=== PATIENT | male | born 1945 | race Caucasian/White ===

== ENCOUNTER 2023-06-28 07:46 | Day surgery (SDC) | payer MEDICARE, OTHER, SELFPAY ==
[2023-06-22 13:04] VITALS: BMI 24.9
[2023-06-28] VITALS (14 sets, daily range): BP systolic 135–171; BP diastolic 84–147; BMI 26.3
[2023-06-28] MEDS: LOW STRENGTH ASPIRIN 81 MG PO (08:40)
[2023-06-28] MEDS: NSS 222 ML IV (08:57)
[2023-06-28 09:06] LABS: Glucose - Point of Care 217 mg/dl (70-99)
--- NOTE | 2023-06-28 10:39 | ITS.CL.CATH ---
[facility] - Catheterization
Cardiac Catheterization
Procedure Report:
CARDIAC CATHETERIZATION REPORT
Date of Procedure: 06/28/2023
Referring: Emmanuel Wong M.D., OLAMIDE Nascimento
INDICATION: Dyspnea on exertion, abnormal stress test.
PROCEDURE:
1. Left heart catheterization.
2. Coronary angiography.
3. Aortography.
ACCESS:
6 [place] right radial artery.
CATHETERS:
1. 5 [place] JR4.
2. 5 [place] JL 3.5.
3. 5 [place] straight pigtail.
HEMODYNAMIC DATA
Weight (kg): 73.9
AO (s/d/x, mmHg): 138/85/107
LV (s/x mmHg): 138/12
LEFT VENTRICULOGRAPHY: Not performed.
AORTOGRAPHY: Performed in an KYLE projection. The aortic root, ascending aorta, aortic arch and descending aorta are normal size without evidence of dissection. Calcific atherosclerosis is visible in the aortic arch. There is mild aortic valve
regurgitation.
CORONARY ANGIOGRAPHY
Dominance: Right.
Left Main: Normal size, trifurcating vessel. There is no coronary artery disease.
LAD: Normal size vessel giving rise to 1 significant diagonal. The vessel is densely calcified throughout its entire proximal and mid section. There are minor luminal irregularities throughout. A patent stent is visible in the mid vessel after
the origin of the diagonal.
Ramus: Normal size vessel supplying a moderate part of the anterolateral wall. A patent stent is present in the ostium. There is a 40% lesion in the vessel after the stented segment.
Circumflex: Large size, nondominant vessel giving rise to 2 obtuse marginals. There are luminal irregularities throughout.
RCA: Normal size, dominant vessel. There is a 30% lesion in the proximal vessel.
INTERVENTION(S)
None.
Closure Device: Vascular band.
Radiation (mGy): 333.73
DAP (cm2.Gy): 29.5716
Fluoroscopy time (minutes): 3.6
Sedation time (minutes): 33
CONCLUSIONS
1. Right dominant circulation with densely calcified LAD with luminal irregularities throughout, a patent stent in the mid LAD, a patent stent in the ostium of the ramus intermedius with a 40% lesion after the stented segment and a 30% lesion in
the proximal RCA.
2. Normal filling pressures (LVEDP = 12 mmHg at 73.9 kg).
3. Normal sized aortic root, ascending aorta, aortic arch and descending aorta. Calcified aortic plaquing is visible at the apex of the aortic arch.
4. Mild aortic valve regurgitation.
RECOMMENDATIONS:
1. Expectant management after cardiac catheterization via right radial approach.
2. Limited weight bearing on the right wrist for one week.
3. No obvious culprit for dyspnea on exertion identified.
4. Stable for outpatient follow-up.
Copy to: Emmanuel Wong M.D., OLAMIDE Nascimento, Vale Martinez M.D.
Bill Agee DO, FACC, FACP
[2023-06-28 11:01] LABS: Glucose - Point of Care 147 mg/dl (70-99)
== END 2023-06-28 13:40 | disposition home or self-care (01) ==
LOC: CATH 07:46
PROVIDERS: ATTENDING PHYSICIAN Internal Medicine Cardiovascular Disease; FAMILY PHYSICIAN Family Medicine; OTHER PHYSICIAN Internal Medicine Cardiovascular Disease
DX: I25.10 Atherosclerotic heart disease of native coronary artery without angina pectoris (principal); R06.02 Shortness of breath; R94.39 Abnormal result of other cardiovascular function study; I48.21 Permanent atrial fibrillation; I11.0 Hypertensive heart disease with heart failure; I50.20 Unspecified systolic (congestive) heart failure; I25.5 Ischemic cardiomyopathy; I70.0 Atherosclerosis of aorta; I35.1 Nonrheumatic aortic (valve) insufficiency; E78.00 Pure hypercholesterolemia, unspecified; Z95.5 Presence of coronary angioplasty implant and graft; I25.2 Old myocardial infarction; E11.9 Type 2 diabetes mellitus without complications; K21.9 Gastro-esophageal reflux disease without esophagitis; Z86.711 Personal history of pulmonary embolism; Z79.82 Long term (current) use of aspirin; Z79.84 Long term (current) use of oral hypoglycemic drugs; Z79.85 Long-term (current) use of injectable non-insulin antidiabetic drugs; Z79.01 Long term (current) use of anticoagulants
CPT/HCPCS: C1894; 82962; 93458; 93567; Q9967

== ENCOUNTER → 2024-02-06 12:51 | Outpatient (REF) | payer MEDICARE, OTHER, SELFPAY | LOC: RCS 12:51 | PROVIDERS: ATTENDING PHYSICIAN Internal Medicine Cardiovascular Disease; FAMILY PHYSICIAN Family Medicine | DX: R06.02 Shortness of breath (principal) | CPT/HCPCS: 93225; 93226 ==

== ENCOUNTER → 2024-02-08 09:05 | Outpatient (REF) | payer MEDICARE, OTHER, SELFPAY ==
[2024-02-08 12:27] LABS: Blood Urea Nitrogen 26 mg/dl (9-20); Calcium 9.7 mg/dl (8.4-10.2); Carbon Dioxide 22 mmol/L (22-30); Chloride 97 mmol/L (98-107); Glucose 247 mg/dl (70-99); Sodium 138 mmol/L (135-145); eGFR > 60.00
== END ==
LOC: HWLAB 09:05
PROVIDERS: ATTENDING PHYSICIAN Internal Medicine Cardiovascular Disease; FAMILY PHYSICIAN Family Medicine
DX: R06.02 Shortness of breath (principal); I42.9 Cardiomyopathy, unspecified
CPT/HCPCS: 36415; 80048

== ENCOUNTER → 2024-02-28 13:58 | Outpatient (REF) | payer MEDICARE, OTHER, SELFPAY | LOC: HWRCS 13:58 | PROVIDERS: ATTENDING PHYSICIAN Nurse Practitioner Gerontology; FAMILY PHYSICIAN Family Medicine | DX: R06.02 Shortness of breath (principal); I34.0 Nonrheumatic mitral (valve) insufficiency; I25.10 Atherosclerotic heart disease of native coronary artery without angina pectoris | CPT/HCPCS: 93306 ==

== ENCOUNTER 2024-04-01 15:55 | Inpatient (IN) | payer MEDICARE, OTHER, SELFPAY ==
[2024-04-01] VITALS (12 sets, daily range): BP systolic 119–166; BP diastolic 71–130; BMI 20.4; BMI 19.4
--- NOTE | 2024-04-01 09:47 | ED.CVA ---
History of Present Illness
General
Chief Complaint: CVA/TIA Symptoms
Time Seen by Provider: 04/01/24 09:39
Onset of Stroke Symptoms
Onset of symptoms known: Yes
Date of onset of symptoms: 04/01/24
Time of onset of symptoms: 07:00
History of Present Illness
History of Present Illness:
78-year-old male with history of peripheral arterial disease, diabetes, coronary artery disease, and paroxysmal atrial fibrillation on Xarelto presents to the emergency department for evaluation of vision loss upon awakening today. [place] as seen
female left eye however gradually it is improved now he cannot see out of his left peripheral field. He does report mild left temporal discomfort as well as will posterior headache for the past 3 days as well. is concerned that his gait has
been very unsteady and he has been profoundly weak, also notes that the patient has not been eating or drinking much and has been very inactive for the past several days. Patient denies any chest pain or shortness of breath but is scheduled for
cardiac catheterization on
Past History
Past History
ED Past Medical History: GERD, [place], Other (ETOH, Gastritis, H-Plylori, DVT, spinal stimulator) and Other (PAF, PE DVT, Carmen filter, alcohol abuse)
ED Past Surgical History: Other ([place] filter,)
Social History
Tobacco: Non-smoker
Alcohol: Binge drinker
Drug: None
Personal:
Living: with family
Employment: Employed
Family History
Family History: Other
Review of Systems
Review of Systems
Allergies reviewed?: Yes
All Other Systems: ROS reviewed and negative except as documented in HPI and ROS
Phy Exam
Physical Exam
Physical Exam:
GEN: Well appearing, NAD, WDWN
HEENT: Oral mucosa moist, no scleral icterus, no nasal congestion
Cardiac: Regular rate
Lung: No respiratory distress, no tachypnea
MSK: No gross deformity or injuries
Skin: Good color, no pallor or jaundice, no rashes
Neuro: AO x3; CN II-XII grossly intact. BUE strength 5/5 in all harris, sensation intact and symmetric. BLE strength 5/5 in all harris, sensation intact and symmetric. Loss of left temporal visual field, other visual harris intact, afferent
pupillary defect noted on the left
Psych: Calm, cooperative
Course
Orders/Labs/Results
Orders:
Orders
04/01/24 09:46
CT Head & Neck Angio W/wo IV Urgent
Comment:
Reason For Exam: L vision loss
04/01/24 09:47
Electrocardiogram (*1) Urgent
Reason for Study: TIA/Stroke
EKG- Treatment ONCE
04/01/24 09:57
CRP [C-Reactive Protein] Urgent
Complete Blood Count/With Diff Urgent
Comprehensive Metabolic Panel Urgent
Erythrocyte Sed Rate Urgent
Comment: ADD ON
Ferritin Urgent
Comment: ADD ON
Folate Urgent
Comment: ADD ON
TSH Reflex To Free T4 Urgent
Comment: ADD ON
Vitamin B12 Urgent
Comment: ADD ON
04/01/24 12:04
Consult Neurology [NEUROLOGY CONSULT] Urgent
Consulting Provider: Xavier Gaston
Was physician already notified: Yes
04/01/24 12:38
Prochlorperazine [Compazine] 10 mg PO NOW ONE
04/01/24 12:53
Rizatriptan Orally Disintegrat [[facility] (Orally Disintegrating)] 10 mg PO ONCE ONE
04/01/24 13:00
Add On- LAB Routine
Comments:: Please add to today's labs or draw as routine
Tests Added?: TSH reflex, Ferritin, Folate, Vit. B12, ESR
04/01/24 13:38
Prednisone [Deltasone] 60 mg PO NOW STA
Abnormal Lab Results
04/01/24 04/01/24
09:57 10:01
RBC 4.59 L 10^6/uL
(4.70-6.10)
MCV 95.9 H fL
(80.0-94.0)
MCHC 30.9 L g/dL
(33.0-37.0)
Plt Count 574 H 10^3/uL
(130-400)
Abs Immat Gran (auto) 0.1 H 10^3/uL
(0-0.05)
Absolute Monos (auto) 0.7 H 10^3/uL
(0.1-0.6)
Immature Gran % 0.7 H %
(0-0.5)
Lymphocytes % 17.2 L %
(20.5-51.1)
Monocytes % 10.4 H %
(1.7-9.3)
ESR 66 H mm/hour
(0-20)
Carbon Dioxide 15 L mmol/L
(22-30)
Creatinine 0.6 L mg/dL
(0.7-1.3)
Glucose 180 H mg/dl
(70-99)
C-Reactive Protein 184.20 H mg/L
(0.0-10.00)
Albumin 3.4 L g/dl
(3.5-5.0)
POC Glucose 169 H mg/dl
(70-99)
04/01/24 09:57
04/01/24 09:57
Vital Signs
Initial and Last Documented VS:
Initial Vital Signs
Pulse Resp BP Pulse Ox
113 18 123/72 100
04/01/24 09:32 04/01/24 09:32 04/01/24 09:32 04/01/24 09:32
Last Documented Vital Signs
Pulse Resp BP Pulse Ox
118 17 119/86 100
04/01/24 12:45 04/01/24 12:45 04/01/24 12:00 04/01/24 09:42
MDM/Problems Addressed
MDM/Problems Addressed:
At this time after initial workup I suspect this may be a potential giant cell arteritis presentation however cannot discount the possibility of a CVA versus central retinal artery occlusion. Neuro evaluated the patient and there is consideration
for atypical migraine as well. Given the patient's numerous risk factors particular vascular disease and atrial fibrillation we will admit the patient for further CVA workup, I will empirically start the patient on high-dose prednisone for
potential giant cell arteritis and he will need further follow-up with a surgical specially for biopsy
*Critical Care Note
Total Time (30-74mins, 75-104mins- exclusive of procedures): Not Applicable
ED Attending Note
-
Portions of this chart may have been created with voice recognition software.� Occasional wrong word or��sound alike� substitutions may have occurred due to the inherent limitations of voice recognition software.
Discharge Plan
Departure
Patient Disposition: Admit
Date of Disposition: 04/01/24
Time of Disposition: 13:34
Admit to: Med/Surg
Presentation/result/management discussed w/ accepting MD/DO: Hospitalist
Discharge Problem:
Vision loss, left eye
Prescriptions:
No Action
lorazepam 0.5 MG tablet
0.5 mg PO BID
Patient Comments:
04/01/24: Filled #60 tablets/30 day supply on 02/22/24 at [facility]
cyanocobalamin (vitamin B-12) 1,000 MCG tablet
500 mcg PO DAILY
atorvastatin 40 MG tablet
40 mg PO QPM
spironolactone 25 MG tablet
25 mg PO DAILY
metoprolol succinate 25 MG tablet extended release 24 hr
25 mg PO BID
glipizide 10 mg Tablet
10 mg PO BID@0800,1700
aspirin 81 mg Tablet,Chewable
81 mg PO DAILY
duloxetine [Cymbalta] 20 mg Capsule,Delayed Release(Dr/Ec)
20 mg PO QPM
Jardiance 25 mg Tablet
25 mg PO DAILY
Trulicity 0.75 mg/0.5 mL Pen Injector
0.75 mg SC LEIVA
Xarelto 20 mg tablet
20 mg PO QPM
Referrals:
Jose Monae MD [Family Provider] -
Interventions
Interventions:
*Risk Screen - Suicide Last Done: 04/01/24 09:32
*General Assessment Last Done: 04/01/24 09:32
*Neglect/Abuse Screening Last Done: 04/01/24 09:32
ED- Fall Risk Assessment Last Done: 04/01/24 09:42
*ED COVID-19 Vaccine History Last Done: 04/01/24 09:32
ED- Pulmonary Assessment Last Done: 04/01/24 09:42
ED- Neurological Assessment Last Done: 04/01/24 10:05
ED- Cardiac Assessment Last Done: 04/01/24 09:42
ED Swallowing Screen Last Done: 04/01/24 11:52
Discharge Date and Time
Print Language: AZERI
[2024-04-01 10:07] LABS: Glucose - Point of Care 169 mg/dl (70-99)
[2024-04-01 10:14] LABS: % Basophils 0.3 % (0-2); % Eosinophils 0.7 % (0-6); % Immature Granulocytes 0.7 % (0-0.5); % Lymphocytes 17.2 % (20.5-51.1); % Monocytes 10.4 % (1.7-9.3); % Neutrophils 70.7 % (42.2-75.2); Absolute Eosinophils 0.1 10^3/uL (0-0.7); Absolute Immature Granulocytes 0.1 10^3/uL (0-0.05); Absolute Lymphocytes 1.2 10^3/uL (1.2-3.4); Absolute Monocytes 0.7 10^3/uL (0.1-0.6); Absolute Neutrophils 4.8 10^3/uL (1.4-6.5); Hemoglobin 13.6 g/dL (13.0-18.0); Mean Corp Hgb Conc. 30.9 g/dL (33.0-37.0); Mean Corpuscular Hgb 29.6 pg (27.0-31.0); Mean Corpuscular Volume 95.9 fL (80.0-94.0); Mean Platelet Volume 9.4 fL (7.4-10.4); Nucleated Red Blood Cells % 0 % (-); Platelet Count 574 10^3/uL (130-400); Red Blood Cell Count 4.59 10^6/uL (4.70-6.10); Red Cell Dist. Width 13.4 % (11.5-14.5); White Blood Cell Count 6.8 10^3/uL (4.8-10.8)
[2024-04-01 10:51] LABS: ALT (SGPT) 22 U/L (0-50); AST (SGOT) 30 U/L (17-59); Albumin 3.4 g/dl (3.5-5.0); Alkaline Phosphatase 113 U/L (38-126); Blood Urea Nitrogen 19 mg/dl (9-20); Calcium 9.3 mg/dl (8.4-10.2); Carbon Dioxide 15 mmol/L (22-30); Chloride 100 mmol/L (98-107); Estimated Creatinine Clearance 86 ml/min; Glucose 180 mg/dl (70-99); Potassium 4.5 mmol/L (3.5-5.1); Sodium 138 mmol/L (135-145); Total Bilirubin 0.5 mg/dl (0.2-1.3); Total Protein 6.9 g/dl (6.3-8.2); eGFR > 60.00
--- NOTE | 2024-04-01 12:34 | CON.NEURO4 ---
Addendum entered and electronically signed by Xavier Gaston MD 04/01/24 16:15:
Studies reviewed.
I have personally examined the patient. I reviewed and agree with the CUT OFF SAW SET UP OPERATOR's Note.
My addenda:
Awake, alert, interactive. No acute distress.
Speech intact.
Follows 2-step requests w/ mild difficulty. No tremor.
Extra-ocular movements grossly intact. Questionable APD on the left
Facial movements full and symmetric. Hearing intact to normal conversational volume.
Normal UE movements bilaterally.
Neck: full ROM.
Chest: no dyspnea
Heart: no JVD
Ext: (-) Clubbing, (-) Cyanosis, (-) Edema
IMPRESSIONS/RECOMMENDATIONS:
Abrupt onset of left eye visual loss which is circumferential and not present on contralateral side
Differential diagnosis is broad and includes migraine with aura, central retinal artery occlusion (less likely based on pattern of visual loss), central right occipital acute ischemic stroke, and temporal arteritis based on the patient's markedly
elevated CRP and elevated ESR
Provide rizatriptan and prochlorperazine due to the patient's recurrent headache
Advance the patient's duloxetine dosing from 20 mg to 30 mg due to recurrent headaches as migraine prevention medication
Okay to continuing prednisone 60 mg daily in attempts to reduce possible giant cell arteritis
Agree with vascular surgery consultation for assistance with temporal artery biopsy
Continue atorvastatin
MRI imaging of the brain due to the patient's prior history of atrial fibrillation as well as diabetes
Provide thiamine to avoid possible alcohol withdrawal
D/W patient / family / nursing
All questions answered.
Will continue to follow patient.
Original Note:
Documented by User: Meseret Siddiqi NP 04/01/24 15:52
Consultation - Neurology 4
-
CONSULTING PHYSICIAN: Xavier Gaston MD
REFERRING PHYSICIAN: LEIGHA/Poli Telles PA-C
DICTATED BY: OLAMIDE Coronel
DATE/TIME OF REQUEST: 04/01/24
DATE/TIME OF CONSULTATION: 04/01/24
Reason for Consultation: Left eye vision loss
History of Present Illness:
This is a 78-year-old right-handed male who has presented to the hospital with report of left eye vision loss. Patient reports having a posterior headache starting yesterday morning that is persistent today. Otherwise, he was in his usual state
last evening when he went to bed. He woke up this morning and gradually noticed that his left eye vision was absent peripherally, prompting him to come to the ER for evaluation. CT head and CTA head/neck demonstrate a chronic left cerebellar infarct
but no acute abnormalities. Patient notes that his vision seems to have improved slightly in his left eye but he still mostly has only central vision. He notes seeing an irregular 'snowflake' image in his right eye vision at times but denies any
overt vision loss in the right eye. He also notes mild left temporal discomfort and left eye irritation/feeling like dust is in his eye. He denies any dizziness, speech/swallow difficulty, chest pain, and palpitations. He notes nausea yesterday and
photophobia today but denies phonophobia and vomiting. He also reports chronic balance issues which he attributes to his diabetic neuropathy, his BLE have severely decreased sensation. At baseline he has headaches 4-5 days of the week,
intermittently associated with seeing jagged lines in his vision. He is taking Xarelto for Afib and aspirin 81mg daily for cardiac purposes and denies missing any doses. He had bilateral cataract extractions with lens implants by Dr. Gibbs and
notes that he does not need glasses or contacts at baseline. His last ophthalmology appt was 1.5 years ago. He also notes ongoing issues with dyspnea on exertion and is scheduled to have a cardiac cath on 04/04/24. NIHSS is a 3 on Neurology's
evaluation for bilateral upper and lower visual field loss in the left eye only and slight left eye ptosis. He is not a candidate for TNK/IAT due to low NIHSS, unclear diagnosis. CRP is notably elevated at184 and ESR is 66. Patient denies any jaw
discomfort.
Past Medical History: Afib (Xarelto), TIA 2020 expressive aphasia, hypercoagulable prothrombin gene, PE, DVT, CAD, HFrEF, HLD, NSTEMI, NIDDM, diabetic neuropathy, PAD, GERD, H. pylori, former alcohol abuse, anxiety, depression, unintentional
weight loss, gait dysfunction, bladder neoplasm
Surgical History: Carmen filter, b/l cataract removal and ocular lens implants, spinal stimulator (no longer functioning), cardiac cath, LAD stent
Family History: Father- TIA.
Social History: Former alcohol abuse, stopped drinking September 2023, daily marijuana gummy, denies tobacco.
Allergies: Cephalosporins, Lovenox, heparin, penicillins, venom-honey bee.
Home Medications: See below.
Review of Symptoms:
Patient denies any fever, headache, chest pain, shortness of breath, GI or symptoms.
�Per the HPI.�All systems are reviewed negative except above.
Physical Exam:
The patient is afebrile, abdomen is nondistended, breathing is unlabored, skin is warm and dry, no edema.
NIH Stroke Scale:
I performed the NIH stroke scale on the patient on 04/01/24 at 1245. The patient scored 3 points on the NIH stroke scale assessment, which were assigned as follows: See below.
Neurologic Examination:
The patient is awake, alert and oriented x 3, poor historian. He is able to follow commands and answer questions appropriately. There is no aphasia or dysarthria. On cranial nerve assessment, pupils are 3 mm bilateral, there is a left eye APD.
Visual melgar are absent in the left eye. Extraocular movements are intact. Facial sensations are intact and bilaterally symmetrical, there is a slight left ptosis. Hearing is diminished bilaterally to normal conversation volume. Tongue palate and
uvula are midline. Sternocleidomastoid strengths are full bilaterally. Motor strengths are 5/5 bilateral upper and lower extremities on medical research [place] scale. There is no drift or involuntary movement noted. Babinski is absent bilaterally.
Sensations of touch is diminished in BLE. There was no extinction noted on double simultaneous stimulation. Coordination is intact by finger to nose bilaterally.
Lab Results: See below.
Neuro Imaging:
1. CT Head 04/01/24: No interval change compared to the prior study. Redemonstration of mild cerebral atrophy and small chronic lacunar infarct within the LEFT cerebellar hemisphere.
2. CTA Head/Neck 04/01/24: No large vessel occlusions or dissections appreciated. Moderate calcified plaque within both carotid bulbs and proximal ICAs causing less than 50% luminal narrowing bilaterally. No acute intracranial abnormality. Couple of
lacunar infarcts, described above.
Differentials for the patient's presentation include:
1. Migraine with aura possibly contributing to symptoms.
2. Posterior ischemic stroke possibly contributing to symptoms given left eye APD and slight ptosis. CRAO possible.
3. Elevated CRP and ESR cannot exclude temporal arteritis contributing to symptoms.
3. CT head demonstrates a small chronic left cerebellar infarct.
4. Afib (Xarelto).
Patient has the following risk factors for their symptoms: Hx headaches with aura, elevated CRP/ESR, chronic left cerebellar infarct, Afib.
IV Tenecteplase/IAT candidacy: Not a candidate due to unclear diagnosis, outside of time window due to wake-up symptoms, no LVO, last dose of Xarelto within 24 hours.
Recommendations:
-Continue home Xarelto (once cleared by Vascular surgery after temporal artery biopsy) and aspirin.
-Provide prochlorperazine 10mg and rizatriptan 10mg x1 for headache relief.
-MRI brain noncontrast pending.
-Goal normotension.
-Vascular surgery evaluation.
-Checking blood work for metabolic abnormalities.
-LDL goal <70 due to old stroke. Lipid panel pending. Continue home atorvastatin 40mg daily.
-Goal normoglycemia, hb1c is pending.
-NIHSS and neurological checks per unit guidelines.
-Provide patient with a stroke education packet.
-PT/OT/ST evaluations.
-DVT prophylaxis with OAC.
-Will follow pending results.
Discussed patient care with: Dr. Gaston, the patient
Vital Signs and Labs
-
Vital Signs and Labs:
Vital Signs
Pulse Resp BP Pulse Ox
118 17 119/86 100
04/01/24 12:45 04/01/24 12:45 04/01/24 12:00 04/01/24 09:42
Lab Results
04/01/24 09:57
04/01/24 09:57
Sodium 138 mmol/L (135-145) 04/01/24 09:57
Potassium 4.5 mmol/L (3.5-5.1) 04/01/24 09:57
BUN 19 mg/dl (9-20) 04/01/24 09:57
Glucose 180 mg/dl (70-99) H 04/01/24 09:57
Calcium 9.3 mg/dl (8.4-10.2) 04/01/24 09:57
Vitamin B12 840 pg/ml (239-931) 04/01/24 09:57
Medications
-
Active Medications
Generic Name Dose Route Start Last Admin
Trade Name Freq PRN Reason Stop Dose Admin
Acetaminophen 1,000 mg 04/01/24 22:00
Acetaminophen 500 Mg Tablet PO 04/29/24 21:59
Q8HPRN PRN
headache
Home Medications
�Medication �Instructions �Recorded
lorazepam 0.5 mg tablet 0.5 mg PO BID anxiety 10/05/19
atorvastatin 40 mg tablet 40 mg PO QPM High cholesterol 12/05/19
cyanocobalamin (vitamin B-12) 500 mcg PO DAILY Supplement 12/05/19
1,000 mcg tablet
spironolactone 25 mg tablet 25 mg PO DAILY Fluid 12/05/19
retention/Swelling
metoprolol succinate 25 mg 25 mg PO BID Heart Disease/BP 12/06/19
tablet,extended release 24 hr
aspirin 81 mg chewable tablet 81 mg PO DAILY Blood Clot 06/20/23
Prevention/Tx
dulaglutide 0.75 mg/0.5 mL 0.75 mg SC LEIVA Diabetes 06/20/23
subcutaneous pen injector
(Trulicity)
duloxetine 20 mg capsule,delayed 20 mg PO QPM depression/anxiety 06/20/23
release (Cymbalta)
empagliflozin 25 mg tablet 25 mg PO DAILY Diabetes 06/20/23
(Jardiance)
glipizide 10 mg tablet 10 mg PO BID@0800,1700 Diabetes 06/20/23
rivaroxaban 20 mg tablet (Xarelto) 20 mg PO QPM Blood Clot 04/01/24
Prevention/Tx
NIH Stroke Score
Subsequent NIH Scale
Date of Subsequent NIH Scale: 04/01/24
Time of Subsequent NIH Scale: 12:45
NIH Stroke Score
Level of Consciousness: 0 - Alert
LOC Questions: 0-Answers both correctly
LOC Commands: 0-Performs both correctly
Best Horizontal Gaze: 0-Normal
Visual Melgar: 2=Full hemianopia
Facial Palsy: 1=Minor paralysis
Motor - Right Arm: 0=No drift 10 seconds
Motor - Left Arm: 0=No drift 10 seconds
Motor - Right Le-No drift 5 seconds
Motor - Left Le-No drift 5 seconds
Limb Ataxia: 0-Absent
Sensation: 0-Normal
Best Language: 0-No aphasia
Dysarthria: 0-Normal
Extinction and Inattention: 0-No abnormality
Total Score:: 3
Modified [place] (mRS) Score
Modified David Scale (mRS): No significant disability. Able to carry out usual activities.
Score: 1

Documented by User: Xavier Gaston MD 04/01/24 15:57
NIH Stroke Score
NIH Stroke Score
Total Score:: 3
Modified [place] (mRS) Score
Score: 1
[2024-04-01] MEDS: COMPAZINE 10 MG PO (12:56)
[2024-04-01] MEDS: MAXALT MLT (ORALLY DISINTEGRATING) 10 MG PO (13:05)
--- NOTE | 2024-04-01 13:56 | HPS.HSE ---
Family Physician
-
Family Physician: Jose Monae MD
Chief Complaint
-
Posterior headache, left eye visual loss
History of Present Illness
78-year-old male reports posterior headache for the past 2 to 3 days with some neck pain he thought it was neck strain. He reports he typically has 3-5 headaches a week that is relieved with 1000 mg of Tylenol. He did not take Tylenol this a.m.
He reports yesterday he experienced bright snow like floaters in the Right eye 2-3 times with no associated Right eye pain. This morning he woke up and reports complete Blindness of his Left eye although had 4-5 dots of Bright light specks he could
see. He still reports a Posterior Headache today he had brief pain lasting 10 seconds in the left eye and left temporal area x 2 today. When standing in the room to void his heart rate went up to 178 bpm with A-fib pattern. He also became
hypertensive with blood pressure 143/100 . This did go down when sitting to heart rate 104 bpm A-fib and BP 163/94. He has been weak not eating or drinking as much over the past several days. He reports his gait has been unsteady for at least 6
months. due to his diabetic peripheral neuropathy. He has history of bilateral cataract extraction with lens implants 4 to [address] Gibbs. He also has a lumbar spinal stimulator that does not work but he states is MRI compatible. He
denies fever, chills, chest pain, palpitations, shortness breath at rest, abdominal pain, nausea, vomit, diarrhea, urinary symptoms.
He has also been having shortness of breath and SOLANO x 6 months and is due for cardiac cath this with [facility] cardiology
He has past medical history of bilateral cataract extraction with lens implants 4 to [address] Gibbs, chronic headaches 3-5 times a week, TIA with expressive aphasia November 2019 transient DM2 with chronic peripheral neuropathy, medical
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 pylori, spinal stimulator.
Medical History
Past Medical History
Past Medical History: Reports Other
Additional Past Medical History:
Chronic headaches 3 to 5/week
CAD�MN/mid LAD stent, ostium of ramus stent
GERD/gastritis
H. pylori
DM2 with diabetic peripheral neuropathy
Marijuana use daily 1-2 Gummies
Alcohol abuse/binge drinker stopped September 2023
Anxiety/depression
Paroxysmal A-fib on Xarelto
TIA transient November 2019 with expressive aphasia
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
Spinal stimulator not working is MRI compatible per patient
Past Surgical History: Reports Other
Additional Past Surgical History:
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
Spinal stimulator not working but is MRI compatible
MN/mid LAD stent, ostium of ramus stent
Social History
Tobacco: Non-smoker
Alcohol: Former (Binge drinker stopped September 2023)
Drug: Marijuana (Gummies 1 to 2/day)
Personal:
Living: With Family ( Jeanine)
Employment: Retired
Family History
Family History: Other (Father heart disease, TIA age 84 mother leukemia age 76)
Allergies / Home Medications
Allergies reflects when Allergies were last updated in [employer].
Home Medications with original date entered in [employer]
Allergy/Medication List:
Allergies
Allergy/AdvReac Type Severity Reaction Status Date / Time
Cephalosporins Allergy Unknown Verified 04/01/24 09:41
enoxaparin sodium Allergy GI bleed Verified 04/01/24 09:41
[From Lovenox]
Heparin Analogues Allergy GI Rectal Verified 04/01/24 09:41
[Heparin Agents] bleeding
Penicillins Allergy Hives/swell Verified 04/01/24 09:41
ing/sob/itc
h
venom-honey bee Allergy Anaphylaxis Verified 04/01/24 09:41
[bee venom (honey bee)]
Home Medications
lorazepam 0.5 mg tablet 0.5 mg PO BID anxiety 10/05/19
atorvastatin 40 mg tablet 40 mg PO QPM High cholesterol 12/05/19
cyanocobalamin (vitamin B-12) 1,000 mcg tablet 500 mcg PO DAILY Supplement 12/05/19
spironolactone 25 mg tablet 25 mg PO DAILY Fluid retention/Swelling 12/05/19
metoprolol succinate 25 mg tablet,extended release 24 hr 25 mg PO BID Heart Disease/BP 12/06/19
aspirin 81 mg chewable tablet 81 mg PO DAILY Blood Clot Prevention/Tx 06/20/23
dulaglutide 0.75 mg/0.5 mL subcutaneous pen injector (Trulicity) 0.75 mg SC LEIVA Diabetes 06/20/23
duloxetine 20 mg capsule,delayed release (Cymbalta) 20 mg PO QPM depression/anxiety 06/20/23
empagliflozin 25 mg tablet (Jardiance) 25 mg PO DAILY Diabetes 06/20/23
glipizide 10 mg tablet 10 mg PO BID@0800,1700 Diabetes 06/20/23
rivaroxaban 20 mg tablet (Xarelto) 20 mg PO QPM Blood Clot Prevention/Tx 04/01/24
Review of Systems
-
History Source: Patient
A 12 point ROS was completed and negative except as noted: Yes
Constitutional: Denies Fever, Fatigue or Chills
EENT: Reports Other (Left eye visual impairment has mainly central vision with left eye peripheral field deficit and upper field deficit to central vision only, nontender left temporal area); Denies Sore Throat or Runny Nose
Respiratory: Reports Trouble Breathing (Chronic SOLANO x 6 months); Denies Cough
Cardiac: Denies Chest Pain, Diaphoresis, Palpitations or Syncope
Abdomen/GI: Denies Abdominal Pain, Nausea, Vomiting, Diarrhea, Constipated or Bloody Stools
: Denies Dysuria, Frequency, Flank Pain, Incontinence, Difficulty Voiding or Urgency
Musculoskeletal: Denies Joint Pain or Edema
Skin: Denies Itching or Rash
Neurological: Reports Headache (Posterior headache) and Other (Reports chronic ataxia x 6 months he believes due to neuropathy); Denies Dizzy, Weakness or Numbness
Endocrine: Reports No Symptoms
Hematologic/Lymphatic: Reports No Symptoms
Psych: Reports Calm
Physical Exam
Vital Signs
Vital Signs
Pulse Resp BP Pulse Ox
118 17 119/86 100
04/01/24 12:45 04/01/24 12:45 04/01/24 12:00 04/01/24 09:42
Physical Exam
General: Pain (Posterior headache 6 out of 10); No Fever or Chills
HEENT: NormoCephalic, Anicteric, Moist mucous membranes, Atraumatic, PERRLA (4 mm bilateral), [place] Conjunctivae, No Ptosis and Other (Left eye visual impairment has mainly central vision with left eye peripheral field deficit and upper field deficit
to central vision only, nontender left temporal area, EOMs intact,)
Respiratory: Clear; No Wheezes, Rales or Rhonchi
Cardiac: S1/S2 and Irregular Rhythm (A-fib 10 1-1 78 with standing); No Murmur, Rub, Gallop, Peripheral Edema or JVD
Breast: Deferred by me
GI: Soft, Non Tender, Non Distended, Normal Bowel Sounds and No Hepatosplenomegaly
Rectal: Deferred by Provider
Genito-urinary: Deferred by me
Musculoskeletal: No Clubbing, No Cyanosis and No Edema
Skin: Warm and Dry; No Rash
Neuro: AO x 3, No Motor Deficits, Cranial Nerves Intact, No Sensory Deficits and Other (Left eye visual impairment has mainly central vision with left eye peripheral field deficit and upper field deficit to central vision only, nontender left
temporal area); No Slurred Speech, Facial Droop, Tremors or Sedated
Psych: Calm
Laboratory Results
-
04/01/24 09:57
04/01/24 09:57
Laboratory Results
Total Bilirubin 0.5 mg/dl (0.2-1.3) 04/01/24 09:57
AST 30 U/L (17-59) 04/01/24 09:57
ALT 22 U/L (0-50) 04/01/24 09:57
Alkaline Phosphatase 113 U/L (38-126) 04/01/24 09:57
Data Reviewed
-
CT Scan: Report Reviewed by me
Lab Data: Labs Reviewed by me
Impression/Plan
-
Impression/plan:
Inpatient telemetry
#Left eye visual loss concern for Giant cell Arteritis vs Migraine aura
# Chronic daily headaches 3-5 times a week undiagnosed but relieved with 1000 mg Tylenol
Was given rizatriptan 10 mg once and Compazine in ER for headache/temporal pain with no improvement in headache
Elevated CRP 184
-Consult Neurology
-Neurochecks every 4 hours
-Check lipid profile, HgbA1c, B12
-MRI brain
-Prednisone 60 mg now given in ER will continue 60 mg daily
-Tylenol 1000 mg 3 times daily as needed headache
-Will add insulin SSI scale to cover for elevated blood sugars
-Consult Vascular surgery Dr. Lindamporal artery biopsy-will hold Xarelto for temporal artery biopsy tomorrow 04/04 2024
-PT/OT/case management consult
CT head:
1. No large vessel occlusions or dissections appreciated.
2. Moderate calcified plaque within both carotid bulbs and proximal ICAs causing less than 50% luminal narrowing bilaterally.
3. No acute intracranial abnormality. Couple of lacunar infarcts, described above.
2D echo 02/28/2024: EF 60 to 65%, no wall abnormality,
Severe dilated left atrium mod/severe dilated right atrium.
Mild aortic regurgitation
#HTN labile
BP 143/100 with standing to avoid resolved to 163/94 sitting
-Will have IV Lopressor 5 mg Q6 SBP> 165,Crissy> 100
#DM 2
-Accu-Cheks with SSI low, check HgbA1c
-Continue glipizide 10 mg twice daily patient on Trulicity 0.75 Mg subcu Sundays
-Continue Jardiance 25 mg daily
#Paroxysmal A-fib with rapid A-fib standing
Rapid A-fib HR to 178 bpm when standing resolves when sitting
-Patient on Xarelto 20 mg every afternoon--will hold Xarelto for temporal artery biopsy tomorrow 04/04
-Continue Metoprolol 25 mg twice daily, Xarelto 20 mg every afternoon
-Will have IV Lopressor 5 mg Q6h if HR > 120, SBP> 165,Crissy> 100
-Consult [facility] cardiology
#CAD/cardiac stent/MN
-Continue metoprolol succinate 25 mg twice daily, atorvastatin 40 mg every afternoon, aspirin 81 mg daily
-Follows with [facility] cardiology is due for cardiac cath 04/04/2024
Cardiac cath 06/28/2023:
-Patent stent in the mid LAD, a patent stent in the ostium of the ramus intermedius with a 40% lesion after the stented segment and a 30% lesion in the proximal RCA.
#Hx alcohol abuse/binge drinker
-Stopped September 2023
-Continue B12 supplement
#Chronic systolic heart failure
History of ischemic cardiomyopathy 30-35% November 2019 improved EF now 60-65% February 2024
I/O, daily weights
Continue spironolactone
# GERD/gastritis
#H. pylori Hx
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
#Spinal stimulator no longer working for years but is MRI compatible
#Anxiety/depression
-Continue lorazepam 0.5 mg p.o. twice daily, Cymbalta 20 mg every afternoon
DVT prophylaxis
Continue VETERINARY TECHNICIAN Xarelto 20 mg every afternoon-will hold Xarelto for temporal artery biopsy tomorrow 04/02/2024
SCDs for now
DNR per patient
[2024-04-01] MEDS: DELTASONE 60 MG PO (13:59)
[2024-04-01 14:21] LABS: Erythrocyte Sed Rate 66 mm/hour (0-20)
[2024-04-01 15:00] LABS: Vitamin B12 840 pg/ml (239-931)
--- NOTE | 2024-04-01 15:22 | W.PN.UPDATE ---
Update Note
Progress Note Update
This note serves as an addendum to the H&P by electrolysis engineer DWAYNE Nuvia Vasques
HPI
78M HX PAD, DMT2, CAD, Prx AF, chronic Xarelto, ETOH, Gastritis,, DVT, PE, IVCF, spinal stimulator, Quit ETOH use in September seen at ER:
- woke up with Lt eye vision loss @ outter and upper quardrants but somewhat gradually improving
- report mild left temporal discomfort as well as will posterior headache for the past 3 days
- ESR 66, pending CRP 184 s/p PO Prednisone 50 at ER
- is concerned that his gait has been very unsteady and he has been profoundly weak, poor appetitie
- Scheduled for cardiac catheterization on
ROS: Denies any chest pain or shortness of breath
Reviewed VS: 120/85 HR 110s
PE
Gen: Not toxic
HEENT: Lt eye vision impaired sylvia at outer and upper quadrant
Neck: no neck bruit
Lungs: CTA
Cor: Irregular HR 110s to 120s
Abdomen: benign exam
RESIDENTIAL FEE APPRAISER: AAO3 NFND motor an sensory deficit
MS:no edema
Psych: appropriate
Data
04/01/24
09:57
WBC 6.8
Hgb 13.6
Plt Count 574 H
ESR 66 H
Carbon Dioxide 15 L
BUN 19
Creatinine 0.6 L
eGFR > 60.00
Glucose 180 H
C-Reactive Protein 184.20 H
H & N CTA
1. No large vessel occlusions or dissections appreciated.
2. Moderate calcified plaque within both carotid bulbs and proximal ICAs causing less than 50% luminal narrowing bilaterally.
3. No acute intracranial abnormality. Couple of lacunar infarcts, described above.
4. Additional findings above.
EKG
ATRIAL FIBRILLATION WITH RAPID VENTRICULAR RESPONSE WITH PREMATURE VENTRICULAR
OR ABERRANTLY CONDUCTED COMPLEXES
POSSIBLE ANTERIOR INFARCT , AGE UNDETERMINED
ABNORMAL ECG
WHEN COMPARED WITH ECG OF 22-JUN-2023 13:45,
BORDERLINE CRITERIA FOR ANTERIOR INFARCT ARE NOW PRESENT
QT HAS LENGTHENED
Confirmed by MD SIM, TESSIE Wilhelm ([id number]) on 04/01/2024 2:28:15 PM
02/28/2024 TTE
- LVEF 60 to 65%
- No WMAL
- Severe dilated left atrium mod/severe dilated right atrium.
- Mild aortic regurgitation
06/28/23 Cardiac cath
- Patent stent in the mid LAD, a patent stent in the ostium of the ramus intermedius with a 40% lesion after the stented segment and a 30% lesion in the proximal RCA.
ASSESSMENT & PLAN
Acute Left eye abnormal visual loss DDX : giant cell arteritis vs CVA TIA
Elevated CRP 184, Elevated ESR 66
- S/P 50mg PO Prednisone at ER
- lipid profile, HgbA1c
- Brain MRI
- cont. Prednisone 60mg daily
- Neuro consulted
- Vascular consult for TA Biopsy: ? Mon per Dr Rios ( case hospitalist d/w vascular )
At risk for steroid induced Hyperglycemia
HX DM 2
- low SSI, check HgbA1c
- c/w glipizide 10 mg twice daily patient on Trulicity 0.75 Mg subcu Sundays
- c/w Jardiance 25 mg daily
Paroxysmal A-fib with RVR
- Hold Xarelto for 25hrs prior to TA Biopsy
- STRAIGHT PIN MAKING MACHINE OPERATOR metoprolol 25 mg twice daily,
- [facility] card consult
HX CAD/cardiac stent/[place]
- on metoprolol succinate 25 mg twice daily, atorvastatin 40 mg every afternoon, aspirin 81 mg daily
- Follows with [facility] cardiology is due for cardiac cath 04/04/2024
Currently restored nl LVEF to 60 -65 s/p stent Jun 2023
HX ICM with EF 30-35 % in September 2019
History of ischemic cardiomyopathy 30-35% November 2019 improved EF now 60-65% February 2024
- f/u wt daily
- c/w Metoprolol, spironolactone
HX alcohol abuse/binge drinker : Quit since september 2023
- on B12 supplement
HX GERD/gastritis
HX H. pylori Hx
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
DVT Px: SCD while holding Chr Xarelto
DNR per patient
IP TLM
--- NOTE | 2024-04-01 16:00 | CON.CAR ---
Addendum entered and electronically signed by Mingo Waller MD 04/01/24 17:28:
I saw and examined the patient.
The INFORMATION SECURITY OFFICER's note was reviewed and I agree with the note.
Comment:
78 y/o male with permanent AFIB on Xarelto, CAD with hx multiple stents (most recent 2019), ICM with recovered EF, DVT/PE on Xarelto, hypercoagulable disorder, IVC filter, hx TIA, neuropathy, anxiety, dyslipidemia, DM, and hypertension who is here
for evaluation of occipital headache with jaw claudication concerning for temporal arteritis. Cardiology is consulted for management of atrial fibrillation with RVR.
Exam notable for cachexia and rubbery texture of temporal arteries. Labs notable for CRP 184 and ESR 66. ECG shows atrial fibrillation. Telemetry with heart rate in the 100s to 120s.
Patient has been given empiric steroids due to concern for temporal arteritis with partial vision loss. Vascular surgery and neurology have been consulted. In terms of his atrial fibrillation, he did not take his metoprolol this morning which may
in part be why his rates are high. We will resume his home metoprolol and uptitrate as needed for heart rate goal less than 110. In terms of his anticoagulation plan, he has a [id number] of 7 and remote history of TIA, but he has also had issues
with bleeding while being on heparin/Lovenox in the past. He underwent spinal stimulator implantation 4-5 years ago without bridging and there was no issue. Thus, we will not bridge him for his temporal artery biopsy. He should be on DVT
prophylaxis given his history of DVT/PE. He will continue on his other home cardiac meds including aspirin, atorvastatin, spironolactone, and dapagliflozin. He was initially planned for right heart catheterization on for subacute
shortness of breath. We will postpone for now pending clinical course. I worry that his dyspnea may be due to some kind of underlying malignancy as he has lost 50 pounds unintentionally in the past 6 months.
We will continue to follow along with you.
Original Note:
Consultation
Consultation Request
Date/Time Consultation Requested: 04/01/24 1518
Date/Time Consultation Performed: 04/01/24 1525
Requesting Provider: Wendi Bass NP
Performing Provider: Lalitha QUIÑONEZ for Dr. Waller
Reason for Consultation: AFIB, RHC planned for this week
Medical History
-
Chief Complaint: headache, visual changes
History of Present Illness:
78 y/o male with permanent AFIB on Xarelto, CAD with hx multiple stents (most recent 2019), ICM with recovered EF, DVT/PE on Xarelto, hypercoagulable disorder, IVC filter, hx TIA, neuropathy, anxiety, dyslipidemia, DM, and hypertension who is here
for evaluation of occipital headache constantly for 3 days- worse with sitting and chewing. He has also had bilateral visual changes with darkness and floaters to left eye and intermittent 'halo' to right eye. He has been struggling with balance
issues. Additionally, he has had SOLANO and was scheduled for RHC later this week for evaluation. It has worsened over the past 3-4 days. He has also had associated light-headedness. He is compliant with all meds, but only took Jardiance so far today.
He has been losing weight (25 lbs over 3 months) and has a poor appetite. His 'stamina' has been poor as well.
Past Medical History
Past Medical History: Arrhythmias, CAD, HTN, Hypercholesterolemia, NIDDM and Other (as above)
Social History
Tobacco: Non-Smoker
Alcohol: Other (none since Spring 2023)
Family History
Family History: Reviewed & Not Pertinent
Allergies / Home Medications
Allergy/AdvReac Type Severity Reaction Status Date / Time
Cephalosporins Allergy Unknown Verified 04/01/24 09:41
enoxaparin sodium Allergy GI bleed Verified 04/01/24 09:41
[From Lovenox]
Heparin Analogues Allergy GI Rectal Verified 04/01/24 09:41
[Heparin Agents] bleeding
Penicillins Allergy Hives/swell Verified 04/01/24 09:41
ing/sob/itc
h
venom-honey bee Allergy Anaphylaxis Verified 04/01/24 09:41
[bee venom (honey bee)]
�Medication �Instructions �Recorded �Confirmed �Type
lorazepam 0.5 mg tablet 0.5 mg PO BID anxiety 10/05/19 04/01/24 History
atorvastatin 40 mg tablet 40 mg PO QPM High cholesterol 12/05/19 04/01/24 History
cyanocobalamin (vitamin B-12) 500 mcg PO DAILY Supplement 12/05/19 04/01/24 History
1,000 mcg tablet
spironolactone 25 mg tablet 25 mg PO DAILY Fluid 12/05/19 04/01/24 History
retention/Swelling
metoprolol succinate 25 mg 25 mg PO BID Heart Disease/BP 12/06/19 04/01/24 History
tablet,extended release 24 hr
aspirin 81 mg chewable tablet 81 mg PO DAILY Blood Clot 06/20/23 04/01/24 History
Prevention/Tx
dulaglutide 0.75 mg/0.5 mL 0.75 mg SC LEIVA Diabetes 06/20/23 04/01/24 History
subcutaneous pen injector
(Trulicity)
duloxetine 20 mg capsule,delayed 20 mg PO QPM depression/anxiety 06/20/23 04/01/24 History
release (Cymbalta)
empagliflozin 25 mg tablet 25 mg PO DAILY Diabetes 06/20/23 04/01/24 History
(Jardiance)
glipizide 10 mg tablet 10 mg PO BID@0800,1700 Diabetes 06/20/23 04/01/24 History
rivaroxaban 20 mg tablet (Xarelto) 20 mg PO QPM Blood Clot 04/01/24 04/01/24 History
Prevention/Tx
Review of Systems
-
History Source: Patient
Constitutional: Weight Loss and Other (light-headed, poor stamina)
Respiratory: Trouble Breathing
Neurological: Headache and Other (vision changes)
Physical Exam
Vital Signs
Pulse Resp BP Pulse Ox
118 17 119/86 100
04/01/24 12:45 04/01/24 12:45 04/01/24 12:00 04/01/24 09:42
Lab Results
04/01/24 09:57
04/01/24 09:57
Physical Exam
General: Well Developed, Well Nourished and No Apparent Distress
HEENT: Normocephalic and Anicteric
Respiratory: Clear and Non Labored Respirations
Cardiac: Irregular Rhythm
Musculoskeletal: No Edema
Skin: Warm and Dry
Neuro: AO x 3
Psych: Calm
Impression / Plan
-
Headache and visual abnormalities:
-neuro following, MRI is pending
-CRP/ESR quite elevated. There is concern for temporal arteritis and vascular team is consulted for consideration for biopsy. Steroids administered.
AFIB, permanent:
-rates controlled at rest, were fast with ambulation- did not take metoprolol this AM, so would continue and monitor telemetry
-[id number] for 7 for age, hypertension, DM, stroke, and CAD- Xarelto held for potential procedure as above. Once no stroke confirmed, consider bridging with his elevated [id number] score, as well as hx hypercoagulable disorder/DVT/PE.
SOLANO:
-etiology is unclear, which is why RHC was ordered- hold this plan for now, while above issue is worked up
-lungs clear, no edema, does not appear volume overloaded
-compliant with Xarelto
CAD with hx stenting:
-stable on cath earlier this year (see below)
-denies any CP
-on ASA, statin, and BB
ICM:
-resolved
-recent echo stable as below
Data:
Head CTA: No large vessel occlusions or dissections appreciated. Moderate calcified plaque within both carotid bulbs and proximal ICAs causing less than 50% luminal narrowing bilaterally. No acute intracranial abnormality. Couple of lacunar
infarcts, described above.
Echo 02/28/24: Left ventricular ejection fraction is 60-65%. Normal regional wall motion. Normal right ventricular size and function. Severely dilated left atrium. Moderately to severely dilated right atrium.Aortic sclerosis without stenosis. Mild
aortic regurgitation.
[facility] 06/28/23: Right dominant circulation with densely calcified LAD with luminal irregularities throughout, a patent stent in the mid LAD, a patent stent in the ostium of the ramus intermedius with a 40% lesion after the stented segment and a 30%
lesion in the proximal RCA. Normal filling pressures (LVEDP = 12 mmHg at 73.9 kg). Normal sized aortic root, ascending aorta, aortic arch and descending aorta. Calcified aortic plaquing is visible at the apex of the aortic arch. Mild aortic valve
regurgitation.
Data Reviewed
-
EKG: Tracing Personally Visualized and interpreted (AFIB with RVR 109 BPM, PVCs)
CT Scan: Report Reviewed by me (as noted)
Medical Tests (Nuc Med, Echo etc): Report Reviewed by me ([facility], echo as above)
Labs: Labs Reviewed by me
--- NOTE | 2024-04-01 16:26 | W.PN.UPDATE ---
Update Note
Progress Note Update
MRI of brain canceled due to spinal stimulator nonfunctional
I spoke with MRI who states patient is unaware of make and model of his spinal stimulator. The company is out of business and he states the stimulator has been nonfunctional for years. The stimulator would need to be active and be able to be
switched to MRI mode to obtain MRI here.
--Since we are unable to switch to MRI mode the MRI study will be canceled.
- Neurology Dr. Vaughan is aware no further imaging studies are needed
--- NOTE | 2024-04-01 16:42 | PTCARENOTE ---
Received patient from ED via stretcher. Pt AAOX3. Pox: 99% RA. Matias-estefania on [employer]. Call yadav within reach. Plan of care ongoing.
[2024-04-01 16:54] LABS: Glucose - Point of Care 143 mg/dl (70-99)
--- NOTE | 2024-04-01 17:18 | W.PN.UPDATE ---
Update Note
Progress Note Update
Hx A-fib on Xarelto
-Xarelto needed to be held due to upcoming surgery , 04/04/2024 for left-sided temporal arteritis biopsy
-The patient was seen by Dr. Waller cardiology discussed bridging with heparin for him since he is high risk [id number] score 7 and history DVT/PE he absolutely declined but is agreeable to DVT prophylaxis with heparin or Lovenox subcu
-We will start Lovenox 40 mg subcu p.m.
[2024-04-01] MEDS: NOVOLOG FLEXPEN-LOW RESISTANCE SC (17:26)
[2024-04-01] MEDS: GLUCOTROL 10 MG PO (17:35)
[2024-04-01] MEDS: CYMBALTA DELAYED RELEASE 30 MG PO (17:35)
[2024-04-01] MEDS: LIPITOR 40 MG PO (17:35)
--- NOTE | 2024-04-01 18:35 | PTCARENOTE ---
Patient refused Lovenox. Pt states he is at high risk of developing GI bleed if he is on Lovenox or Heparin. Carmine Bass. OLAMIDE notified via TT.
--- NOTE | 2024-04-01 20:13 | W.PN.UPDATE ---
Update Note
Progress Note Update
Patient told [facility] nurse at 1835 he will not take Lovenox or heparin subcu due to prior history of GI bleed. I spoke with the patient at 2014 advised him of risk of DVT/PE/ if he does not take subcu Lovenox or heparin subcu given he has
history of A-fib with history of DVT/PEs in the past. He was made aware he cannot take Xarelto due to need of temporal artery biopsy on , 04/04/2024. After risks were explained to the patient he decided he would like to try the heparin
subcu. He was advised we will monitor his blood count and he will advise office if any black or bloody stools or hematuria. The operations processor nurse was notified the patient is now willing to take heparin. I [place] text the patient's evening nurse
wong Butt to administer my heparin order
[2024-04-01] MEDS: TOPROL XL 25 MG PO (21:10)
[2024-04-01] MEDS: ATIVAN 0.5 MG PO (21:10)
[2024-04-01] MEDS: TYLENOL 1000 MG PO (21:10)
[2024-04-01] MEDS: HEPARIN 5000 UNITS SC (21:11)
[2024-04-01 21:18] LABS: Glucose - Point of Care 282 mg/dl (70-99)
[2024-04-02] VITALS (8 sets, daily range): BP systolic 95–141; BP diastolic 54–84; PULSE 73–105; O2SAT 96–100; BMI 19.4
[2024-04-02 07:14] LABS: Glucose - Point of Care 224 mg/dl (70-99)
[2024-04-02 07:37] LABS: % Immature Granulocytes 2.3 % (0-0.5); % Lymphocytes 24.2 % (20.5-51.1); % Monocytes 3.5 % (1.7-9.3); Absolute Immature Granulocytes 0.1 10^3/uL (0-0.05); Absolute Lymphocytes 0.6 10^3/uL (1.2-3.4); Absolute Monocytes 0.1 10^3/uL (0.1-0.6); Absolute Neutrophils 1.8 10^3/uL (1.4-6.5); Hematocrit 35.7 % (39.0-52.0); Hemoglobin 11.3 g/dL (13.0-18.0); Mean Corp Hgb Conc. 31.7 g/dL (33.0-37.0); Mean Corpuscular Hgb 30.4 pg (27.0-31.0); Mean Platelet Volume 9.5 fL (7.4-10.4); Nucleated Red Blood Cells % 0 % (-); Platelet Count 530 10^3/uL (130-400); Red Blood Cell Count 3.72 10^6/uL (4.70-6.10); Red Cell Dist. Width 13.5 % (11.5-14.5); White Blood Cell Count 2.6 10^3/uL (4.8-10.8)
[2024-04-02 07:47] LABS: ALT (SGPT) 21 U/L (0-50); AST (SGOT) 26 U/L (17-59); Albumin 3.5 g/dl (3.5-5.0); Alkaline Phosphatase 113 U/L (38-126); Blood Urea Nitrogen 27 mg/dl (9-20); Calcium 9.5 mg/dl (8.4-10.2); Carbon Dioxide 15 mmol/L (22-30); Chloride 99 mmol/L (98-107); Estimated Creatinine Clearance 70 ml/min; Glucose 227 mg/dl (70-99); HDL Cholesterol 41 mg/dl; LDL Cholesterol, Calculated 112 mg/dl; Potassium 5.7 mmol/L (3.5-5.1); Sodium 135 mmol/L (135-145); Total Bilirubin 0.3 mg/dl (0.2-1.3); Total Cholesterol 175 mg/dl (50-199); Total Protein 7.1 g/dl (6.3-8.2); Triglyceride 114 mg/dl (10-149); Very Low Density Lipoprotein 22 mg/dl (0-30); eGFR > 60.00
--- NOTE | 2024-04-02 08:24 | W.PN.CD ---
Today's Communication / Plan
-
Increased metoprolol to 50 mg bid
Impression / Plan
-
Headache and visual abnormalities:
-neuro following, MRI is pending
-CRP/ESR quite elevated. There is concern for temporal arteritis and vascular team is consulted for consideration for biopsy. Steroids administered.
AFIB, permanent:
-Increased metoprolol to 50 bid for better HR control
-[id number] for 7 for age, hypertension, DM, stroke, and CAD- Xarelto held for potential procedure as above. heparin subq per patient request
SOLANO:
-RHC Monday?
-lungs clear, no edema, does not appear volume overloaded
-compliant with Xarelto
CAD with hx stenting:
-stable on cath earlier this year (see below)
-denies any CP
-on ASA, statin, and BB
ICM:
-resolved
-recent echo stable as below
Subjective: Feeling better today GOMEZ improved
Data:
Head CTA: No large vessel occlusions or dissections appreciated. Moderate calcified plaque within both carotid bulbs and proximal ICAs causing less than 50% luminal narrowing bilaterally. No acute intracranial abnormality. Couple of lacunar
infarcts, described above.
Echo 02/28/24: Left ventricular ejection fraction is 60-65%. Normal regional wall motion. Normal right ventricular size and function. Severely dilated left atrium. Moderately to severely dilated right atrium.Aortic sclerosis without stenosis. Mild
aortic regurgitation.
LHC 06/28/23: Right dominant circulation with densely calcified LAD with luminal irregularities throughout, a patent stent in the mid LAD, a patent stent in the ostium of the ramus intermedius with a 40% lesion after the stented segment and a 30%
lesion in the proximal RCA. Normal filling pressures (LVEDP = 12 mmHg at 73.9 kg). Normal sized aortic root, ascending aorta, aortic arch and descending aorta. Calcified aortic plaquing is visible at the apex of the aortic arch. Mild aortic valve
regurgitation.
Physical Exam
Vital Signs/Labs
Vital Signs
Temp Pulse Resp BP Pulse Ox
97.4 F 72 16 118/54 98
04/02/24 07:10 04/02/24 07:10 04/02/24 07:10 04/02/24 07:10 04/02/24 07:10
04/01/24 04/02/24 04/03/24
06:59 06:59 06:59
Actual Weight 123 lb 9 oz
04/02/24 07:02
04/02/24 07:02
Magnesium 2.0 mg/dl (1.6-2.3) 04/02/24 07:02
Triglycerides 114 mg/dl (10-149) 04/02/24 07:02
LDL Cholesterol, Calc 112 mg/dl 04/02/24 07:02
VLDL Cholesterol, Calc 22 mg/dl (0-30) 04/02/24 07:02
HDL Cholesterol 41 mg/dl 04/02/24 07:02
Physical Exam
Constitutional: No acute distress
EENT: Anicteric
Cardiovascular: Pedal edema is absent and Rhythm/rate is irregular
Respiratory: Respiratory effort normal and Lungs clear to auscul.
GI: Soft
Neuro/Psych: AO x 3
Data Reviewed
-
Date of Service: April 02, 2024
EKG: Tracing Personally Visualized and interpreted (af )
Echo: Report Reviewed by me
Labs: Labs Reviewed by me
--- NOTE | 2024-04-02 08:25 | CON.VAS ---
Addendum entered and electronically signed by Gil Harrell III, MD 04/02/24 10:47:
This patient was seen and examined with OLAMIDE Zuñiga. I agree with the history and physical exam as well as the assessment and plan. I have the following additions:
Symptom constellation has raised concern for temporal arteritis.
Asked to perform temporal artery biopsy
Patient has mild tenderness to palpation over the temporal regions bilaterally
Palpable temporal pulses bilaterally
Will plan to perform temporal artery biopsy on this admission
Technical aspects of the procedure were discussed with the patient in detail. Benefits and rationale for this approach were discussed with him in detail. Operative risks were discussed with him in detail including but not limited to bleeding,
infection, wound healing complications, negative biopsy result. He expressed a clear understanding of our conversation and agrees to proceed with surgery as detailed above.
Signed:
Gil Harrell III, MD
[facility] Vascular Surgery
[phone] (qayi)
Original Note:
Consultation
Consultation Request
Date/Time Consultation Performed: 04/02/24
Requesting Provider: Hospitalist
Performing Provider: Mis Goodman NP-C for Gil Harrell III, MD
Reason for Consultation: Left eye vision loss rule out giant cell arteritis
Medical History
-
Chief Complaint: Temporal artery biopsy for suspected giant cell arteritis
History of Present Illness:
This is a 78-year-old male with significant past medical history for atrial fibrillation, CAD, HFrEF, diabetes, GERD, NSTEMI, anxiety/depression, former alcohol abuse, peripheral arterial disease, H. pylori, bladder neoplasm, and gait dysfunction
who presented to [place] ED on 04/01/2024 with reports of acute complete left eye vision loss and accompanying headache. Patient endorses that he had been experiencing a mild posterior headache over the weekend and accompanied floaters in his
left eye on Monday. When he awoke Monday morning (04/01/24) he noted complete vision loss in his left eye. Currently, he endorses some return of vision in his left eye but mostly central vision is regained. He does note jaw pain accompanying
posterior headache. He also notes ongoing issues with dyspnea on exertion and was scheduled to have a cardiac cath on 04/04/24. Vascular surgery's been consulted for left temporal artery biopsy to rule out giant cell arteritis. CTA head and neck
reviewed which demonstrates bilateral carotid artery stenosis of less than 50%. Of note he cannot obtain an MRI to and definitely rule out stroke due to spinal stimulator. C-reactive protein elevated at 184 and ESR at 66.
Past Medical History
Past Medical History: Arrhythmias (Atrial fibrillation on Xarelto), CAD, CHF (HFrEF), GERD, NIDDM, [place] (NSTEMI), Psychiatric (Anxiety and depression) and Other (TIA (2020 with expressive aphasia), hypercoagulable prothrombin gene, PE, DVT,
hyperlipidemia, diabetic neuropathy peripheral arterial disease, H. pylori, unintentional weight loss, gait dysfunction, bladder neoplasm)
Past Surgical History: Other ( [place] filter, b/l cataract removal and ocular lens implants, spinal stimulator (no longer functioning), cardiac cath, LAD stent)
Social History
Tobacco: Non-Smoker
Alcohol: Former (Alcohol abuse quit September 2023)
Drug: Marijuana (daily marijuana gummy)
Allergies / Home Medications
Allergy/AdvReac Type Severity Reaction Status Date / Time
Cephalosporins Allergy Unknown Verified 04/01/24 09:41
enoxaparin sodium Allergy GI bleed Verified 04/01/24 09:41
[From Lovenox]
Heparin Analogues Allergy GI Rectal Verified 04/01/24 09:41
[Heparin Agents] bleeding
Penicillins Allergy Hives/swell Verified 04/01/24 09:41
ing/sob/itc
h
venom-honey bee Allergy Anaphylaxis Verified 04/01/24 09:41
[bee venom (honey bee)]
�Medication �Instructions �Recorded �Confirmed �Type
lorazepam 0.5 mg tablet 0.5 mg PO BID anxiety 10/05/19 04/01/24 History
atorvastatin 40 mg tablet 40 mg PO QPM High cholesterol 12/05/19 04/01/24 History
cyanocobalamin (vitamin B-12) 500 mcg PO DAILY Supplement 12/05/19 04/01/24 History
1,000 mcg tablet
spironolactone 25 mg tablet 25 mg PO DAILY Fluid 12/05/19 04/01/24 History
retention/Swelling
metoprolol succinate 25 mg 25 mg PO BID Heart Disease/BP 12/06/19 04/01/24 History
tablet,extended release 24 hr
aspirin 81 mg chewable tablet 81 mg PO DAILY Blood Clot 06/20/23 04/01/24 History
Prevention/Tx
dulaglutide 0.75 mg/0.5 mL 0.75 mg SC LEIVA Diabetes 06/20/23 04/01/24 History
subcutaneous pen injector
(Trulicity)
duloxetine 20 mg capsule,delayed 20 mg PO QPM depression/anxiety 06/20/23 04/01/24 History
release (Cymbalta)
empagliflozin 25 mg tablet 25 mg PO DAILY Diabetes 06/20/23 04/01/24 History
(Jardiance)
glipizide 10 mg tablet 10 mg PO BID@0800,1700 Diabetes 06/20/23 04/01/24 History
rivaroxaban 20 mg tablet (Xarelto) 20 mg PO QPM Blood Clot 04/01/24 04/01/24 History
Prevention/Tx
Review of Systems
-
History Source: Patient
Constitutional: Reports Weight Loss (Does endorse unintentional weight loss)
EENT: Reports Other (Acute onset of left eye vision loss)
Respiratory: Reports Other (Has been experiencing ongoing dyspnea on exertion)
Cardiac: Reports No Symptoms
Abdomen/GI: Reports No Symptoms
: Reports No Symptoms
Musculoskeletal: Reports No Symptoms
Skin: Reports No Symptoms
Neurological: Reports Headache
Endocrine: Reports No Symptoms
Physical Exam
Vital Signs
Temp Pulse Resp BP Pulse Ox
97.4 F 72 16 118/54 98
04/02/24 07:10 04/02/24 07:10 04/02/24 07:10 04/02/24 07:10 04/02/24 07:10
Lab Results
04/02/24 07:02
04/02/24 07:02
Physical Exam
General: No Apparent Distress and Comfortable
HEENT: Normocephalic, Anicteric and Atraumatic
Respiratory: Non Labored Respirations
Cardiac: Negative JVD
GI: Non Distended
Musculoskeletal: No Edema
Skin: Warm
Neuro: AO x 3
Assessment / Plan
-
Assessment: 78-year-old male with suspected giant cell arteritis given elevated inflammatory markers, headache, and acute onset of left eye vision loss.
Plan:
Will proceed with left temporal artery biopsy either 04/04/24 or 04/05/24, would agree with initiation of heparin infusion given Xarelto held and patient's history of DVT and PE. However, patient is not agreeable to heparin or Lovenox for full
anticoagulation.
I performed this shared service with the attending. I evaluated the patient [id number] and have entered clinical documentation as shown in the encounter note. I performed the following component(s): history and physical exam. Note that medical
decision making is not final until attested by vascular attending.
[2024-04-02] MEDS: DELTASONE 60 MG PO (08:36)
[2024-04-02] MEDS: GLUCOTROL 10 MG PO ×2 (08:36→18:06)
[2024-04-02] MEDS: VITAMIN B-12 500 MCG PO (08:37)
[2024-04-02] MEDS: LOW STRENGTH ASPIRIN 81 MG PO (08:37)
[2024-04-02] MEDS: ATIVAN 0.5 MG PO ×2 (08:37→21:30)
[2024-04-02] MEDS: ALDACTONE 25 MG PO (08:39)
[2024-04-02] MEDS: FARXIGA 10 MG PO (08:39)
[2024-04-02] MEDS: TYLENOL 1000 MG PO ×2 (08:42→21:32)
[2024-04-02] MEDS: HEPARIN 5000 UNITS SC ×2 (08:43→21:30)
[2024-04-02] MEDS: NOVOLOG FLEXPEN-LOW RESISTANCE 2 UNITS SC (08:46)
[2024-04-02] MEDS: TOPROL XL PO (08:49)
--- NOTE | 2024-04-02 08:49 | W.PN.NEURO.1 ---
Today's Communication / Plan
-
Repeat newly initiated rizatriptan and prochlorperazine due to the patient's recurrent headache
Provide diphenhydramine also due to the patient's recurrent headache
Advanced the patient's duloxetine dosing from 20 mg to 30 mg due to recurrent headaches as migraine prevention medication
Okay to continue newly initiated prednisone 60 mg daily in attempts to reduce possible giant cell arteritis
Neuro Assessment/Plan
Assessment
IMPRESSIONS/RECOMMENDATIONS:
Abrupt onset of left eye visual loss which is circumferential and not present on contralateral side
Differential diagnosis is broad and includes migraine with aura, central retinal artery occlusion (less likely based on pattern of visual loss), central right occipital acute ischemic stroke, and temporal arteritis based on the patient's markedly
elevated CRP and elevated ESR
MRI imaging of the brain due to the patient's prior history of atrial fibrillation as well as diabetes was canceled by radiology due to Spinal stimulator in place although nonfunctional
Plan
Repeat newly initiated rizatriptan and prochlorperazine due to the patient's recurrent headache
Provide diphenhydramine also due to the patient's recurrent headache
Advanced the patient's duloxetine dosing from 20 mg to 30 mg due to recurrent headaches as migraine prevention medication
Okay to continue newly initiated prednisone 60 mg daily in attempts to reduce possible giant cell arteritis
Appreciate vascular surgery consultation for assistance with temporal artery biopsy
Continue atorvastatin
Provide rivaroxaban after surgical intervention in the form of temporal artery biopsy
Will follow
Subjective/Objective
Subjective Data
Date of Service: April 02, 2024
Objective Data
Vital Signs
Temp Pulse Resp BP Pulse Ox
36.3 C 72 16 118/54 98
04/02/24 07:10 04/02/24 07:10 04/02/24 07:10 04/02/24 07:10 04/02/24 07:10
Lab Results
04/02/24 07:02
04/02/24 07:02
Sodium 135 mmol/L (135-145) 04/02/24 07:02
Potassium 5.7 mmol/L (3.5-5.1) H D 04/02/24 07:02
BUN 27 mg/dl (9-20) H 04/02/24 07:02
Glucose 227 mg/dl (70-99) H 04/02/24 07:02
Calcium 9.5 mg/dl (8.4-10.2) 04/02/24 07:02
LDL Cholesterol, Calc 112 mg/dl 04/02/24 07:02
Vitamin B12 840 pg/ml (239-931) 04/01/24 09:57
Patient Allergies
Cephalosporins Allergy (Verified 04/01/24 09:41)
Unknown
enoxaparin sodium [From Lovenox] Allergy (Verified 04/01/24 09:41)
GI bleed
Heparin Analogues [Heparin Agents] Allergy (Verified 04/01/24 09:41)
GI Rectal bleeding
Penicillins Allergy (Verified 04/01/24 09:41)
Hives/swelling/sob/itch
venom-honey bee [bee venom (honey bee)] Allergy (Verified 04/01/24 09:41)
Anaphylaxis
Past History
Past History
ED Past Medical History: GERD, [place], Other (ETOH, Gastritis, H-Plylori, DVT, spinal stimulator) and Other (PAF, PE DVT, [place] filter, alcohol abuse)
ED Past Surgical History: Other ([place] filter,)
Social History
Tobacco: Non-smoker
Alcohol: Binge drinker
Drug: None
Personal:
Living: with family
Employment: Employed
Family History
Family History: Other
Medications
-
Medications:
Generic Name Dose Route Start Last Admin
Trade Name Freq PRN Reason Stop Dose Admin
Acetaminophen 1,000 mg 04/01/24 22:00 04/02/24 08:42
Acetaminophen 500 Mg Tablet PO 04/29/24 21:59 1,000 mg
Q8HPRN PRN Administration
headache
Aspirin 81 mg 04/02/24 08:00 04/02/24 08:37
Aspirin 81 Mg Chewable Tablet PO 04/30/24 07:59 81 mg
DAILY YUNI Administration
Atorvastatin Calcium 40 mg 04/01/24 18:00 04/01/24 17:35
Atorvastatin (Lipitor) 40 Mg Tablet PO 04/29/24 17:59 40 mg
QPM YUNI Administration
Cyanocobalamin 500 mcg 04/02/24 08:00 04/02/24 08:37
Cyanocobalamin 1,000 Mcg Tablet PO 04/30/24 07:59 500 mcg
DAILY YUNI Administration
Dapagliflozin 10 mg 04/02/24 08:00 04/02/24 08:39
Dapagliflozin (Farxiga) 10 Mg Tablet PO 04/30/24 07:59 10 mg
DAILY YUNI Administration
Dextrose 12.5 grams 04/01/24 16:26
Dextrose 50% (0.5 Grams/Ml) 50 Ml Syringe IV 04/29/24 16:25
[id number] PRN
hypoglycemia
Protocol
Duloxetine HCl 30 mg 04/01/24 18:00 04/01/24 17:35
Duloxetine Delayed Release 30 Mg Capsule PO 04/29/24 17:59 30 mg
QPM YUNI Administration
Glipizide 10 mg 04/01/24 17:00 04/02/24 08:36
Glipizide 10 Mg Regular Release Tablet PO 04/29/24 16:59 10 mg
BID@0800,1700 YUNI Administration
Glucagon 1 mg 04/01/24 16:26
Glucagon 1 Mg Vial IM 04/29/24 16:25
PRN PRN
hypoglycemia
Protocol
Heparin Sodium 5,000 units 04/01/24 20:15 04/02/24 08:43
Heparin 5,000 Units/Ml 1 Ml Vial SC 04/29/24 20:14 5,000 units
Q12 YUNI Administration
Insulin Aspart 0 units 04/01/24 16:30 04/02/24 08:46
Insulin Aspart Low Resistance 300 Units/3 Ml Pen.Injctr SC 04/29/24 16:29 2 units
AC YUNI Administration
Protocol
Lorazepam 0.5 mg 04/01/24 20:00 04/02/24 08:37
Lorazepam 0.5 Mg Tablet PO 04/29/24 19:59 0.5 mg
BID YUNI Administration
Metoprolol Succinate 50 mg 04/02/24 08:24
Metoprolol 25 Mg Extended Release Tablet PO 04/29/24 19:59
BID YUNI
Metoprolol Tartrate 5 mg 04/01/24 16:26
Metoprolol 5 Mg/5 Ml Vial IV 04/29/24 16:25
Q6HPRN PRN
Hr>120, sbp>165 chaim>100
Ondansetron HCl 4 mg 04/01/24 16:26
Ondansetron 4 Mg/2 Ml Vial IV 04/29/24 16:25
Q6HPRN PRN
nausea and vomiting
Prednisone 60 mg 04/02/24 08:00 04/02/24 08:36
Prednisone 20 Mg Tablet PO 04/30/24 07:59 60 mg
DAILY YUNI Administration
Sodium Chloride 0 flush 04/01/24 17:00
Sodium Chloride 0.9% (Flush) Syringe IV 04/29/24 16:59
PER PROTOCOL YUNI
Spironolactone 25 mg 04/02/24 08:00 04/02/24 08:39
Spironolactone 25 Mg Tablet PO 04/30/24 07:59 25 mg
DAILY YUNI Administration
[2024-04-02 08:55] LABS: Glycohemoglobin (HgbA1c) 9.9 % (4.0-5.6)
[2024-04-02] MEDS: MAXALT MLT (ORALLY DISINTEGRATING) 10 MG PO (10:22)
[2024-04-02] MEDS: BENADRYL 25 MG PO (10:22)
[2024-04-02] MEDS: COMPAZINE 10 MG PO (10:22)
--- NOTE | 2024-04-02 11:01 | W.PN.HOSP.TC ---
Today's Communication/Plan
-
Ongoing neurologic workup
Assessment / Plan
Assessment / Plan
Impression:
Presentation with occipital headache and left eye transient vision loss.
Elevated inflammatory markers
Increased anion gap metabolic acidosis
Hyperkalemia baseline
Other conditions:
Exertional dyspnea
Unintentional weight loss with malnutrition BMI 19.
Permanent A-fib
Anticoagulation with Xarelto
History of DVT/PE.
CAD with prior stenting.
Ischemic cardiomyopathy with recovered EF. Echo 03/14 with LVEF of 60-65%
Essential hypertension
Type 2 diabetes
History of alcohol use disorder/binge drinking stopped September 2023
GERD
Chronic back pain with spinal stimulator implant
Plan:
Presentation with occipital headache and transient left eye vision loss.
Resolved headache
No temporal tenderness on exam.
Remains with left eye visual field cut.
CT scan of the head with no acute abnormalities.
CTA with no acute abnormalities.
Differential diagnosis migraine with visual symptoms versus temporal arteritis (given elevated inflammatory markers) versus occipital CVA.
Unable to perform MRI given spinal stimulator in place
Continue neurologic monitoring
Consider to repeat CT of the head.
Vascular surgery consultation for temporal artery biopsy
Hold Xarelto.
Continue prednisone pending temporal artery biopsy
Neurology input appreciated
Increased anion gap metabolic acidosis.
Hyperkalemia secondary to above and spironolactone.
Suspect metabolic acidosis secondary to SGLT2 inhibitor Jardiance.
Hold Farxiga/Jardiance.
Provide IV fluids with bicarbonate.
Hold spironolactone
Lokelma
Follow BMP
Type 2 diabetes.
Hemoglobin A1c 9.9.
Expected hyperglycemia given addition of systemic steroids.
Continue glipizide.
Continue basal bolus protocol.
Serial Accu-Cheks.
Carbohydrate diet
Unintentional weight loss
Cachexia.
BMI 19.
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
Will consider outpatient evaluation for occult malignancy including CT of the chest abdomen and pelvis with contrast
Permanent A-fib.
Continue metoprolol.
CV 2 score 7.
Resuming Xarelto post temporal artery biopsy.
CAD with stenting
Recovered ischemic cardiomyopathy.
Volume status compensated
Continue aspirin, statin, beta-vern.
Reported dyspnea on exertion.
Respiratory status stable at rest.
Consider imaging including CT chest.
Consider outpatient spirometry.
Plan for RHC on 04/04
Anticipated Discharge: > 48 hours
Subjective/Interval History
-
Date of Service: April 02, 2024
Objective Data
-
Labs:
Laboratory Results
04/02/24
07:02
WBC 2.6 L
Hgb 11.3 L
Hct 35.7 L
Plt Count 530 H
Sodium 135
Potassium 5.7 H D
Chloride 99
Carbon Dioxide 15 L
BUN 27 H
Creatinine 0.7
Glucose 227 H
Calcium 9.5
Total Bilirubin 0.3
AST 26
ALT 21
Alkaline Phosphatase 113
Vital Signs:
Vital Signs
Temp Pulse Resp BP Pulse Ox
97.4 F 72 16 118/54 98
04/02/24 07:10 04/02/24 07:10 04/02/24 07:10 04/02/24 07:10 04/02/24 07:10
I&O
04/01/24 04/02/24 04/03/24
06:59 06:59 06:59
Output Total 625 / 625
Balance -625 / -625
Physical Exam
-
General: Well Developed and No Apparent Distress
HEENT: Normocephalic, Atraumatic and Moist Mucous Membranes
Respiratory: Clear to Auscultation
Cardiac: Regular Rhythm and S1/S2; Negative Murmur, Rub or Gallop
GI: Soft, Nontender, Nondistended and Normal Bowel Sounds; Negative Organomegaly
Rectal: Deferred by Provider
Musculoskeletal: No Clubbing, No Cyanosis and No Edema
Skin: Negative Rash
Neuro: Nonfocal/Grossly Intact
[2024-04-02] MEDS: SODIUM BICARBONATE 1150 MEQ IV (11:49)
[2024-04-02] MEDS: LOKELMA 10 GRAM PO (11:50)
[2024-04-02 11:51] LABS: Glucose - Point of Care 274 mg/dl (70-99)
[2024-04-02] MEDS: NOVOLOG FLEXPEN-LOW RESISTANCE 3 UNITS SC (11:53)
[2024-04-02 12:55] LABS: B-Hydroxybutyrate 4.69 mmol/L (0.02-0.27)
--- NOTE | 2024-04-02 16:14 | CM ---
Alert awake oriented patient who lives with his Jeanine who lives in a 2 story home with 1 step to enter and bed and bathroom on first floor. He is independent in all activities of daily living.He does not drive .He was offered VN he requested
VN [facility] Liaison notified via TT.
No VN hx / No SNF history
Pharmacy [facility]
PCP DR Monae
PLAN Home with VN if accepted
[2024-04-02 16:39] LABS: Glucose - Point of Care 372 mg/dl (70-99)
[2024-04-02] MEDS: NOVOLOG FLEXPEN-LOW RESISTANCE 5 UNITS SC (18:01)
[2024-04-02] MEDS: LIPITOR 40 MG PO (18:06)
[2024-04-02] MEDS: CYMBALTA DELAYED RELEASE 30 MG PO (18:06)
[2024-04-02 21:11] LABS: Glucose - Point of Care 312 mg/dl (70-99)
[2024-04-02] MEDS: TOPROL XL 50 MG PO (21:30)
[2024-04-03] VITALS (9 sets, daily range): BP systolic 96–145; BP diastolic 58–83; PULSE 64–102; O2SAT 95; BMI 20.1
[2024-04-03 07:38] LABS: % Immature Granulocytes 0.8 % (0-0.5); % Monocytes 6.9 % (1.7-9.3); % Neutrophils 77.3 % (42.2-75.2); Absolute Immature Granulocytes 0.1 10^3/uL (0-0.05); Absolute Lymphocytes 0.9 10^3/uL (1.2-3.4); Absolute Monocytes 0.4 10^3/uL (0.1-0.6); Absolute Neutrophils 4.8 10^3/uL (1.4-6.5); Hematocrit 37.6 % (39.0-52.0); Mean Corp Hgb Conc. 31.9 g/dL (33.0-37.0); Mean Corpuscular Hgb 30.2 pg (27.0-31.0); Mean Corpuscular Volume 94.5 fL (80.0-94.0); Mean Platelet Volume 9.6 fL (7.4-10.4); Nucleated Red Blood Cells % 0 % (-); Platelet Count 559 10^3/uL (130-400); Red Blood Cell Count 3.98 10^6/uL (4.70-6.10); Red Cell Dist. Width 13.4 % (11.5-14.5); White Blood Cell Count 6.3 10^3/uL (4.8-10.8)
[2024-04-03 07:56] LABS: Glucose - Point of Care 275 mg/dl (70-99)
[2024-04-03] MEDS: LOW STRENGTH ASPIRIN 81 MG PO (08:01)
[2024-04-03] MEDS: ATIVAN 0.5 MG PO ×2 (08:01→21:00)
[2024-04-03] MEDS: GLUCOTROL 10 MG PO ×2 (08:01→16:35)
[2024-04-03] MEDS: DELTASONE 60 MG PO (08:01)
[2024-04-03] MEDS: NOVOLOG FLEXPEN-LOW RESISTANCE 3 UNITS SC (08:02)
[2024-04-03] MEDS: VITAMIN B-12 500 MCG PO (08:02)
[2024-04-03] MEDS: HEPARIN 5000 UNITS SC ×2 (08:02→21:00)
[2024-04-03] MEDS: TOPROL XL 50 MG PO (08:03)
[2024-04-03 08:09] LABS: ALT (SGPT) 24 U/L (0-50); AST (SGOT) 35 U/L (17-59); Albumin 3.4 g/dl (3.5-5.0); Alkaline Phosphatase 105 U/L (38-126); Blood Urea Nitrogen 34 mg/dl (9-20); Calcium 9.2 mg/dl (8.4-10.2); Carbon Dioxide 26 mmol/L (22-30); Chloride 93 mmol/L (98-107); Estimated Creatinine Clearance 85 ml/min; Glucose 264 mg/dl (70-99); Potassium 5.3 mmol/L (3.5-5.1); Sodium 135 mmol/L (135-145); Total Bilirubin 0.3 mg/dl (0.2-1.3); Total Protein 6.9 g/dl (6.3-8.2); eGFR > 60.00
--- NOTE | 2024-04-03 08:18 | W.PN.CD ---
Today's Communication / Plan
-
Increase metop to 75 mg bid for better HR control
Impression / Plan
-
Headache and visual abnormalities:
-neuro following
-CRP/ESR quite elevated. There is concern for temporal arteritis and vascular team is consulted for consideration for biopsy. Steroids administered.
AFIB, permanent:
-Increased metoprolol to 75 bid for better HR control
-[id number] for 7 for age, hypertension, DM, stroke, and CAD- Xarelto held for potential procedure as above. heparin subq per patient request
SOLANO: chronic and longstanding unclear etiology
-RHC Monday, NPO after midnight
-lungs clear, no edema, does not appear volume overloaded
-compliant with Xarelto
CAD with hx stenting:
-stable on cath earlier this year (see below)
-denies any CP
-on ASA, statin, and BB
ICM:
-resolved
-recent echo stable as below
Subjective: Feeling better today GOMEZ improved, continues to have jaw claudication
Data:
Head CTA: No large vessel occlusions or dissections appreciated. Moderate calcified plaque within both carotid bulbs and proximal ICAs causing less than 50% luminal narrowing bilaterally. No acute intracranial abnormality. Couple of lacunar
infarcts, described above.
Echo 02/28/24: Left ventricular ejection fraction is 60-65%. Normal regional wall motion. Normal right ventricular size and function. Severely dilated left atrium. Moderately to severely dilated right atrium.Aortic sclerosis without stenosis. Mild
aortic regurgitation.
LHC 06/28/23: Right dominant circulation with densely calcified LAD with luminal irregularities throughout, a patent stent in the mid LAD, a patent stent in the ostium of the ramus intermedius with a 40% lesion after the stented segment and a 30%
lesion in the proximal RCA. Normal filling pressures (LVEDP = 12 mmHg at 73.9 kg). Normal sized aortic root, ascending aorta, aortic arch and descending aorta. Calcified aortic plaquing is visible at the apex of the aortic arch. Mild aortic valve
regurgitation.
Physical Exam
Vital Signs/Labs
Vital Signs
Temp Pulse Resp BP Pulse Ox
97.3 F 101 16 147/92 98
04/03/24 07:24 04/03/24 07:24 04/03/24 07:24 04/03/24 08:03 04/03/24 07:24
04/02/24 04/03/24 04/04/24
06:59 06:59 06:59
Actual Weight 123 lb 9 oz 128 lb 7 oz
04/03/24 06:54
04/03/24 06:54
Magnesium 2.0 mg/dl (1.6-2.3) 04/02/24 07:02
Triglycerides 114 mg/dl (10-149) 04/02/24 07:02
LDL Cholesterol, Calc 112 mg/dl 04/02/24 07:02
VLDL Cholesterol, Calc 22 mg/dl (0-30) 04/02/24 07:02
HDL Cholesterol 41 mg/dl 04/02/24 07:02
Physical Exam
Constitutional: No acute distress and Comfortable
EENT: Anicteric
Cardiovascular: Pedal edema is absent and Rhythm/rate is irregular
Respiratory: Respiratory effort normal and Lungs clear to auscul.
GI: Soft
Neuro/Psych: Alert and Oriented
Data Reviewed
-
Date of Service: April 03, 2024
EKG: Tracing Personally Visualized and interpreted (af)
Echo: Report Reviewed by me
Labs: Labs Reviewed by me
[2024-04-03] MEDS: LOKELMA 10 GRAM PO (09:43)
--- NOTE | 2024-04-03 10:25 | W.PN.NEURO.1 ---
Today's Communication / Plan
-
Repeat prochlorperazine due to the patient's recurrent headache
Repeat diphenhydramine also due to the patient's recurrent headache
Add orthostatics
Advanced the patient's duloxetine dosing from 30 mg to 60 mg due to recurrent headaches as migraine prevention medication
Okay to continue newly initiated prednisone 60 mg daily in attempt to reduce possible giant cell arteritis
Neuro Assessment/Plan
Assessment
IMPRESSIONS/RECOMMENDATIONS:
Abrupt onset of left eye visual loss which is circumferential and not present on contralateral side
Differential diagnosis is broad and includes migraine with aura, central retinal artery occlusion (less likely based on pattern of visual loss), central right occipital acute ischemic stroke, and temporal arteritis based on the patient's markedly
elevated CRP and elevated ESR
MRI imaging of the brain was canceled by radiology due to Spinal stimulator in place although nonfunctional
Patient developed diplopia 04/03/2024
Plan
Repeat prochlorperazine due to the patient's recurrent headache
Repeat diphenhydramine also due to the patient's recurrent headache
Initiate thiamine due to risk of alcohol withdrawal
Add orthostatics
Advance the patient's duloxetine dosing from 30 mg to 60 mg due to recurrent headaches as migraine prevention medication
Okay to continue newly initiated prednisone 60 mg daily in attempt to reduce possible giant cell arteritis
Appreciate vascular surgery consultation for assistance with temporal artery biopsy
Continue atorvastatin
Provide rivaroxaban after surgical intervention in the form of temporal artery biopsy
Ophthalmology consultation
Will follow
Subjective/Objective
Subjective Data
Date of Service: April 03, 2024
No significant change from vision yesterday. New onset dizziness with walking to the bathroom
Objective Data
Vital Signs
Temp Pulse Resp BP Pulse Ox
36.3 C 101 16 147/92 98
04/03/24 07:24 04/03/24 07:24 04/03/24 07:24 04/03/24 08:03 04/03/24 08:00
Lab Results
04/03/24 06:54
04/03/24 06:54
Sodium 135 mmol/L (135-145) 04/03/24 06:54
Potassium 5.3 mmol/L (3.5-5.1) H 04/03/24 06:54
BUN 34 mg/dl (9-20) H 04/03/24 06:54
Glucose 264 mg/dl (70-99) H 04/03/24 06:54
Calcium 9.2 mg/dl (8.4-10.2) 04/03/24 06:54
LDL Cholesterol, Calc 112 mg/dl 04/02/24 07:02
Vitamin B12 840 pg/ml (239-931) 04/01/24 09:57
Patient Allergies
Cephalosporins Allergy (Verified 04/01/24 09:41)
Unknown
enoxaparin sodium [From Lovenox] Allergy (Verified 04/01/24 09:41)
GI bleed
Heparin Analogues [Heparin Agents] Allergy (Verified 04/01/24 09:41)
GI Rectal bleeding
Penicillins Allergy (Verified 04/01/24 09:41)
Hives/swelling/sob/itch
venom-honey bee [bee venom (honey bee)] Allergy (Verified 04/01/24 09:41)
Anaphylaxis
Review of Systems
-
History Source: Patient
All other systems: Reviewed and negative
Musculoskeletal: Neck Pain; Negative Back Pain
Neuro: Dizzy (With ambulation to the bathroom) and Headache
Physical Exam
-
General: No Apparent Distress and Appears Stated Age
Eyes: Round OU and [place] Conjunctivae
HEENT: Anicteric and Moist Mucous Membranes
Neck: Full Range of Motion
Respiratory: No Dyspnea
Cardiac: No JVD
GI: Non-distended
Skin: Unremarkable
Extremities: No Clubbing, No Cyanosis and No Edema
Psych: Intact Judgement/Insight
Extended Neurological Exam
Mood & Affect: Mood Unremarkable and Affect Unremarkable
Attention Span & Concentration: Awake, Alert, Interactive and No Difficulty with 2 Step Request
Memory: Unremarkable
Tremor: Hand Tremor Absent and Head Tremor Absent
Speech: Quality Unremarkable and Quantity Unremarkable
Cranial Nerve II: Left Eye: Pupillary Size Unremarkable and Visual [place] Reduced (Nearly concentrically)
Cranial Nerve II: Right Eye: Pupillary Size Unremarkable
Cranial Nerves III, IV, : Extraocular Movement: Ptosis on Left, Reduced (Upgaze with the left eye) and Otherwise Unremarkable; Negative Ptosis on Right
Cranial Nerve VII: Facial Symmetry: Normal Facial Symmetry
Cranial Nerve VIII: Hearing: Unremarkable Hearing to Normal Conversational Volume
Cranial Nerve XI: Shoulder Shrug: Unremarkable
Muscle Strength, Overall: Spontaneously Moves (All extremities)
Muscle Bulk & Tone: Bulk Unremarkable and Tone Unremarkable
Touch Sensation: Unremarkable
[2024-04-03] MEDS: VITAMIN B1 100 MG PO (11:28)
[2024-04-03 11:48] LABS: Glucose - Point of Care 241 mg/dl (70-99)
[2024-04-03] MEDS: NOVOLOG FLEXPEN-LOW RESISTANCE 2 UNITS SC (12:02)
[2024-04-03] MEDS: COMPAZINE 10 MG PO (12:03)
[2024-04-03] MEDS: BENADRYL 25 MG PO (12:03)
--- NOTE | 2024-04-03 13:30 | VNURNOTE ---
Home Health Liaison met with patient to discuss [facility] nurse/therapy, visits, schedule and homebound status. Patient is agreeable and understands that visits at home will be 2-3 x per week to assess and teach medical management.
[facility] brochure provided with contact information. Patient is aware that [facility] will contact them for start of care in 1-2 days after discharge from .
[facility] referral completed in [facility].
--- NOTE | 2024-04-03 14:21 | W.PN.HOSP.TC ---
Today's Communication/Plan
-
Holding Xarelto pending temporal artery biopsy tentatively on 04/04.
Empiric prednisone follow suspected temporal arteritis.
Headache management as per neurology.
Observe off IV fluids per
Hold SGLT 2 inhibitor.
Lokelma.
Hold spironolactone
Assessment / Plan
Assessment / Plan
Impression:
Presentation with occipital headache and left eye transient vision loss.
Elevated inflammatory markers
Increased anion gap metabolic acidosis
Hyperkalemia baseline
Other conditions:
Exertional dyspnea
Unintentional weight loss with malnutrition BMI 19.
Permanent A-fib
Anticoagulation with Xarelto
History of DVT/PE.
CAD with prior stenting.
Ischemic cardiomyopathy with recovered EF. Echo 03/14 with LVEF of 60-65%
Essential hypertension
Type 2 diabetes
History of alcohol use disorder/binge drinking stopped September 2023
GERD
Chronic back pain with spinal stimulator implant
Plan:
Presentation with occipital headache and transient left eye vision loss.
Resolved headache
No temporal tenderness on exam.
Remains with left eye visual field cut.
CT scan of the head with no acute abnormalities.
CTA with no acute abnormalities.
Differential diagnosis migraine with visual symptoms versus temporal arteritis (given elevated inflammatory markers) versus occipital CVA.
Unable to perform MRI given spinal stimulator in place
Continue neurologic monitoring
Consider to repeat CT of the head.
Vascular surgery consultation for temporal artery biopsy
Hold Xarelto.
Continue prednisone pending temporal artery biopsy
Headache management as per neurology.
Increased anion gap metabolic acidosis.
Hyperkalemia secondary to above and spironolactone.
Suspect metabolic acidosis secondary to SGLT2 inhibitor Jardiance.
Hold Farxiga/Jardiance.
Improved with IV fluids and bicarbonate
Observe off IV fluids
Hold spironolactone
Lokelma
Follow BMP
Type 2 diabetes.
Hemoglobin A1c 9.9.
Expected hyperglycemia given addition of systemic steroids.
Continue glipizide.
Continue basal bolus protocol.
Serial Accu-Cheks.
Carbohydrate diet
Unintentional weight loss
Cachexia.
BMI 19.
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
Will consider outpatient evaluation for occult malignancy including CT of the chest abdomen and pelvis with contrast
Permanent A-fib.
Continue metoprolol.
CV 2 score 7.
Resuming Xarelto post temporal artery biopsy.
CAD with stenting
Recovered ischemic cardiomyopathy.
Volume status compensated
Continue aspirin, statin, beta-vern.
Reported dyspnea on exertion.
Respiratory status stable at rest.
Consider imaging including CT chest.
Consider outpatient spirometry.
Plan for RHC on 04/04
Anticipated Discharge: 24 - 48 hours
Subjective/Interval History
-
Date of Service: April 03, 2024
Objective Data
-
Labs:
Laboratory Results
04/03/24
06:54
WBC 6.3
Hgb 12.0 L
Hct 37.6 L
Plt Count 559 H
Sodium 135
Potassium 5.3 H
Chloride 93 L
Carbon Dioxide 26
BUN 34 H
Creatinine 0.6 L
Glucose 264 H
Calcium 9.2
Total Bilirubin 0.3
AST 35
ALT 24
Alkaline Phosphatase 105
Vital Signs:
Vital Signs
Temp Pulse Resp BP Pulse Ox
97.4 F 90 16 124/69 99
04/03/24 11:00 04/03/24 11:00 04/03/24 11:00 04/03/24 11:00 04/03/24 11:00
I&O
04/02/24 04/03/24 04/04/24
06:59 06:59 06:59
Intake Total 2039
Output Total 625 / 625 1050 / 1050
Balance -625 / -625 990 / 990
Physical Exam
-
General: Well Developed and No Apparent Distress
HEENT: Normocephalic, Atraumatic and Moist Mucous Membranes
Respiratory: Clear to Auscultation
Cardiac: Regular Rhythm and S1/S2; Negative Murmur, Rub or Gallop
GI: Soft, Nontender, Nondistended and Normal Bowel Sounds; Negative Organomegaly
Rectal: Deferred by Provider
Musculoskeletal: No Clubbing, No Cyanosis and No Edema
Skin: Negative Rash
Neuro: Nonfocal/Grossly Intact
--- NOTE | 2024-04-03 15:53 | CM ---
Tentative schedules for temporal bx 04/04/24.
Maintained on Prednisone.
Tylenol prn.
Pt requested [facility] at [place].
PLAN Home with [facility]
[2024-04-03 16:26] LABS: Glucose - Point of Care 368 mg/dl (70-99)
[2024-04-03] MEDS: NOVOLOG FLEXPEN-LOW RESISTANCE 5 UNITS SC (16:28)
[2024-04-03] MEDS: CYMBALTA DELAYED RELEASE 60 MG PO (17:18)
[2024-04-03] MEDS: LIPITOR 40 MG PO (17:18)
[2024-04-03] MEDS: TOPROL XL 75 MG PO (21:00)
[2024-04-03 21:10] LABS: Glucose - Point of Care 372 mg/dl (70-99)
[2024-04-04] VITALS (11 sets, daily range): BP systolic 128–155; BP diastolic 72–93
[2024-04-04] MEDS: TYLENOL 1000 MG PO ×2 (03:59→23:33)
[2024-04-04 07:26] LABS: % Immature Granulocytes 0.9 % (0-0.5); % Lymphocytes 31.8 % (20.5-51.1); % Monocytes 8.4 % (1.7-9.3); % Neutrophils 58.9 % (42.2-75.2); Absolute Immature Granulocytes 0.1 10^3/uL (0-0.05); Absolute Lymphocytes 1.8 10^3/uL (1.2-3.4); Absolute Monocytes 0.5 10^3/uL (0.1-0.6); Absolute Neutrophils 3.3 10^3/uL (1.4-6.5); Hemoglobin 12.2 g/dL (13.0-18.0); Mean Corpuscular Hgb 31.3 pg (27.0-31.0); Mean Corpuscular Volume 94.9 fL (80.0-94.0); Mean Platelet Volume 9.7 fL (7.4-10.4); Nucleated Red Blood Cells % 0 % (-); Platelet Count 537 10^3/uL (130-400); Red Cell Dist. Width 13.5 % (11.5-14.5); White Blood Cell Count 5.6 10^3/uL (4.8-10.8)
[2024-04-04 07:42] LABS: ALT (SGPT) 27 U/L (0-50); AST (SGOT) 36 U/L (17-59); Albumin 3.3 g/dl (3.5-5.0); Alkaline Phosphatase 109 U/L (38-126); Blood Urea Nitrogen 35 mg/dl (9-20); Calcium 9.2 mg/dl (8.4-10.2); Carbon Dioxide 30 mmol/L (22-30); Chloride 95 mmol/L (98-107); Estimated Creatinine Clearance 84 ml/min; Glucose 279 mg/dl (70-99); Potassium 4.6 mmol/L (3.5-5.1); Sodium 136 mmol/L (135-145); Total Bilirubin 0.2 mg/dl (0.2-1.3); Total Protein 6.6 g/dl (6.3-8.2); eGFR > 60.00
[2024-04-04] MEDS: ATIVAN 0.5 MG PO ×2 (08:07→22:36)
[2024-04-04] MEDS: LOW STRENGTH ASPIRIN 81 MG PO (08:16)
[2024-04-04] MEDS: TOPROL XL 75 MG PO ×2 (08:16→20:10)
[2024-04-04] MEDS: DELTASONE 60 MG PO (08:17)
[2024-04-04] MEDS: VITAMIN B1 100 MG PO (08:17)
[2024-04-04] MEDS: VITAMIN B-12 1000 MCG PO (08:18)
--- NOTE | 2024-04-04 08:51 | W.PN.CD ---
Today's Communication / Plan
-
RHC today
Impression / Plan
-
Headache and visual abnormalities:
-neuro following
-CRP/ESR quite elevated. There is concern for temporal arteritis and vascular team is consulted for consideration for biopsy. Steroids administered.
AFIB, permanent:
-Increased metoprolol to 75 bid for better HR control
-[id number] for 7 for age, hypertension, DM, stroke, and CAD- Xarelto held for potential procedure as above. heparin subq per patient request
SOLANO: chronic and longstanding unclear etiology
-RHC today
-lungs clear, no edema, does not appear volume overloaded
-compliant with Xarelto, been on hold as above
CAD with hx stenting:
-stable on cath earlier this year (see below)
-denies any CP
-on ASA, statin, and BB
ICM:
-resolved
-recent echo stable as below
Subjective: Feeling OK RHC todya
Data:
Head CTA: No large vessel occlusions or dissections appreciated. Moderate calcified plaque within both carotid bulbs and proximal ICAs causing less than 50% luminal narrowing bilaterally. No acute intracranial abnormality. Couple of lacunar
infarcts, described above.
Echo 02/28/24: Left ventricular ejection fraction is 60-65%. Normal regional wall motion. Normal right ventricular size and function. Severely dilated left atrium. Moderately to severely dilated right atrium.Aortic sclerosis without stenosis. Mild
aortic regurgitation.
LHC 06/28/23: Right dominant circulation with densely calcified LAD with luminal irregularities throughout, a patent stent in the mid LAD, a patent stent in the ostium of the ramus intermedius with a 40% lesion after the stented segment and a 30%
lesion in the proximal RCA. Normal filling pressures (LVEDP = 12 mmHg at 73.9 kg). Normal sized aortic root, ascending aorta, aortic arch and descending aorta. Calcified aortic plaquing is visible at the apex of the aortic arch. Mild aortic valve
regurgitation.
Physical Exam
Vital Signs/Labs
Vital Signs
Temp Pulse Resp BP Pulse Ox
97.7 F 99 16 130/72 95
04/04/24 03:42 04/04/24 03:42 04/04/24 03:42 04/04/24 03:42 04/04/24 03:42
04/03/24 04/04/24 04/05/24
06:59 06:59 06:59
Actual Weight 128 lb 7 oz 127 lb 9 oz
04/04/24 06:22
04/04/24 06:22
Magnesium 2.0 mg/dl (1.6-2.3) 04/02/24 07:02
Triglycerides 114 mg/dl (10-149) 04/02/24 07:02
LDL Cholesterol, Calc 112 mg/dl 04/02/24 07:02
VLDL Cholesterol, Calc 22 mg/dl (0-30) 04/02/24 07:02
HDL Cholesterol 41 mg/dl 04/02/24 07:02
Physical Exam
Constitutional: No acute distress and Comfortable
EENT: Anicteric
Cardiovascular: Pedal edema is absent and Rhythm/rate is irregular
Respiratory: Respiratory effort normal and Lungs clear to auscul.
GI: Soft
Neuro/Psych: Alert and Oriented
Data Reviewed
-
Date of Service: April 04, 2024
EKG: Tracing Personally Visualized and interpreted (af)
Echo: Report Reviewed by me
Labs: Labs Reviewed by me
[2024-04-04 09:02] LABS: Glucose - Point of Care 252 mg/dl (70-99)
[2024-04-04] MEDS: HEPARIN SC ×3 (09:02→21:56)
[2024-04-04] MEDS: GLUCOTROL PO ×2 (09:02→16:35)
--- NOTE | 2024-04-04 09:08 | W.PN.NEURO.1 ---
Today's Communication / Plan
-
Initiated thiamine due to risk of alcohol withdrawal
Add orthostatics
Advanced the patient's duloxetine dosing from 30 mg to 60 mg due to recurrent headaches as migraine prevention medication
Continue newly initiated prednisone 60 mg daily in attempt to reduce possible giant cell arteritis
Neuro Assessment/Plan
Assessment
IMPRESSIONS/RECOMMENDATIONS:
Abrupt onset of left eye visual loss which is circumferential and not present on contralateral side
Differential diagnosis is broad and includes migraine with aura, central retinal artery occlusion (less likely based on pattern of visual loss), central right occipital acute ischemic stroke, and temporal arteritis based on the patient's markedly
elevated CRP and elevated ESR
MRI imaging of the brain was canceled by radiology due to Spinal stimulator in place although nonfunctional
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
Plan
Initiated thiamine due to risk of alcohol withdrawal
Add orthostatics
Advanced the patient's duloxetine dosing from 30 mg to 60 mg due to recurrent headaches as migraine prevention medication
Continue newly initiated prednisone 60 mg daily in attempt to reduce possible giant cell arteritis
Appreciate vascular surgery consultation for assistance with temporal artery biopsy
Continue atorvastatin
Provide rivaroxaban after surgical intervention in the form of temporal artery biopsy
Ophthalmology consultation
Will follow
Subjective/Objective
Subjective Data
Date of Service: April 04, 2024
Patient reports minimal change in vision involving the left eye
Objective Data
Vital Signs
Temp Pulse Resp BP Pulse Ox
36.5 C 99 16 130/72 95
04/04/24 03:42 04/04/24 03:42 04/04/24 03:42 04/04/24 03:42 04/04/24 03:42
Lab Results
04/04/24 06:22
04/04/24 06:22
Sodium 136 mmol/L (135-145) 04/04/24 06:22
Potassium 4.6 mmol/L (3.5-5.1) 04/04/24 06:22
BUN 35 mg/dl (9-20) H 04/04/24 06:22
Glucose 279 mg/dl (70-99) H 04/04/24 06:22
Calcium 9.2 mg/dl (8.4-10.2) 04/04/24 06:22
LDL Cholesterol, Calc 112 mg/dl 04/02/24 07:02
Vitamin B12 840 pg/ml (239-931) 04/01/24 09:57
Patient Allergies
Cephalosporins Allergy (Verified 04/01/24 09:41)
Unknown
enoxaparin sodium [From Lovenox] Allergy (Verified 04/01/24 09:41)
GI bleed
Heparin Analogues [Heparin Agents] Allergy (Verified 04/01/24 09:41)
GI Rectal bleeding
Penicillins Allergy (Verified 04/01/24 09:41)
Hives/swelling/sob/itch
venom-honey bee [bee venom (honey bee)] Allergy (Verified 04/01/24 09:41)
Anaphylaxis
Review of Systems
-
History Source: Patient
All other systems: Reviewed and negative
EENT: Decreased Vision; Negative Swallowing Difficulty
Respiratory: Trouble Breathing
Neuro: Dizzy; Negative Headache
Physical Exam
-
General: No Apparent Distress and Appears Stated Age
Eyes: Round OU and [place] Conjunctivae
HEENT: Anicteric and Moist Mucous Membranes
Neck: Full Range of Motion
Respiratory: No Dyspnea
Cardiac: No JVD
GI: Non-distended
Skin: Unremarkable
Extremities: No Clubbing, No Cyanosis and No Edema
Psych: Intact Judgement/Insight
Extended Neurological Exam
Mood & Affect: Mood Unremarkable and Affect Unremarkable
Attention Span & Concentration: Awake, Alert and Interactive
Memory: Unremarkable
Tremor: Hand Tremor Absent and Head Tremor Absent
Speech: Quality Unremarkable and Quantity Unremarkable
Cranial Nerve II: Left Eye: Pupillary Size Unremarkable
Cranial Nerve II: Right Eye: Pupillary Size Unremarkable
Cranial Nerves III, IV, : Extraocular Movement: Ptosis on Left, Reduced (Upgaze with the left eye) and Otherwise Unremarkable; Negative Ptosis on Right
Cranial Nerve VII: Facial Symmetry: Normal Facial Symmetry
Cranial Nerve VIII: Hearing: Unremarkable Hearing to Normal Conversational Volume
Muscle Strength, Overall: Spontaneously Moves (All extremities)
Muscle Bulk & Tone: Bulk Unremarkable and Tone Unremarkable
Touch Sensation: Unremarkable
Data Reviewed
-
Labs: Report Reviewed
Reviewed with: Nurse and Patient
Old Records: Summarized
[2024-04-04] MEDS: NOVOLOG FLEXPEN-LOW RESISTANCE SC (09:33)
--- NOTE | 2024-04-04 10:36 | ITS.CL.CATH ---
Freezing Machine Operator - Catheterization
Cardiac Catheterization
Procedure Report:
RIGHT HEART CATHETERIZATION
Date of Procedure: 04/04/2024
Referring: Rogers Castro M.D.
INDICATION: Assessment of volume status.
ACCESS:
Unsuccessful 5 British right antecubital fossa.
5 British right femoral vein using a modified Seldinger technique with a micropuncture kit under ultrasound guidance.
CATHETERS:
5 British balloon wedge.
PROCEDURE:
The patient was prepped and draped in standard sterile fashion including the right antecubital fossa and the right femoral crease. The area for antecubital access was anesthetized with 1% lidocaine. Under ultrasound guidance, the antecubital vein
was cannulated using a modified Seldinger technique. A wire advanced easily into the vein. A 5 British sheath was inserted into the basilic. Unfortunately, the 5 British balloon wedge catheter would not advance far beyond the tip of the sheath. We
attempted to pass a power turn flex wire but encountered severe buckling throughout the entire venous course, suggesting that we may be in a dissection plane. We were not getting any venous return from the antecubital sheath. We decided to abandon
this access point.
We then turned our attention to the right femoral vein. The right femoral crease was anesthetized with lidocaine. The right common femoral vein was accessed using a modified Seldinger technique with a micropuncture kit under ultrasound guidance.
A 5 British femoral sheath was placed. A 5 British balloon wedge catheter was advanced through the sheath into the superior vena cava using a power turn flex wire, traversing intravascular stents as well as an IVC filter. An SVC oxygen saturation was
drawn. The balloon wedge catheter was advanced into the pulmonary artery and a pulmonary artery oxygen saturation was drawn. Arterial oxygen saturation was assumed from pulse oximetry. Cardiac output was calculated using the Kristyn equation. The PA,
wedge, RV and RA pressures were measured on pullback. The balloon wedge catheter was removed. Both 5 British sheath's were removed and manual pressure was held for hemostasis.
Weight (kg): 58.0
PA (s/d/x mmHg): 37/22/27
PCWP (a/v/x mmHg): /
RV (s/x mmHg): 38/9
RA (a/v/x mmHg):
SVC SvO2 (%): 57.8
IVC SvO2 (%): Not obtained.
RA SvO2 (%): Not obtained.
RV SvO2 (%): Not obtained.
PA SvO2 (%): 54.6
SaO2 (%): 96.0 (assumed)
Hbg (g/dL): 11.1
Kristyn
CO (liters/minute): 3.39
CI (liters/minute/m2): 2.03
Thermodilution
CO (liters/minute): Not performed.
CI (liters/minute/m2): Not performed.
TPG (mmHg): 7
PVR (Isidro Units): 2.06
AVO2 Difference (Volume %): 6.25
Radiation (mGy): 15.66
DAP (cm2.Gy): 2.7602
Fluoroscopy time (minutes): 5.3
CONCLUSION:
1. Moderately elevated filling pressures (PCWP = 20 mmHg at 58.0 kg).
2. 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
3. Mildly depressed cardiac function (cardiac index = 2.03 L/min/m�, AVO2 difference = 6.25 volume %).
4. Prior intravascular stents and IVC filter.
RECOMMENDATIONS:
1. Expectant management after right heart catheterization via failed right antecubital and successful right common femoral venous approach.
2. Consider slightly more aggressive diuresis.
3. Guideline directed medical therapy as hemodynamics will tolerate for heart failure with preserved ejection fraction.
Copy to: Jose Monae M.D., Rogers Castro M.D.
Bill Agee D.O., [facility], FACP
--- NOTE | 2024-04-04 11:13 | PTCARENOTE ---
Received patient from [employer] [facility]/p [facility] in bed. Dressings noted right brachial vein and right femoral vein. Ordered to keep limbs straight for 2 hours. Patient agreeable. Call yadav in close reach.
[2024-04-04 11:51] LABS: Glucose - Point of Care 274 mg/dl (70-99)
[2024-04-04] MEDS: NOVOLOG FLEXPEN-LOW RESISTANCE 3 UNITS SC ×2 (12:43→18:10)
--- NOTE | 2024-04-04 16:11 | W.PN.HOSP.TC ---
Today's Communication/Plan
-
Findings of RHC noted
Consider gentle diuresis
Patient did require hydration with sodium bicarbonate for metabolic acidosis while holding spironolactone for hyperkalemia.
Systemic steroids with concern for temporal arteritis pending temporal artery biopsy
Physical therapy evaluation
Assessment / Plan
Assessment / Plan
Impression:
Presentation with occipital headache and left eye transient vision loss.
Elevated inflammatory markers
Increased anion gap metabolic acidosis
Hyperkalemia baseline
Other conditions:
Exertional dyspnea
Unintentional weight loss with malnutrition BMI 19.
Permanent A-fib
Anticoagulation with Xarelto
History of DVT/PE.
CAD with prior stenting.
Ischemic cardiomyopathy with recovered EF. Echo 03/14 with LVEF of 60-65%
Essential hypertension
Type 2 diabetes
History of alcohol use disorder/binge drinking stopped September 2023
GERD
Chronic back pain with spinal stimulator implant
Plan:
Presentation with occipital headache and transient left eye vision loss.
Resolved headache
No temporal tenderness on exam.
Remains with left eye visual field cut.
CT scan of the head with no acute abnormalities.
CTA with no acute abnormalities.
Differential diagnosis migraine with visual symptoms versus temporal arteritis (given elevated inflammatory markers) versus occipital CVA.
Unable to perform MRI given spinal stimulator in place
Continue neurologic monitoring
Consider to repeat CT of the head.
Vascular surgery consultation for temporal artery biopsy
Hold Xarelto.
Continue prednisone pending temporal artery biopsy
Headache management as per neurology.
Increased anion gap metabolic acidosis.
Hyperkalemia secondary to above and spironolactone.
Suspect metabolic acidosis secondary to SGLT2 inhibitor Jardiance.
Hold Farxiga/Jardiance.
Improved with IV fluids and bicarbonate
Observe off IV fluids
Hold spironolactone
Lokelma
Follow BMP
Type 2 diabetes.
Hemoglobin A1c 9.9.
Expected hyperglycemia given addition of systemic steroids.
Continue glipizide.
Continue basal bolus protocol.
Serial Accu-Cheks.
Carbohydrate diet
Unintentional weight loss
Cachexia.
BMI 19.
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
Will consider outpatient evaluation for occult malignancy including CT of the chest abdomen and pelvis with contrast
Permanent A-fib.
Continue metoprolol.
CV 2 score 7.
Resuming Xarelto post temporal artery biopsy.
CAD with stenting
Recovered ischemic cardiomyopathy.
Volume status compensated
Continue aspirin, statin, beta-vern.
Reported dyspnea on exertion.
Respiratory status stable at rest.
RHC 04/04: Moderately elevated filling pressure PCWP 20 mmHg, mild pulmonary hypertension, mildly decreased cardiac function CI 2.03
Consider gentle diuresis
Consider imaging including CT chest.
Consider outpatient spirometry.
Anticipated Discharge: > 48 hours
Subjective/Interval History
-
Date of Service: April 04, 2024
Objective Data
-
Labs:
Laboratory Results
04/04/24
06:22
WBC 5.6
Hgb 12.2 L
Hct 37.0 L
Plt Count 537 H
Sodium 136
Potassium 4.6
Chloride 95 L
Carbon Dioxide 30
BUN 35 H
Creatinine 0.6 L
Glucose 279 H
Calcium 9.2
Total Bilirubin 0.2
AST 36
ALT 27
Alkaline Phosphatase 109
Vital Signs:
Vital Signs
Temp Pulse Resp BP Pulse Ox
97.6 F 85 18 128/80 96
04/04/24 14:33 04/04/24 14:33 04/04/24 14:33 04/04/24 14:33 04/04/24 14:33
I&O
04/03/24 04/04/24 04/05/24
06:59 06:59 06:59
Intake Total 2039 900 / 900
Output Total 1050 / 105 710 / 710
Balance 990 / 990 190 / 190
Physical Exam
-
General: Well Developed and No Apparent Distress
HEENT: Normocephalic, Atraumatic and Moist Mucous Membranes
Respiratory: Clear to Auscultation
Cardiac: Regular Rhythm and S1/S2; Negative Murmur, Rub or Gallop
GI: Soft, Nontender, Nondistended and Normal Bowel Sounds; Negative Organomegaly
Rectal: Deferred by Provider
Musculoskeletal: No Clubbing, No Cyanosis and No Edema
Skin: Negative Rash
Neuro: Nonfocal/Grossly Intact
[2024-04-04 16:41] LABS: Glucose - Point of Care 281 mg/dl (70-99)
--- NOTE | 2024-04-04 16:56 | CM ---
Continues with cardiac testing.
Maintained on Prednisone.
Family will drive him home at [place].
Pt requested [facility] at [place].
PLAN Home with [facility]
[2024-04-04] MEDS: LIPITOR 40 MG PO (18:09)
[2024-04-04] MEDS: CYMBALTA DELAYED RELEASE 60 MG PO (18:09)
[2024-04-04] MEDS: GLUCOTROL 10 MG PO (20:10)
[2024-04-04 21:16] LABS: Glucose - Point of Care 325 mg/dl (70-99)
[2024-04-05] VITALS (26 sets, daily range): BP systolic 11–145; BP diastolic 61–85; BMI 19.8
[2024-04-05 00:35] LABS: ANA, IgG Reflex to HEp-2 None Detected (None Detected)
[2024-04-05 05:52] LABS: Glucose - Point of Care 236 mg/dl (70-99)
[2024-04-05 07:43] LABS: Blood Urea Nitrogen 31 mg/dl (9-20); Calcium 9.3 mg/dl (8.4-10.2); Carbon Dioxide 26 mmol/L (22-30); Chloride 95 mmol/L (98-107); Estimated Creatinine Clearance 84 ml/min; Glucose 248 mg/dl (70-99); Sodium 134 mmol/L (135-145); eGFR > 60.00
[2024-04-05] MEDS: DELTASONE 60 MG PO (08:20)
[2024-04-05] MEDS: VITAMIN B-12 1000 MCG PO (08:20)
[2024-04-05] MEDS: GLUCOTROL 10 MG PO ×2 (08:20→17:12)
[2024-04-05] MEDS: VITAMIN B1 100 MG PO (08:20)
[2024-04-05] MEDS: LOW STRENGTH ASPIRIN 81 MG PO (08:21)
[2024-04-05] MEDS: FLUSH (NSS) 1 FLUSH IV (08:21)
[2024-04-05] MEDS: ATIVAN 0.5 MG PO ×2 (08:21→21:45)
[2024-04-05] MEDS: TOPROL XL 75 MG PO ×2 (08:21→21:45)
[2024-04-05] MEDS: NOVOLOG FLEXPEN-LOW RESISTANCE 2 UNITS SC (08:24)
[2024-04-05] MEDS: BACTROBAN 2% OINTMENT 1 APPLIC NASAL (11:05)
[2024-04-05] MEDS: PERIDEX 0.12% ORAL RINSE 15 ML PO (11:06)
[2024-04-05 11:44] LABS: Glucose - Point of Care 230 mg/dl (70-99)
[2024-04-05] MEDS: VANCOCIN 200 IV (12:10)
--- NOTE | 2024-04-05 12:41 | CM ---
Pt had temporal artery bx today
Continues with cardiac testing.
Diuretic maintained.
Family will drive him home at [place].
Pt requested [facility] at [place].
PLAN Home with [facility]
--- NOTE | 2024-04-05 12:47 | W.SUR.PREOP ---
Pre-Operative Surgical Note
-
I have examined this patient prior to the performance of the scheduled procedure.
The patient's condition is unchanged from the time of the current History and
Physical and the patient is able to undergo the scheduled procedure.
[2024-04-05] MEDS: NOVOLOG FLEXPEN-LOW RESISTANCE SC (12:55)
--- NOTE | 2024-04-05 13:20 | OR.RPT ---
Operative Report
Operative Report
Date of Operation: 04/05/2024
Pre Op Diagnosis: Suspected temporal arteritis
Post Op Diagnosis: Suspected temporal arteritis
Procedure: LEFT temporal artery biopsy
Surgeon: Gil Harrell III, MD
Central Processing Technician: Jose J Cabrera MD PhD, PGY2
Anesthesia: Sedation/local
Complications: None
Estimated Blood Loss: Less than 10 cc
History and Indications for Procedure: 78-year-old male with symptom constellation raising concern for temporal arteritis.
Procedure in Detail: Efren Allison was correctly identified and placed supine on the operating table. After adequate induction of anesthesia his left temporal artery was marked with ultrasound guidance as there was no palpable pulse. The hairline
was shaved to expose this area. The temporal area was then prepped and draped in the usual sterile fashion. A timeout procedure was performed with the nursing and anesthesia staff confirming the patient's identity as well as the nature and
laterality of the procedure.
Local anesthesia was infiltrated into the proposed incision site. An incision was made. Sharp dissection and electrocautery were used to dissect out the segment of temporal artery. The artery was white in appearance and very indurated on
palpation. The proximal and distal ends of the temporal artery were ligated with silk ties. The intervening segment was transected and removed. The segment of temporal artery was passed off to the back table to be sent to pathology.
Hemostasis was achieved in the wound bed. The wound was irrigated and then closed in layers. Sterile skin glue was applied. The patient tolerated the procedure well was taken to the recovery room in good condition.
Attestation: I was present and responsible for the entire procedure
Signed:
Gil Harrell III, MD
[facility]
[phone] (waug)
--- NOTE | 2024-04-05 13:46 | W.IMMPOSTOP ---
Surgical Immed Post Op Note
-
Primary Surgeon: Dr. Gil Harrell III, MD
Assisting Surgeon: Jose J Cabrera MD, PhD (PGY-2)
Pre-op Diagnosis: Rule out suspected temporal arteritis
Post-op Diagnosis: Rule out suspected temporal arteritis
Procedure Performed: Left temporal artery biopsy
Anesthesia Type: Sedation
Specimen / Cultures: Left temporal artery biopsy
Estimated Blood Loss: Minimal
Complications: None
Operative Findings: The patient was brought to the OR. Ultrasound guidance was used to map the course of the left temporal artery. The site was prepped and draped in usual sterile fashion. Incision was made above the left temporal artery,
electrocautery was used to dissect through the subcutaneous tissues. Sharp dissection was used to expose the vessel. 4-0 silk ties were used to suture ligate the vessel both proximally and distally. A 2cm segment of left temporal artery was resected
and sent as a specimen. Hemostasis was confirmed. The site was closed with 3 interrupted 3-0 sutures, followed by a running 3-0 and 4-0 layer, with skin glue on the surface. At the conclusion of the case, the patient was transported to the PACU in
stable condition with no evidence of facial nerve palsy noted at time of sign out to the PACU.
[2024-04-05 13:50] LABS: Glucose - Point of Care 260 mg/dl (70-99)
--- NOTE | 2024-04-05 14:03 | W.PN.UPDATE ---
Update Note
Progress Note Update
LEFT temporal artery biopsy performed
Please have patient followup with us in the office in 2 weeks for incision check and biopsy review
Patient can contact office next week for biopsy results
--- NOTE | 2024-04-05 14:47 | PTCARENOTE ---
Received pt from [facility]/PACU via bed; accompanied by PACU's staff x1. 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 VSS. telemetry:A fib. On room air- pulseox 98%, lungs clear, no SOB noted.
Abd soft, rounded,to start 1800 marcela diet. Pt DTV; urinal at bedside. Afebrile, skin warm and dry; Lt temporal incisional site with Dermabond; no drainage/edema noted. pt c/o posterior head 'headache' at present. Will continue to monitor.
[2024-04-05] MEDS: TYLENOL 1000 MG PO (15:02)
--- NOTE | 2024-04-05 15:20 | W.PN.CD ---
Today's Communication / Plan
-
IV lasix tomorrow
Cont meds
Impression / Plan
-
Headache and visual abnormalities:
-neuro following
-CRP/ESR quite elevated. There is concern for temporal arteritis and vascular team is consulted for consideration for biopsy. Steroids administered.
AFIB, permanent:
-Increased metoprolol to 75 bid for better HR control
-[id number] for 7 for age, hypertension, DM, stroke, and CAD- Xarelto held for procedures
SOLANO: chronic and longstanding unclear etiology
-RHC showed mild to moderately elevated filling pressures, however, did receive IV fluids
- will give one dose of diuretics today
-lungs clear, no edema, does not appear volume overloaded
-compliant with Xarelto, been on hold as above
CAD with hx stenting:
-stable on cath earlier this year (see below)
-denies any CP
-on ASA, statin, and BB
ICM:
-resolved
-recent echo stable as below
Subjective: Improved symptoms
Data:
Head CTA: No large vessel occlusions or dissections appreciated. Moderate calcified plaque within both carotid bulbs and proximal ICAs causing less than 50% luminal narrowing bilaterally. No acute intracranial abnormality. Couple of lacunar
infarcts, described above.
Echo 02/28/24: Left ventricular ejection fraction is 60-65%. Normal regional wall motion. Normal right ventricular size and function. Severely dilated left atrium. Moderately to severely dilated right atrium.Aortic sclerosis without stenosis. Mild
aortic regurgitation.
LHC 06/28/23: Right dominant circulation with densely calcified LAD with luminal irregularities throughout, a patent stent in the mid LAD, a patent stent in the ostium of the ramus intermedius with a 40% lesion after the stented segment and a 30%
lesion in the proximal RCA. Normal filling pressures (LVEDP = 12 mmHg at 73.9 kg). Normal sized aortic root, ascending aorta, aortic arch and descending aorta. Calcified aortic plaquing is visible at the apex of the aortic arch. Mild aortic valve
regurgitation.
Physical Exam
Vital Signs/Labs
Vital Signs
Temp Pulse Resp BP Pulse Ox
97.6 F 93 16 124/88 100
04/06/24 15:05 04/06/24 15:05 04/06/24 15:05 04/06/24 15:05 04/06/24 15:05
04/05/24 04/06/24 04/07/24
06:59 06:59 06:59
Actual Weight 126 lb 4 oz
04/04/24 06:22
04/06/24 04:59
Magnesium 2.0 mg/dl (1.6-2.3) 04/02/24 07:02
Triglycerides 114 mg/dl (10-149) 04/02/24 07:02
LDL Cholesterol, Calc 112 mg/dl 04/02/24 07:02
VLDL Cholesterol, Calc 22 mg/dl (0-30) 04/02/24 07:02
HDL Cholesterol 41 mg/dl 04/02/24 07:02
Physical Exam
Constitutional: No acute distress
EENT: Anicteric
Cardiovascular: Pedal edema is absent and Rhythm/rate is irregular
Respiratory: Respiratory effort normal and Lungs clear to auscul.
GI: Soft
Neuro/Psych: AO x 3
Data Reviewed
-
Date of Service: April 06, 2024
Medical Decision Making: Reviewed Test Results
EKG: Tracing Personally Visualized and interpreted (af)
Echo: Report Reviewed by me
Labs: Labs Reviewed by me
[2024-04-05 15:29] LABS: Glucose - Point of Care 253 mg/dl (70-99)
--- NOTE | 2024-04-05 15:53 | W.PN.HOSP.TC ---
Today's Communication/Plan
-
Given elevated filling pressure on RHC, diuresis as per cardiology
Continue prednisone pending temporal artery biopsy
Follow sed rate/CRP in AM.
CT scan of the chest abdomen pelvis with concern for occult malignancy (unintentional weight loss and overall deconditioning)
Resume Xarelto post temporal artery biopsy once cleared by vascular surgery
Assessment / Plan
Assessment / Plan
Impression:
Presentation with occipital headache and left eye transient vision loss.
Elevated inflammatory markers
Increased anion gap metabolic acidosis
Hyperkalemia baseline
Other conditions:
Exertional dyspnea
Unintentional weight loss with malnutrition BMI 19.
Permanent A-fib
Anticoagulation with Xarelto
History of DVT/PE.
CAD with prior stenting.
Ischemic cardiomyopathy with recovered EF. Echo 03/14 with LVEF of 60-65%
Essential hypertension
Type 2 diabetes
History of alcohol use disorder/binge drinking stopped September 2023
GERD
Chronic back pain with spinal stimulator implant
Plan:
Presentation with occipital headache and transient left eye vision loss.
Resolved headache
No temporal tenderness on exam.
Remains with left eye visual field cut.
CT scan of the head with no acute abnormalities.
CTA with no acute abnormalities.
Differential diagnosis migraine with visual symptoms versus temporal arteritis (given elevated inflammatory markers) versus occipital CVA.
Unable to perform MRI given spinal stimulator in place
Continue neurologic monitoring
Consider to repeat CT of the head.
Status post temporal artery biopsy by vascular surgery on 04/05
Resume Xarelto when okay with surgery
Continue prednisone pending temporal artery biopsy
Headache management as per neurology.
Increased anion gap metabolic acidosis.
Hyperkalemia secondary to above and spironolactone.
Suspect metabolic acidosis secondary to SGLT2 inhibitor Jardiance.
Hold Farxiga/Jardiance.
Improved with IV fluids and bicarbonate
Observe off IV fluids
Hold spironolactone
Lokelma
Follow BMP
Type 2 diabetes.
Hemoglobin A1c 9.9.
Expected hyperglycemia given addition of systemic steroids.
Continue glipizide.
Continue basal bolus protocol.
Serial Accu-Cheks.
Carbohydrate diet
Unintentional weight loss
Cachexia.
BMI 19.
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 scan of the chest abdomen pelvis on 04/06.
Permanent A-fib.
Continue metoprolol.
CV 2 score 7.
Resuming Xarelto post temporal artery biopsy.
CAD with stenting
Recovered ischemic cardiomyopathy.
Volume status compensated
Continue aspirin, statin, beta-vern.
Reported dyspnea on exertion.
Respiratory status stable at rest.
RHC 04/04: Moderately elevated filling pressure PCWP 20 mmHg, mild pulmonary hypertension, mildly decreased cardiac function CI 2.03
Consider gentle diuresis
Consider imaging including CT chest.
Consider outpatient spirometry.
Anticipated Discharge: 24 - 48 hours
Subjective/Interval History
-
Date of Service: April 05, 2024
Objective Data
-
Labs:
Laboratory Results
04/05/24
06:05
Sodium 134 L
Potassium 5.0
Chloride 95 L
Carbon Dioxide 26
BUN 31 H
Creatinine 0.5 L
Glucose 248 H
Calcium 9.3
Vital Signs:
Vital Signs
Temp Pulse Resp BP Pulse Ox
96.8 F L 88 16 115/71 99
04/05/24 15:30 04/05/24 15:30 04/05/24 15:30 04/05/24 15:30 04/05/24 15:30
I&O
04/04/24 04/05/24 04/06/24
06:59 06:59 06:59
Intake Total 900 / 900 480 / 480
Output Total 710 / 710 200 / 200
Balance 190 / 190 280 / 280
Physical Exam
-
General: Well Developed and No Apparent Distress
HEENT: Normocephalic, Atraumatic and Moist Mucous Membranes
Respiratory: Clear to Auscultation
Cardiac: Regular Rhythm and S1/S2; Negative Murmur, Rub or Gallop
GI: Soft, Nontender, Nondistended and Normal Bowel Sounds; Negative Organomegaly
Rectal: Deferred by Provider
Musculoskeletal: No Clubbing, No Cyanosis and No Edema
Skin: Negative Rash
Neuro: Nonfocal/Grossly Intact
--- NOTE | 2024-04-05 16:25 | PTCARENOTE ---
Pt resting comfortably since return from OR; VSS. Lt temporal site TAY; D/I. Pt reports posterior head h/a since PACU; given Tylenol 1000 mg ; pt reports some relief at present. Currently kyung 1800 marcela diet. Will continue to monitor.
[2024-04-05] MEDS: NOVOLOG FLEXPEN-LOW RESISTANCE 3 UNITS SC (17:12)
[2024-04-05] MEDS: CYMBALTA DELAYED RELEASE 60 MG PO (17:13)
[2024-04-05] MEDS: XARELTO 20 MG PO (17:14)
[2024-04-05] MEDS: LIPITOR 40 MG PO (17:14)
[2024-04-05 20:06] LABS: Acetylcholine Receptor Bind Ab 0.1 nmol/L (0.0-0.4)
[2024-04-05 21:21] LABS: Glucose - Point of Care 496 mg/dl (70-99)
[2024-04-05 22:14] LABS: Glucose 538 mg/dl (70-99)
[2024-04-05] MEDS: NOVOLOG FLEXPEN 12 UNITS SC (22:35)
[2024-04-06] VITALS (7 sets, daily range): BP systolic 98–133; BP diastolic 61–88; PULSE 83–102
[2024-04-06 00:21] LABS: Glucose - Point of Care 581 mg/dl (70-99)
[2024-04-06 01:11] LABS: Blood Urea Nitrogen 34 mg/dl (9-20); Calcium 8.8 mg/dl (8.4-10.2); Carbon Dioxide 26 mmol/L (22-30); Chloride 95 mmol/L (98-107); Estimated Creatinine Clearance 84 ml/min; Glucose 418 mg/dl (70-99); Potassium 4.9 mmol/L (3.5-5.1); Sodium 132 mmol/L (135-145); eGFR > 60.00
[2024-04-06] MEDS: NOVOLOG FLEXPEN 14 UNITS SC (01:35)
[2024-04-06 04:36] LABS: Glucose - Point of Care 261 mg/dl (70-99)
[2024-04-06 05:52] LABS: Erythrocyte Sed Rate 45 mm/hour (0-20)
[2024-04-06 05:57] LABS: Blood Urea Nitrogen 30 mg/dl (9-20); Calcium 9.2 mg/dl (8.4-10.2); Carbon Dioxide 26 mmol/L (22-30); Chloride 95 mmol/L (98-107); Estimated Creatinine Clearance 84 ml/min; Glucose 169 mg/dl (70-99); Sodium 133 mmol/L (135-145); eGFR > 60.00
[2024-04-06 07:31] LABS: Glucose - Point of Care 128 mg/dl (70-99)
[2024-04-06] MEDS: NOVOLOG FLEXPEN-LOW RESISTANCE SC (07:49)
[2024-04-06] MEDS: LOW STRENGTH ASPIRIN 81 MG PO (07:58)
[2024-04-06] MEDS: ATIVAN 0.5 MG PO ×2 (07:59→22:10)
[2024-04-06] MEDS: VITAMIN B-12 1000 MCG PO (07:59)
[2024-04-06] MEDS: DELTASONE 60 MG PO (07:59)
[2024-04-06] MEDS: TOPROL XL 75 MG PO ×2 (08:00→22:10)
[2024-04-06] MEDS: GLUCOTROL 10 MG PO ×2 (08:00→17:55)
[2024-04-06] MEDS: LASIX 40 MG IV (09:19)
[2024-04-06] MEDS: OMNIPAQUE 50 ML PO (10:15)
[2024-04-06 12:05] LABS: Glucose - Point of Care 288 mg/dl (70-99)
[2024-04-06] MEDS: NOVOLOG FLEXPEN-LOW RESISTANCE 3 UNITS SC (13:37)
--- NOTE | 2024-04-06 14:45 | W.PN.HOSP.TC ---
Addendum entered and electronically signed by Clinton Hilario MD 04/06/24 16:50:
Seen and examined by me independently in collaboration with the medical superintendent Jefry.
Lab data and imaging data reviewed.
Addendum as below :
Improved headache and as well as slightly improved vision. His vision field defect is on the left side.
Prior coming to the hospital is declined with regards to functional status. In the last 2 months it was getting hard for him to climb up stairs so he stayed on the first floor. He was also having difficulty in getting up from chairs. Also
complains of jaw pain with mastication.
Also feeling fatigued in the last 2 months.
Right temporal artery is palpable, hard and nonpulsatile. No tenderness now. He felt some discomfort in that area prior Coming into the hospital.
Clinical suspicion high for GCA. Continue with the high-dose of steroids. Follow biopsy report. Would need follow-up with rheumatology as outpatient.
Not have diabetes on oral hypoglycemic agents including sulfonylureas, SGLT2 antagonists and GLP-1 agonist. With steroid introduction his sugars are running high and after further discussion with the patient we started him on Lantus at HS. He
has done insulin in the past and is comfortable doing it again.
Repeat CT head to make sure there is no Ischemic infarct which I doubt. Can get MRI because of spinal stimulator.
CT of the abdomen chest and pelvis requested for weight loss evaluation-will follow the report.
Continue with PT OT.
Original Note:
Today's Communication/Plan
-
One-time IV Lasix
CT head noncontrast
CT chest abdomen pelvis
Assessment / Plan
Assessment / Plan
Impression:
78-year-old male past medical history of permanent A-fib on anticoagulation, unintentional weight loss, ischemic cardiomyopathy with preserved ejection fraction, type 2 diabetes presents with occipital headaches and left eye vision loss, found to
have elevated inflammatory markers.
Plan:
#Occipital headache and left eye visual field loss
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
Headache still present
No temporal tenderness on exam.
Left eye visual harris missing peripheral and lower field
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
CTA with no acute abnormalities.
Unable to perform MRI given spinal stimulator in place
Continue neurologic monitoring
Status post temporal artery biopsy by vascular surgery on 04/05, results pending
Xarelto has been resumed
Continue prednisone
Headache management as per neurology.
#Increased anion gap metabolic acidosis.
Resolved, anion gap 8.0 today
Suspect metabolic acidosis was secondary to SGLT2 inhibitor Jardiance.
Currently holding Farxiga/Jardiance
Status post IV fluids and bicarbonate
Observe off IV fluids
Hold spironolactone
Lokelma
Follow BMP
#Type 2 diabetes.
Hemoglobin A1c 9.9.
Expected hyperglycemia given addition of systemic steroids.
Continue glipizide.
Started on 10 Lantus, will consider increasing later
Serial Accu-Cheks.
Carbohydrate diet
#Unintentional weight loss
Cachexia.
BMI 19.
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 scan of the chest abdomen pelvis on 04/06 pending
#Permanent A-fib.
Continue metoprolol.
CV 2 score 7.
Xarelto restarted
#CAD with stenting
Recovered ischemic cardiomyopathy.
Received one-time IV dose of Lasix
Contacted cardiology who recommended no further diuresis
Continue aspirin, statin, beta-vern.
#Reported dyspnea on exertion.
Respiratory status stable at rest.
RHC 04/04: Moderately elevated filling pressure PCWP 20 mmHg, mild pulmonary hypertension, mildly decreased cardiac function CI 2.03
Received one-time dose IV Lasix
CT chest abdomen pelvis
Diet: Diabetic
DVT prophylaxis Xarelto
CODE STATUS DNR
Anticipated Discharge: 24 - 48 hours
Subjective/Interval History
-
Date of Service: April 06, 2024
Patient still reporting left eye visual field loss
Healing well from temporal biopsy
Still currently in A-fib
Objective Data
-
Labs:
Laboratory Results
04/06/24
04:59
Sodium 133 L
Potassium 5.0
Chloride 95 L
Carbon Dioxide 26
BUN 30 H
Creatinine 0.6 L
Glucose 169 H
Calcium 9.2
Vital Signs:
Vital Signs
Temp Pulse Resp BP Pulse Ox
97.4 F 89 16 124/79 100
04/06/24 11:30 04/06/24 11:30 04/06/24 11:30 04/06/24 11:30 04/06/24 11:30
I&O
04/05/24 04/06/24 04/07/24
06:59 06:59 06:59
Intake Total 480 / 480 600 / 600
Output Total 200 / 200 275 / 275
Balance 280 / 280 325 / 325
Review of Systems
-
Constitutional: Reports Weight Loss and No Appetite
EENT: Reports Decreased Vision
Respiratory: Reports No Symptoms
Cardiac: Reports No Symptoms
Abdomen/GI: Reports No Symptoms
Physical Exam
-
General: No Apparent Distress, Comfortable and Conversant
HEENT: Other (Temporal artery is bulging, hard and nonpulsatile)
Respiratory: Clear to Auscultation
Cardiac: S1/S2 and Irregular Rhythm
GI: Soft, Nontender and Nondistended
Musculoskeletal: No Edema
Skin: Warm and Dry
Neuro: Awake, Alert, Oriented, AO x 3 and Other (Left eye visual harris missing peripheral and lower field. Upper and medial field intact)
Psych: Calm and Intact Judgement/Insight
Data Reviewed
-
Labs: Labs Reviewed by me and Discussed with Physician
--- NOTE | 2024-04-06 16:15 | W.PN.CD ---
Today's Communication / Plan
-
IV lasix today
Cont current meds on doses including Metoprolol at increased dose
Resume Xarelto when ok from surgical perspective
We will sign off he has outpt follow up scheduled.
Impression / Plan
-
Headache and visual abnormalities:
-neuro following
-CRP/ESR quite elevated. There is concern for temporal arteritis and vascular team is consulted for consideration for biopsy. Steroids administered.
AFIB, permanent:
-Increased metoprolol to 75 bid for better HR control
-[id number] for 7 for age, hypertension, DM, stroke, and CAD- Xarelto held for procedures
SOLANO: chronic and longstanding unclear etiology
-RHC showed mild to moderately elevated filling pressures, however, did receive IV fluids
- will give one dose of diuretics today
-lungs clear, no edema, does not appear volume overloaded
-compliant with Xarelto, been on hold as above
CAD with hx stenting:
-stable on cath earlier this year (see below)
-denies any CP
-on ASA, statin, and BB
ICM:
-resolved
-recent echo stable as below
Subjective: Improved symptoms
Data:
Head CTA: No large vessel occlusions or dissections appreciated. Moderate calcified plaque within both carotid bulbs and proximal ICAs causing less than 50% luminal narrowing bilaterally. No acute intracranial abnormality. Couple of lacunar
infarcts, described above.
Echo 02/28/24: Left ventricular ejection fraction is 60-65%. Normal regional wall motion. Normal right ventricular size and function. Severely dilated left atrium. Moderately to severely dilated right atrium.Aortic sclerosis without stenosis. Mild
aortic regurgitation.
LHC 06/28/23: Right dominant circulation with densely calcified LAD with luminal irregularities throughout, a patent stent in the mid LAD, a patent stent in the ostium of the ramus intermedius with a 40% lesion after the stented segment and a 30%
lesion in the proximal RCA. Normal filling pressures (LVEDP = 12 mmHg at 73.9 kg). Normal sized aortic root, ascending aorta, aortic arch and descending aorta. Calcified aortic plaquing is visible at the apex of the aortic arch. Mild aortic valve
regurgitation.
Physical Exam
Vital Signs/Labs
Vital Signs
Temp Pulse Resp BP Pulse Ox
97.6 F 93 16 124/88 100
04/06/24 15:05 04/06/24 15:05 04/06/24 15:05 04/06/24 15:05 04/06/24 15:05
04/05/24 04/06/24 04/07/24
06:59 06:59 06:59
Actual Weight 126 lb 4 oz
04/04/24 06:22
04/06/24 04:59
Magnesium 2.0 mg/dl (1.6-2.3) 04/02/24 07:02
Triglycerides 114 mg/dl (10-149) 04/02/24 07:02
LDL Cholesterol, Calc 112 mg/dl 04/02/24 07:02
VLDL Cholesterol, Calc 22 mg/dl (0-30) 04/02/24 07:02
HDL Cholesterol 41 mg/dl 04/02/24 07:02
Physical Exam
Constitutional: No acute distress and Comfortable
EENT: Anicteric
Cardiovascular: Pedal edema is absent and Rhythm/rate is irregular
Respiratory: Respiratory effort normal and Lungs clear to auscul.
GI: Soft
Neuro/Psych: AO x 3
Data Reviewed
-
Date of Service: April 06, 2024
Medical Decision Making: Reviewed Test Results
EKG: Tracing Personally Visualized and interpreted (af)
Echo: Report Reviewed by me
Labs: Labs Reviewed by me
[2024-04-06 17:16] LABS: Glucose - Point of Care 398 mg/dl (70-99)
[2024-04-06] MEDS: LIPITOR 40 MG PO (17:54)
[2024-04-06] MEDS: XARELTO 20 MG PO (17:55)
[2024-04-06] MEDS: CYMBALTA DELAYED RELEASE 60 MG PO (17:55)
[2024-04-06] MEDS: NOVOLOG FLEXPEN 3 UNITS SC (17:56)
[2024-04-06] MEDS: NOVOLOG FLEXPEN-LOW RESISTANCE 5 UNITS SC (17:59)
[2024-04-06] MEDS: TYLENOL 1000 MG PO (21:12)
[2024-04-06 21:17] LABS: Glucose - Point of Care 387 mg/dl (70-99)
[2024-04-06] MEDS: LANTUS 0.1 UNITS SC (22:10)
[2024-04-07 03:35] VITALS: BP 121/84
[2024-04-07 06:00] VITALS: BMI 20.1
[2024-04-07 07:07] LABS: Glucose - Point of Care 310 mg/dl (70-99)
[2024-04-07 07:10] VITALS: BP 113/68; BP 122/77; BP 125/76; PULSE 71; PULSE 76; PULSE 78
[2024-04-07 07:27] LABS: ALT (SGPT) 28 U/L (0-50); AST (SGOT) 33 U/L (17-59); Albumin 3.1 g/dl (3.5-5.0); Alkaline Phosphatase 103 U/L (38-126); Blood Urea Nitrogen 41 mg/dl (9-20); Calcium 8.6 mg/dl (8.4-10.2); Carbon Dioxide 27 mmol/L (22-30); Chloride 91 mmol/L (98-107); Estimated Creatinine Clearance 85 ml/min; Glucose 333 mg/dl (70-99); Sodium 129 mmol/L (135-145); Total Bilirubin 0.3 mg/dl (0.2-1.3); Total Protein 6.3 g/dl (6.3-8.2); eGFR > 60.00
[2024-04-07 08:07] LABS: Hematocrit 40.1 % (39.0-52.0); Hemoglobin 13.1 g/dL (13.0-18.0); Mean Corp Hgb Conc. 32.7 g/dL (33.0-37.0); Mean Corpuscular Hgb 30.7 pg (27.0-31.0); Mean Corpuscular Volume 93.9 fL (80.0-94.0); Mean Platelet Volume 10.1 fL (7.4-10.4); Platelet Count 425 10^3/uL (130-400); Red Blood Cell Count 4.27 10^6/uL (4.70-6.10); Red Cell Dist. Width 13.2 % (11.5-14.5); White Blood Cell Count 6.6 10^3/uL (4.8-10.8)
[2024-04-07] MEDS: NOVOLOG FLEXPEN 3 UNITS SC (08:28)
[2024-04-07] MEDS: NOVOLOG FLEXPEN-LOW RESISTANCE 4 UNITS SC (08:28)
[2024-04-07] MEDS: GLUCOTROL 10 MG PO ×2 (08:29→16:55)
[2024-04-07] MEDS: TOPROL XL 75 MG PO ×2 (08:29→20:06)
[2024-04-07] MEDS: DELTASONE 60 MG PO (08:29)
[2024-04-07] MEDS: LOW STRENGTH ASPIRIN 81 MG PO (08:29)
[2024-04-07] MEDS: VITAMIN B-12 1000 MCG PO (08:29)
[2024-04-07] MEDS: ATIVAN 0.5 MG PO ×2 (08:30→20:06)
[2024-04-07] MEDS: TYLENOL 1000 MG PO ×2 (08:32→20:13)
--- NOTE | 2024-04-07 09:16 | W.PN.HOSP.TC ---
Addendum entered and electronically signed by Clinton Hilario MD 04/07/24 13:44:
Seen and examined by me independently in collaboration with the emergency medical services coordinator Jefry.
Lab data and imaging data reviewed.
Addendum as below :
Is seen some improvement in left eye vision. Still feeling weak.
No fever or chills.
Denies any shortness of breath at rest.
Tolerating high-dose steroids. Denies any GI symptoms.
Blood sugars still high. Insulin introduced yesterday. Adjustments made again today.
Come tomorrow if the blood sugars are adequately controlled we will discharge him. Patient is agreeable for SNF. Case management to look into disposition.
Original Note:
Today's Communication/Plan
-
Continue steroids
PT OT
Insulin adjustment
Assessment / Plan
Assessment / Plan
Impression:
78-year-old male past medical history of permanent A-fib on anticoagulation, unintentional weight loss, ischemic cardiomyopathy with preserved ejection fraction, type 2 diabetes presents with occipital headaches and left eye vision loss, found to
have elevated inflammatory markers.
Plan:
#Occipital headache and left eye visual field loss
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
Headache still present
No temporal tenderness on exam.
Left eye visual harris missing peripheral and lower field
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
CTA with no acute abnormalities.
Unable to perform MRI given spinal stimulator in place
Continue neurologic monitoring
Status post temporal artery biopsy by vascular surgery on 04/05, results pending
Xarelto has been resumed
Continue prednisone
Headache management as per neurology.
#Increased anion gap metabolic acidosis.
Resolved, anion gap closed
Suspect metabolic acidosis was secondary to SGLT2 inhibitor Jardiance.
Currently holding Farxiga/Jardiance
Status post IV fluids and bicarbonate
Observe off IV fluids
Hold spironolactone
Lokelma
Follow BMP
#Type 2 diabetes.
Hemoglobin A1c 9.9.
Expected hyperglycemia given addition of systemic steroids.
Continue glipizide.
Increase Lantus to 14, also increase mealtime insulin
Cover with sliding scale
Serial Accu-Cheks.
Carbohydrate diet
#Unintentional weight loss
Cachexia.
BMI 19.
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 scan of chest abdomen pelvis with IV contrast did not demonstrate any lymphadenopathy or suspicious masses. His pancreatic mass is stable and has decreased, indicative of benign disease
#Permanent A-fib.
Continue metoprolol.
CV 2 score 7.
Xarelto restarted
#CAD with stenting
Recovered ischemic cardiomyopathy.
Received one-time IV dose of Lasix
Contacted cardiology who recommended no further diuresis
Continue aspirin, statin, beta-vern.
#Reported dyspnea on exertion.
Respiratory status stable at rest.
RHC 04/04: Moderately elevated filling pressure PCWP 20 mmHg, mild pulmonary hypertension, mildly decreased cardiac function CI 2.03
Received one-time dose IV Lasix
#Deconditioning
Spoke to , she believes patient will need physical rehab before returning home. Patient also agrees
PT OT to evaluate patient for SNF placement/physical rehab placement
Diet: Diabetic
DVT prophylaxis Xarelto
CODE STATUS DNR
Anticipated Discharge: 24 - 48 hours
Subjective/Interval History
-
Date of Service: April 07, 2024
Patient reports is subjectively better then yesterday, still decreased vision in left harris
Objective Data
-
Labs:
Laboratory Results
04/07/24
05:18
WBC 6.6
Hgb 13.1
Hct 40.1
Plt Count 425 H D
Sodium 129 L
Potassium 5.0
Chloride 91 L
Carbon Dioxide 27
BUN 41 H
Creatinine 0.6 L
Glucose 333 H
Calcium 8.6
Total Bilirubin 0.3
AST 33
ALT 28
Alkaline Phosphatase 103
Vital Signs:
Vital Signs
Temp Pulse Resp BP Pulse Ox
97.8 F 71 18 122/77 100
04/07/24 07:10 04/07/24 08:29 04/07/24 07:10 04/07/24 08:29 04/07/24 07:10
I&O
04/06/24 04/07/24 04/08/24
06:59 06:59 06:59
Intake Total 600 / 600 1680 / 1680
Output Total 275 / 275 825 / 825
Balance 325 / 325 855 / 855
Review of Systems
-
Constitutional: Reports Weight Loss, No Appetite and Weakness
EENT: Reports Blurry Vision and Other (Decreased vision of left eye harris)
Respiratory: Reports No Symptoms
Cardiac: Reports No Symptoms
Abdomen/GI: Reports No Symptoms
Neuro: Reports Other (Paresthesias of lower extremity)
Physical Exam
-
General: Well Developed, Well Nourished, No Apparent Distress, Comfortable and Conversant
HEENT: Other (Left eye harris decreased vision)
Respiratory: Clear to Auscultation
Cardiac: S1/S2 and Irregular Rhythm
GI: Soft, Nontender and Nondistended
Musculoskeletal: No Edema
Skin: Warm and Dry
Neuro: Awake, Alert, Oriented, AO x 3, No Motor Deficits and No Sensory Deficits
Psych: Calm and Intact Judgement/Insight
Data Reviewed
-
CT Scan: Report Reviewed by me and Discussed with Physician
Labs: Labs Reviewed by me and Discussed with Physician
[2024-04-07 11:16] VITALS: BP 111/72
[2024-04-07 11:52] LABS: Glucose - Point of Care 254 mg/dl (70-99)
[2024-04-07] MEDS: NOVOLOG FLEXPEN-LOW RESISTANCE 3 UNITS SC ×2 (12:37→16:54)
[2024-04-07] MEDS: NOVOLOG FLEXPEN SC (12:37)
[2024-04-07] MEDS: NOVOLOG FLEXPEN 5 UNITS SC ×2 (12:37→16:54)
--- NOTE | 2024-04-07 15:09 | CM ---
Received a phone call from patient's . She said her called her and said that he was going to a rehab
CM reviewed chart; explained that Attending documented that patient was agreeable to SNF
PT assessment on 04/03 recommended Home Health; patient refused to participate in therapy on 04/05
Discussed SNF placement process with ; facility options identified; preference are [facility]
Left a voice mail for PT/OT to re-assess patient; once therapy notes are available, Clubhouse Manager will submit SNF referrals
Per 's request sent her name and phone number to Attending and asked him to call her and provide status update on spouse
[2024-04-07 15:29] VITALS: BP 103/73
[2024-04-07 16:51] LABS: Glucose - Point of Care 264 mg/dl (70-99)
[2024-04-07] MEDS: LIPITOR 40 MG PO (16:55)
[2024-04-07] MEDS: XARELTO 20 MG PO (16:55)
[2024-04-07] MEDS: CYMBALTA DELAYED RELEASE 60 MG PO (16:55)
[2024-04-07 19:55] VITALS: BP 109/61; BP 92/58; BP 93/53; PULSE 88; PULSE 89; PULSE 92
[2024-04-07 21:09] LABS: Glucose - Point of Care 283 mg/dl (70-99)
[2024-04-07] MEDS: LANTUS 0.14 UNITS SC (22:37)
[2024-04-07 23:44] VITALS: BP 161/77
[2024-04-08] VITALS (8 sets, daily range): BP systolic 93–126; BP diastolic 54–85; PULSE 80–99; O2SAT 100
[2024-04-08 07:16] LABS: Glucose - Point of Care 282 mg/dl (70-99)
[2024-04-08] MEDS: NOVOLOG FLEXPEN-LOW RESISTANCE 3 UNITS SC (08:17)
[2024-04-08] MEDS: NOVOLOG FLEXPEN 5 UNITS SC ×3 (08:17→17:26)
[2024-04-08] MEDS: GLUCOTROL 10 MG PO ×2 (08:18→17:28)
[2024-04-08] MEDS: TOPROL XL 75 MG PO ×2 (08:18→20:48)
[2024-04-08] MEDS: DELTASONE 60 MG PO (08:18)
[2024-04-08] MEDS: FLUSH (NSS) 1 FLUSH IV (08:19)
[2024-04-08] MEDS: VITAMIN B-12 1000 MCG PO (08:19)
[2024-04-08] MEDS: LOW STRENGTH ASPIRIN 81 MG PO (08:19)
[2024-04-08] MEDS: ATIVAN 0.5 MG PO ×2 (08:19→20:49)
[2024-04-08 08:55] LABS: Hematocrit 41.9 % (39.0-52.0); Hemoglobin 13.3 g/dL (13.0-18.0); Mean Corp Hgb Conc. 31.7 g/dL (33.0-37.0); Mean Corpuscular Hgb 30.6 pg (27.0-31.0); Mean Corpuscular Volume 96.5 fL (80.0-94.0); Mean Platelet Volume 10.3 fL (7.4-10.4); Platelet Count 398 10^3/uL (130-400); Red Blood Cell Count 4.34 10^6/uL (4.70-6.10); Red Cell Dist. Width 13.5 % (11.5-14.5); White Blood Cell Count 7.9 10^3/uL (4.8-10.8)
--- NOTE | 2024-04-08 08:56 | PN.DE ---
Diabetes Education
- -
Diabetes Education- Current A1C 9.9%.
Pt states that he has a glucose monitor at home-Cont[employer] EZ and knows how to self inject with insulin pen without difficulty. Answered questions regarding injection sites, storage of insulin and symptoms and treatment of hypoglycemia. Education
booklet with phone numbers left for any questions as well as handout on insulin pen technique.
Also provided information on outpt education classes and encouraged him to call and register.
[2024-04-08 09:59] LABS: ALT (SGPT) 33 U/L (0-50); AST (SGOT) 47 U/L (17-59); Albumin 3.2 g/dl (3.5-5.0); Alkaline Phosphatase 103 U/L (38-126); Blood Urea Nitrogen 41 mg/dl (9-20); Calcium 8.8 mg/dl (8.4-10.2); Carbon Dioxide 22 mmol/L (22-30); Chloride 96 mmol/L (98-107); Estimated Creatinine Clearance 84 ml/min; Glucose 327 mg/dl (70-99); Potassium 5.5 mmol/L (3.5-5.1); Sodium 130 mmol/L (135-145); Total Bilirubin 0.4 mg/dl (0.2-1.3); Total Protein 6.4 g/dl (6.3-8.2); eGFR > 60.00
[2024-04-08 10:53] LABS: Erythrocyte Sed Rate 26 mm/hour (0-20)
[2024-04-08 11:55] LABS: Glucose - Point of Care 318 mg/dl (70-99)
[2024-04-08] MEDS: NOVOLOG FLEXPEN-LOW RESISTANCE 4 UNITS SC (12:29)
[2024-04-08] MEDS: LOKELMA 10 GRAM PO ×2 (13:36→17:28)
--- NOTE | 2024-04-08 16:24 | PTCARENOTE ---
Pt AAO x3, HINES; OOB to BR with assist x1/walker; kyung well, pt sl unsteady w/OOB activity. Pt denies dizziness w/OOB activity. VSS. Telemetry:Afib with PVC's. On room air- pulse ox 98%, no c/o SOB. Abd soft, kyung PO well. Voiding in BR without
difficulty. Resting in bed at present, no c/o. Will continue to monitor.
--- NOTE | 2024-04-08 16:26 | W.PN.HOSP.TC ---
Today's Communication/Plan
-
Temporal artery biopsy pending
Continue steroids
Adjust insulin regimen with hyperglycemia.
Repeat Lokelma for hyperkalemia.
Physical therapy evaluation
Assessment / Plan
Assessment / Plan
Impression:
78-year-old male past medical history of permanent A-fib on anticoagulation, unintentional weight loss, ischemic cardiomyopathy with preserved ejection fraction, type 2 diabetes presents with occipital headaches and left eye vision loss, found to
have elevated inflammatory markers.
Plan:
#Occipital headache and left eye visual field loss
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
Headache still present
No temporal tenderness on exam.
Left eye visual harris missing peripheral and lower field
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
CTA with no acute abnormalities.
Unable to perform MRI given spinal stimulator in place
Continue neurologic monitoring
Status post temporal artery biopsy by vascular surgery on 04/05, results pending
Xarelto has been resumed
Continue prednisone
Headache management as per neurology.
#Increased anion gap metabolic acidosis.
Resolved, anion gap closed
Suspect metabolic acidosis was secondary to SGLT2 inhibitor Jardiance.
Currently holding Farxiga/Jardiance
Status post IV fluids and bicarbonate
Observe off IV fluids
Hold spironolactone
Lokelma
Follow BMP
#Type 2 diabetes.
Hemoglobin A1c 9.9.
Expected hyperglycemia given addition of systemic steroids.
Continue glipizide.
Increase Lantus to 14, also increase mealtime insulin
Cover with sliding scale
Serial Accu-Cheks.
Carbohydrate diet
#Unintentional weight loss
Cachexia.
BMI 19.
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 scan of chest abdomen pelvis with IV contrast did not demonstrate any lymphadenopathy or suspicious masses. His pancreatic mass is stable and has decreased, indicative of benign disease
#Permanent A-fib.
Continue metoprolol.
CV 2 score 7.
Xarelto restarted
#CAD with stenting
Recovered ischemic cardiomyopathy.
Received one-time IV dose of Lasix
Contacted cardiology who recommended no further diuresis
Continue aspirin, statin, beta-vern.
#Reported dyspnea on exertion.
Respiratory status stable at rest.
RHC 04/04: Moderately elevated filling pressure PCWP 20 mmHg, mild pulmonary hypertension, mildly decreased cardiac function CI 2.03
Received one-time dose IV Lasix
#Deconditioning
In discussion with , she believes patient will need physical rehab before returning home. Patient also agrees
PT OT to evaluate patient for SNF placement/physical rehab placement
Diet: Diabetic
DVT prophylaxis Xarelto
CODE STATUS DNR
Anticipated Discharge: 24 - 48 hours
Subjective/Interval History
-
Date of Service: April 08, 2024
Objective Data
-
Labs:
Laboratory Results
04/08/24
08:45
WBC 7.9
Hgb 13.3
Hct 41.9
Plt Count 398
Sodium 130 L
Potassium 5.5 H
Chloride 96 L
Carbon Dioxide 22
BUN 41 H
Creatinine 0.6 L
Glucose 327 H
Calcium 8.8
Total Bilirubin 0.4
AST 47
ALT 33
Alkaline Phosphatase 103
Vital Signs:
Vital Signs
Temp Pulse Resp BP Pulse Ox
97.5 F 99 18 102/68 98
04/08/24 15:15 04/08/24 15:15 04/08/24 15:15 04/08/24 15:15 04/08/24 16:23
I&O
04/07/24 04/08/24 04/09/24
06:59 06:59 06:59
Intake Total 1680 / 1680 1080 / 1080
Output Total 825 / 825
Balance 855 / 855 1080 / 1080
Physical Exam
-
General: Well Developed, Well Nourished, No Apparent Distress, Comfortable and Conversant
HEENT: Other (Left eye harris decreased vision)
Respiratory: Clear to Auscultation
Cardiac: S1/S2 and Irregular Rhythm
GI: Soft, Nontender and Nondistended
Musculoskeletal: No Edema
Skin: Warm and Dry
Neuro: Awake, Alert, Oriented, AO x 3, No Motor Deficits and No Sensory Deficits
Psych: Calm and Intact Judgement/Insight
[2024-04-08 16:44] LABS: Glucose - Point of Care 201 mg/dl (70-99)
--- NOTE | 2024-04-08 17:09 | CM ---
PT indicates SNF.
Spoke with pt he agreed to SNF at [facility] or [facility]
Referral placed in care port.
Needs updated OT eval
PLAN To Snf after located and medically ready
[2024-04-08] MEDS: NOVOLOG FLEXPEN-LOW RESISTANCE 2 UNITS SC (17:27)
[2024-04-08] MEDS: XARELTO 20 MG PO (17:28)
[2024-04-08] MEDS: LIPITOR 40 MG PO (17:28)
[2024-04-08] MEDS: CYMBALTA DELAYED RELEASE 60 MG PO (17:28)
[2024-04-08] MEDS: TYLENOL 1000 MG PO (20:49)
[2024-04-08] MEDS: LANTUS SC (21:29)
[2024-04-08 21:30] LABS: Glucose - Point of Care 230 mg/dl (70-99)
[2024-04-08] MEDS: LANTUS 0.2 UNITS SC (21:50)
[2024-04-09] VITALS (8 sets, daily range): BP systolic 91–131; BP diastolic 61–80; PULSE 54–102; O2SAT 100; BMI 20.1
[2024-04-09] MEDS: LOKELMA 10 GRAM PO (06:26)
[2024-04-09 07:10] LABS: Glucose - Point of Care 187 mg/dl (70-99)
[2024-04-09 07:38] LABS: Blood Urea Nitrogen 40 mg/dl (9-20); Calcium 8.7 mg/dl (8.4-10.2); Carbon Dioxide 29 mmol/L (22-30); Chloride 95 mmol/L (98-107); Estimated Creatinine Clearance 85 ml/min; Glucose 182 mg/dl (70-99); Potassium 4.3 mmol/L (3.5-5.1); Sodium 135 mmol/L (135-145); eGFR > 60.00
[2024-04-09] MEDS: NOVOLOG FLEXPEN 5 UNITS SC ×3 (08:22→16:50)
[2024-04-09] MEDS: NOVOLOG FLEXPEN-LOW RESISTANCE 1 UNITS SC ×2 (08:22→12:28)
[2024-04-09] MEDS: TOPROL XL 75 MG PO ×2 (08:24→20:11)
[2024-04-09] MEDS: GLUCOTROL 10 MG PO ×2 (08:24→16:51)
[2024-04-09] MEDS: LOW STRENGTH ASPIRIN 81 MG PO (08:25)
[2024-04-09] MEDS: DELTASONE 60 MG PO (08:25)
[2024-04-09] MEDS: ATIVAN 0.5 MG PO ×2 (08:25→20:07)
[2024-04-09] MEDS: VITAMIN B-12 1000 MCG PO (08:25)
--- NOTE | 2024-04-09 10:04 | PN.CDI ---
CDI
- -
CDI:
Physician Documentation Request
Admit Date: 04/01/24 15:55
Dear Doctor Radha,
Patient admitted for headaches and vision loss.
Laboratory Tests
04/05/24 04/06/24 04/06/24
06:05 00:46 04:59
Sodium 134 L 132 L 133 L
04/07/24 04/08/24
05:18 08:45
Sodium 129 L 130 L
Based on the above, could you clarify in the progress notes, the appropriate diagnosis, if significant, that supports the above abnormalities and additional evaluation, monitoring and/or treatment rendered:
Hyponatremia
Abnormal lab value insignificant
Other
Use of terms such as suspected, likely, concern for, or probable (associated with a specific diagnosis that is being evaluated, monitored, or treated as if it exists) are acceptable and can be coded in the inpatient setting, when documented at the
time of discharge.
Thank you,
Stella Tinoco RN, BSN
CDI Specialist
Available via [place] text
Please use your independent medical judgment in providing your response.
[2024-04-09 11:55] LABS: Glucose - Point of Care 187 mg/dl (70-99)
--- NOTE | 2024-04-09 15:26 | W.PN.HOSP.TC ---
Today's Communication/Plan
-
On oral steroids pending temporal artery biopsy report.
No changes in insulin dosage today.
Continue physical therapy
Hyperkalemia improved. Hold further Lokelma. Follow BMP
Assessment / Plan
Assessment / Plan
Impression:
78-year-old male past medical history of permanent A-fib on anticoagulation, unintentional weight loss, ischemic cardiomyopathy with preserved ejection fraction, type 2 diabetes presents with occipital headaches and left eye vision loss, found to
have elevated inflammatory markers.
Plan:
#Occipital headache and left eye visual field loss
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
Headache still present
No temporal tenderness on exam.
Left eye visual harris missing peripheral and lower field
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
CTA with no acute abnormalities.
Unable to perform MRI given spinal stimulator in place
Continue neurologic monitoring
Status post temporal artery biopsy by vascular surgery on 04/05, results pending
Xarelto has been resumed
Continue prednisone
Headache management as per neurology.
#Increased anion gap metabolic acidosis.
Resolved, anion gap closed
Suspect metabolic acidosis was secondary to SGLT2 inhibitor Jardiance.
Currently holding Farxiga/Jardiance
Status post IV fluids and bicarbonate
Observe off IV fluids
Hold spironolactone
Lokelma
Follow BMP
#Type 2 diabetes.
Hemoglobin A1c 9.9.
Expected hyperglycemia given addition of systemic steroids.
Continue glipizide.
Initiated on insulin. Dose titrated to Lantus 20 at bedtime, NovoLog 5 AC
Cover with sliding scale
Serial Accu-Cheks.
Carbohydrate diet
#Unintentional weight loss
Cachexia.
BMI 19.
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 scan of chest abdomen pelvis with IV contrast did not demonstrate any lymphadenopathy or suspicious masses. His pancreatic mass is stable and has decreased, indicative of benign disease
#Permanent A-fib.
Continue metoprolol.
CV 2 score 7.
Xarelto restarted
#CAD with stenting
Recovered ischemic cardiomyopathy.
Received one-time IV dose of Lasix
Contacted cardiology who recommended no further diuresis
Continue aspirin, statin, beta-vern.
#Reported dyspnea on exertion.
Respiratory status stable at rest.
RHC 04/04: Moderately elevated filling pressure PCWP 20 mmHg, mild pulmonary hypertension, mildly decreased cardiac function CI 2.03
Received one-time dose IV Lasix
#Deconditioning
In discussion with , she believes patient will need physical rehab before returning home. Patient also agrees
PT OT to evaluate patient for SNF placement/physical rehab placement
Diet: Diabetic
DVT prophylaxis Xarelto
CODE STATUS DNR
Anticipated Discharge: 24 - 48 hours
Subjective/Interval History
-
Date of Service: April 09, 2024
Objective Data
-
Labs:
Laboratory Results
04/09/24
06:42
Sodium 135
Potassium 4.3
Chloride 95 L
Carbon Dioxide 29
BUN 40 H
Creatinine 0.6 L
Glucose 182 H
Calcium 8.7
Vital Signs:
Vital Signs
Temp Pulse Resp BP Pulse Ox
97.5 F 87 18 123/76 98
04/09/24 11:05 04/09/24 11:05 04/09/24 11:05 04/09/24 11:05 04/09/24 11:05
I&O
04/08/24 04/09/24 04/10/24
06:59 06:59 06:59
Intake Total 1080 / 1080 1040 / 1040
Balance 1080 / 1080 1040 / 1040
Physical Exam
-
General: Well Developed, Well Nourished, No Apparent Distress, Comfortable and Conversant
HEENT: Other (Left eye harris decreased vision)
Respiratory: Clear to Auscultation
Cardiac: S1/S2 and Irregular Rhythm
GI: Soft, Nontender and Nondistended
Musculoskeletal: No Edema
Skin: Warm and Dry
Neuro: Awake, Alert, Oriented, AO x 3, No Motor Deficits and No Sensory Deficits
Psych: Calm and Intact Judgement/Insight
[2024-04-09 16:42] LABS: Glucose - Point of Care 239 mg/dl (70-99)
[2024-04-09] MEDS: NOVOLOG FLEXPEN-LOW RESISTANCE 2 UNITS SC (16:50)
[2024-04-09] MEDS: XARELTO 20 MG PO (16:51)
[2024-04-09] MEDS: CYMBALTA DELAYED RELEASE 60 MG PO (16:51)
[2024-04-09] MEDS: LIPITOR 40 MG PO (16:51)
[2024-04-09] MEDS: TYLENOL 1000 MG PO (20:09)
[2024-04-09 21:12] LABS: Glucose - Point of Care 261 mg/dl (70-99)
[2024-04-09] MEDS: LANTUS 0.2 UNITS SC (22:06)
[2024-04-10 03:16] VITALS: BP 126/81
[2024-04-10 06:00] VITALS: BMI 20.4
[2024-04-10 07:10] VITALS: BP 110/72; BP 114/71; BP 98/78; PULSE 101; PULSE 95; PULSE 98
[2024-04-10 07:15] LABS: Glucose - Point of Care 96 mg/dl (70-99)
[2024-04-10] MEDS: LOW STRENGTH ASPIRIN 81 MG PO (07:43)
[2024-04-10] MEDS: VITAMIN B-12 1000 MCG PO (07:43)
[2024-04-10] MEDS: DELTASONE 60 MG PO (07:43)
[2024-04-10] MEDS: TOPROL XL 75 MG PO ×2 (07:43→20:35)
[2024-04-10] MEDS: GLUCOTROL 10 MG PO ×2 (07:43→17:01)
[2024-04-10] MEDS: ATIVAN 0.5 MG PO ×2 (07:43→20:35)
[2024-04-10] MEDS: NOVOLOG FLEXPEN 5 UNITS SC ×3 (07:44→16:57)
[2024-04-10] MEDS: NOVOLOG FLEXPEN-LOW RESISTANCE SC ×2 (07:44→13:05)
[2024-04-10 07:52] LABS: Blood Urea Nitrogen 38 mg/dl (9-20); Calcium 8.6 mg/dl (8.4-10.2); Carbon Dioxide 29 mmol/L (22-30); Chloride 98 mmol/L (98-107); Estimated Creatinine Clearance 86 ml/min; Glucose 107 mg/dl (70-99); Sodium 135 mmol/L (135-145); eGFR > 60.00
[2024-04-10 11:21] VITALS: BP 118/76
[2024-04-10 12:00] LABS: Glucose - Point of Care 108 mg/dl (70-99)
--- NOTE | 2024-04-10 12:01 | WOUNDNOTE ---
[facility] RN note: Patient visited with RN Sports Physiologist Doris for pressure injury prevention round. Patient very thin and is mobile. He has a red almost denuded area on his lower back and a small thin linear red intact area on sacrum. Appetite good.
Patient is on a [employer] bed. Silicone border foam changed on lower back. Protective silicone border foam applied to sacrum. Protective foam applied to heels. Air chair cushion given. Instructed patient pressure injury prevention measures.
Heels off bed with pillow. Discussed with THIEN Gonzalez.
[2024-04-10 15:18] VITALS: BP 111/64
--- NOTE | 2024-04-10 15:48 | W.PN.HOSP.TC ---
Addendum entered and electronically signed by Bj Garcia MD 04/11/24 16:05:
Mild hyponatremia of unknown clinical significance noted.
Original Note:
Today's Communication/Plan
-
Continue prednisone
Check ANCA antibody profile
Repeat urinalysis
Assessment / Plan
Assessment / Plan
Impression:
78-year-old male past medical history of permanent A-fib on anticoagulation, unintentional weight loss, ischemic cardiomyopathy with preserved ejection fraction, type 2 diabetes presents with occipital headaches and left eye vision loss, found to
have elevated inflammatory markers.
Plan:
#Occipital headache and left eye visual field loss
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
Headache still present
No temporal tenderness on exam.
Left eye visual harris missing peripheral and lower field
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
CTA with no acute abnormalities.
Unable to perform MRI given spinal stimulator in place
Continue neurologic monitoring
Status post temporal artery biopsy by vascular surgery on 04/05.
Results consistent with inflammatory changes with differential including temporal arteritis (no giant cells present) versus GPA/MPA
So far no clinical evidence of extraocular involvement
Check ANCA antibody profile
Continue prednisone
#Increased anion gap metabolic acidosis.
Resolved, anion gap closed
Suspect metabolic acidosis was secondary to SGLT2 inhibitor Jardiance.
Currently holding Farxiga/Jardiance
Status post IV fluids and bicarbonate
Observe off IV fluids
Hold spironolactone
Lokelma
Follow BMP
#Type 2 diabetes.
Hemoglobin A1c 9.9.
Expected hyperglycemia given addition of systemic steroids.
Continue glipizide.
Initiated on insulin. Dose titrated to Lantus 20 at bedtime, NovoLog 5 AC
Cover with sliding scale
Serial Accu-Cheks.
Carbohydrate diet
#Unintentional weight loss
Cachexia.
BMI 19.
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 scan of chest abdomen pelvis with IV contrast did not demonstrate any lymphadenopathy or suspicious masses. His pancreatic mass is stable and has decreased, indicative of benign disease
#Permanent A-fib.
Continue metoprolol.
CV 2 score 7.
Xarelto restarted
#CAD with stenting
Recovered ischemic cardiomyopathy.
Received one-time IV dose of Lasix
Contacted cardiology who recommended no further diuresis
Continue aspirin, statin, beta-vern.
#Reported dyspnea on exertion.
Respiratory status stable at rest.
RHC 04/04: Moderately elevated filling pressure PCWP 20 mmHg, mild pulmonary hypertension, mildly decreased cardiac function CI 2.03
Received one-time dose IV Lasix
#Deconditioning
In discussion with , she believes patient will need physical rehab before returning home. Patient also agrees
PT OT to evaluate patient for SNF placement/physical rehab placement
Diet: Diabetic
DVT prophylaxis Xarelto
CODE STATUS DNR
Anticipated Discharge: 24 - 48 hours
Subjective/Interval History
-
Date of Service: April 10, 2024
Objective Data
-
Labs:
Laboratory Results
04/10/24
06:57
Sodium 135
Potassium 4.0
Chloride 98
Carbon Dioxide 29
BUN 38 H
Creatinine 0.5 L
Glucose 107 H
Calcium 8.6
Vital Signs:
Vital Signs
Temp Pulse Resp BP Pulse Ox
97.6 F 94 18 111/64 98
04/10/24 15:18 04/10/24 15:18 04/10/24 15:18 04/10/24 15:18 04/10/24 15:18
I&O
04/09/24 04/10/24 04/11/24
06:59 06:59 06:59
Intake Total 1040 / 1040 1140 / 1140
Balance 0 / 1039 1140 / 1140
Physical Exam
-
General: Well Developed, Well Nourished, No Apparent Distress, Comfortable and Conversant
HEENT: Other (Left eye harris decreased vision)
Respiratory: Clear to Auscultation
Cardiac: S1/S2 and Irregular Rhythm
GI: Soft, Nontender and Nondistended
Musculoskeletal: No Edema
Skin: Warm and Dry
Neuro: Awake, Alert, Oriented, AO x 3, No Motor Deficits and No Sensory Deficits
Psych: Calm and Intact Judgement/Insight
[2024-04-10 16:46] LABS: Glucose - Point of Care 175 mg/dl (70-99)
[2024-04-10] MEDS: NOVOLOG FLEXPEN-LOW RESISTANCE 1 UNITS SC (16:58)
[2024-04-10] MEDS: LIPITOR 40 MG PO (17:01)
[2024-04-10] MEDS: CYMBALTA DELAYED RELEASE 60 MG PO (17:01)
--- NOTE | 2024-04-10 17:01 | CM ---
PT/OT indicates SNF.
Spoke with Lalitha at [facility] she said she had a bed but to call day of dc for a bed .
Daughter Telma Martin called legal secretary receptionist and asked for update . Dgt not listed as contact.
Spoke with Jeanine and told her dgt had called. said no information to be given to dgt Telma. CM assured her no information given.
requested MD update.
[facility]
report [phone]
fax [phone]
PLAN To [facility] when medically ready
[2024-04-10] MEDS: XARELTO 20 MG PO (17:16)
[2024-04-10 19:16] VITALS: BP 86/51; BP 92/48; BP 92/59; PULSE 66; PULSE 86; PULSE 87
[2024-04-10 21:27] LABS: Urine Albumin Negative (Neg - Trace); Urine Bilirubin Negative (Negative); Urine Character Clear (Clear); Urine Color Yellow; Urine Glucose 1+ (Negative); Urine Ketone Negative (Negative); Urine Leukocyte Negative (Negative); Urine Nitrite Negative (Negative); Urine Occult Blood Negative (Negative); Urine Urobilinogen Negative (Neg - 1+)
[2024-04-10 21:40] LABS: Glucose - Point of Care 207 mg/dl (70-99)
[2024-04-10] MEDS: LANTUS 0.2 UNITS SC (21:40)
[2024-04-10 23:13] VITALS: BP 139/87
[2024-04-11 03:30] VITALS: BP 125/80
[2024-04-11 04:45] VITALS: BMI 20.4
[2024-04-11 07:10] VITALS: BP 93/58
[2024-04-11 08:52] VITALS: BP 101/66; BP 110/63; BP 87/57; PULSE 83; PULSE 90; PULSE 96
[2024-04-11 09:08] LABS: Glucose - Point of Care 132 mg/dl (70-99)
[2024-04-11] MEDS: NOVOLOG FLEXPEN-LOW RESISTANCE SC ×2 (09:16→12:32)
[2024-04-11] MEDS: DELTASONE 60 MG PO (09:32)
[2024-04-11] MEDS: TOPROL XL 75 MG PO (09:40)
[2024-04-11] MEDS: ATIVAN 0.5 MG PO (09:40)
[2024-04-11] MEDS: GLUCOTROL 10 MG PO (09:40)
[2024-04-11] MEDS: LOW STRENGTH ASPIRIN 81 MG PO (09:40)
[2024-04-11] MEDS: VITAMIN B-12 1000 MCG PO (09:40)
[2024-04-11] MEDS: NOVOLOG FLEXPEN 5 UNITS SC ×2 (09:43→12:40)
[2024-04-11 11:15] VITALS: BP 105/50
[2024-04-11 12:07] LABS: Glucose - Point of Care 84 mg/dl (70-99)
--- NOTE | 2024-04-11 14:40 | CM ---
Addendum entered by Shruthi Beauchamp 04/11/24 15:22:
CM contacted [facility] due to not agreeable to transportation costs, so will be driving him in her car; is to pull up to the front door of [facility] and go in to the desk to get assistance with Efren getting out of the car and into the
facility safely.
Original Note:
CM attempted to visit Efren today; he was asleep in bed, did not wake to my voice.
Call placed to Efren's to discuss discharge to [facility] where pt has been accepted. Efren's is agreeable to discharge to [facility] today and would like to provide transport, as she does not want to pay for w/c van transport.
Transport discussed with RN.
Plan: Efren will be transported to [facility] via at her insistence.
[facility] Report: [phone]
[facility]
--- NOTE | 2024-04-11 14:51 | W.DS.TRANS ---
Addendum entered and electronically signed by Bj Garcia MD 04/11/24 15:25:
Jardiance had been discontinued secondary to metabolic acidosis
Addendum entered and electronically signed by Bj Garcia MD 04/11/24 14:55:
ANCA antibody pending
Original Note:
DC Summary - [facility]
-
Discharge Instructions:
Sleep Apnea Risk Low
Discharge Diagnosis/Procedures Left eye visual field loss.
Ongoing work up for systemic vasculitis.
Diet Diabetic, Carb Controlled
Instructions:
Stand-Alone Forms: DC Instr - Vascular OR
Changes to Home Medications: Yes
Discharge Medications:
DC Medications w/original date entered in [employer]
atorvastatin 40 mg tablet 40 mg PO QPM High cholesterol 12/05/19
cyanocobalamin (vitamin B-12) 1,000 mcg tablet 500 mcg PO DAILY Supplement 12/05/19
metoprolol succinate 25 mg tablet,extended release 24 hr 25 mg PO BID Heart Disease/BP 12/06/19
aspirin 81 mg chewable tablet 81 mg PO DAILY Blood Clot Prevention/Tx 06/20/23
duloxetine 20 mg capsule,delayed release (Cymbalta) 20 mg PO QPM depression/anxiety 06/20/23
empagliflozin 25 mg tablet (Jardiance) 25 mg PO DAILY Diabetes 06/20/23
glipizide 10 mg tablet 10 mg PO BID@0800,1700 Diabetes 06/20/23
rivaroxaban 20 mg tablet (Xarelto) 20 mg PO QPM Blood Clot Prevention/Tx 04/01/24
insulin aspart U-100 100 unit/mL (3 mL) subcutaneous pen 5 unit (0.05 mL) SC AC #15 mL 04/11/24
insulin glargine 100 unit/mL (3 mL) subcutaneous pen (Lantus Solostar U-100 Insulin) 10 unit (0.1 mL) SC QPM #15 mL 04/11/24
lorazepam 0.5 mg tablet 0.5 mg PO BID anxiety #10 tabs 04/11/24
prednisone 20 mg tablet 50 mg (2.5 x 20 mg) PO DAILY #60 tabs 04/11/24
Home Medication Changes
Aldactone stopped due to recurrent hyperkalemia
Trulicity stopped while on Insulin
Lantus and AC Aspart
Prednisone taper.
Pending Results: No
[2024-04-11 15:28] VITALS: BP 116/74
[2024-04-11] MEDS: TYLENOL 1000 MG PO (15:45)
[2024-04-13 02:20] LABS: Myeloperoxidase Antibody 0 AU/mL (0-19); Serine Protease-3, IgG 0 AU/mL (0-19)
== END 2024-04-11 16:25 | DRG 516 ==
LOC: 4 EAST ACU 15:55
PROVIDERS: Clinical Nurse Specialist Family Health; Internal Medicine Cardiovascular Disease; Physician Assistant; ADMITTING PHYSICIAN Internal Medicine; ATTENDING PHYSICIAN Internal Medicine; CONSULT PHYSICIAN Psychiatry & Neurology Neurology; CONSULT PHYSICIAN Student in an Organized Health Care Education/Training Program; EMERGENCY PHYSICIAN Emergency Medicine; FAMILY PHYSICIAN Family Medicine; OTHER PHYSICIAN Surgery Vascular Surgery
PROC: 4A023N6 Measurement of Cardiac Sampling and Pressure, Right Heart, Percutaneous Approach (ICD-10-PCS; 2024-04-04)
PROC: B2141ZZ Fluoroscopy of Right Heart using Low Osmolar Contrast (ICD-10-PCS; 2024-04-04)
PROC: 03BT0ZX Excision of Left Temporal Artery, Open Approach, Diagnostic (ICD-10-PCS; 2024-04-05)
DX: M31.30 Wegener's granulomatosis without renal involvement (principal); E46 Unspecified protein-calorie malnutrition; M31.8 Other specified necrotizing vasculopathies; E87.20 Acidosis, unspecified; I48.21 Permanent atrial fibrillation; I50.22 Chronic systolic (congestive) heart failure; R64 Cachexia; Z68.1 Body mass index [BMI] 19.9 or less, adult; E87.1 Hypo-osmolality and hyponatremia; R53.1 Weakness; E11.42 Type 2 diabetes mellitus with diabetic polyneuropathy; H54.62 Unqualified visual loss, left eye, normal vision right eye; I25.10 Atherosclerotic heart disease of native coronary artery without angina pectoris; E11.51 Type 2 diabetes mellitus with diabetic peripheral angiopathy without gangrene; F41.9 Anxiety disorder, unspecified; F32.A Depression, unspecified; F12.90 Cannabis use, unspecified, uncomplicated; K21.9 Gastro-esophageal reflux disease without esophagitis; F10.11 Alcohol abuse, in remission; E11.65 Type 2 diabetes mellitus with hyperglycemia; R79.82 Elevated C-reactive protein (CRP); I11.0 Hypertensive heart disease with heart failure; I25.5 Ischemic cardiomyopathy; I27.29 Other secondary pulmonary hypertension; E87.5 Hyperkalemia; E78.00 Pure hypercholesterolemia, unspecified; G89.29 Other chronic pain; M54.9 Dorsalgia, unspecified; K86.9 Disease of pancreas, unspecified; R51.9 Headache, unspecified; Z66 Do not resuscitate; Z96.1 Presence of intraocular lens; Z79.01 Long term (current) use of anticoagulants; I25.2 Old myocardial infarction; Z86.718 Personal history of other venous thrombosis and embolism; Z86.711 Personal history of pulmonary embolism; Z95.828 Presence of other vascular implants and grafts; Z87.19 Personal history of other diseases of the digestive system; Z79.82 Long term (current) use of aspirin; Z79.84 Long term (current) use of oral hypoglycemic drugs; Z86.73 Personal history of transient ischemic attack (TIA), and cerebral infarction without residual deficits; Z98.41 Cataract extraction status, right eye; Z98.42 Cataract extraction status, left eye; Z80.6 Family history of leukemia; Z82.49 Family history of ischemic heart disease and other diseases of the circulatory system; Z88.1 Allergy status to other antibiotic agents; Z88.0 Allergy status to penicillin; Z88.8 Allergy status to other drugs, medicaments and biological substances; Z91.030 Bee allergy status; Z95.5 Presence of coronary angioplasty implant and graft; Z96.82 Presence of neurostimulator
CPT/HCPCS: 88305; 70450; 70496; 70498; 71260; 74177; 80048; 80053; 80061; 81003; 82010; 82607; 82728; 82746; 82947; 82962; 83036; 83516; 83735; 84443; 85025; 85027; 85652; 86038; 86041; 86140; 88313; 93005; 97110; 97116; 97162; 97166; 97530; 97535; 99285; Q9967

== ENCOUNTER → 2024-04-15 11:00 | Outpatient (REF) | payer OTHER, MEDICARE, SELFPAY ==
[2024-04-15 11:44] LABS: % Basophils 0.1 % (0-2); % Immature Granulocytes 3.5 % (0-0.5); % Lymphocytes 13.7 % (20.5-51.1); % Monocytes 6.7 % (1.7-9.3); Absolute Immature Granulocytes 0.4 10^3/uL (0-0.05); Absolute Lymphocytes 1.4 10^3/uL (1.2-3.4); Absolute Monocytes 0.7 10^3/uL (0.1-0.6); Absolute Neutrophils 7.5 10^3/uL (1.4-6.5); Hematocrit 37.9 % (39.0-52.0); Hemoglobin 11.7 g/dL (13.0-18.0); Mean Corp Hgb Conc. 30.9 g/dL (33.0-37.0); Mean Corpuscular Volume 97.2 fL (80.0-94.0); Nucleated Red Blood Cells % 0 % (-); Platelet Count 272 10^3/uL (130-400); Red Cell Dist. Width 15.3 % (11.5-14.5); White Blood Cell Count 9.9 10^3/uL (4.8-10.8)
== END ==
LOC: OLABP 11:00
PROVIDERS: ATTENDING PHYSICIAN Family Medicine
DX: H54.62 Unqualified visual loss, left eye, normal vision right eye (principal); M54.81 Occipital neuralgia; M31.6 Other giant cell arteritis; I48.21 Permanent atrial fibrillation; I25.5 Ischemic cardiomyopathy; E11.9 Type 2 diabetes mellitus without complications; R64 Cachexia; I25.10 Atherosclerotic heart disease of native coronary artery without angina pectoris; M62.81 Muscle weakness (generalized)
CPT/HCPCS: 36415; 85025

== ENCOUNTER → 2024-04-26 09:55 | Outpatient (REF) | payer OTHER, MEDICARE, SELFPAY ==
[2024-04-26 12:01] LABS: Hematocrit 41.9 % (39.0-52.0); Hemoglobin 12.7 g/dL (13.0-18.0); Mean Corp Hgb Conc. 30.3 g/dL (33.0-37.0); Mean Corpuscular Hgb 30.6 pg (27.0-31.0); Mean Platelet Volume 11.9 fL (7.4-10.4); Platelet Count 196 10^3/uL (130-400); Red Blood Cell Count 4.15 10^6/uL (4.70-6.10); Red Cell Dist. Width 17.3 % (11.5-14.5); White Blood Cell Count 7.1 10^3/uL (4.8-10.8)
[2024-04-26 12:21] LABS: ALT (SGPT) 88 U/L (0-50); AST (SGOT) 57 U/L (17-59); Albumin 3.7 g/dl (3.5-5.0); Alkaline Phosphatase 129 U/L (38-126); Blood Urea Nitrogen 38 mg/dl (9-20); Calcium 8.4 mg/dl (8.4-10.2); Carbon Dioxide 28 mmol/L (22-30); Chloride 99 mmol/L (98-107); Glucose 271 mg/dl (70-99); Potassium 4.5 mmol/L (3.5-5.1); Sodium 136 mmol/L (135-145); Total Bilirubin 0.6 mg/dl (0.2-1.3); Total Protein 6.3 g/dl (6.3-8.2); eGFR > 60.00
[2024-04-26 12:59] LABS: % Basophils 0.3 % (0-2); % Immature Granulocytes 5.5 % (0-0.5); % Lymphocytes 9.8 % (20.5-51.1); % Monocytes 4.4 % (1.7-9.3); Absolute Immature Granulocytes 0.4 10^3/uL (0-0.05); Absolute Lymphocytes 0.7 10^3/uL (1.2-3.4); Absolute Monocytes 0.3 10^3/uL (0.1-0.6); Absolute Neutrophils 5.6 10^3/uL (1.4-6.5); Nucleated Red Blood Cells % 0 % (-)
[2024-04-26 18:22] LABS: Hepatitis B Surface Antigen Negative (Negative)
[2024-04-26 18:39] LABS: Hepatitis B Surface Antibody Negative; Hepatitis C Antibody Negative (Negative)
== END ==
LOC: OLABP 09:55
PROVIDERS: ATTENDING PHYSICIAN Family Medicine
DX: H54.62 Unqualified visual loss, left eye, normal vision right eye (principal); M54.81 Occipital neuralgia; M31.6 Other giant cell arteritis; I48.21 Permanent atrial fibrillation; I25.5 Ischemic cardiomyopathy; E11.9 Type 2 diabetes mellitus without complications; R64 Cachexia; I25.10 Atherosclerotic heart disease of native coronary artery without angina pectoris; M62.81 Muscle weakness (generalized)
CPT/HCPCS: 36415; 80053; 85025; 86140; 86146; 86147; 86148; 86706; 86803; 87340

== ENCOUNTER 2024-05-01 06:06 | Emergency (ER) | payer MEDICARE, OTHER, SELFPAY ==
[2024-05-01] VITALS (14 sets, daily range): BP systolic 90–149; BP diastolic 70–124; BMI 24.2
--- NOTE | 2024-05-01 06:24 | ED.CVA ---
History of Present Illness
<Emmanuel Slade, DO - Last Filed: 05/01/24 08:20>
General
Chief Complaint: CVA/TIA Symptoms
Source: patient and physician (Dr. Clay Gibbs ophthalmology)
Time Seen by Provider: 05/01/24 06:24
Onset of Stroke Symptoms
Onset of symptoms known: No
Time pt last seen normal is known: Yes
Date last time pt seen normal: 04/30/24
Time last time pt seen normal: 22:30
History of Present Illness
History of Present Illness:
05/01/2024 0624 AM: Per Dr. Clay Gibbs-patient awakened suddenly at 3 AM with blindness in his right eye. 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 Several weeks ago he had sudden visual loss in his left eye. He was started on
prednisone and began treatment for giant cell arteritis. This morning when he awakened with new visual loss of the right eye he called Dr. Gibbs. Dr. Gibbs saw him in his office and thoroughly examine the eye. He did not see any clot on exam.
He did decide to send patient to the emergency department for evaluation. He requested that we give him an aspirin check a sed rate and a CRP and do CT angio. Patient does take Xarelto.
Vital signs are stable. Patient not hypoxic
Nursing note reviewed. I agree with nursing documentation up to this point in time.
Home Meds and allergies reviewed.
NUMBER AND COMPLEXITY OF PROBLEMS ADDRESSED AT THE ENCOUNTER
� Chronic conditions affecting care: Giant cell enteritis, migraines, stroke, DVT, PE, atrial flutter, atrial fibrillation, cardiomyopathy, cardiomegaly, CHF, CAD, hypertension, hyperlipidemia, diabetes, cataracts, alcohol abuse,
anxiety, depression. Patient has had a Carmen filter. He has also had intraocular lens placement. Patient has had multiple stents. He has a hypercoagulable disorder,
� Acute Exacerbation and/or Progression of Chronic Illness:
� Differential Diagnosis includes:
AMOUNT AND/OR COMPLEXITY OF DATA TO BE REVIEWED AND ANALYZED
I performed an independent evaluation of the following and my interpretation is:
EKG: EKG shows atrial fibrillation with rapid ventricular response rate of 152. Irregularly irregular. Normal axis. Unstable previous EKG dated April 01, 2024, there is minor EKG changes.
Pulse Ox: Not Hypoxic
Manager Software: Sinus Rhythm
CT: See below
X-rays:
Ultrasound:
Laboratory Studies:
Other:
Review of other/old records: Previous hospital discharge summary was reviewed on 04/11/2024.
Clinical information was obtained by an independent historian: I spoke with his vacuum repairer.
Neurology note from 04/02/2024
IMPRESSIONS/RECOMMENDATIONS:
Abrupt onset of left eye visual loss which is circumferential and not present on contralateral side
Differential diagnosis is broad and includes migraine with aura, central retinal artery occlusion (less likely based on pattern of visual loss), central right occipital acute ischemic stroke, and temporal arteritis based on the patient's markedly
elevated CRP and elevated ESR
MRI imaging of the brain due to the patient's prior history of atrial fibrillation as well as diabetes was canceled by radiology due to Spinal stimulator in place although nonfunctional
Plan
Repeat newly initiated rizatriptan and prochlorperazine due to the patient's recurrent headache
Provide diphenhydramine also due to the patient's recurrent headache
Advanced the patient's duloxetine dosing from 20 mg to 30 mg due to recurrent headaches as migraine prevention medication
Okay to continue newly initiated prednisone 60 mg daily in attempts to reduce possible giant cell arteritis
Appreciate vascular surgery consultation for assistance with temporal artery biopsy
Continue atorvastatin
Provide rivaroxaban after surgical intervention in the form of temporal artery biopsy
Will follow
Prescriptions/Medications Considered but not given:
Further testing considered but not performed:
RISK OF COMPLICATIONS AND/OR MORBIDITY OR MORTALITY OF PATIENT MANAGEMENT
Social determinants of health affecting care: Good Social Support
Discussion with other providers:
Escalation of care including admission/observation vs risk of discharge considered:
CRITICAL CARE NOTE:
Total Time (exclusive of procedures):
Update:
Past History
<DO Moe Jeffery Last Filed: 05/01/24 08:20>
Past History
ED Past Medical History: GERD, PR, Other (ETOH, Gastritis, H-Plylori, DVT, spinal stimulator) and Other (PAF, PE DVT, Carmen filter, alcohol abuse)
ED Past Surgical History: Other (Carmen filter,)
Social History
Tobacco: Non-smoker
Alcohol: Binge drinker
Drug: None
Personal:
Living: with family
Employment: Employed
Family History
Family History: Other
Phy Exam
<DO Moe Jeffery Last Filed: 05/01/24 08:20>
General Physical Exam
General Presentation: mild distress
Eye Exam
Eye Exam: other (Corneal lenses present)
Cardiovascular Exam
Cardiovascular Exam: irregularly irregular and tachycardia
Pulmonary Exam
Pulmonary Exam: lungs clear and generalized wheezing
Musculoskeletal Exam
Musculoskeletal Exam: full ROM
Skin Exam
Skin Exam: normal color and warm/dry
Scores
<DO Moe Jeffery Last Filed: 05/01/24 08:20>
NIH Stroke Score
Level of Consciousness: 0 - Alert
LOC Questions: 0-Answers both correctly
LOC Commands: 0-Performs both correctly
Best Horizontal Gaze: 1-Partial gaze palsy
Visual Melgar: 2=Full hemianopia
Facial Palsy: 0=Normal, symmetrical
Motor - Right Arm: 0=No drift 10 seconds
Motor - Left Arm: 0=No drift 10 seconds
Motor - Right Le-No drift 5 seconds
Motor - Left Le-No drift 5 seconds
Limb Ataxia: 0-Absent
Sensation: 0-Normal
Extinction and Inattention: 0-No abnormality
Thrombolytic Contraindication
Reasons for NON-Tx with Thrombolytics ABSOLUTE Exclusions: Greater than 4.5 hrs from onset of sxs (Patient awakened at 3 AM with no vision in r eye. His last known normal use of r eye was 10:30pm the night before.)
Course
<Emmanuel Slade, - Last Filed: 05/01/24 08:20>
Orders/Labs/Results
Orders:
Orders
05/01/24 06:15
CT HEAD STROKE ALERT W/o Cont Urgent
Comment:
Reason For Exam: sub acute left eye blindness, now sudden right eye
CT HEAD/NECK ANG STROKE ALERT Urgent
Comment:
Reason For Exam: sub acute left eye blindness, now sudden right eye
Bedside Glucose- Treatment ONCE
Cardiac Monitoring- Treatment ONCE
05/01/24 07:00
Flush (0.9% Sodium Chloride) [Flush (Nss)] See Dose Instructions IV PER PROTOCOL
05/01/24 07:05
EKG [Electrocardiogram (*1)] Urgent
Reason for Study: TIA/Stroke
05/01/24 07:06
EKG- Treatment ONCE
05/01/24 07:14
Complete Blood Count/With Diff Urgent
Erythrocyte Sed Rate Urgent
Manual Differential Urgent
PTT Urgent
Prothrombin Time Urgent
05/01/24 07:16
Tenecteplase [Tnkase] 18 mg Syringe [Syringe Non-Pump] 3.6 ml IV NOW
05/01/24 07:17
Type+Screen Urgent
05/01/24 07:52
Aspirin 325 mg PO NOW STA
Clopidogrel Bisulfate [Plavix] 300 mg PO NOW STA
05/01/24 07:56
Consult Neurology [NEUROLOGY CONSULT] Urgent
Consulting Provider: Leonor Gordon
Was physician already notified: Yes
05/01/24 09:00
C-Reactive Protein Urgent
Comprehensive Metabolic Panel Urgent
Troponin I Urgent
05/01/24 09:17
MethylPREDNISolone. [Solu-Medrol] 1,000 mg 0.9% Sodium Chloride 250 ml [Nss] 250 ml IV NOW
05/01/24 09:[address] Non Medication Order As Directed
Physician Order: NOTIFY MD WHEN MED REC DONE
Above order entered?: Yes
05/01/24 10:08
MRI Brain [MR Brain W/o & With Contrast] Routine
Comment:
Reason For Exam: stroke
OK for patient to be off Cardiac Monitoring for MRI: No
Recent pill cam endoscopy?: No
05/01/24 10:09
Diltiazem 125 mg/125 ml Nss [Cardizem] 125 mg in 125 ml IV NOW
Initial dose in mg/hr, then titrate:: 5
Titrate to keep:: Heart rate 80-100 bpm
Titrate by mg/hr:: 5 mg/hr
Frequency of titrations (minutes):: 15
Maximum dose in mg/hr:: 15
Diltiazem HCl [Cardizem] 10 mg IV NOW STA
05/01/24 10:11
Insulin Aspart [NOVOLOG vial] 10 units SC NOW STA
05/01/24 11:20
Antiphospholipid Antibody [Phospholipid Antibody Panel] Routine
Complement C3 Routine
Complement C4 Routine
Double Stranded DNA Antibody IGG [ds-DNA Ab, IgG Reflex To Titer] [S] Routine
Hepatitis C Antibody Routine
Lyme Progressive Routine
Neutrophil-Associated Abs [S] Routine
Protein Electrophoresis Reflex [S] Routine
QuantiFERON-TB Gold Plus [S] Routine
RPR [Syphilis/T. pallidum Ab Reflex] Routine
Sjogrens Ab (SSA 52, 60/SSB) [S] Routine
Abnormal Lab Results
05/01/24 05/01/24 05/01/24
07:14 08:21 09:00
RBC 4.10 L 10^6/uL
(4.70-6.10)
Hgb 12.8 L g/dL
(13.0-18.0)
MCV 96.8 H fL
(80.0-94.0)
MCH 31.2 H pg
(27.0-31.0)
MCHC 32.2 L g/dL
(33.0-37.0)
RDW 17.5 H %
(11.5-14.5)
Plt Count 115 L D 10^3/uL
(130-400)
MPV 12.9 H fL
(7.4-10.4)
Segmented Neutrophils 86 H %
(42-75)
Lymphocytes (Manual) 4 L %
(20-51)
Sodium 131 L mmol/L
(135-145)
Carbon Dioxide 17 L mmol/L
(22-30)
BUN 43 H mg/dl
(9-20)
Glucose 431 H mg/dl
(70-99)
Calcium 7.6 L mg/dl
(8.4-10.2)
ALT 60 H U/L
(0-50)
Alkaline Phosphatase 130 H U/L
(38-126)
Troponin I 0.039 H* ng/ml
Total Protein 5.2 L g/dl
(6.3-8.2)
Albumin 2.9 L g/dl
(3.5-5.0)
POC Glucose 434 H mg/dl
(70-99)
05/01/24
10:58
RBC
Hgb
MCV
MCH
MCHC
RDW
Plt Count
MPV
Segmented Neutrophils
Lymphocytes (Manual)
Sodium
Carbon Dioxide
BUN
Glucose
Calcium
ALT
Alkaline Phosphatase
Troponin I
Total Protein
Albumin
POC Glucose 341 H mg/dl
(70-99)
05/01/24 07:14
05/01/24 09:00
Vital Signs
Initial and Last Documented VS:
Initial Vital Signs
Temp Pulse Resp BP Pulse Ox
97.6 F 76 18 149/113 100
05/01/24 06:08 05/01/24 06:08 05/01/24 06:08 05/01/24 06:08 05/01/24 06:08
Last Documented Vital Signs
Temp Pulse Resp BP Pulse Ox
97.6 F 157 19 135/81 95
05/01/24 06:08 05/01/24 12:30 05/01/24 12:30 05/01/24 12:01 05/01/24 12:30
<Andry Garcia MD - Last Filed: 05/01/24 13:46>
Orders/Labs/Results
Orders:
Orders
05/01/24 06:15
CT HEAD STROKE ALERT W/o Cont Urgent
Comment:
Reason For Exam: sub acute left eye blindness, now sudden right eye
CT HEAD/NECK ANG STROKE ALERT Urgent
Comment:
Reason For Exam: sub acute left eye blindness, now sudden right eye
Bedside Glucose- Treatment ONCE
Cardiac Monitoring- Treatment ONCE
05/01/24 07:00
Flush (0.9% Sodium Chloride) [Flush (Nss)] See Dose Instructions IV PER PROTOCOL
05/01/24 07:05
EKG [Electrocardiogram (*1)] Urgent
Reason for Study: TIA/Stroke
05/01/24 07:06
EKG- Treatment ONCE
05/01/24 07:14
Complete Blood Count/With Diff Urgent
Erythrocyte Sed Rate Urgent
Manual Differential Urgent
PTT Urgent
Prothrombin Time Urgent
05/01/24 07:16
Tenecteplase [Tnkase] 18 mg Syringe [Syringe Non-Pump] 3.6 ml IV NOW
05/01/24 07:17
Type+Screen Urgent
05/01/24 07:52
Aspirin 325 mg PO NOW STA
Clopidogrel Bisulfate [Plavix] 300 mg PO NOW STA
05/01/24 07:56
Consult Neurology [NEUROLOGY CONSULT] Urgent
Consulting Provider: Leonor Gordon
Was physician already notified: Yes
05/01/24 09:00
C-Reactive Protein Urgent
Comprehensive Metabolic Panel Urgent
Troponin I Urgent
05/01/24 09:17
MethylPREDNISolone. [Solu-Medrol] 1,000 mg 0.9% Sodium Chloride 250 ml [Nss] 250 ml IV NOW
05/01/24 09:[address] Non Medication Order As Directed
Physician Order: NOTIFY MD WHEN MED REC DONE
Above order entered?: Yes
05/01/24 10:08
MRI Brain [MR Brain W/o & With Contrast] Routine
Comment:
Reason For Exam: stroke
OK for patient to be off Cardiac Monitoring for MRI: No
Recent pill cam endoscopy?: No
05/01/24 10:09
Diltiazem 125 mg/125 ml Nss [Cardizem] 125 mg in 125 ml IV NOW
Initial dose in mg/hr, then titrate:: 5
Titrate to keep:: Heart rate 80-100 bpm
Titrate by mg/hr:: 5 mg/hr
Frequency of titrations (minutes):: 15
Maximum dose in mg/hr:: 15
Diltiazem HCl [Cardizem] 10 mg IV NOW STA
05/01/24 10:11
Insulin Aspart [NOVOLOG vial] 10 units SC NOW STA
05/01/24 11:20
Antiphospholipid Antibody [Phospholipid Antibody Panel] Routine
Complement C3 Routine
Complement C4 Routine
Double Stranded DNA Antibody IGG [ds-DNA Ab, IgG Reflex To Titer] [S] Routine
Hepatitis C Antibody Routine
Lyme Progressive Routine
Neutrophil-Associated Abs [S] Routine
Protein Electrophoresis Reflex [S] Routine
QuantiFERON-TB Gold Plus [S] Routine
RPR [Syphilis/T. pallidum Ab Reflex] Routine
Sjogrens Ab (SSA 52, 60/SSB) [S] Routine
Abnormal Lab Results
05/01/24 05/01/24 05/01/24
07:14 08:21 09:00
RBC 4.10 L 10^6/uL
(4.70-6.10)
Hgb 12.8 L g/dL
(13.0-18.0)
MCV 96.8 H fL
(80.0-94.0)
MCH 31.2 H pg
(27.0-31.0)
MCHC 32.2 L g/dL
(33.0-37.0)
RDW 17.5 H %
(11.5-14.5)
Plt Count 115 L D 10^3/uL
(130-400)
MPV 12.9 H fL
(7.4-10.4)
Segmented Neutrophils 86 H %
(42-75)
Lymphocytes (Manual) 4 L %
(20-51)
Sodium 131 L mmol/L
(135-145)
Carbon Dioxide 17 L mmol/L
(22-30)
BUN 43 H mg/dl
(9-20)
Glucose 431 H mg/dl
(70-99)
Calcium 7.6 L mg/dl
(8.4-10.2)
ALT 60 H U/L
(0-50)
Alkaline Phosphatase 130 H U/L
(38-126)
Troponin I 0.039 H* ng/ml
Total Protein 5.2 L g/dl
(6.3-8.2)
Albumin 2.9 L g/dl
(3.5-5.0)
POC Glucose 434 H mg/dl
(70-99)
05/01/24
10:58
RBC
Hgb
MCV
MCH
MCHC
RDW
Plt Count
MPV
Segmented Neutrophils
Lymphocytes (Manual)
Sodium
Carbon Dioxide
BUN
Glucose
Calcium
ALT
Alkaline Phosphatase
Troponin I
Total Protein
Albumin
POC Glucose 341 H mg/dl
(70-99)
05/01/24 07:14
05/01/24 09:00
Vital Signs
Initial and Last Documented VS:
Initial Vital Signs
Temp Pulse Resp BP Pulse Ox
97.6 F 76 18 149/113 100
05/01/24 06:08 05/01/24 06:08 05/01/24 06:08 05/01/24 06:08 05/01/24 06:08
Last Documented Vital Signs
Temp Pulse Resp BP Pulse Ox
97.6 F 157 19 135/81 95
05/01/24 06:08 05/01/24 12:30 05/01/24 12:30 05/01/24 12:01 05/01/24 12:30
<Emmanuel Slade DO - Last Filed: 05/01/24 08:20>
MDM/Problems Addressed
Differential Diagnosis Includes:
Giant cell arteritis versus retinal artery occlusion
Chronic conditions affecting care:
Previous issues with left eye, multiple eye surgeries, atrial fibrillation.
Chronic conditions affecting care: DM, HTN, CAD and Arrhythmia
<Emmanuel Slade DO - Last Filed: 05/01/24 08:20>
*Radiology
Radiology exam reviewed: radiology read reviewed
*Critical Care Note
Total Time (30-74mins, 75-104mins- exclusive of procedures): 60 (Critical care statement: A total of 60 minutes of critical care time was provided for this patient. This time is separate from time utilized to perform the aforementioned documented
procedures. Aggregate critical care time includes only time during which I was engaged in work directl)
Data Reviewed
Review of Other/Old Records Reveals: Labs (Previous lab work including coags and hematology), Radiology Studies, Operative Reports (Catheterization report), Progress Notes and Discharge Summary (Discharge summary from 04/11/2024)
<DO Moe Jeffery Last Filed: 05/01/24 08:20>
Patient Management
Social determinants of health affecting care: Living situation (Lives in [facility]) and Strong social support
Discussion with other providers: Hospitalist, Experimental Mechanic, Radiologist (Dr. Jc with direct results of CT and CT angio) and [facility] staff (Spoke with nurse caring for patient. She states that when he got discharged from the hospital there
were 3 days of Xarelto prescribed. She is unsure of why that was discontinued. She will do some more research to get back to us.)
<DO Moe Jeffery Last Filed: 05/01/24 08:20>
Update Note
Update Note:
Spoke with Dr. Gordon, neurology. Since this was a wake-up 'stroke 'last known 'normal 'of eye was 10:30 PM. Well out of the 4-1/2-hour window for TNKase. Patient had similar symptoms and was being worked up for giant cell arteritis. According
to his discharge paperwork last month, he was supposed to continue Xarelto. Patient states that [facility] to [facility], his Xarelto was stopped. He is unsure why. We are attempting to contact the medical staff at [facility]
home.
Exams: CT HEAD STROKE ALERT W/o Cont
CPT: [id number]
PROCEDURE: CT HEAD STROKE ALERT W/o Cont
CLINICAL INDICATION: Sudden onset of blindness in the right eye. Subacute left eye blindness. Prothrombin gene mutation.
TECHNIQUE: A CT examination of the head was performed without intravenous contrast. Coronal reformatted images were obtained. Automatic exposure control radiation dose reduction technology was utilized.
COMPARISON: Comparison is made with a prior CT examination of the head performed 04/06/2024.
FINDINGS:
There is no CT evidence for acute intracranial hemorrhage or extra-axial collection. There is mild to moderate diffuse cerebral and cerebellar volume loss with associated moderate ex vacuo dilatation of the ventricular system. There is no CT
evidence for obstructive hydrocephalus. There is no midline shift or herniation. There are small calcifications in the globus pallidus of both basal ganglia.
There is no CT evidence for acute transcortical infarct. There is a 1.4 cm chronic ischemic infarct in the superior left cerebellar hemisphere with associated encephalomalacia which appears unchanged. There is a mild amount of low-attenuation in the
periventricular white matter of both cerebral hemispheres consistent with mild white matter leukoaraiosis. There is severe calcific atherosclerotic plaque in the right intracranial vertebral artery which is tortuous causing mild right ventral
compression on the medulla. There is a mild amount of calcific atherosclerotic plaque in the left intracranial vertebral artery. There is severe calcific atherosclerotic plaque in both intracranial internal carotid arteries.
There are bilateral lens replacements in the globes. 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 There is a kerri bullosa in the right middle nasal turbinate. The imaged paranasal sinuses and mastoid
air cells are clear.
IMPRESSION:
1. No CT evidence for acute intracranial hemorrhage or transcortical infarct.
2. 1.4 cm chronic ischemic infarct in the superior left cerebellar hemisphere.
3. Mild periventricular white matter leukoaraiosis.
4. Moderate diffuse cerebral and cerebellar volume loss.
5. Severe calcific atherosclerotic plaque in the right intracranial vertebral artery.
ASPECT score: 10
Efren Allison CTA: NECK CTA:
NEW MODERATE-SIZED BILATERAL PLEURAL EFFUSIONS (right larger than left).
70% diameter stenosis in the PROXIMAL RIGHT VERTEBRAL ARTERY.
50-70% diameter stenosis in the proximal right ICA.
Severe multilevel discogenic degenerative disease in the cervical spine.
HEAD CTA:
Severe (greater than 70% diameter) segment of luminal narrowing in the intracranial left vertebral artery which appears to have increased since 04/01/2024 suspicious for a LEFT VERTEBRAL ARTERY DISSECTION. Luminal narrowing secondary to nonocclusive
thrombus/atherosclerotic disease is an alternative diagnostic possibility.
Severe calcific atherosclerotic plaque in the right intracranial vertebral artery causing a 50-70% diameter stenosis.
Very diminutive blood flow in both distal posterior cerebral arteries with possible bilateral P3 segment (quadrigeminal segment) posterior cerebral artery occlusion.
50-70% diameter stenoses in the terminal communicating segments of both intracranial internal carotid arteries.
05/01/2024 0809 AM: Horace texted the hospitalist who agreed to accept patient onto their service.
<Andry Garcia MD - Last Filed: 05/01/24 13:46>
Update Note
Update Note:
Spoke with Dr. Gordon, neurology. Since this was a wake-up 'stroke 'last known 'normal 'of eye was 10:30 PM. Well out of the 4-1/2-hour window for TNKase. Patient had similar symptoms and was being worked up for giant cell arteritis. According
to his discharge paperwork last month, he was supposed to continue Xarelto. Patient states that [facility] to the [facility], his Xarelto was stopped. He is unsure why. We are attempting to contact the medical staff at [facility]
home.
Exams: CT HEAD STROKE ALERT W/o Cont
CPT: [id number]
PROCEDURE: CT HEAD STROKE ALERT W/o Cont
CLINICAL INDICATION: Sudden onset of blindness in the right eye. Subacute left eye blindness. Prothrombin gene mutation.
TECHNIQUE: A CT examination of the head was performed without intravenous contrast. Coronal reformatted images were obtained. Automatic exposure control radiation dose reduction technology was utilized.
COMPARISON: Comparison is made with a prior CT examination of the head performed 04/06/2024.
FINDINGS:
There is no CT evidence for acute intracranial hemorrhage or extra-axial collection. There is mild to moderate diffuse cerebral and cerebellar volume loss with associated moderate ex vacuo dilatation of the ventricular system. There is no CT
evidence for obstructive hydrocephalus. There is no midline shift or herniation. There are small calcifications in the globus pallidus of both basal ganglia.
There is no CT evidence for acute transcortical infarct. There is a 1.4 cm chronic ischemic infarct in the superior left cerebellar hemisphere with associated encephalomalacia which appears unchanged. There is a mild amount of low-attenuation in the
periventricular white matter of both cerebral hemispheres consistent with mild white matter leukoaraiosis. There is severe calcific atherosclerotic plaque in the right intracranial vertebral artery which is tortuous causing mild right ventral
compression on the medulla. There is a mild amount of calcific atherosclerotic plaque in the left intracranial vertebral artery. There is severe calcific atherosclerotic plaque in both intracranial internal carotid arteries.
There are bilateral lens replacements in the globes. 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 There is a kerri bullosa in the right middle nasal turbinate. The imaged paranasal sinuses and mastoid
air cells are clear.
IMPRESSION:
1. No CT evidence for acute intracranial hemorrhage or transcortical infarct.
2. 1.4 cm chronic ischemic infarct in the superior left cerebellar hemisphere.
3. Mild periventricular white matter leukoaraiosis.
4. Moderate diffuse cerebral and cerebellar volume loss.
5. Severe calcific atherosclerotic plaque in the right intracranial vertebral artery.
ASPECT score: 10
Efren Allison CTA: NECK CTA:
NEW MODERATE-SIZED BILATERAL PLEURAL EFFUSIONS (right larger than left).
70% diameter stenosis in the PROXIMAL RIGHT VERTEBRAL ARTERY.
50-70% diameter stenosis in the proximal right ICA.
Severe multilevel discogenic degenerative disease in the cervical spine.
HEAD CTA:
Severe (greater than 70% diameter) segment of luminal narrowing in the intracranial left vertebral artery which appears to have increased since 04/01/2024 suspicious for a LEFT VERTEBRAL ARTERY DISSECTION. Luminal narrowing secondary to nonocclusive
thrombus/atherosclerotic disease is an alternative diagnostic possibility.
Severe calcific atherosclerotic plaque in the right intracranial vertebral artery causing a 50-70% diameter stenosis.
Very diminutive blood flow in both distal posterior cerebral arteries with possible bilateral P3 segment (quadrigeminal segment) posterior cerebral artery occlusion.
50-70% diameter stenoses in the terminal communicating segments of both intracranial internal carotid arteries.
05/01/2024 0809 AM: Horace texted the hospitalist who agreed to accept patient onto their service.
0912.... Dr. Kaiser/rheumatology called in requesting 1000 mg of Solu-Medrol now and repeat x 3 days. Medication ordered
1345.... Multiple lengthy phone calls trying to transfer this [place] [facility] [place] [facility] Total time on the phone with multiple discussions was 45 minutes. Also managing A-fib RVR. Maxed out on [facility]. Contacted
cardiology for their input. Also discussed with the she is aware. Patient updated. Consent signed.
Additional critical care 45 minutes
ED Attending Note
<Emmanuel Slade, DO - Last Filed: 05/01/24 08:20>
-
Portions of this chart may have been created with voice recognition software.� Occasional wrong word or��sound alike� substitutions may have occurred due to the inherent limitations of voice recognition software.
Discharge Plan
Departure
Patient Disposition: Admit
Date of Disposition: 05/01/24
Time of Disposition: 08:04
Admit to: IVU
Presentation/result/management discussed w/ accepting MD/DO: Hospitalist
Discharge Problem:
Sudden visual loss of right eye, left vertebral artery dissection
Prescriptions:
No Action
atorvastatin 40 MG tablet
40 mg PO QPM
metoprolol succinate 25 MG tablet extended release 24 hr
25 mg PO BID
glipizide 10 mg Tablet
10 mg PO BID
duloxetine [Cymbalta] 20 mg Capsule,Delayed Release(Dr/Ec)
20 mg PO QPM
Xarelto 20 mg tablet
20 mg PO QPM
insulin aspart U-100 100 unit/mL (3 mL) Insulin Pen
5 unit SC AC Qty: 15 0RF
isosorbide mononitrate 30 mg Tablet Extended Release 24 Hr
30 mg PO DAILY
aspirin 81 mg Tablet,Delayed Release (Dr/Ec)
81 mg PO DAILY
spironolactone 25 mg Tablet
25 mg PO DAILY
cyanocobalamin (vitamin B-12) 500 mcg Tablet
500 mcg PO DAILY
prednisone 20 mg tablet
20 mg PO TID
insulin glargine [Lantus Solostar U-100 Insulin] 100 unit/mL (3 mL) insulin pen
10 unit SC HS
lorazepam 0.5 mg Tablet
0.5 mg PO BID
Interventions
Interventions:
*Risk Screen - Suicide Last Done: 05/01/24 06:08
*General Assessment Last Done: 05/01/24 06:08
*Neglect/Abuse Screening Last Done: 05/01/24 07:13
*ED COVID-19 Vaccine History Last Done: 05/01/24 07:12
ED- Pulmonary Assessment Last Done: 05/01/24 07:12
ED- Neurological Assessment Last Done: 05/01/24 07:08
ED- Cardiac Assessment Last Done: 05/01/24 07:12
ED Swallowing Screen Last Done: 05/01/24 11:03
Discharge Date and Time
Print Language: WOLOF
[2024-05-01 07:33] LABS: INR 1.05
[2024-05-01 07:34] LABS: APTT 26.7 Sec (23.4-35.0)
[2024-05-01 07:38] LABS: Hematocrit 39.7 % (39.0-52.0); Hemoglobin 12.8 g/dL (13.0-18.0); Mean Corp Hgb Conc. 32.2 g/dL (33.0-37.0); Mean Corpuscular Hgb 31.2 pg (27.0-31.0); Mean Corpuscular Volume 96.8 fL (80.0-94.0); Mean Platelet Volume 12.9 fL (7.4-10.4); Platelet Count 115 10^3/uL (130-400); Red Cell Dist. Width 17.5 % (11.5-14.5); White Blood Cell Count 4.8 10^3/uL (4.8-10.8)
[2024-05-01] MEDS: ASPIRIN 325 MG PO (08:18)
[2024-05-01] MEDS: PLAVIX 300 MG PO (08:18)
[2024-05-01 08:23] LABS: Glucose - Point of Care 434 mg/dl (70-99)
[2024-05-01 08:25] LABS: Absolute Neutrophils -Man Diff 4.1 10^3/uL (1.4-6.5); Anisocytosis 1+; Band Neutrophils 1 % (0-3); Hypochromasia 1+; Lymphocytes 4 % (20-51); Monocytes 9 % (2-9); Normal RBC Morphology No; Platelets Checked Yes; Polychromasia Slight; Segmented Neutrophils 86 % (42-75)
[2024-05-01 08:26] LABS: Acanthocytes 1+; Ovalocytes FEW; Total Cells Counted 100
[2024-05-01 08:47] LABS: Erythrocyte Sed Rate 9 mm/hour (0-20)
[2024-05-01 09:22] LABS: ALT (SGPT) 60 U/L (0-50); AST (SGOT) 27 U/L (17-59); Albumin 2.9 g/dl (3.5-5.0); Alkaline Phosphatase 130 U/L (38-126); Blood Urea Nitrogen 43 mg/dl (9-20); Calcium 7.6 mg/dl (8.4-10.2); Carbon Dioxide 17 mmol/L (22-30); Chloride 101 mmol/L (98-107); Estimated Creatinine Clearance 84 ml/min; Glucose 431 mg/dl (70-99); Potassium 4.9 mmol/L (3.5-5.1); Sodium 131 mmol/L (135-145); Total Bilirubin 0.9 mg/dl (0.2-1.3); Total Protein 5.2 g/dl (6.3-8.2); eGFR > 60.00
--- NOTE | 2024-05-01 09:24 | CON.NEURO ---
Consultation
Order
Date of Consultation: 05/01/24
Requesting Provider: Emmanuel Slade DO
Reason for Consult: Stroke alert
called in: 6:05 AM
arrived: 6:18 AM
Neurology Consultation Note.
HPI: This is a 78-year-old RH man who presented to [facility] on 05/01/2024 with visual deficits. According to the patient he developed an acute painless visual loss on the R upon awakening at 3 AM today. The patient went to sleep
around 10: 30 PM on .
The patient states that he could only see light, shapes, and shadows out of the R eye.
The patient was hospitalized to [facility] (04/01/2024 - 04/11/2024) after he presented with left visual loss.
CT head showed no acute infarcts. MRI was not done due to lack of information about spinal stimulator.
CTA head/neck- no large vessel occlusions or dissection.
CRP(04/01/2024) 184, ESR 66.
Mr. Allison was started and discharged on steroids as well as Xarelto. Based on patient's report he was taken off Xarelto during his recent rehabilitation stay.
L temporal artery biopsy(04/05/2024) lymphocytes and prominent acute inflammation arranged in a concentric ring within the intima, tunica media and adventitia. Focal fibrinoid necrosis with small calcifications. No giant cells are identified.
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
ER VS: 149/113, 76�1 51, afebrile
EKG: VR 152, A-fib with RVR.
Labs: Glucose�431, sodium�131, ALT�60, alk phos�130, normal PT, PTT, WBCs. Platelets�115, ESR-9, CRP-10.
LDL(04/02/2024) 112, HbA1C(04/02/2024) 9.9.
CT head wo contrast- 1.4 cm chronic ischemic infarct in the superior left cerebellar hemisphere, atrophy
CTA head/neck-70% stenosis in the proximal R vert; 50-70% diameter stenosis in the proximal right ICA.
PDMP: Lorazepam 0.5 Mg�30 tabs filled in on 04/16/2024, 04/09/2024, 02/22/2024.
PMH: Prothrombin gene mutation, h/o PE/LE DVT, A-fib, CAD, ICM, DM(HbA1C 9.9), HTN, DLP, BPH, diverticulosis, h/o ETOH addiction and noncompliance, pancreatic mass, history of GI bleed, bipolar DO
PSH: L temporal artery biopsy(04/05/2024), IVC filter, Spinal stimulator. BL cataract extraction, PTCI.
SH: , non-smoker retired [employer]; was ambulating with a walker following recent discharge
All: Penicillins, cephalosporins, heparin (GI bleed)
ROS:positive for 50 pounds weight loss over the last 5 months.
HENT: Negative for ear pain, hearing loss, tinnitus and trouble swallowing.
Eyes: Negative. Negative for photophobia, pain and visual disturbance.
Respiratory: Positive for dyspnea
Cardiovascular: Negative for leg edema
Gastrointestinal: Negative for abdominal pain and vomiting.
Endocrine: Negative. Negative for cold intolerance.
Musculoskeletal: Negative for neck pain
Skin: Negative for rash.
Neurological: Positive for chronic numbness in the feet, negative for headache
General: Well developed. In no acute distress.
Cardio: irregular rate and rhythm. Extremities are without cyanosis or edema.
Neuro:
Mental Status: Alert, oriented to person, place, not to date. Normal attention. Good fund of knowledge. Follows complex requests across the midline. Comprehension, naming, and repetition intact.
Cranial Nerves: Pupils are 4 mm, surgical. Minimal patchy light perception on the left. EOMF, No BTT. L ptosis, No nystagmus. Face symmetric. Impaired hearing AU. The palate elevated well. SCMs and traps 5/5. Tongue midline. No dysarthria.
Motor: Normal bulk and tone. No pronator or arm drift. Strength 5/5 throughout. No clonus.
Reflexes: 0+ throughout the upper extremities and knees. 0/2 in AJs. Plantar responses flexor bilaterally.
Sensory: Reduced vibration at the toes and ankles.
Coordination: No tremors or myoclonic movements
Gait: deferred
Assessment and Plan:
I. 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
II. A-fib with RVR. Thrombocytopenia.
III. 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
IV. Distal symmetric large fiber polyneuropathy.
V. Intra and extra cranial atherosclerosis.
-vasculopathy serologies
-Optimize glycemic control
-Continue aspirin 81 mg once a day and Plavix 75 mg once a day with close platelet monitoring
-Clarify a reason for Xarelto discontinuation.
-Continue Lipitor 40 mg nightly
-Plan for CSF based on brain MRI results
-Rheumatology, ophthalmology consult
-DVT prophylaxis
I personally reviewed all radiology and labs along with past medical records pertinent to current medical problems. Total time spent in patient care is 60 minutes.
Thank you for allowing us to participate in the care of this patient. We will continue to follow. Please do not hesitate to contact us with any questions or concerns.
Subjective/Objective
Subjective Data
Date of Service: May 01, 2024
Objective Data
Vital Signs
Temp Pulse Resp BP Pulse Ox
36.4 C 151 12 130/85 98
05/01/24 06:08 05/01/24 08:37 05/01/24 07:04 05/01/24 08:37 05/01/24 08:37
Lab Results
05/01/24 07:14
05/01/24 09:00
PT 14.0 Sec (11.4-14.6) 05/01/24 07:14
INR 1.05 05/01/24 07:14
APTT 26.7 Sec (23.4-35.0) 05/01/24 07:14
Sodium 131 mmol/L (135-145) L 05/01/24 09:00
Potassium 4.9 mmol/L (3.5-5.1) 05/01/24 09:00
BUN 43 mg/dl (9-20) H 05/01/24 09:00
Glucose 431 mg/dl (70-99) H 05/01/24 09:00
Calcium 7.6 mg/dl (8.4-10.2) L 05/01/24 09:00
Patient Allergies
Cephalosporins Allergy (Verified 05/01/24 06:08)
Unknown
enoxaparin sodium [From Lovenox] Allergy (Verified 05/01/24 06:08)
GI bleed
Heparin Analogues [Heparin Agents] Allergy (Verified 05/01/24 06:08)
GI Rectal bleeding
Penicillins Allergy (Verified 05/01/24 06:08)
Hives/swelling/sob/itch
venom-honey bee [bee venom (honey bee)] Allergy (Verified 05/01/24 06:08)
Anaphylaxis
Medications
-
Active Medications
Generic Name Dose Route Start Last Admin
Trade Name Freq PRN Reason Stop Dose Admin
Methylprednisolone Sodium 258 mls @ 258 mls/hr 05/01/24 09:17
Succinate 1,000 mg/ Sodium IV 05/01/24 10:16
Chloride NOW STA
Sodium Chloride 0 flush 05/01/24 07:00
Sodium Chloride 0.9% (Flush) Syringe IV 05/29/24 06:59
PER PROTOCOL YUNI
Home Medications
�Medication �Instructions �Recorded
atorvastatin 40 mg tablet 40 mg PO QPM High cholesterol 12/05/19
cyanocobalamin (vitamin B-12) 500 mcg PO DAILY Supplement 12/05/19
1,000 mcg tablet
metoprolol succinate 25 mg 25 mg PO BID Heart Disease/BP 12/06/19
tablet,extended release 24 hr
aspirin 81 mg chewable tablet 81 mg PO DAILY Blood Clot 06/20/23
Prevention/Tx
duloxetine 20 mg capsule,delayed 20 mg PO QPM depression/anxiety 06/20/23
release (Cymbalta)
glipizide 10 mg tablet 10 mg PO BID@0800,1700 Diabetes 06/20/23
rivaroxaban 20 mg tablet (Xarelto) 20 mg PO QPM Blood Clot 04/01/24
Prevention/Tx
insulin aspart U-100 100 unit/mL 5 unit (0.05 mL) SC AC #15 mL 04/11/24
(3 mL) subcutaneous pen
insulin glargine 100 unit/mL (3 10 unit (0.1 mL) SC QPM #15 mL 04/11/24
mL) subcutaneous pen (Lantus
Solostar U-100 Insulin)
lorazepam 0.5 mg tablet 0.5 mg PO BID anxiety #10 tabs 04/11/24
prednisone 20 mg tablet 50 mg (2.5 x 20 mg) PO DAILY #60 04/11/24
tabs
[2024-05-01 09:31] LABS: Troponin I 0.039 ng/ml
[2024-05-01] MEDS: SOLU-MEDROL 258 MG IV (10:06)
[2024-05-01 11:01] LABS: Glucose - Point of Care 341 mg/dl (70-99)
[2024-05-01] MEDS: CARDIZEM 10 MG IV (11:03)
[2024-05-01] MEDS: CARDIZEM 125 IV (11:09)
[2024-05-01] MEDS: NOVOLOG vial 10 UNITS SC (11:12)
--- NOTE | 2024-05-01 14:05 | CON.CAR ---
Consultation
Consultation Request
Date/Time Consultation Requested: 05/01/2024 13:40
Date/Time Consultation Performed: 05/01/2024 13:45
Requesting Provider: Dr. Garcia
Performing Provider: OLAMIDE Castellanos for Dr. Zelaya
Reason for Consultation: Atrial fibrillation with RVR
Medical History
-
Chief Complaint: Right eye visual loss
History of Present Illness:
Efren Allison is a 78-year-old male (known to Dr. Castro, his primary informatics consultant), with permanent atrial fibrillation (last dose of Xarelto late February,), CAD with multiple stents (most recent 2019), ICM with recovered EF, DVT/PE,
hypercoagulable disorder, IVC filter, prior TIA, neuropathy, anxiety, dyslipidemia, type II DM, and hypertension who is here for evaluation of visual loss in the right eye. This occurred this morning at 3 AM. He had a recent admission with left
eye loss which is not back to baseline. He is still on prednisone. This morning he saw Dr. Gibbs. No clot was seen on exam. He was sent to the emergency department for evaluation. He has received clopidogrel 300 mg and aspirin 324 mg. During
his last hospitalization, he was discharged on Xarelto. Unfortunately he has not been receiving this medication at rehab. He was seen and evaluated by neurology. The plan is for him to be transferred to a tertiary care center. He is currently in
atrial fibrillation with rapid ventricular response. He received diltiazem 10 mg IV push and has been maintained on 15 mg/hr without significant change in his heart rate. Cardiology has been asked to assist with rate control.
Past Medical History
Past Medical History: Arrhythmias (Permanent atrial fibrillation), CAD (Multiple PCI's), HTN, Hypercholesterolemia, NIDDM, Psychiatric (Anxiety) and Other (DVT/PE, hypercoagulable disorder, TIA)
Social History
Tobacco: Non-Smoker
Alcohol: Other (none since Spring 2023)
Personal:
Living: [facility] ([facility])
Family History
Family History: Reviewed & Not Pertinent
Allergies / Home Medications
Allergy/AdvReac Type Severity Reaction Status Date / Time
Cephalosporins Allergy Unknown Verified 05/01/24 06:08
enoxaparin sodium Allergy GI bleed Verified 05/01/24 06:08
[From Lovenox]
Heparin Analogues Allergy GI Rectal Verified 05/01/24 06:08
[Heparin Agents] bleeding
Penicillins Allergy Hives/swell Verified 05/01/24 06:08
ing/sob/itc
h
venom-honey bee Allergy Anaphylaxis Verified 05/01/24 06:08
[bee venom (honey bee)]
�Medication �Instructions �Recorded �Confirmed �Type
atorvastatin 40 mg tablet 40 mg PO QPM High cholesterol 12/05/19 05/01/24 History
metoprolol succinate 25 mg 25 mg PO BID Heart Disease/BP 12/06/19 05/01/24 History
tablet,extended release 24 hr
duloxetine 20 mg capsule,delayed 20 mg PO QPM depression/anxiety 06/20/23 05/01/24 History
release (Cymbalta)
glipizide 10 mg tablet 10 mg PO BID Diabetes 06/20/23 05/01/24 History
rivaroxaban 20 mg tablet (Xarelto) 20 mg PO QPM Blood Clot 04/01/24 05/01/24 History
Prevention/Tx
insulin aspart U-100 100 unit/mL 5 unit (0.05 mL) SC AC #15 mL 04/11/24 05/01/24 Rx
(3 mL) subcutaneous pen
aspirin 81 mg tablet,delayed 81 mg PO DAILY 05/01/24 05/01/24 History
release
cyanocobalamin (vitamin B-12) 500 500 mcg PO DAILY 05/01/24 05/01/24 History
mcg tablet
insulin glargine 100 unit/mL (3 10 unit SC HS 05/01/24 05/01/24 History
mL) subcutaneous pen (Lantus
Solostar U-100 Insulin)
isosorbide mononitrate 30 mg 30 mg PO DAILY 05/01/24 05/01/24 History
tablet,extended release 24 hr
lorazepam 0.5 mg tablet 0.5 mg PO BID 05/01/24 05/01/24 History
prednisone 20 mg tablet 20 mg PO TID 05/01/24 05/01/24 History
spironolactone 25 mg tablet 25 mg PO DAILY 05/01/24 05/01/24 History
Review of Systems
-
History Source: Patient
All other systems: Negative unless noted
Constitutional: Fatigue
EENT: Other (Visual loss as above)
Respiratory: No Symptoms
Cardiac: No Symptoms
Abdomen/GI: No Symptoms
: No Symptoms
Musculoskeletal: No Symptoms
Skin: No Symptoms
Neurological: Weakness
Endocrine: No Symptoms
Hematologic/Lymphatic: No Symptoms
Physical Exam
Vital Signs
Temp Pulse Resp BP Pulse Ox
97.6 F 157 19 135/81 95
05/01/24 06:08 05/01/24 12:30 05/01/24 12:30 05/01/24 12:01 05/01/24 12:30
Lab Results
05/01/24 07:14
05/01/24 09:00
Troponin I 0.039 ng/ml H* 05/01/24 09:00
Physical Exam
General: Well Developed, Well Nourished and No Apparent Distress
HEENT: Normocephalic and Anicteric
Respiratory: Clear and Non Labored Respirations
Cardiac: S1/S2, Regular Rhythm and Peripheral Edema (+1 pitting bilateral lower extremity edema)
Breast: Deferred by me
GI: Soft, Non Tender, Non Distended and Normal Bowel Sounds
Rectal: Deferred by Provider
Genito-urinary: No Costovertebral Tender
Musculoskeletal: No Clubbing and No Cyanosis
Skin: Warm and Dry
Neuro: AO x 3
Hematologic/Lymphatic: No Lymphadenopathy
Psych: Calm
Impression / Plan
-
IMPRESSION/PLAN: 78M with permanent atrial fibrillation (last dose of Xarelto late February,), CAD with multiple stents (most recent 2019), ICM with recovered EF, DVT/PE, hypercoagulable disorder, IVC filter, prior TIA, neuropathy, anxiety,
dyslipidemia, type II DM, and hypertension who is here for evaluation of visual loss
Primary informatics consultant: Dr. Castro
Visual loss, right eye
-Received ASA and clopidogrel in addition to steroids
-CTA: Suspicious for left vertebral artery dissection and possible bilateral P3 segment posterior cerebral artery occlusions
-Neurology following
Atrial fibrillation with rapid ventricular response
-His atrial fibrillation is permanent, the plan is for rate control
-He has had at least 2 weeks without rivaroxaban
-On diltiazem 15 mg/hr with a systolic in the low 100s, digoxin 500 mcg IV x 1 now
-CHADS2 Vascor of at least 7 (age 78, hypertension, DM, prior TIA/CVA, vascular disease)
Abnormal troponin, likely nonischemic myocardial injury in the setting of tachyarrhythmia
-Chest pain-free
-Trend to peak
Ischemic cardiomyopathy, recovered LVEF - acute on chronic
-Recent echocardiogram as below
-Lower extremity edema, start compression
-Consider diuresis when clinically stable, he is not currently hypoxic and does not have orthopnea
-Trend daily weight, I/O, and BMP
-He was discharged 04/11/2024 at 59 kg on a standing scale
Coronary artery disease
-Prior stenting, continue ASA
-Stable without chest pain
Type 2 diabetes mellitus, per primary service
Spinal stimulator
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
Prothrombin gene mutation
DATA:
Right heart catheterization, 04/04/2024:
CONCLUSION:
1. Moderately elevated filling pressures (PCWP = 20 mmHg at 58.0 kg).
2. 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
3. Mildly depressed cardiac function (cardiac index = 2.03 L/min/m�, AVO2 difference = 6.25 volume %).
4. Prior intravascular stents and IVC filter.
Transthoracic echocardiogram, 02/28/2024:
CONCLUSION:
1. Moderately elevated filling pressures (PCWP = 20 mmHg at 58.0 kg).
2. 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
3. Mildly depressed cardiac function (cardiac index = 2.03 L/min/m�, AVO2 difference = 6.25 volume %).
4. Prior intravascular stents and IVC filter.
Cardiac catheterization, 06/28/2023:
CONCLUSIONS
1. Right dominant circulation with densely calcified LAD with luminal irregularities throughout, a patent stent in the mid LAD, a patent stent in the ostium of the ramus intermedius with a 40% lesion after the stented segment and a 30% lesion in
the proximal RCA.
2. Normal filling pressures (LVEDP = 12 mmHg at 73.9 kg).
3. Normal sized aortic root, ascending aorta, aortic arch and descending aorta. Calcified aortic plaquing is visible at the apex of the aortic arch.
4. Mild aortic valve regurgitation.
Data Reviewed
-
EKG: Report Reviewed by me (Atrial fibrillation with ventricular response, lateral T wave abnormality, rate 152)
Labs: Labs Reviewed by me
Old Records: Reviewed
[2024-05-01] MEDS: LANOXIN 500 MCG IV (14:55)
[2024-05-01 16:18] LABS: NT-proBNP 6290 pg/ml
[2024-05-01 17:07] LABS: Glucose - Point of Care 268 mg/dl (70-99)
[2024-05-02 05:50] LABS: Complement C3 85 mg/dl (88-165)
[2024-05-02 21:38] LABS: Hepatitis C Antibody Negative (Negative)
== END 2024-05-01 17:50 | disposition short-term general hospital (02) ==
LOC: EMR 06:06
PROVIDERS: CONSULT PHYSICIAN Psychiatry & Neurology Neurology; EMERGENCY PHYSICIAN Student in an Organized Health Care Education/Training Program
DX: I77.74 Dissection of vertebral artery (principal); H54.61 Unqualified visual loss, right eye, normal vision left eye; M31.6 Other giant cell arteritis; D68.52 Prothrombin gene mutation; D69.6 Thrombocytopenia, unspecified; E11.36 Type 2 diabetes mellitus with diabetic cataract; E11.42 Type 2 diabetes mellitus with diabetic polyneuropathy; E78.00 Pure hypercholesterolemia, unspecified; F41.8 Other specified anxiety disorders; I11.0 Hypertensive heart disease with heart failure; I25.10 Atherosclerotic heart disease of native coronary artery without angina pectoris; I25.5 Ischemic cardiomyopathy; I48.21 Permanent atrial fibrillation; I48.92 Unspecified atrial flutter; I50.9 Heart failure, unspecified; I65.23 Occlusion and stenosis of bilateral carotid arteries; K21.9 Gastro-esophageal reflux disease without esophagitis; M35.00 Sjogren syndrome, unspecified; N40.0 Benign prostatic hyperplasia without lower urinary tract symptoms; Z79.01 Long term (current) use of anticoagulants; Z79.02 Long term (current) use of antithrombotics/antiplatelets; Z79.52 Long term (current) use of systemic steroids; Z79.899 Other long term (current) drug therapy; Z82.49 Family history of ischemic heart disease and other diseases of the circulatory system; Z83.3 Family history of diabetes mellitus; Z83.49 Family history of other endocrine, nutritional and metabolic diseases; Z83.79 Family history of other diseases of the digestive system; Z86.711 Personal history of pulmonary embolism; Z86.718 Personal history of other venous thrombosis and embolism; Z86.73 Personal history of transient ischemic attack (TIA), and cerebral infarction without residual deficits; Z87.19 Personal history of other diseases of the digestive system; Z88.0 Allergy status to penicillin; Z88.1 Allergy status to other antibiotic agents; Z88.8 Allergy status to other drugs, medicaments and biological substances; Z91.030 Bee allergy status; Z95.5 Presence of coronary angioplasty implant and graft
CPT/HCPCS: 99284; 96365; 96375; 96376; 96372; 70450; 70496; 70498; 80053; 82962; 83880; 84155; 84165; 84484; 85025; 85610; 85652; 85730; 86021; 86140; 86146; 86147; 86148; 86160; 86225; 86235; 86480; 86803; 86850; 86900; 86901; 93005; J1160; J3101; Q9967

== ENCOUNTER 2024-09-06 14:21 | Inpatient (IN) | payer MEDICARE, OTHER, SELFPAY ==
[2024-09-06] VITALS (13 sets, daily range): BP systolic 100–139; BP diastolic 57–93; BMI 22.8
--- NOTE | 2024-09-06 07:34 | ED.GENMED ---
History of Present Illness
<OLAMIDE De Anda - Last Filed: 09/06/24 14:04>
General
Chief Complaint: Fall
Source: patient
Exam Limitations: none
Time Seen by Provider: 09/06/24 07:22
Nursing documentation reviewed up to this point in time: agreed with
History of Present Illness
History of Present Illness:
79 yr. old male with past medical history of A-fib , CHF multiple stents, hypercoagulable disorder DVT with [address] filter diabetes anxiety hypertension presents to the ED for evaluation.
PT presents from home complaining of weakness for the past several days. PT could not get up off of the toilet this morning. He does complain of chills. he does mention that he fell 2 days ago and believe he landed on his right side. He denies
hitting his head.
He does complain of mild cough, no other sick contacts at home.
Past History
<OLAMIDE De Anda - Last Filed: 09/06/24 14:04>
Past History
ED Past Medical History: GERD, NE, Other (ETOH, Gastritis, H-Plylori, DVT, spinal stimulator) and Other (PAF, PE DVT, [address] filter, alcohol abuse)
ED Past Surgical History: Other ([place] filter,)
Social History
Tobacco: Non-smoker
Alcohol: Binge drinker
Drug: None
Personal:
Living: with family
Employment: Employed
Family History
Family History: Other
Review of Systems
<OLAMIDE De Anda - Last Filed: 09/06/24 14:04>
Review of Systems
Allergies reviewed?: Yes
All Other Systems: ROS reviewed and negative except as documented in HPI and ROS
Constitutional: Reports fatigue and chills
EENT: Reports no symptoms
Respiratory: Reports cough; Denies trouble breathing
Cardiac: Reports no symptoms
ABD/GI: Reports no symptoms
: Reports no symptoms
Musculoskeletal: Reports no symptoms
Skin: Reports no symptoms
Endocrine: Reports no symptoms
Hematologic/Lymphatic: Reports no symptoms
Psychiatric: Reports no symptoms
Phy Exam
<OLAMIDE De Anda - Last Filed: 09/06/24 14:04>
General Physical Exam
General Presentation: no apparent distress
General age: appears stated age
General Skin: warm and dry
General Habitus: elderly
General Mental: alert
General Hydration: dry mucous membranes
Cardiovascular Exam
Cardiovascular Exam: occasionally irregular
Pulmonary Exam
Pulmonary Exam: other (decreased left base; right posterior ribs/back with ecchymosis )
Gastrointestinal Exam
Gastrointestinal Exam: non tender and soft
Neurological Exam
Neurological Exam: alert and oriented x3
Musculoskeletal Exam
Musculoskeletal Exam: full ROM
Skin Exam
Skin Exam: normal color and warm/dry
Psychiatric Exam
Psychiatric Exam: normal mood/affect
Course
<OLAMIDE De Anda - Last Filed: 09/06/24 14:04>
Orders/Labs/Results
Orders:
Orders
09/06/24 07:22
EKG [Electrocardiogram (*1)] Urgent
Reason for Study: Fatigue / Weakness
EKG- Treatment ONCE
09/06/24 07:55
Cardiac Monitoring- Treatment ONCE
IV Insert/Care/Rem.- Treatment PRN
CR Chest - 2 Views Urgent
Comment:
Reason For Exam: weakness /fever
09/06/24 08:00
Lactic Acid Q4H
Comment: CANCEL 2nd LACTIC ACID IF 1st LACTIC ACID IS LESS THAN 2
09/06/24 08:09
COVID-19 Antigen Urgent
Source: Nasal Swab
Influenza A+B Rapid Molecular Urgent
RICHIE Source: Nasal Swab
Specimen Description:
09/06/24 08:15
Complete Blood Count/With Diff Urgent
Comprehensive Metabolic Panel Urgent
LDH Urgent
Comment: SERUM PROTEIN & LDH ADDED ON BY FLOOR 11:30AM 09-06-24
Lactic Acid Q4H
Comment: CANCEL 2nd LACTIC ACID IF 1st LACTIC ACID IS LESS THAN 2
Manual Differential Urgent
Blood Culture Q30M
RICHIE Source: Blood/Venous
Specimen Description:
09/06/24 08:21
Urinalysis Reflex To Culture Urgent
Date Specimen was Collected: 09/06/24
Time Specimen was Collected: 08:13
Urine Microscopic Reflex Cult Urgent
09/06/24 08:46
0.9% Sodium Chloride 1000 ml [Nss] 1,000 ml IV BOLUS
09/06/24 09:57
LevoFLOXacin 500 MG/100 ML [Levaquin] 500 mg in 100 ml IV NOW
09/06/24 Lunch
NPO
Allow oral meds: Yes
Allow clear liquids: No
Comment: NPO for IRAD procedure
09/06/24 11:24
Add On- LAB Stat
Tests Added?: serum protein, LDH
Body Fluid Cell Count Routine
What is the Body Fluid: pleural
Body Fluid Glucose Routine
Fluid Source: Pleural
Body Fluid LDH Routine
Fluid Source: Pleural
Body Fluid Protein Routine
Fluid Source: Pleural
Body Fluid pH Routine
Fluid Source: Pleural
Respiratory Culture/Gram Stain Routine
RICHIE Source: Sputum
Specimen Description:
09/06/24 11:29
Chest/Abd/Pelvis w Contrast CT [CT Chest/abd/pel W Iv Cont] Urgent
Comment:
Reason For Exam: fall bruising to right posterior rib on thinners
09/06/24 11:33
CT Cervical Spine W/o Iv Contr Urgent
Comment:
Reason For Exam: trauma
CT Head W/o Iv Contrast Urgent
Comment:
Reason For Exam: trauma
09/06/24 12:13
Vancomycin [Vancocin] 1,500 mg 0.9% Sodium Chloride 500 ml [Nss] 500 ml IV NOW
09/06/24 12:35
Consult Interventional Radiology [IRAD CONSULT] Urgent
Consulting Provider: Vitaliy Enamorado
Was physician already notified: Yes
Reason for Consult/Procedure: Chest tube placement; pulmonary recommends IR placement
Acknowledgement that appropriate orders are entered: Yes
09/06/24 12:45
Blood Culture Q30M
RICHIE Source: Blood/Venous
Specimen Description:
Abnormal Lab Results
09/06/24 09/06/24 09/06/24
08:15 08:21 08:56
WBC 12.3 H 10^3/uL
(4.8-10.8)
RBC 3.52 L 10^6/uL
(4.70-6.10)
Hgb 11.4 L g/dL
(13.0-18.0)
Hct 35.1 L %
(39.0-52.0)
MCV 99.7 H fL
(80.0-94.0)
MCH 32.4 H pg
(27.0-31.0)
MCHC 32.5 L g/dL
(33.0-37.0)
RDW 14.6 H %
(11.5-14.5)
MPV 10.7 H fL
(7.4-10.4)
Abs Neuts (Manual) 10.7 H 10^3/uL
(1.4-6.5)
Segmented Neutrophils 86 H %
(42-75)
Lymphocytes (Manual) 5 L %
(20-51)
BUN 28 H mg/dl
(9-20)
Glucose 47 L* mg/dl
(70-99)
Lactic Acid 2.5 H mmol/L
(0.7-2.0)
Alkaline Phosphatase 236 H U/L
(38-126)
Lactate Dehydrogenase 343 H U/L
(120-246)
Total Protein 5.4 L g/dl
(6.3-8.2)
Albumin 2.6 L g/dl
(3.5-5.0)
Urine Albumin (Reflex) 2+ A
(Neg - Trace)
POC Glucose 51 L* mg/dl
(70-99)
09/06/24
09:19
WBC
RBC
Hgb
Hct
MCV
MCH
MCHC
RDW
MPV
Abs Neuts (Manual)
Segmented Neutrophils
Lymphocytes (Manual)
BUN
Glucose
Lactic Acid
Alkaline Phosphatase
Lactate Dehydrogenase
Total Protein
Albumin
Urine Albumin (Reflex)
POC Glucose 65 L mg/dl
(70-99)
09/06/24 08:15
09/06/24 08:15
Vital Signs
Initial and Last Documented VS:
Initial Vital Signs
Temp Pulse Resp BP Pulse Ox
99.1 F 110 18 139/69 95
09/06/24 07:20 09/06/24 07:20 09/06/24 07:20 09/06/24 07:20 09/06/24 07:20
Last Documented Vital Signs
Temp Pulse Resp BP Pulse Ox
100.7 F H 89 20 128/66 96
09/06/24 07:34 09/06/24 12:00 09/06/24 10:30 09/06/24 10:00 09/06/24 10:30
Fish And Wildlife Technician consulted with Physician
Fish And Wildlife Technician consulted with physician?: Yes
Name of Physician Consulted: Jerald
<Eddie Schwartz Jerald, DO - Last Filed: 09/06/24 12:43>
Orders/Labs/Results
Orders:
Orders
09/06/24 07:22
EKG [Electrocardiogram (*1)] Urgent
Reason for Study: Fatigue / Weakness
EKG- Treatment ONCE
09/06/24 07:55
Cardiac Monitoring- Treatment ONCE
IV Insert/Care/Rem.- Treatment PRN
CR Chest - 2 Views Urgent
Comment:
Reason For Exam: weakness /fever
09/06/24 08:00
Lactic Acid Q4H
Comment: CANCEL 2nd LACTIC ACID IF 1st LACTIC ACID IS LESS THAN 2
09/06/24 08:09
COVID-19 Antigen Urgent
Source: Nasal Swab
Influenza A+B Rapid Molecular Urgent
RICHIE Source: Nasal Swab
Specimen Description:
09/06/24 08:15
Complete Blood Count/With Diff Urgent
Comprehensive Metabolic Panel Urgent
LDH Urgent
Comment: SERUM PROTEIN & LDH ADDED ON BY FLOOR 11:30AM 09-06-24
Lactic Acid Q4H
Comment: CANCEL 2nd LACTIC ACID IF 1st LACTIC ACID IS LESS THAN 2
Manual Differential Urgent
Blood Culture Q30M
RICHIE Source: Blood/Venous
Specimen Description:
09/06/24 08:21
Urinalysis Reflex To Culture Urgent
Date Specimen was Collected: 09/06/24
Time Specimen was Collected: 08:13
Urine Microscopic Reflex Cult Urgent
09/06/24 08:46
0.9% Sodium Chloride 1000 ml [Nss] 1,000 ml IV BOLUS
09/06/24 09:57
LevoFLOXacin 500 MG/100 ML [Levaquin] 500 mg in 100 ml IV NOW
09/06/24 Lunch
NPO
Allow oral meds: Yes
Allow clear liquids: No
Comment: NPO for IRAD procedure
09/06/24 11:24
Add On- LAB Stat
Tests Added?: serum protein, LDH
Body Fluid Cell Count Routine
What is the Body Fluid: pleural
Body Fluid Glucose Routine
Fluid Source: Pleural
Body Fluid LDH Routine
Fluid Source: Pleural
Body Fluid Protein Routine
Fluid Source: Pleural
Body Fluid pH Routine
Fluid Source: Pleural
Respiratory Culture/Gram Stain Routine
RICHIE Source: Sputum
Specimen Description:
09/06/24 11:29
Chest/Abd/Pelvis w Contrast CT [CT Chest/abd/pel W Iv Cont] Urgent
Comment:
Reason For Exam: fall bruising to right posterior rib on thinners
09/06/24 11:33
CT Cervical Spine W/o Iv Contr Urgent
Comment:
Reason For Exam: trauma
CT Head W/o Iv Contrast Urgent
Comment:
Reason For Exam: trauma
09/06/24 12:13
Vancomycin [Vancocin] 1,500 mg 0.9% Sodium Chloride 500 ml [Nss] 500 ml IV NOW
09/06/24 12:35
Consult Interventional Radiology [IRAD CONSULT] Urgent
Consulting Provider: Vitaliy Enamorado
Was physician already notified: Yes
Reason for Consult/Procedure: Chest tube placement; pulmonary recommends IR placement
Acknowledgement that appropriate orders are entered: Yes
09/06/24 12:45
Blood Culture Q30M
RICHIE Source: Blood/Venous
Specimen Description:
Abnormal Lab Results
09/06/24 09/06/24 09/06/24
08:15 08:21 08:56
WBC 12.3 H 10^3/uL
(4.8-10.8)
RBC 3.52 L 10^6/uL
(4.70-6.10)
Hgb 11.4 L g/dL
(13.0-18.0)
Hct 35.1 L %
(39.0-52.0)
MCV 99.7 H fL
(80.0-94.0)
MCH 32.4 H pg
(27.0-31.0)
MCHC 32.5 L g/dL
(33.0-37.0)
RDW 14.6 H %
(11.5-14.5)
MPV 10.7 H fL
(7.4-10.4)
Abs Neuts (Manual) 10.7 H 10^3/uL
(1.4-6.5)
Segmented Neutrophils 86 H %
(42-75)
Lymphocytes (Manual) 5 L %
(20-51)
BUN 28 H mg/dl
(9-20)
Glucose 47 L* mg/dl
(70-99)
Lactic Acid 2.5 H mmol/L
(0.7-2.0)
Alkaline Phosphatase 236 H U/L
(38-126)
Lactate Dehydrogenase 343 H U/L
(120-246)
Total Protein 5.4 L g/dl
(6.3-8.2)
Albumin 2.6 L g/dl
(3.5-5.0)
Urine Albumin (Reflex) 2+ A
(Neg - Trace)
POC Glucose 51 L* mg/dl
(70-99)
09/06/24
09:19
WBC
RBC
Hgb
Hct
MCV
MCH
MCHC
RDW
MPV
Abs Neuts (Manual)
Segmented Neutrophils
Lymphocytes (Manual)
BUN
Glucose
Lactic Acid
Alkaline Phosphatase
Lactate Dehydrogenase
Total Protein
Albumin
Urine Albumin (Reflex)
POC Glucose 65 L mg/dl
(70-99)
09/06/24 08:15
09/06/24 08:15
Vital Signs
Initial and Last Documented VS:
Initial Vital Signs
Temp Pulse Resp BP Pulse Ox
99.1 F 110 18 139/69 95
09/06/24 07:20 09/06/24 07:20 09/06/24 07:20 09/06/24 07:20 09/06/24 07:20
Last Documented Vital Signs
Temp Pulse Resp BP Pulse Ox
100.7 F H 89 20 128/66 96
09/06/24 07:34 09/06/24 12:00 09/06/24 10:30 09/06/24 10:00 09/06/24 10:30
<OLAMIDE De Anda - Last Filed: 09/06/24 14:04>
MDM/Problems Addressed
Differential Diagnosis Includes:
Not limited viral syndrome, pneumonia
MDM/Problems Addressed:
Patient is a 79-year-old male who presents for weakness for the past several weeks. Patient presented complaining of weakness today with chills recent cough for the past several days .he does however report that he did fall 2 days ago. He does
report that he thinks he landed on his right side .on exam he had some scattered bruising to the right posterior rib area however had no tenderness on exam. He denies any send no obvious head injury. Chest xray shows left sided hydropneumothorax
. ED attending made aware. pt stable appearing awake alert in no distress. pt received fluids and antibiotics for also questionable pneumonia.
With findings on x-ray we will order trauma scans including head C-spine and chest abdomen pelvis.
CAT scan chest abdomen pelvis negative for acute traumatic thoracic or intra-abdominal injury as document there is a left-sided hydropneumothorax with moderate pleural fluid there are multiple rounded and oval lesions with air-fluid levels which are
most likely cavitary lesions with infectious etiology
ED physician aware who spoke with pulmonology. I did speak with interventional radiology for CT placement.
Pt with stable vital signs.
<OLAMIDE De Anda - Last Filed: 09/06/24 14:04>
*Radiology
Radiology exam reviewed: radiology read reviewed
*Pulse Oximetry
Patient hypoxic: no
*EKG
Interpreted by ED Provider?: Yes
Heart Rate: 115
Rhythm: a-fib
Ischemia: non-specific ST changes
*Critical Care Note
Total Time (30-74mins, 75-104mins- exclusive of procedures): Not Applicable
<OLAMIDE De Anda - Last Filed: 09/06/24 14:04>
Patient Management
Discussion with other providers: Cable Television Installer (IR, pulmonary )
ED Attending Note
<OLAMIDE De Anda - Last Filed: 09/06/24 14:04>
-
Portions of this chart may have been created with voice recognition software.� Occasional wrong word or��sound alike� substitutions may have occurred due to the inherent limitations of voice recognition software.
<Eddie Marques DO - Last Filed: 09/06/24 12:43>
ED Attending Note
Patient seen and examined by attending physician: Yes
I performed the substantive portion of visit, reviewed & personally made and approve the management plan that is documented in note by myself or DWAYNE.: Yes
ED Attending Note:
I evaluated the patient bedside. The patient does have markedly decreased breath sounds anteriorly on the left side. He tells me that he fell 2 days ago but family told the nursing staff that he fell about 8 days ago. The patient is oriented with
reasonable insight and judgment. He primarily came in today because of severe weakness to the point that he could not get out of bed. He had been feeling weak even before he fell. Chest x-ray shows hydropneumothorax. Since there was a fall, we
did obtain CT imaging for further evaluation. I did not see any definite signs of rib fracture. I discussed the case with Dr. Ordoñez to review the images who recommended IR for chest tube placement. Given the borderline fever along with white
count elevation, I am concerned of an infectious etiology such as loculated effusion/empyema. He is on Eliquis.
Discharge Plan
Departure
Patient Disposition: Admit
Date of Disposition: 09/06/24
Time of Disposition: 13:08
Admit to doctor: hospitalist
Presentation/result/management discussed w/ accepting MD/DO: Hospitalist
Patient with high blood pressure during this ER visit?: Yes
Condition: Fair
Covid-19: Not Applicable
Discharge Problem:
Hydropneumothorax, Pneumonia
Prescriptions:
No Action
atorvastatin 40 MG tablet
40 mg PO QPM
metoprolol succinate 25 MG tablet extended release 24 hr
25 mg PO BID
duloxetine [Cymbalta] 20 mg Capsule,Delayed Release(Dr/Ec)
20 mg PO QPM
aspirin 81 mg Tablet,Delayed Release (Dr/Ec)
81 mg PO DAILY
spironolactone 25 mg Tablet
25 mg PO DAILY
cyanocobalamin (vitamin B-12) 500 mcg Tablet
500 mcg PO DAILY
prednisone 20 mg tablet
20 mg PO BID
insulin glargine [Lantus Solostar U-100 Insulin] 100 unit/mL (3 mL) insulin pen
17 unit SC HS
lorazepam 0.5 mg Tablet
0.5 mg PO BID
acetaminophen [Tylenol] 325 mg Tablet
650 mg PO Q6HPRN PRN (Reason: headaches)
amiodarone 200 mg Tablet
200 mg PO DAILY
gabapentin 100 mg Capsule
100 mg PO TID
Eliquis 5 mg Tablet
5 mg PO BID
insulin aspart U-100 100 unit/mL (3 mL) insulin pen
6 unit SC AC
dextromethorphan-guaifenesin [Tussin DM] 10-100 mg/5 mL Liquid
10 ml PO TIDPRN PRN (Reason: cough)
Referrals:
Jose Monae MD [Family Provider] -
Interventions
Interventions:
*Risk Screen - Suicide Last Done: 09/06/24 07:25
*General Assessment Last Done: 09/06/24 07:25
*Neglect/Abuse Screening Last Done: 09/06/24 07:25
*ED COVID-19 Vaccine History Last Done: 09/06/24 07:25
ED- Neurological Assessment Last Done: 09/06/24 07:59
ED-Skin Assessment Last Done: 09/06/24 07:59
Discharge Date and Time
Print Language: [id number]
[2024-09-06 08:32] LABS: COVID-19 Antigen Negative (Negative)
[2024-09-06 08:43] LABS: ALT (SGPT) 32 U/L (0-50); AST (SGOT) 33 U/L (17-59); Albumin 2.6 g/dl (3.5-5.0); Alkaline Phosphatase 236 U/L (38-126); Blood Urea Nitrogen 28 mg/dl (9-20); Calcium 8.6 mg/dl (8.4-10.2); Carbon Dioxide 24 mmol/L (22-30); Chloride 103 mmol/L (98-107); Estimated Creatinine Clearance 59 ml/min; Glucose 47 mg/dl (70-99); Potassium 4.3 mmol/L (3.5-5.1); Sodium 135 mmol/L (135-145); Total Bilirubin 0.8 mg/dl (0.2-1.3); Total Protein 5.4 g/dl (6.3-8.2); eGFR > 60.00
[2024-09-06 08:47] LABS: Hematocrit 35.1 % (39.0-52.0); Hemoglobin 11.4 g/dL (13.0-18.0); Mean Corp Hgb Conc. 32.5 g/dL (33.0-37.0); Mean Corpuscular Hgb 32.4 pg (27.0-31.0); Mean Corpuscular Volume 99.7 fL (80.0-94.0); Mean Platelet Volume 10.7 fL (7.4-10.4); Platelet Count 244 10^3/uL (130-400); Red Blood Cell Count 3.52 10^6/uL (4.70-6.10); Red Cell Dist. Width 14.6 % (11.5-14.5); White Blood Cell Count 12.3 10^3/uL (4.8-10.8)
[2024-09-06 08:58] LABS: Glucose - Point of Care 51 mg/dl (70-99)
[2024-09-06 09:09] LABS: Urine Albumin 2+ (Neg - Trace); Urine Bilirubin Negative (Negative); Urine Character Clear (Clear); Urine Color Yellow; Urine Glucose Negative (Negative); Urine Ketone Negative (Negative); Urine Leukocyte Negative (Negative); Urine Nitrite Negative (Negative); Urine Occult Blood Negative (Negative); Urine Specific Gravity 1.015 (<1.030); Urine Urobilinogen 1+ (Neg - 1+)
[2024-09-06 09:12] LABS: Lactic Acid 2.5 mmol/L (0.7-2.0)
[2024-09-06 09:15] LABS: Absolute Neutrophils -Man Diff 10.7 10^3/uL (1.4-6.5); Band Neutrophils 1 % (0-3); Lymphocytes 5 % (20-51); Monocytes 8 % (2-9); Normal RBC Morphology Yes; Platelets Checked Yes; Segmented Neutrophils 86 % (42-75)
[2024-09-06] MEDS: NSS 1000 IV (09:15)
[2024-09-06 09:16] LABS: Total Cells Counted 100
[2024-09-06 09:21] LABS: Glucose - Point of Care 65 mg/dl (70-99)
[2024-09-06 09:43] LABS: Glucose - Point of Care 81 mg/dl (70-99)
[2024-09-06 10:28] LABS: Urine Amorphous Seen; Urine Red Blood Cell 0-2 /HPF (0-2); Urine White Cell 0-2 /HPF (0-5)
[2024-09-06] MEDS: LEVAQUIN 100 IV (10:36)
[2024-09-06 12:12] LABS: LDH 343 U/L (120-246)
--- NOTE | 2024-09-06 13:55 | HPS.HSE ---
Family Physician
-
Family Physician: Jose Monae MD
Chief Complaint
-
Weakness
History of Present Illness
79-year-old male with HFpEF, CAD s/p PCI to LAD and proximal ramus, permanent AF on Eliquis, prothrombin gene mutation, T2DM, HLD, GERD, EtOH abuse, H/O DVT/PE s/p IVC filter, H/O bladder cancer, H/O gastritis, H/O TIA that presented to the hospital
today with the complaint of a fall.� Was using the commode this morning when he was noted to be very weak, was unable to get up off of the commode.� Complains of associated chills and mild cough though denies any known fevers or sick contacts.� Was
brought into the ED for further assessment.� Tachycardic with heart rate 110 upon arrival though otherwise hemodynamically stable and on room air.� Eventually did have temperature 100.7 �F in the ED.� ED labs with white cell 12.3 and neutrophilic
predominance, hemoglobin 11.4 with MCV 99.7, glucose 47, lactic acid 2.5, albumin 2.6.� Urinalysis unremarkable.� ECG showed atrial fibrillation with rapid ventricular rates, HR 115/min.� Chest x-ray demonstrated left-sided hydropneumothorax with
moderate volume of pleural fluid and adjacent atelectasis/consolidation.� CT demonstrated left hydropneumothorax with moderate amount of pleural fluid and underlying cavitary lesions of infectious etiology, likely bronchiolitis as well. CT head
without contrast and CT C-spine were unremarkable for traumatic findings. Blood cultures x 2 were obtained.� Was given 1 L NSS bolus and started on IV Levaquin empirically prior to CT findings.
Medical History
Past Medical History
Past Medical History: Reports Other
Additional Past Medical History:
HFpEF
CAD s/p PCI
Paroxysmal AF
Prothrombin gene mutation
T2DM
HLD
GERD
Alcohol abuse
H/O DVT/PE
H/O bladder cancer
H/O gastritis
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
H/O GCA arteritis
Past Surgical History: Reports Other
Additional Past Surgical History:
Cardiac stents
IVC filter
Social History
Tobacco: Former Smoker
Alcohol: Occasional
Drug: None
Family History
Family History: Not pertinent
Allergies / Home Medications
Allergies reflects when Allergies were last updated in [employer].
Home Medications with original date entered in [employer]
Allergy/Medication List:
Allergies
Allergy/AdvReac Type Severity Reaction Status Date / Time
Cephalosporins Allergy Unknown Verified 05/01/24 06:08
enoxaparin sodium Allergy GI bleed Verified 05/01/24 06:08
[From Lovenox]
Heparin Analogues Allergy GI Rectal Verified 05/01/24 06:08
[Heparin Agents] bleeding
Penicillins Allergy Hives/swell Verified 05/01/24 06:08
ing/sob/itc
h
venom-honey bee Allergy Anaphylaxis Verified 05/01/24 06:08
[bee venom (honey bee)]
Home Medications
atorvastatin 40 mg tablet 40 mg PO QPM High cholesterol 12/05/19
metoprolol succinate 25 mg tablet,extended release 24 hr 25 mg PO BID Heart Disease/BP 12/06/19
duloxetine 20 mg capsule,delayed release (Cymbalta) 20 mg PO QPM depression/anxiety 06/20/23
aspirin 81 mg tablet,delayed release 81 mg PO DAILY 05/01/24
cyanocobalamin (vitamin B-12) 500 mcg tablet 500 mcg PO DAILY 05/01/24
insulin glargine 100 unit/mL (3 mL) subcutaneous pen (Lantus Solostar U-100 Insulin) 17 unit SC HS 05/01/24
lorazepam 0.5 mg tablet 0.5 mg PO BID 05/01/24
prednisone 20 mg tablet 20 mg PO BID 05/01/24
spironolactone 25 mg tablet 25 mg PO DAILY 05/01/24
acetaminophen 325 mg tablet (Tylenol) 650 mg PO Q6HPRN PRN headaches 09/06/24
amiodarone 200 mg tablet 200 mg PO DAILY 09/06/24
apixaban 5 mg tablet (Eliquis) 5 mg PO BID 09/06/24
dextromethorphan-guaifenesin 10 mg-100 mg/5 mL oral liquid (Tussin DM) 10 ml PO TIDPRN PRN cough 09/06/24
gabapentin 100 mg capsule 100 mg PO TID 09/06/24
insulin aspart U-100 100 unit/mL (3 mL) subcutaneous pen 6 unit SC AC 09/06/24
Review of Systems
-
History Source: Patient
A 12 point ROS was completed and negative except as noted: Yes
Constitutional: Reports See HPI
EENT: Reports No Symptoms
Respiratory: Reports See HPI
Cardiac: Reports No Symptoms
Abdomen/GI: Reports No Symptoms
: Reports No Symptoms
Musculoskeletal: Reports No Symptoms
Skin: Reports No Symptoms
Neurological: Reports No Symptoms
Endocrine: Reports No Symptoms
Hematologic/Lymphatic: Reports No Symptoms
Psych: Reports No Symptoms
Physical Exam
Vital Signs
Vital Signs
Temp Pulse Resp BP Pulse Ox
100.7 F H 89 20 128/66 96
09/06/24 07:34 09/06/24 12:00 09/06/24 10:30 09/06/24 10:00 09/06/24 10:30
Physical Exam
General: Well Developed, Well Nourished, No Apparent Distress and Appears Chronically Ill; No Pain
HEENT: NormoCephalic, Anicteric, Moist mucous membranes, Atraumatic and PERRLA
Respiratory: Non Labored Respirations and Decreased Breath Sounds (Left base); No Wheezes, Rales or Rhonchi
Cardiac: S1/S2 and Regular Rhythm; No Murmur, Rub, Gallop, Peripheral Edema or JVD
GI: Soft, Non Tender, Non Distended and Normal Bowel Sounds
Musculoskeletal: No Clubbing, No Cyanosis and Normal Gait & Station
Skin: Warm and Dry; No Rash
Neuro: AO x 3 and Nonfocal/grossly intact
Psych: Calm
Laboratory Results
-
09/06/24 08:15
09/06/24 08:15
Laboratory Results
Lactic Acid 2.5 mmol/L (0.7-2.0) H 09/06/24 08:15
Total Bilirubin 0.8 mg/dl (0.2-1.3) 09/06/24 08:15
AST 33 U/L (17-59) 09/06/24 08:15
ALT 32 U/L (0-50) 09/06/24 08:15
Alkaline Phosphatase 236 U/L (38-126) H 09/06/24 08:15
Data Reviewed
-
Lab Data: Labs Reviewed by me, Discussed with Physician (ED, Pulm) and Discussed with Patient
Impression/Plan
-
#Sepsis secondary to CAP with cavitary lung lesions
#Left hydropneumothorax
#Lactic acidosis
#Weakness w/ mechanical fall at home
-Likely infectious process with chronic steroid use causing immunosuppression; cavitary lesion seen on imaging
-CT C/A/P with IV contrast showed left hydropneumothorax with likely infectious cavitary lesions, bronchiolitis
-Presented with fever, leukocytosis, tachycardia; x-ray with signs of left hydropneumothorax; lactate 2.5
-Has not had any hypoxemia; SpO2 stable in the high 90s on room air current with nonlabored breathing
-Blood cultures were obtained in the ED, was started on IV Levaquin empirically
-Has remained hemodynamically stable without vasopressor support
-ED reached out to [facility] for thoracentesis
Plan
-Follow-up fluid studies and cultures from chest tube placement; hold Eliquis for now
-Escalate antibiotics to IV vancomycin and Zosyn for broad-spectrum coverage including anaerobes
-Trend CBC and temperature curve, monitor SpO2 on room air
-Antipyretics and analgesics
-Judicious IVF if needed
-Trend lactate to WNL
-Pulm consult
#Pancreatic cystic lesion
-Incidental finding on CT, 1 cm cystic lesion at the pancreatic head
-Should have outpatient MRI for reassessment
#Macrocytic anemia
-Hemoglobin 11.3 with MCV slightly elevated; hemoglobin near baseline
-No obvious signs of bleeding though cannot rule out collection of pleural hemorrhage
-Will check vitamin B12 and folate levels, iron panel
-Trend CBC
#Permanent AF with RVR
-Home regimen includes Eliquis 5 mg twice daily, amiodarone 200 mg daily, metoprolol succinate 25 mg twice daily
-Presented with heart rate elevated at 110/min, likely in the context of pain and pneumonia/effusion
-Suspect heart rate will improve with management of pain and light IVF
-Holding Eliquis as above for chest tube placement
-Monitor on telemetry
#HFpEF
-Last echocardiogram with preserved LVEF; RHC in 2023 with elevated filling pressures
-Currently on GDMT with spironolactone, no SGLT; also on metoprolol, no loop diuretic
-Appears euvolemic to dry, judicious IVF as above
-Consider starting SGLT2i
#CAD s/p PCI
#Dyslipidemia
-Home medications include beta-vern, aspirin, high intensity statin; also on DOAC for AF
-Last echocardiogram with preserved LVEF, no WMA mentioned
-No signs of ACS
#Prothrombin gene mutation
#H/O DVT/PE
#S/P IVC filter
-Home regimen includes Eliquis 5 mg twice daily
-No signs of new thromboses at this time
#IDDM
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
-Home regimen includes Lantus 17 units nightly, aspart 6 units with meals
-Will continue with home regimen and add ISS with Accu-Cheks
-Blood glucose goal 140-180
#GERD
#H/O gastritis
-Not currently on any antacid regimen
-Will monitor for symptoms
#H/O bladder cancer
-No known recurrence
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
#H/O GCA vasculitis with left ocular involvement
#Chronic steroid use
-Home medications include high intensity statin, aspirin; also on prednisone 20 mg twice daily
-Question if cavitary lesions in the chest are related to other vasculitic entity
-No signs of acute deficits, continue to taper steroid as per OP recs
DVT prophylaxis: Home Eliquis
Diet: Regular
CODE STATUS: Full code
[2024-09-06] MEDS: VANCOCIN 530 MG IV (13:59)
--- NOTE | 2024-09-06 14:56 | CON.PUL ---
Consultation
Consultation Request
Date/Time Consultation Requested: 09/06
Date/Time Consultation Performed: 09/06
Reason for Consultation: Abnormal imaging
Medical History
-
History of Present Illness:
History obtained from the patient and reviewing hospital records. 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
rehabilitation post hospitalization, returned home May 2024. At that time he was walking with a walker but was profoundly weak. Over the subsequent months he developed further weakness and over the last week, shaking chills, worsening fatigue
and a fall 2 days prior to admission. Patient also states he fell about 10 days ago. Cannot recall which side he landed on. He was brought into [facility] where upon arrival, temperature 100.7, pulse 110, breathing at 20, blood pressure
139/69, 95%. He was found to have extensive left-sided infiltrate, hydropneumothorax with fluid per CT imaging. He was given IV fluids, Levaquin/vancomycin. Because of his fall, head CT, cervical CT were obtained. Cultures were obtained. We are
asked to comment on his pulmonary process
Patient denies any dysphagia, choking, aspiration, nausea, emesis, diarrhea, PND, orthopnea, change in weight. He is not on oxygen therapy. He states he has been slowly deteriorating since his strokes in March and April 2024
.
PMH: Chronic atrial fibrillation on anticoagulation, coronary disease with multiple stents, history of ischemic cardiomyopathy, improved, DVT/PE with hypercoagulable disorder with IVC filter, prior TIA x 2, distant history of stroke 10 years ago,
diabetes, hypertension, hyperlipidemia
Past Medical History
Past Medical History: None (See above)
Past Surgical History: None (See above)
Social History
Tobacco: Non-smoker
Alcohol: Former (History of alcohol use, none since spring 2023)
Drug: None
Living: With Family
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
Family History
Family History: Other (Family history negative for blood clots, lung cancer. Mother from leukemia in the seventh decade)
Allergies / Home Medications
Allergies
Allergy/AdvReac Type Severity Reaction Status Date / Time
Cephalosporins Allergy Unknown Verified 05/01/24 06:08
enoxaparin sodium Allergy GI bleed Verified 05/01/24 06:08
[From Lovenox]
Heparin Analogues Allergy GI Rectal Verified 05/01/24 06:08
[Heparin Agents] bleeding
Penicillins Allergy Hives/swell Verified 05/01/24 06:08
ing/sob/itc
h
venom-honey bee Allergy Anaphylaxis Verified 05/01/24 06:08
[bee venom (honey bee)]
Home Medications
�Medication �Instructions �Recorded �Confirmed �Last Taken �Type
atorvastatin 40 mg tablet 40 mg PO QPM High cholesterol 12/05/19 09/06/24 09/05/24 History
metoprolol succinate 25 mg 25 mg PO BID Heart Disease/BP 12/06/19 09/06/24 09/05/24 History
tablet,extended release 24 hr
duloxetine 20 mg capsule,delayed 20 mg PO QPM depression/anxiety 06/20/23 09/06/24 09/05/24 History
release (Cymbalta)
aspirin 81 mg tablet,delayed 81 mg PO DAILY 05/01/24 09/06/24 09/05/24 History
release
cyanocobalamin (vitamin B-12) 500 500 mcg PO DAILY 05/01/24 09/06/24 09/05/24 History
mcg tablet
insulin glargine 100 unit/mL (3 17 unit SC HS 05/01/24 09/06/24 09/05/24 History
mL) subcutaneous pen (Lantus
Solostar U-100 Insulin)
lorazepam 0.5 mg tablet 0.5 mg PO BID 05/01/24 09/06/24 09/05/24 History
prednisone 20 mg tablet 20 mg PO BID 05/01/24 09/06/24 09/05/24 History
spironolactone 25 mg tablet 25 mg PO DAILY 05/01/24 09/06/24 09/05/24 History
acetaminophen 325 mg tablet 650 mg PO Q6HPRN PRN headaches 09/06/24 09/06/24 Unknown History
(Tylenol)
amiodarone 200 mg tablet 200 mg PO DAILY 09/06/24 09/06/24 Unknown History
apixaban 5 mg tablet (Eliquis) 5 mg PO BID 09/06/24 09/06/24 09/05/24 History
dextromethorphan-guaifenesin 10 10 ml PO TIDPRN PRN cough 09/06/24 09/06/24 Unknown History
mg-100 mg/5 mL oral liquid (Tussin
DM)
gabapentin 100 mg capsule 100 mg PO TID 09/06/24 09/06/24 09/05/24 History
insulin aspart U-100 100 unit/mL 6 unit SC AC 09/06/24 09/06/24 09/05/24 History
(3 mL) subcutaneous pen
Review of Systems
-
All other systems: Negative unless noted
Vitals / Labs / Diagnostic Testing
Vital Signs
Temp Pulse Resp BP Pulse Ox
100.7 F H 93 18 111/75 96
09/06/24 07:34 09/06/24 14:00 09/06/24 14:00 09/06/24 14:04 09/06/24 14:00
Lab Data
09/06/24 08:15
09/06/24 08:15
Microbiology
09/06/24 08:09 Nasal Swab Influenza Types A & B (NATE) - Final
Negative for Influenza A & B, NAAT
Negative results must be combined with clinical observations
and patient history.
Nucleic Acid Amplification test (NAAT)performed on the
[employer] platform.
Diagnostic Testing:
Physical Exam
-
HEENT: Normocephalic, Anicteric and Other (Mild lip ulcers)
Cardiovascular: S1/S2, Regular Rhythm, Murmur (n), Rub (n), Peripheral Edema (tr) and Calf Tenderness (n)
Respiratory: Wheeze (n), Rales (n), Rhonchi (n), Non-Labored Respirations and Other (Decreased breath sounds left side, mild egophony at the base)
GI: Soft, Non Distended and Non Tender
Neurology: Awake, Alert, Oriented and No Motor Deficits (Generally weak, moves all extremities)
Skin: Other (Scattered ecchymoses) and Other ( No rash, no cyanosis)
General: Comfortable
Assessment
-
79-year-old male with complex medical history including atrial fibrillation, coronary disease with history of stents, history of multiple TIAs, multiple DVTs with IVC filter, hypercoagulable disorder on chronic Eliquis therapy, with recent
deterioration since March 2024 when he had multiple TIAs. He had been in rehabilitation until May when he was discharged home. Since then he has been slowly deteriorating over the last couple months, worsening weakness, fall x 2 in the last
10 days, now with shaking chills over the last 5 days. Imaging suggest left hydropneumothorax with suspicion for infectious process. We are asked to help from a pulmonary standpoint
Left hydropneumothorax
Consolidation, loculated pockets of fluid, air-fluid levels
New compared to CT chest 04/06/2024
Bilateral pleural effusions per CT head and neck 05/01/24
Shaking chills, leukocytosis
Lip ulcerations
Recent steroid course for 2 months March 2024
For possible temporal arteritis
Conditions present prior to admission
History of heart failure
Elevated wedge pressure per catheterization March 2024
Hypertension/hyperlipidemia
Atrial fibrillation on Eliquis therapy
Amiodarone therapy
History of coronary disease, stent 2019
History of ischemic cardiomyopathy, resolved
Recurrent DVT/PE
IVC filter, chronic anticoagulation
Prothrombin gene mutation
History of multiple TIAs
Temporal artery biopsy - March 2024
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
History of alcohol use, discontinued 2023
Pancreatic mass, 1.8 cm, followed as outpatient/stable
History of bladder cancer although patient denied
Weight loss, deconditioned
Plan/recommendations
Patient with extremely complex medical history
Salient features include extensive pleural-parenchymal disease in the left side with hydropneumothorax, what appears to be pleural thickening, air-fluid levels and loculated pleural fluid, shaking chills, leukocytosis, recent course of 1 to 2 months
of steroids for possible temporal arteritis per biopsy. Patient also has lip ulcerations
Constellation of symptoms are concerning for infectious process in the setting of background vasculitis
Patient also has multiple falls although findings on CT imaging on the left side suggest chronic process, at least since April 2025
Given prolonged hospital stay, prolonged rehabilitation stay, patient at risk for nosocomial process
Moving forward
Continue with empiric antibiotics
Received Levaquin/vancomycin
Continue with broad-spectrum antibiotics, would consider infectious disease evaluation
Would recommend Large bore chest tube, for presumed infectious process
Given air-fluid levels, unclear if this may be gas in the pleural space or possible occult BP fistula. In this regard, large bore chest tube to suction may be diagnostic and therapeutic
Send pleural fluid for chemistries, cultures, cytology
Continue with maintenance treatment for atrial fibrillation
Amiodarone therapy noted
Eliquis therapy continues, follow hemoglobin
Given history of vasculitis, will need to consider inflammatory process
No indication for steroids at this time but if develops hypotension or symptoms worrisome for adrenal insufficiency, may require stress dose steroids
Complex decision making process
Reviewed with ED, primary service, patient
Reviewed briefly with interventional radiology
Will follow-up
[2024-09-06] MEDS: TYLENOL 1000 MG PO (15:13)
--- NOTE | 2024-09-06 15:25 | PHA.VAN.IN ---
Assessment
- Assessment
Renal Function: Unknown baseline (1.0 - but ~0.7 05/14)
Maximum Temperature: 100.7
Concomitant Antimicrobials: Piperacillin/Tazobactam, Levofloxacin x1 dose
Plan
- Plan
Initial / Loading Dose: Vanco 1500mg loading dose 09/06/24 1359
Maintenance Regimen: Dose by level
Monitoring: R level 09/07/24 0600
Pharmacokinetics Vancomycin I
- -
Patient Age: 79
Patient Sex: Male
Vancomycin Day #: 1
Indication: Pulmonary/Respiratory
Requesting Provider: YAN
Pertinent Antimicrobial Allergies:
Penicillin - Hives, itching, sob, swelling
Cephalosporins - Unknown
Height / Weight:
Height 5 ft 8 in
Actual Weight 68 kg
- Vital Signs / Lab Results
Temp Pulse Resp BP Pulse Ox
100.7 F H 93 18 111/75 96
09/06/24 07:34 09/06/24 14:00 09/06/24 14:00 09/06/24 14:04 09/06/24 14:00
Lab Results - Hematology
09/06/24
08:15
WBC 12.3 H
Band Neutrophils 1
Lab Results - Chemistry
09/06/24
08:15
BUN 28 H
Creatinine 1.0
Estimated Creat Clear 59
Albumin 2.6 L
09/06/24 09/06/24
08:00 08:15
Lactic Acid Cancelled 2.5 H
Lab Results - Urine
09/06/24
08:21
Urine Nitrite (Reflex) Negative
Leukocyte Esterase Rfl Negative
Urine WBC (Reflex) 0-2
Ur Squamous Epith Cells 11-15
Microbiology Results
09/06/24 08:09 Influenza Types A & B (NATE) - Final
Nasal Swab Negative for Influenza A & B, NAAT
Negative results must be combined with clinical observations
and patient history.
Nucleic Acid Amplification test (NAAT)performed on the
[employer] platform.
[2024-09-06 17:23] LABS: Body Fluid pH 7.44
[2024-09-06 17:47] LABS: Body Fluid Mononuclear 10.8 %; Body Fluid Polymorphonuclear 89.2 %; Body Fluid WBC 3643 /CUMM
[2024-09-06 17:52] LABS: Body Fluid Second Tech DW
[2024-09-06 17:55] LABS: Body Fluid Glucose 52 mg/dl
[2024-09-06 18:04] LABS: Body Fluid LDH 1085 U/L
[2024-09-06 18:40] LABS: Glucose - Point of Care 69 mg/dl (70-99)
[2024-09-06 19:03] LABS: Glucose - Point of Care 74 mg/dl (70-99)
[2024-09-06] MEDS: NOVOLOG FLEXPEN-MODERATE RESISTANCE SC (19:05)
[2024-09-06] MEDS: LIPITOR 40 MG PO (20:26)
[2024-09-06] MEDS: CYMBALTA DELAYED RELEASE 20 MG PO (20:26)
[2024-09-06] MEDS: ATIVAN 0.5 MG PO (20:27)
[2024-09-06] MEDS: TOPROL XL 25 MG PO (20:27)
[2024-09-06] MEDS: ZOSYN 100 IV (20:31)
[2024-09-06] MEDS: DELTASONE 20 MG PO (20:31)
[2024-09-06] MEDS: LR 1000 IV (21:16)
[2024-09-06 22:48] LABS: Glucose - Point of Care 193 mg/dl (70-99)
[2024-09-06] MEDS: LANTUS 0.17 UNITS SC (22:50)
[2024-09-07] VITALS (8 sets, daily range): BP systolic 113–129; BP diastolic 60–80; PULSE 68–85; O2SAT 95–96; BMI 23.1
[2024-09-07] MEDS: NOVOLOG FLEXPEN SC (00:53)
[2024-09-07] MEDS: NEURONTIN 100 MG PO ×4 (00:54→21:26)
[2024-09-07] MEDS: ZOSYN 100 IV ×4 (02:50→20:05)
[2024-09-07] MEDS: DELTASONE 20 MG PO ×2 (07:52→20:04)
[2024-09-07] MEDS: VITAMIN B-12 500 MCG PO (07:52)
[2024-09-07] MEDS: ATIVAN 0.5 MG PO ×2 (07:52→20:05)
[2024-09-07 07:53] LABS: Glucose - Point of Care 140 mg/dl (70-99)
[2024-09-07] MEDS: PACERONE 200 MG PO (07:53)
[2024-09-07] MEDS: ASPIR LOW (ENTERIC COATED) 81 MG PO (07:53)
[2024-09-07] MEDS: TOPROL XL 25 MG PO ×2 (07:54→20:05)
[2024-09-07] MEDS: ALDACTONE 25 MG PO (07:54)
[2024-09-07] MEDS: NOVOLOG FLEXPEN 6 UNITS SC ×3 (08:06→17:09)
[2024-09-07] MEDS: NOVOLOG FLEXPEN-MODERATE RESISTANCE SC (08:06)
[2024-09-07 08:07] LABS: Vancomycin Random 12.6 ug/ml
[2024-09-07 08:35] LABS: Hematocrit 30.7 % (39.0-52.0); Mean Corp Hgb Conc. 32.6 g/dL (33.0-37.0); Mean Corpuscular Hgb 32.5 pg (27.0-31.0); Mean Corpuscular Volume 99.7 fL (80.0-94.0); Mean Platelet Volume 11.1 fL (7.4-10.4); Platelet Count 232 10^3/uL (130-400); Red Blood Cell Count 3.08 10^6/uL (4.70-6.10); Red Cell Dist. Width 14.5 % (11.5-14.5); White Blood Cell Count 7.8 10^3/uL (4.8-10.8)
[2024-09-07 09:00] LABS: Blood Urea Nitrogen 24 mg/dl (9-20); Calcium 7.8 mg/dl (8.4-10.2); Carbon Dioxide 22 mmol/L (22-30); Chloride 102 mmol/L (98-107); Estimated Creatinine Clearance 59 ml/min; Glucose 128 mg/dl (70-99); Iron 24 ug/dl (49-181); Magnesium 1.9 mg/dl (1.6-2.3); Potassium 4.6 mmol/L (3.5-5.1); Sodium 133 mmol/L (135-145); eGFR > 60.00
[2024-09-07 09:13] LABS: Percent Saturation 16 % (20-50); Total Iron Binding Capacity 148 ug/dl (261-462)
--- NOTE | 2024-09-07 09:23 | PHA.VAN.FU ---
Vancomycin Assessment / Plan
- Assessment
Renal Function: Stable (1.0)
WBC's are: WNL (7.8)
In the past 24 hrs, patient has been: Febrile (100.7)
- Assessment - Therapeutic Drug Monitoring
Random Level: 12.6 ~17.5H after 1500mg loading dose
- Dosing Plan
Dosing by Level: Re-dose today
Dosing Comments: Vanco 1250mg x1
- Monitoring Plan
Random Level: 09/08/24 0600
- Follow Up
Pharmacy will continue to follow.
Vancomycin Follow UP
- -
Patient Age: 79
Patient Sex: Male
Vancomycin Day #: 2
Indication: Pulmonary/Respiratory
Requesting Provider: YAN
Pertinent Antimicrobial Allergies:
Penicillin - Hives, itching, sob, swelling
Cephalosporins - Unknown
Height / Weight:
Height 5 ft 8 in
Actual Weight 68.748 kg
- Vital Signs / Lab Results
Temp Pulse Resp BP Pulse Ox
97.8 F 86 20 121/73 97
09/07/24 07:00 09/07/24 07:53 09/07/24 07:00 09/07/24 07:54 09/07/24 07:00
Lab Results - Hematology
09/06/24 09/07/24
08:15 07:25
WBC 12.3 H 7.8
Band Neutrophils 1
Lab Results - Chemistry
09/06/24 09/07/24
08:15 07:25
BUN 28 H 24 H
Creatinine 1.0 1.0
Estimated Creat Clear 59 59
Albumin 2.6 L
09/06/24 09/06/24
08:00 08:15
Lactic Acid Cancelled 2.5 H
Lab Results - Urine
09/06/24
08:21
Ur Squamous Epith Cells 11-15
Microbiology Results
09/06/24 08:15 Blood Culture - Preliminary
Blood/Venous No Growth in 24 hours- Final report to follow
09/06/24 16:50 Gram Stain - Preliminary
Pleural Fluid
09/06/24 16:50 Fungal Culture - Preliminary
Pleural Fluid Culture in progress.
Positive cultures are reported as soon as detected.
Final report to follow in four to five weeks.
09/06/24 08:09 Influenza Types A & B (NATE) - Final
Nasal Swab Negative for Influenza A & B, NAAT
Negative results must be combined with clinical observations
and patient history.
Nucleic Acid Amplification test (NAAT)performed on the
[employer] platform.
Therapeutic Drug Monitoring
Random Vancomycin 12.6 ug/ml 09/07/24 07:25
[2024-09-07] MEDS: VANCOCIN 275 MG IV (09:36)
[2024-09-07 09:47] LABS: Vitamin B12 > 1000 pg/ml (239-931)
[2024-09-07 10:00] LABS: % Basophils 0.3 % (0-2); % Immature Granulocytes 6.6 % (0-0.5); % Lymphocytes 2.8 % (20.5-51.1); % Monocytes 3.1 % (1.7-9.3); % Neutrophils 87.2 % (42.2-75.2); Absolute Immature Granulocytes 0.5 10^3/uL (0-0.05); Absolute Lymphocytes 0.2 10^3/uL (1.2-3.4); Absolute Monocytes 0.2 10^3/uL (0.1-0.6); Absolute Neutrophils 6.8 10^3/uL (1.4-6.5); Nucleated Red Blood Cells % 0 % (-)
[2024-09-07 11:44] LABS: Glucose - Point of Care 167 mg/dl (70-99)
--- NOTE | 2024-09-07 11:50 | W.PN.HOSP.TC ---
Today's Communication/Plan
-
Continue IV vancomycin and Zosyn
Maintain chest tube, serial CXR
Hold Eliquis
Follow-up pleural fluid cultures and cytology
ID consult
Assessment / Plan
Assessment / Plan
#Sepsis secondary to CAP with cavitary lung lesions
#Left hydropneumothorax
#Exudative left pleural effusion
#Weakness w/ mechanical fall at home
-Likely infectious process with chronic steroid use causing immunosuppression; cavitary lesion seen on imaging
-CT C/A/P with IV contrast showed left hydropneumothorax with likely infectious cavitary lesions, bronchiolitis
-Presented with fever, leukocytosis, tachycardia; x-ray with signs of left hydropneumothorax; lactate 2.5
-Has not had any hypoxemia; SpO2 stable in the high 90s on room air current with nonlabored breathing
-Blood cultures were obtained in the ED, was started on IV Levaquin empirically; Transitioned to Vanc + Zosyn
-Status post chest tube placed 09/06/24, fluid studies with exudative qualities
-Has remained hemodynamically stable without vasopressor support or supplemental O2
Plan
-Maintain chest tube to low wall suction, serial CXR; hold Eliquis for now
-Continue IV vancomycin and Zosyn for broad-spectrum coverage
-Trend CBC and temperature curve, monitor SpO2 on room air
-Follow-up pleural fluid culture, fungal culture, AFB, cytology
-Antipyretics and analgesics
-Judicious IVF if needed
-ID consult
#Pancreatic cystic lesion
-Incidental finding on CT, 1 cm cystic lesion at the pancreatic head
-Should have outpatient MRI for reassessment
#Macrocytic anemia
-Hemoglobin 11.3 with MCV slightly elevated; hemoglobin near baseline
-No obvious signs of bleeding though cannot rule out collection of pleural hemorrhage
-Iron studies consistent with chronic disease; with macrocytosis may have early MDS
-Trend CBC
#Permanent AF with RVR
-Home regimen includes Eliquis 5 mg twice daily, amiodarone 200 mg daily, metoprolol succinate 25 mg twice daily
-Presented with heart rate elevated at 110/min, likely in the context of pain and pneumonia/effusion
-Suspect heart rate will improve with management of pain and light IVF
-Holding Eliquis as above for chest tube placement
-Monitor on telemetry
#HFpEF
-Last echocardiogram with preserved LVEF; RHC in 2023 with elevated filling pressures
-Currently on GDMT with spironolactone, no SGLT; also on metoprolol, no loop diuretic
-Appears euvolemic to dry, judicious IVF as above
-Consider starting SGLT2i
#CAD s/p PCI
#Dyslipidemia
-Home medications include beta-vern, aspirin, high intensity statin; also on DOAC for AF
-Last echocardiogram with preserved LVEF, no WMA mentioned
-No signs of ACS
#Prothrombin gene mutation
#H/O DVT/PE
#S/P IVC filter
-Home regimen includes Eliquis 5 mg twice daily
-No signs of new thromboses at this time
#IDDM
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
-Home regimen includes Lantus 17 units nightly, aspart 6 units with meals
-Will continue with home regimen and add ISS with Accu-Cheks
-Blood glucose goal 140-180
#GERD
#H/O gastritis
-Not currently on any antacid regimen
-Will monitor for symptoms
#H/O bladder cancer
-No known recurrence
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
#H/O GCA vasculitis with left ocular involvement
#Chronic steroid use
-Home medications include high intensity statin, aspirin; also on prednisone 20 mg twice daily
-Question if cavitary lesions in the chest are related to other vasculitic entity
-No signs of acute deficits, continue to taper steroid as per OP recs
DVT prophylaxis: Home Eliquis
Diet: Regular
CODE STATUS: Full code
Anticipated Discharge: > 48 hours
Subjective/Interval History
-
Date of Service: September 07, 2024
Seen and examined at the bedside. Chest tube successfully placed yesterday. No other events overnight. AFVSS on room air today
Pleural fluid studies consistent with exudative effusion, high suspicion for infectious component though pH normal. Hemoglobin down trended to 10 post chest tube.
He states he feels much better today, is able to take deeper breaths with improved comfort
Objective Data
-
Labs:
Laboratory Results
09/07/24
07:25
WBC 7.8
Hgb 10.0 L
Hct 30.7 L
Plt Count 232
Sodium 133 L
Potassium 4.6
Chloride 102
Carbon Dioxide 22
BUN 24 H
Creatinine 1.0
Glucose 128 H
Calcium 7.8 L
Vital Signs:
Vital Signs
Temp Pulse Resp BP Pulse Ox
97.3 F 82 20 118/68 98
09/07/24 11:00 09/07/24 11:00 09/07/24 11:00 09/07/24 11:00 09/07/24 11:00
I&O
09/06/24 09/07/24 09/08/24
06:59 06:59 06:59
Intake Total 100 / 100
Output Total 765 / 765
Balance -665 / -665
Review of Systems
-
History Source: Patient
All other systems: Reviewed and negative
Physical Exam
-
General: Well Developed, Well Nourished, No Apparent Distress and Comfortable
HEENT: Normocephalic, Atraumatic, Moist Mucous Membranes and Anicteric
Respiratory: Rales (Left lung), Non Labored Respirations, Decreased Breath Sounds (Left lung) and Chest Tubes ((L) with yellow/red drainage); Negative Accessory Resp Muscle Use
Cardiac: Regular Rhythm and S1/S2; Negative Murmur, Rub, JVD or Gallop
GI: Soft, Nontender, Nondistended and Normal Bowel Sounds
Musculoskeletal: No Clubbing, No Cyanosis and No Edema
Skin: Warm, Dry and Normal Turgor; Negative Rash
Neuro: AO x 3 and Nonfocal/Grossly Intact; Negative Tremors
Psych: Calm
Data Reviewed
-
Labs: Labs Reviewed by me, Discussed with Physician (ID consult) and Discussed with Patient
[2024-09-07] MEDS: NOVOLOG FLEXPEN-MODERATE RESISTANCE 1 UNITS SC (13:42)
[2024-09-07] MEDS: LR 1000 IV ×2 (14:56→21:28)
--- NOTE | 2024-09-07 16:43 | W.PN.PUL3 ---
Today's Communication / Plan
-
Continue antibiotics
ID consulted
Resume Eliquis now that chest tube has been placed
Follow-up pleural fluid cultures
Encourage incentive spirometer
Pain control
Maintain SpO2 >90-94%
Pulmonary service will continue to follow along
Assessment
-
79-year-old male with complex medical history including atrial fibrillation, coronary disease with history of stents, history of multiple TIAs, multiple DVTs with IVC filter, hypercoagulable disorder on chronic Eliquis therapy, with recent
deterioration since March 2024 when he had multiple TIAs. He had been in rehabilitation until May when he was discharged home. Since then he has been slowly deteriorating over the last couple months, worsening weakness, fall x 2 in the last
10 days, now with shaking chills over the last 5 days. Imaging suggest left hydropneumothorax with suspicion for infectious process. We are asked to help from a pulmonary standpoint
Left hydropneumothorax likely due to empyema with left-sided pneumonia
Consolidation, loculated pockets of fluid, air-fluid levels
New compared to CT chest 04/06/2024
Bilateral pleural effusions per CT head and neck 05/01/24
Shaking chills, leukocytosis
Lip ulcerations
Recent steroid course for 2 months March 2024
For possible temporal arteritis
Conditions present prior to admission
History of heart failure
Elevated wedge pressure per catheterization March 2024
Hypertension/hyperlipidemia
Atrial fibrillation on Eliquis therapy
Amiodarone therapy
History of coronary disease, stent 2019
History of ischemic cardiomyopathy, resolved
Recurrent DVT/PE
IVC filter, chronic anticoagulation
Prothrombin gene mutation
History of multiple TIAs
Temporal artery biopsy - March 2024
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
History of alcohol use, discontinued 2023
Pancreatic mass, 1.8 cm, followed as outpatient/stable
History of bladder cancer although patient denied
Weight loss, deconditioned
Plan/recommendations
Patient with extremely complex medical history
Salient features include extensive pleural-parenchymal disease in the left side with hydropneumothorax, what appears to be pleural thickening, air-fluid levels and loculated pleural fluid, shaking chills, leukocytosis, recent course of 1 to 2 months
of steroids for possible temporal arteritis per biopsy. Patient also has lip ulcerations
Constellation of symptoms are concerning for infectious process in the setting of background vasculitis
Patient also has multiple falls although findings on CT imaging on the left side suggest chronic process, at least since April 2025
Given prolonged hospital stay, prolonged rehabilitation stay, patient at risk for nosocomial process
He underwent left-sided small bore 14 [place] Thal-Quick chest tube by IR on 09/06/2024
- Pleural fluid studies showed glucose 52, LDH 1085, pH 7.44, fluid WBC 3643. Although pH is 7.44, glucose being 52 and LDH >1000 is concerning for an empyema
Continue with empiric antibiotics to currently on Zosyn/vancomycin
ID consulted
No airleak on chest tube, hence doubt that this is a BP fistula, instead the air-fluid pockets are likely due to necrotizing pneumonia
Follow-up pleural fluid cultures; no cytopathology sent
Continue with maintenance treatment for atrial fibrillation
On PO amiodarone
Eliquis therapy continues, follow hemoglobin
Eliquis was held for chest tube placement; now the chest tube has been placed, okay to resume Eliquis
Given history of vasculitis, will need to consider inflammatory process
No indication for steroids at this time but if develops hypotension or symptoms worrisome for adrenal insufficiency, may require stress dose steroids
Pulmonary service will continue to follow along
Total time spent today was 38 minutes for this encounter. Time includes reviewing laboratory test/imaging results, reviewing pertinent medical records, obtaining and reviewing medical history, performing an appropriate exam, ordering medications,
tests and procedures. Time also includes documentation of this encounter, coordinating patient care and communicating with other healthcare professionals. Total time does not include separately billed tests performed on this date of service.
Subjective Data
-
Date of Service:
Date of Service: September 07, 2024
Chief Complaint: Pulmonary Follow Up
Subjective:
Patient seen earlier today � late note entry. Chest tube inserted into left lung via IR yesterday. Glucose 52 on the pleural fluid with WBCs 3643. This is consistent with empyema. Currently, 280 cc in the Pleur-evac which is serous with strands
of blood/fibrin. He is on room air breathing comfortably. He says that he is feeling a lot better than he was yesterday. Denies GOMEZ, chest pain, fevers or chills.
Review of Systems
General: Other (Negative unless mentioned above)
Objective Data
Data Reviewed
Vital Signs / I&O / Oxygen:
Vital Signs
Temp Pulse Resp BP Pulse Ox
97.3 F 82 20 118/68 98
09/07/24 11:00 09/07/24 11:00 09/07/24 11:00 09/07/24 11:00 09/07/24 11:00
Intake and Output
09/06/24 09/07/24 09/08/24
06:59 06:59 06:59
Intake Total 100 / 100
Output Total 765 / 765
Balance -665 / -665
SaO2 98
Physical Exam
General: Respiratory Distress (negative), Comfortable, Chills (negative) and Sweats (negative)
HEENT: Normocephalic and Anicteric
Cardiovascular: S1-S2, Rub (negative) and Peripheral Edema (negative)
Respiratory: Wheeze (negative), Crackles (negative), Rhonchi (Left hemithorax), Non-Labored Respirations, Chest Tube (Left hemithorax) and Other (Greatly diminished breath sounds in the left hemithorax with inspiratory squeaks)
GI: Soft, Non Distended, Non Tender and Normal Bowel Sounds
Neurology: Awake, Alert and Tremors (negative)
Skin: Warm, Dry, Cyanosis (negative) and Jaundice (negative)
Labs/Micro/Reports
Lab Data
09/07/24 07:25
09/07/24 07:25
Microbiology
09/06/24 12:45 Blood/Venous Blood Culture - Preliminary
No Growth in 24 hours- Final report to follow
09/06/24 16:50 Pleural Fluid Body Fluid Culture - Preliminary
No Growth After 18-24 Hours
09/06/24 16:50 Pleural Fluid Gram Stain - Preliminary
09/06/24 08:15 Blood/Venous Blood Culture - Preliminary
No Growth in 24 hours- Final report to follow
09/06/24 16:50 Pleural Fluid Fungal Culture - Preliminary
Culture in progress.
Positive cultures are reported as soon as detected.
Final report to follow in four to five weeks.
09/06/24 08:09 Nasal Swab Influenza Types A & B (NATE) - Final
Negative for Influenza A & B, NAAT
Negative results must be combined with clinical observations
and patient history.
Nucleic Acid Amplification test (NAAT)performed on the
[employer] platform.
[2024-09-07 16:58] LABS: Glucose - Point of Care 291 mg/dl (70-99)
[2024-09-07] MEDS: LIPITOR 40 MG PO (17:09)
[2024-09-07] MEDS: NOVOLOG FLEXPEN-MODERATE RESISTANCE 5 UNITS SC (17:09)
[2024-09-07] MEDS: CYMBALTA DELAYED RELEASE 20 MG PO (17:09)
[2024-09-07 21:28] LABS: Glucose - Point of Care 296 mg/dl (70-99)
[2024-09-07] MEDS: LANTUS 0.17 UNITS SC (22:15)
[2024-09-08] MEDS: ZOSYN 100 IV ×3 (02:13→14:23)
[2024-09-08 03:29] VITALS: BP 139/93
[2024-09-08 06:00] VITALS: BMI 24.0
[2024-09-08 06:27] LABS: Hematocrit 28.6 % (39.0-52.0); Hemoglobin 9.4 g/dL (13.0-18.0); Mean Corp Hgb Conc. 32.9 g/dL (33.0-37.0); Mean Corpuscular Hgb 32.5 pg (27.0-31.0); Mean Platelet Volume 11.1 fL (7.4-10.4); Platelet Count 230 10^3/uL (130-400); Red Blood Cell Count 2.89 10^6/uL (4.70-6.10); Red Cell Dist. Width 14.2 % (11.5-14.5); White Blood Cell Count 8.9 10^3/uL (4.8-10.8)
[2024-09-08 06:31] LABS: Vancomycin Random 15.1 ug/ml
[2024-09-08 06:40] LABS: ALT (SGPT) 36 U/L (0-50); AST (SGOT) 30 U/L (17-59); Albumin 2.1 g/dl (3.5-5.0); Alkaline Phosphatase 272 U/L (38-126); Blood Urea Nitrogen 28 mg/dl (9-20); Calcium 7.9 mg/dl (8.4-10.2); Carbon Dioxide 20 mmol/L (22-30); Chloride 101 mmol/L (98-107); Estimated Creatinine Clearance 59 ml/min; Glucose 328 mg/dl (70-99); Potassium 4.5 mmol/L (3.5-5.1); Sodium 131 mmol/L (135-145); Total Bilirubin 0.4 mg/dl (0.2-1.3); Total Protein 4.9 g/dl (6.3-8.2); eGFR > 60.00
[2024-09-08 07:00] VITALS: BP 152/83
[2024-09-08] MEDS: ELIQUIS PO ×2 (07:22→07:52)
[2024-09-08 07:37] LABS: Glucose - Point of Care 340 mg/dl (70-99)
[2024-09-08] MEDS: NEURONTIN 100 MG PO ×3 (07:40→20:05)
[2024-09-08] MEDS: ASPIR LOW (ENTERIC COATED) 81 MG PO (07:40)
[2024-09-08] MEDS: PACERONE 200 MG PO (07:40)
[2024-09-08] MEDS: DELTASONE 20 MG PO ×2 (07:40→19:59)
[2024-09-08] MEDS: ATIVAN 0.5 MG PO ×2 (07:40→19:58)
[2024-09-08] MEDS: TOPROL XL 25 MG PO ×2 (07:48→19:57)
[2024-09-08] MEDS: ALDACTONE 25 MG PO (07:48)
[2024-09-08] MEDS: NOVOLOG FLEXPEN 6 UNITS SC ×3 (07:49→17:35)
[2024-09-08] MEDS: NOVOLOG FLEXPEN-MODERATE RESISTANCE 7 UNITS SC ×2 (07:49→12:25)
[2024-09-08 08:52] LABS: Nucleated Red Blood Cells % 0 % (-)
[2024-09-08 08:53] LABS: Absolute Neutrophils -Man Diff 7.9 10^3/uL (1.4-6.5); Band Neutrophils 2 % (0-3); Lymphocytes 4 % (20-51); Monocytes 6 % (2-9); Myelocytes 1 % (-); Segmented Neutrophils 87 % (42-75)
[2024-09-08 08:54] LABS: Normal RBC Morphology Yes; Platelets Checked Yes; Total Cells Counted 100
--- NOTE | 2024-09-08 09:09 | PHA.VAN.FU ---
Vancomycin Assessment / Plan
- Assessment
Renal Function: Stable (1.0)
WBC's are: WNL (8.9)
In the past 24 hrs, patient has been: Afebrile
Concomitant Antimicrobials: Piperacillin/Tazobactam
- Assessment - Therapeutic Drug Monitoring
Random Level: 15.1 ~20H after 1250mg infusion
- Dosing Plan
Dosing by Level: Re-dose today
Dosing Comments: Vanco 1250mg x1
- Monitoring Plan
Random Level: 09/09/24 0600
- Follow Up
Pharmacy will continue to follow.
Vancomycin Follow UP
- -
Patient Age: 79
Patient Sex: Male
Vancomycin Day #: 3
Indication: Pulmonary/Respiratory
Requesting Provider: YAN
Pertinent Antimicrobial Allergies:
Penicillin - Hives, itching, sob, swelling
Cephalosporins - Unknown
Height / Weight:
Height 5 ft 8 in
Actual Weight 71.441 kg
- Vital Signs / Lab Results
Temp Pulse Resp BP Pulse Ox
97.8 F 80 19 152/83 97
09/08/24 07:00 09/08/24 07:40 09/08/24 07:00 09/08/24 07:48 09/08/24 07:00
Lab Results - Hematology
09/06/24 09/07/24 09/08/24
08:15 07:25 05:36
WBC 12.3 H 7.8 8.9
Band Neutrophils 1 2
Lab Results - Chemistry
09/06/24 09/07/24 09/08/24
08:15 07:25 05:36
BUN 28 H 24 H 28 H
Creatinine 1.0 1.0 1.0
Estimated Creat Clear 59 59 59
Albumin 2.6 L 2.1 L
09/06/24 09/06/24
08:00 08:15
Lactic Acid Cancelled 2.5 H
Microbiology Results
09/06/24 16:50 Body Fluid Culture - Preliminary
Pleural Fluid No Growth After 48 Hours
Gram Stain - Preliminary
09/06/24 08:15 Blood Culture - Preliminary
Blood/Venous No Growth in 48 hours- Final report to follow
09/06/24 12:45 Blood Culture - Preliminary
Blood/Venous No Growth in 24 hours- Final report to follow
09/06/24 16:50 Fungal Culture - Preliminary
Pleural Fluid Culture in progress.
Positive cultures are reported as soon as detected.
Final report to follow in four to five weeks.
09/06/24 08:09 Influenza Types A & B (NATE) - Final
Nasal Swab Negative for Influenza A & B, NAAT
Negative results must be combined with clinical observations
and patient history.
Nucleic Acid Amplification test (NAAT)performed on the
[employer] platform.
Therapeutic Drug Monitoring
Random Vancomycin 15.1 ug/ml 09/08/24 05:36
[2024-09-08] MEDS: VANCOCIN 275 MG IV (09:24)
--- NOTE | 2024-09-08 10:35 | W.PN.HOSP.TC ---
Today's Communication/Plan
-
Maintain chest tube to low wall suction
Continue broad-spectrum antibiotics
Follow cultures
Trend BMP and CBC
Continue Eliquis for now
Assessment / Plan
Assessment / Plan
#Sepsis secondary to CAP with cavitary lung lesions
#Left hydropneumothorax
#Exudative left pleural effusion
#Weakness w/ mechanical fall at home
-Likely infectious process with chronic steroid use causing immunosuppression; fungal/bacterial > malignant, though cannot rule out
-CT C/A/P with IV contrast showed left hydropneumothorax with likely infectious cavitary lesions, bronchiolitis
-Presented with fever, leukocytosis, tachycardia; x-ray with signs of left hydropneumothorax; lactate 2.5
-Has not had any hypoxemia; SpO2 stable in the high 90s on room air current with nonlabored breathing
-Blood cultures were obtained in the ED, was started on IV Levaquin empirically; Transitioned to Vanc + Zosyn
-Status post chest tube placed 09/06/24, fluid studies with exudative qualities; resumed on home Eliquis
-Has remained hemodynamically stable without vasopressor support or supplemental O2
Plan
-Maintain chest tube to low wall suction, serial CXR; hold Eliquis for now
-Continue IV vancomycin and Zosyn for broad-spectrum coverage
-Trend CBC and temperature curve, monitor SpO2 on room air
-Follow-up pleural fluid culture, fungal culture, AFB, cytology
-Antipyretics and analgesics
-Judicious IVF if needed
-ID consult
#Hypovolemic hyponatremia
-Suspect hypovolemia with current infection, no signs of fluid overload
-Serum sodium down to 131 today, no signs or symptoms associated
-States that he is eating and drinking well despite the chest tube
-Encourage oral intake and trend BMP for now
-Consider urine studies, empiric IVF if worsening
#Pancreatic cystic lesion
-Incidental finding on CT, 1 cm cystic lesion at the pancreatic head
-Should have outpatient MRI for reassessment
#Macrocytic anemia
#Acute blood loss anemia (?)
-Hemoglobin 11.3 with MCV slightly elevated; hemoglobin near baseline
-No obvious signs of bleeding though cannot rule out collection of pleural hemorrhage
-Iron studies consistent with chronic disease; with macrocytosis may have early MDS
-No obvious signs of bleeding though did have chest tube placed
-Trend CBC, consider holding home Eliquis if hemoglobin continues to downtrend
#Permanent AF with RVR
-Home regimen includes Eliquis 5 mg twice daily, amiodarone 200 mg daily, metoprolol succinate 25 mg twice daily
-Presented with heart rate elevated at 110/min, likely in the context of pain and pneumonia/effusion
-Suspect heart rate will improve with management of pain and light IVF
-Holding Eliquis as above for chest tube placement
-Monitor on telemetry
#HFpEF
-Last echocardiogram with preserved LVEF; RHC in 2023 with elevated filling pressures
-Currently on GDMT with spironolactone, no SGLT; also on metoprolol, no loop diuretic
-Appears euvolemic to dry, judicious IVF as above
-Consider starting SGLT2i
#CAD s/p PCI
#Dyslipidemia
-Home medications include beta-vern, aspirin, high intensity statin; also on DOAC for AF
-Last echocardiogram with preserved LVEF, no WMA mentioned
-No signs of ACS
#Prothrombin gene mutation
#H/O DVT/PE
#S/P IVC filter
-Home regimen includes Eliquis 5 mg twice daily
-No signs of new thromboses at this time
#IDDM
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
-Home regimen includes Lantus 17 units nightly, aspart 6 units with meals
-Will continue with home regimen and add ISS with Accu-Cheks
-Blood glucose goal 140-180
#GERD
#H/O gastritis
-Not currently on any antacid regimen
-Will monitor for symptoms
#H/O bladder cancer
-No known recurrence
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
#H/O GCA vasculitis with left ocular involvement
#Chronic steroid use with immunosuppression
-Home medications include high intensity statin, aspirin; also on prednisone 20 mg twice daily
-Question if cavitary lesions in the chest are related to other vasculitic entity
-No signs of acute deficits, continue to taper steroid as per OP recs
DVT prophylaxis: Home Eliquis
Diet: Regular
CODE STATUS: Full code
Anticipated Discharge: > 48 hours
Subjective/Interval History
-
Date of Service: September 08, 2024
Seen and examined at bedside. No acute events reported overnight. AFVSS this morning
Hemoglobin with mild drop to 9.4. Remainder of labs stable. Leukocytosis resolved
He states he still has some shortness of breath but generally feels better, denies acute complaints. States he has good appetite, eating and drinking well
Objective Data
-
Labs:
Laboratory Results
09/08/24
05:36
WBC 8.9
Hgb 9.4 L
Hct 28.6 L
Plt Count 230
Sodium 131 L
Potassium 4.5
Chloride 101
Carbon Dioxide 20 L
BUN 28 H
Creatinine 1.0
Glucose 328 H
Calcium 7.9 L
Total Bilirubin 0.4
AST 30
ALT 36
Alkaline Phosphatase 272 H
Vital Signs:
Vital Signs
Temp Pulse Resp BP Pulse Ox
97.8 F 80 19 152/83 97
09/08/24 07:00 09/08/24 07:40 09/08/24 07:00 09/08/24 07:48 09/08/24 07:00
I&O
09/07/24 09/08/24 09/09/24
06:59 06:59 06:59
Intake Total 100 / 100
Output Total 575 / 575 335 / 335
Balance -475 / -475 -335 / -335
Review of Systems
-
History Source: Patient
All other systems: Reviewed and negative
Physical Exam
-
General: Well Developed, Well Nourished and No Apparent Distress
HEENT: Normocephalic, Atraumatic, Moist Mucous Membranes and Anicteric
Respiratory: Rales (Left lung), Non Labored Respirations and Chest Tubes (Left-sided, yellow serosanguineous discharge); Negative Wheezes, Rhonchi or Accessory Resp Muscle Use
Cardiac: Regular Rhythm and S1/S2; Negative Murmur, Rub or Gallop
GI: Soft, Nontender, Nondistended and Normal Bowel Sounds
Musculoskeletal: No Clubbing, No Cyanosis and No Edema
Skin: Warm, Dry and Normal Turgor; Negative Rash
Neuro: AO x 3 and Nonfocal/Grossly Intact
Psych: Calm
Data Reviewed
-
Diagnostic Radiology: Report Reviewed by me and Discussed with Physician (Pulm)
Labs: Labs Reviewed by me and Discussed with Patient
[2024-09-08 11:00] VITALS: BP 124/68
[2024-09-08 12:08] LABS: Glucose - Point of Care 338 mg/dl (70-99)
--- NOTE | 2024-09-08 14:54 | CON.ID ---
Consultation
-
Date/Time Consultation Requested: 09/07/2024 1517
Date/Time Consultation Performed: 09/08/2024 1330
Requesting Provider: Dr. Vilchis
Performing Provider: Dr. Vanessa
Reason for Consultation: Pneumonia
Chief Complaint / Past History
History of Present Illness
Efren Allison is a 79-year-old man being evaluated at the request of Dr. Vilchis in regards to pneumonia. History is obtained from chart review, along with patient interview.
The patient has a significant past medical history of CAD and diabetes mellitus. He presents to [facility] on 09/06 after a fall. He reports that he has had ambulatory dysfunction for quite some time and was in [employer] run in March. He was
in the bathroom approximately 2 weeks ago and he recalls falling onto his right side, but did not strike his head. He reports falling again on 09/06, at this time he found it difficult to get up and EMS was called. He was brought emergently to
[facility]. He admitted in the ER of generalized weakness over the prior several days and he admitted to not being able to get off the commode that morning. In the ER he was found to be tachycardic, and developed a temperature of 100.7
degrees. Further workup revealed a leukocytosis. Chest imaging was performed which revealed cavitary pneumonia and pleural effusion. Hospital course thus far has been significant for initiation of antibiotics, and chest tube placement.
Infectious Diseases presents for management.
He denies any recent fevers or chills. He reports that he has had a cough for at least the past 2 weeks and has been using [id number] Mucinex. He denies any sputum production. He notes that his daughter was ill approximately 2 weeks ago
with an upper respiratory tract infection.
Past History
Additional Past Medical History:
CAD; Hx [place]
GERD
A-fib
CHF
Prothrombin gene mutation/hypercoagulable
DVT
DM
Anxiety
HTN
Additional Past Surgical History:
PTCA with stenting
IVC filter placement
Spinal stimulator
Allergy History:
Cephalosporins Allergy (Verified 05/01/24 06:08)
Unknown
enoxaparin sodium [From Lovenox] Allergy (Verified 05/01/24 06:08)
GI bleed
Heparin Analogues [Heparin Agents] Allergy (Verified 05/01/24 06:08)
GI Rectal bleeding
Penicillins Allergy (Verified 05/01/24 06:08)
Hives/swelling/sob/itch
venom-honey bee [bee venom (honey bee)] Allergy (Verified 05/01/24 06:08)
Anaphylaxis
Medications Reviewed: Yes
Current Antibiotics:
Vancomycin
Zosyn 4.5 g IV every 6 hours
Social History
Tobacco: Non-Smoker
Alcohol: Former
Drug: None
Personal:
Living: With Family
Employment: Retired
Family History
Family History: Not Pertinent
Review of Systems
Vital Signs
Temp Pulse Resp BP Pulse Ox
97.8 F 75 18 124/68 97
09/08/24 11:00 09/08/24 11:00 09/08/24 11:00 09/08/24 11:00 09/08/24 11:00
Physical Exam
Physical Exam
Constitutional: No Acute Distress, Comfortable, Chronically Ill and Non-toxic
Eyes: No Conjunctival Hemorrhage and Sclera Anicteric
Cardiovascular: Regular Rate and S1/S2; Negative S3/S4
Pulmonary: Coarse, Non Labored and Other (left CT in place; serous drainage); Negative Rales or Rhonchi
Gastrointestinal: Soft, Non Tender, Non Distended and Normal Bowel Sounds
Extremities: Negative Edema, Cyanosis or Erythema
Neurological: Awake and Alert
Psychological: Calm
Lab / Diagnostic Study Results
09/08/24 05:36
09/08/24 05:36
Abs Immat Gran (auto) 0.5 10^3/uL (0-0.05) H 09/07/24 07:25
Absolute Neuts (auto) 6.8 10^3/uL (1.4-6.5) H 09/07/24 07:25
Absolute Lymphs (auto) 0.2 10^3/uL (1.2-3.4) L 09/07/24 07:25
Absolute Monos (auto) 0.2 10^3/uL (0.1-0.6) 09/07/24 07:25
Absolute Basos (auto) 0.0 10^3/uL (0-0.2) 09/07/24 07:25
Total Counted 100 09/08/24 05:36
Immature Gran % 6.6 % (0-0.5) H 09/07/24 07:25
Neutrophils % 87.2 % (42.2-75.2) H 09/07/24 07:25
Lymphocytes % 2.8 % (20.5-51.1) L 09/07/24 07:25
Monocytes % 3.1 % (1.7-9.3) 09/07/24 07:25
Eosinophils % 0.0 % (0-6) 09/07/24 07:25
Basophils % 0.3 % (0-2) 09/07/24 07:25
Abs Neuts (Manual) 7.9 10^3/uL (1.4-6.5) H 09/08/24 05:36
Segmented Neutrophils 87 % (42-75) H 09/08/24 05:36
Band Neutrophils 2 % (0-3) 09/08/24 05:36
Lymphocytes (Manual) 4 % (20-51) L 09/08/24 05:36
Lactic Acid 2.5 mmol/L (0.7-2.0) H 09/06/24 08:15
Ur Squamous Epith Cells 11-15 /LPF (Few) 09/06/24 08:21
Microbiology Results
Micro:
09/06/24 12:45 Blood Culture - Preliminary
Blood/Venous No Growth in 48 hours- Final report to follow
09/06/24 16:50 Body Fluid Culture - Preliminary
Pleural Fluid No Growth After 48 Hours
Gram Stain - Preliminary
09/06/24 08:15 Blood Culture - Preliminary
Blood/Venous No Growth in 48 hours- Final report to follow
09/06/24 16:50 Fungal Culture - Preliminary
Pleural Fluid Culture in progress.
Positive cultures are reported as soon as detected.
Final report to follow in four to five weeks.
09/06/24 16:50 Acid Fast Bacilli Smear - Pending
Pleural Fluid Acid Fast Bacilli Culture - Pending
09/06/24 08:09 Influenza Types A & B (NATE) - Final
Nasal Swab Negative for Influenza A & B, NAAT
Negative results must be combined with clinical observations
and patient history.
Nucleic Acid Amplification test (NAAT)performed on the
[employer] platform.
Imaging:
09/08/24 CXR (portable): Stable position of the left apical chest tube. No appreciable pneumothorax.
09/06/2024 CT chest/abdomen/pelvis: No acute traumatic thoracic or intra-abdominal injury noted. Left-sided hydropneumothorax noted. Moderate pleural fluid. Multiple left pulmonary rounded and COVID lesions with air-fluid levels which are likely
cavitary lesions. There is atelectasis/consolidation of the majority of the left upper and lower lobes. Small probable pulmonary abscess in the left lower lobe noted.
Assessment / Plan
Pulmonary abscess (LLL)
Pneumonia
- suspect aspiration
Leukocytosis; improved
Pleural effusion
- CT in place
CAD; Hx [place]
GERD
A-fib
CHF
Prothrombin gene mutation/hypercoagulable
DVT
DM
Anxiety
HTN
Recommendations:
Sputum culture ordered, but patient has been unable to produce any specimen.
Continue with current empiric antibiotics.
Follow Vanco levels closely to prevent nephrotoxicity.
Check MRSA screen; if negative can likely discontinue further vancomycin.
Decrease Zosyn to 3.375 g IV every 6 hours.
Monitor white count and temperature curve.
[2024-09-08 15:00] VITALS: BP 111/61
--- NOTE | 2024-09-08 16:35 | W.PN.PUL3 ---
Addendum entered and electronically signed by Iggy Olson MD 09/08/24 19:22:
Given that he may have component of aspiration causing this left-sided pneumonia, I will have BEEF LUGGER evaluate him
Original Note:
Today's Communication / Plan
-
Continue antibiotics per ID - suspect he will need prolonged course
Continue Eliquis
Follow-up pleural fluid cultures (NGTD)
Encourage incentive spirometer
Pain control
Maintain SpO2 >90-94%
Check CT chest tomorrow and if pleural fluid has been significantly evacuated then could possibly remove chest tube
Pulmonary service will continue to follow along
Assessment
-
79-year-old male with complex medical history including atrial fibrillation, coronary disease with history of stents, history of multiple TIAs, multiple DVTs with IVC filter, hypercoagulable disorder on chronic Eliquis therapy, with recent
deterioration since March 2024 when he had multiple TIAs. He had been in rehabilitation until May when he was discharged home. Since then he has been slowly deteriorating over the last couple months, worsening weakness, fall x 2 in the last
10 days, now with shaking chills over the last 5 days. Imaging suggest left hydropneumothorax with suspicion for infectious process. We are asked to help from a pulmonary standpoint
Left hydropneumothorax likely due to empyema with left-sided pneumonia and suspected lung abscess
Consolidation, loculated pockets of fluid, air-fluid levels
New compared to CT chest 04/06/2024
Bilateral pleural effusions per CT head and neck 05/01/24
Shaking chills, leukocytosis
Lip ulcerations
Recent steroid course for 2 months March 2024
For possible temporal arteritis
Conditions present prior to admission
History of heart failure
Elevated wedge pressure per catheterization March 2024
Hypertension/hyperlipidemia
Atrial fibrillation on Eliquis therapy
Amiodarone therapy
History of coronary disease, stent 2019
History of ischemic cardiomyopathy, resolved
Recurrent DVT/PE
IVC filter, chronic anticoagulation
Prothrombin gene mutation
History of multiple TIAs
Temporal artery biopsy - March 2024
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
History of alcohol use, discontinued 2023
Pancreatic mass, 1.8 cm, followed as outpatient/stable
History of bladder cancer although patient denied
Weight loss, deconditioned
Plan/recommendations
Patient with extremely complex medical history
Salient features include extensive pleural-parenchymal disease in the left side with hydropneumothorax, what appears to be pleural thickening, air-fluid levels and loculated pleural fluid, shaking chills, leukocytosis, recent course of 1 to 2 months
of steroids for possible temporal arteritis per biopsy. Patient also has lip ulcerations
Constellation of symptoms are concerning for infectious process in the setting of background vasculitis
Patient also has multiple falls although findings on CT imaging on the left side suggest chronic process, at least since April 2025
Given prolonged hospital stay, prolonged rehabilitation stay, patient at risk for nosocomial process
He underwent left-sided small bore 14 [place] Thal-Quick chest tube by IR on 09/06/2024
- Pleural fluid studies showed glucose 52, LDH 1085, pH 7.44, fluid WBC 3643. Although pH is 7.44, glucose being 52 and LDH >1000 is concerning for an empyema
Continue with empiric antibiotics - currently on Zosyn/vancomycin
ID consulted
No airleak on chest tube, hence doubt that this is a BP fistula, instead the air-fluid pockets are likely due to necrotizing pneumonia
Follow-up pleural fluid cultures; no cytopathology sent
Given that the chest tube has minimal pleural fluid output, and unable to truly assess residual pleural fluid on CXR, check CT chest tomorrow and if pleural fluid has been significantly evacuated then could possibly remove chest tube
Continue with maintenance treatment for atrial fibrillation
On PO amiodarone
Eliquis therapy continues, follow hemoglobin
Eliquis was held for chest tube placement; now the chest tube has been placed, okay to resume Eliquis
Given history of vasculitis, will need to consider inflammatory process
Continue home dose of steroids; if he develops hypotension or symptoms worrisome for adrenal insufficiency, may require stress dose steroids
Pulmonary service will continue to follow along
Total time spent today was 41 minutes for this encounter. Time includes reviewing laboratory test/imaging results, reviewing pertinent medical records, obtaining and reviewing medical history, performing an appropriate exam, ordering medications,
tests and procedures. Time also includes documentation of this encounter, coordinating patient care and communicating with other healthcare professionals. Total time does not include separately billed tests performed on this date of service.
Subjective Data
-
Date of Service:
Date of Service: September 08, 2024
Chief Complaint: Pulmonary Follow Up
Subjective:
Patient was seen and evaluated earlier today (late note entry). Chest tube remains at -20 cmH2O suction with no airleak seen. Only 30 cc output since 7 PM yesterday. Patient is in no acute distress, denying chest pain, SOB, fevers or chills.
Review of Systems
General: Other (Negative unless mentioned above)
Objective Data
Data Reviewed
Vital Signs / I&O / Oxygen:
Vital Signs
Temp Pulse Resp BP Pulse Ox
97.8 F 80 19 152/83 97
09/08/24 07:00 09/08/24 07:40 09/08/24 07:00 09/08/24 07:48 09/08/24 07:00
Intake and Output
09/07/24 09/08/24 09/09/24
06:59 06:59 06:59
Intake Total 100 / 100
Output Total 575 / 575 335 / 335
Balance -475 / -475 -335 / -335
SaO2 97
Physical Exam
General: Respiratory Distress (negative), Comfortable, Chills (negative) and Sweats (negative)
HEENT: Normocephalic and Anicteric
Cardiovascular: S1-S2, Rub (negative) and Peripheral Edema (negative)
Respiratory: Wheeze (negative), Crackles (negative), Rhonchi (Left hemithorax), Non-Labored Respirations, Chest Tube (Left hemithorax with no airleak seen) and Other (Greatly diminished breath sounds in the left hemithorax with inspiratory squeaks)
GI: Soft, Non Distended, Non Tender and Normal Bowel Sounds
Neurology: Awake, Alert and Tremors (negative)
Skin: Warm, Dry, Cyanosis (negative) and Jaundice (negative)
Labs/Micro/Reports
Lab Data
09/08/24 05:36
09/08/24 05:36
Microbiology
09/06/24 16:50 Pleural Fluid Body Fluid Culture - Preliminary
No Growth After 48 Hours
09/06/24 16:50 Pleural Fluid Gram Stain - Preliminary
09/06/24 08:15 Blood/Venous Blood Culture - Preliminary
No Growth in 48 hours- Final report to follow
09/06/24 12:45 Blood/Venous Blood Culture - Preliminary
No Growth in 24 hours- Final report to follow
09/06/24 16:50 Pleural Fluid Fungal Culture - Preliminary
Culture in progress.
Positive cultures are reported as soon as detected.
Final report to follow in four to five weeks.
09/06/24 08:09 Nasal Swab Influenza Types A & B (NATE) - Final
Negative for Influenza A & B, NAAT
Negative results must be combined with clinical observations
and patient history.
Nucleic Acid Amplification test (NAAT)performed on the
[employer] platform.
[2024-09-08 17:04] LABS: Glucose - Point of Care 245 mg/dl (70-99)
[2024-09-08] MEDS: CYMBALTA DELAYED RELEASE 20 MG PO (17:35)
[2024-09-08] MEDS: LIPITOR 40 MG PO (17:35)
[2024-09-08] MEDS: NOVOLOG FLEXPEN-MODERATE RESISTANCE 3 UNITS SC (17:36)
[2024-09-08 19:05] VITALS: BP 124/61
[2024-09-08] MEDS: ELIQUIS 5 MG PO (19:59)
[2024-09-08] MEDS: ZOSYN 50 IV (19:59)
[2024-09-08 21:32] LABS: Glucose - Point of Care 355 mg/dl (70-99)
[2024-09-08] MEDS: LANTUS 0.17 UNITS SC (22:06)
[2024-09-08 23:15] VITALS: BP 143/80
[2024-09-09] VITALS (7 sets, daily range): BP systolic 111–155; BP diastolic 53–90; PULSE 74; O2SAT 96; BMI 24.2
[2024-09-09] MEDS: ZOSYN 50 IV ×4 (03:23→21:01)
[2024-09-09 07:37] LABS: Glucose - Point of Care 413 mg/dl (70-99)
[2024-09-09 07:38] LABS: Glucose - Point of Care 543 mg/dl (70-99)
[2024-09-09] MEDS: ATIVAN 0.5 MG PO ×2 (07:51→21:01)
[2024-09-09] MEDS: PACERONE 200 MG PO (07:51)
[2024-09-09] MEDS: ASPIR LOW (ENTERIC COATED) 81 MG PO (07:53)
[2024-09-09] MEDS: ALDACTONE 25 MG PO (07:53)
[2024-09-09] MEDS: NEURONTIN 100 MG PO ×3 (07:53→21:17)
[2024-09-09] MEDS: TOPROL XL 25 MG PO ×2 (07:53→21:11)
[2024-09-09] MEDS: DELTASONE PO ×2 (07:53→08:12)
[2024-09-09] MEDS: ELIQUIS 5 MG PO ×2 (07:53→21:01)
--- NOTE | 2024-09-09 07:55 | SUR.OPER ---
Patient's Blood sugar 543, Per protocol MD Lion notified and STAT glucose ordered. Patient is asymptomatic and eating breakfast. Patient in NAD. new orders to be placed. will continue to monitor.
[2024-09-09] MEDS: NOVOLOG FLEXPEN 6 UNITS SC (08:08)
[2024-09-09 08:29] LABS: Hematocrit 29.7 % (39.0-52.0); Hemoglobin 9.6 g/dL (13.0-18.0); Mean Corp Hgb Conc. 32.3 g/dL (33.0-37.0); Mean Platelet Volume 11.2 fL (7.4-10.4); Platelet Count 247 10^3/uL (130-400); Red Cell Dist. Width 14.5 % (11.5-14.5); White Blood Cell Count 9.2 10^3/uL (4.8-10.8)
[2024-09-09 08:38] LABS: Glucose 409 mg/dl (70-99)
--- NOTE | 2024-09-09 08:41 | W.PN.HOSP.TC ---
Addendum entered and electronically signed by James Ortiz MD 09/09/24 15:50:
Sepsis secondary to cavitary lung lesion that is complicated by left-sided hydropneumothorax
Pleural studies consistent with exudative effusion
Chest tube remains to suction
Continue on IV antibiotics per infectious diseases
History of vascular unclear if GCA versus, granulomatosis with polyangiitis versus microscopic polyangiitis
- Could be the latter 2 as both polyangiitis granulomatosis and microscopic has been associated with cavitary lesions though
- Being followed by outpatient lathe operator
- Will plan to follow-up with outpatient lathe operator to discuss prednisone dosing and tapering
Hyponatremia improving
Pancreatic cystic lesion
Outpatient pancreatic MRI
Original Note:
Today's Communication/Plan
-
Appreciate pulmonary input regarding chest tube management
Continue IV antibiotics
Increase insulin aspart and Lantus, check HbA1c, continue Accu-Cheks
Continue to monitor hemoglobin
Assessment / Plan
Assessment / Plan
# Sepsis secondary to CAP with cavitary lung lesions
# Left hydropneumothorax
# Exudative left pleural effusion
- Presented with fever, leukocytosis, tachycardia; x-ray with signs of left hydropneumothorax; lactate 2.5
- Likely infectious process with chronic steroid use causing immunosuppression; fungal/bacterial > malignant, though cannot rule out
- CT C/A/P with IV contrast showed left hydropneumothorax with likely infectious cavitary lesions, bronchiolitis
- Has not had any hypoxemia; SpO2 stable in the high 90s on room air current with nonlabored breathing
- Status post chest tube placed 09/06/24, fluid studies consistent with exudative; resumed on home Eliquis
- Maintain chest tube to low wall suction
- Pulmonary input appreciated regarding management of the chest tube
- Repeat CT this a.m. completed
- Blood cultures no growth
- Fluid culture no growth, fungal culture and AFB smear pending
- ID following, continue IV vancomycin and Zosyn for broad-spectrum coverage
# Weakness w/ mechanical fall at home
- Likely secondary to infection
# Hyperglycemia
# Diabetes mellitus type 2
- Notified by nurse this a.m. of blood glucose level 543
- Not symptomatic
- VBG normal
- Potassium 4.9
- Given IV fluid 500 cc NSS and aspart 6 units --> repeat glucose 369, given aspart 5 units
- Check HbA1c
- Appears not well-controlled at home
- Home regimen includes Lantus 17 units nightly, aspart 6 units with meals
- Will increase insulin to Lantus 25 units nightly and aspart 9 units with meals, continue ISS with Accu-Cheks
- Blood glucose goal 140-180
# Hyponatremia
- Likely secondary to low effective intravascular volume
- Not symptomatic
- Trending up, 132 today
- Status post IV fluid 500 cc NSS this a.m.
- Continue to monitor
# Pancreatic cystic lesion
- Incidental finding on CT, 1 cm cystic lesion at the pancreatic head
- Should have outpatient MRI for reassessment
# Macrocytic anemia
- Hemoglobin 9.6 today with MCV slightly elevated
- Iron studies consistent with chronic disease; with macrocytosis may have early MDS
- No obvious signs of bleeding though did have chest tube placed
- Trend CBC, consider holding home Eliquis if hemoglobin continues to downtrend
# Permanent AF with RVR
- Continue Eliquis 5 mg twice daily, amiodarone 200 mg daily, metoprolol succinate 25 mg twice daily
- Currently rate controlled
- Continue to monitor on telemetry
# HFpEF
- Last echocardiogram with preserved LVEF; RHC in 2023 with elevated filling pressures
- Currently on GDMT with spironolactone, metoprolol XL
- Appears dry, status post IV fluid 500 cc NSS this a.m.
# Hx of Vasculitis with left ocular involvement
- Temporal arteritis vs granulomatosis with polyangiitis vs microscopic polyangiitis
- Chronic steroid use
- Continue home regimen prednisone for now
- On chart review, plan for taper of steroids from prednisone 50 mg a day by 10 mg every week down to 20 mg until seen by Rheumatology as outpatient
- Will discuss with his lathe operator about steroids while in the hospital
# CAD s/p PCI
# Dyslipidemia
- Continue Toprol-XL, aspirin, statin
- Last echocardiogram with preserved LVEF, no WMA mentioned
# Prothrombin gene mutation
# H/O DVT/PE
- Status post IVC filter
- Continue Eliquis 5 mg twice daily
# GERD
- Not currently on any antacid regimen
- Will monitor for symptoms
# H/O bladder cancer
- No known recurrence
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
# Spinal stimulator
- Unclear if MRI compatible
DVT prophylaxis: Home Eliquis
Diet: Regular with thin liquids, cleared by speech
CODE STATUS: Full code
Anticipated Discharge: > 48 hours
Subjective/Interval History
-
Date of Service: September 09, 2024
Objective Data
-
Labs:
Laboratory Results
09/09/24 09/09/24
08:08 08:08
WBC 9.2
Hgb 9.6 L
Hct 29.7 L
Plt Count 247
Sodium Pending
Potassium Pending
Chloride Pending
Carbon Dioxide Pending
BUN Pending
Creatinine Pending
Glucose Pending 409 H
Calcium Pending
Vital Signs:
Vital Signs
Temp Pulse Resp BP Pulse Ox
97.5 F 76 20 155/84 97
09/09/24 07:00 09/09/24 07:53 09/09/24 07:00 09/09/24 07:53 09/09/24 07:00
I&O
0409/09/24 09/10/24
06:59 06:59 06:59
Intake Total 720 / 720
Output Total 335 / 335 700 / 700
Balance -335 / -335
[2024-09-09 08:45] LABS: Vancomycin Random 17.5 ug/ml
[2024-09-09 08:51] LABS: Absolute Neutrophils -Man Diff 8.8 10^3/uL (1.4-6.5); Anisocytosis 1+; Band Neutrophils 0 % (0-3); Lymphocytes 1 % (20-51); Monocytes 3 % (2-9); Normal RBC Morphology No; Ovalocytes Slight; Platelets Checked Yes; Segmented Neutrophils 96 % (42-75); Total Cells Counted 100
[2024-09-09 08:59] LABS: Blood Urea Nitrogen 36 mg/dl (9-20); Calcium 8.6 mg/dl (8.4-10.2); Carbon Dioxide 21 mmol/L (22-30); Chloride 100 mmol/L (98-107); Estimated Creatinine Clearance 54 ml/min; Glucose 412 mg/dl (70-99); Potassium 4.9 mmol/L (3.5-5.1); Sodium 132 mmol/L (135-145); eGFR > 60.00
[2024-09-09] MEDS: NSS 500 IV ×2 (09:10→13:14)
[2024-09-09 09:21] LABS: Venous Blood Gas B.E. -0.5 mmol/L (-4 to +4); Venous Blood Gas HCO3 24.2 mmol/L (22-27); Venous Blood Gas O2 Sat % 99.1 %; Venous Blood Gas pCO2 39 mmHg (35-48); Venous Blood Gas pO2 109 mmHg (30-50)
--- NOTE | 2024-09-09 09:25 | W.PN.PUL3 ---
Today's Communication / Plan
-
CT Chest reviewed, ongoing pleuritic process/air fluid levels
Culture neg thus far, remains on IV abx
IR consult for lytic trials, follow output
Patient is agreeable
Repeat imaging in AM
Assessment
-
79-year-old male with complex medical history including atrial fibrillation, coronary disease with history of stents, history of multiple TIAs, multiple DVTs with IVC filter, hypercoagulable disorder on chronic Eliquis therapy, with recent
deterioration since March 2024 when he had multiple TIAs. He had been in rehabilitation until May when he was discharged home. Since then he has been slowly deteriorating over the last couple months, worsening weakness, fall x 2 in the last
10 days, now with shaking chills over the last 5 days. Imaging suggest left hydropneumothorax with suspicion for infectious process. We are asked to help from a pulmonary standpoint.
Left hydropneumothorax likely due to empyema with left-sided pneumonia and suspected lung abscess s/p chest tube by IR 09/06/24
Consolidation, loculated pockets of fluid, air-fluid levels
New compared to CT chest 04/06/2024
Bilateral pleural effusions per CT head and neck 05/01/24
Shaking chills, leukocytosis
Lip ulcerations
Recent steroid course for 2 months March 2024
For possible temporal arteritis
Conditions present prior to admission
History of heart failure
Elevated wedge pressure per catheterization March 2024
Hypertension/hyperlipidemia
Atrial fibrillation on Eliquis therapy
Amiodarone therapy
History of coronary disease, stent 2019
History of ischemic cardiomyopathy, resolved
Recurrent DVT/PE
IVC filter, chronic anticoagulation
Prothrombin gene mutation
History of multiple TIAs
Temporal artery biopsy - March 2024
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
History of alcohol use, discontinued 2023
Pancreatic mass, 1.8 cm, followed as outpatient/stable
History of bladder cancer although patient denied
Weight loss, deconditioned
Plan/recommendations
Patient with extremely complex medical history--extensive pleural-parenchymal disease in the left side with hydropneumothorax, what appears to be pleural thickening, air-fluid levels and loculated pleural fluid, shaking chills, leukocytosis, recent
course of 1 to 2 months of steroids for possible temporal arteritis per biopsy.
This is new since 03/2024, prior imaging negative
Constellation of symptoms are concerning for infectious process in the setting of background vasculitis
Patient also has multiple falls although findings on CT imaging on the left side suggest chronic process, at least since April 2025
Given prolonged hospital stay, prolonged rehabilitation stay, patient at risk for nosocomial process
He underwent left-sided small bore 14 Kosovan Thal-Quick chest tube by IR on 09/06/2024
Pleural fluid studies showed glucose 52, LDH 1085, pH 7.44, fluid WBC 3643. Although pH is 7.44, glucose being 52 and LDH >1000 is concerning for an empyema
Continue with empiric antibiotics - currently on Zosyn/vancomycin
ID following
Repeat CT chest showing persistent findings, possible air fluid levels
No airleak on chest tube, hence doubt that this is a BP fistula, instead the air-fluid pockets are likely due to necrotizing pneumonia
Follow-up pleural fluid cultures; no cytopathology sent
Output past 24 hours: 25mL, 35mL, 75mL (minimal)
We discussed trials of lytics to see if this would maximize his clearance, he was agreeable
Discussed with IR, consult placed for lytic trial today 09/09
Continue with maintenance treatment for atrial fibrillation
On PO amiodarone
Eliquis therapy continues, follow hemoglobin
Eliquis was held for chest tube placement; now the chest tube has been placed, okay to resume Eliquis
Given history of vasculitis, will need to consider inflammatory process
Continue home dose of steroids; if he develops hypotension or symptoms worrisome for adrenal insufficiency, may require stress dose steroids
PT/OT, weakness noted
OOB/ambulation as tolerated
Pulmonary service will continue to follow along
Diagnostic Data
CXR 09/08/24- Stable position of the left apical chest tube. No appreciable pneumothorax. Similar small left pleural fluid with adjacent atelectasis and/or pneumonia.
CT Chest 09/09/24- The thyroid gland is unremarkable. No axillary, mediastinal, or hilar lymphadenopathy. The heart is enlarged. No pericardial effusion. Severe coronary artery calcifications. Mild calcifications of the aortic valve and thoracic
aorta. Dense mitral annular calcifications. Mild bilateral gynecomastia.
Increased attenuation in the lumen of the distal esophagus, probably a small amount of residual enteric contrast material.
LUNGS: Left chest tube in place with the tip extending superiorly into the right lung apex. Small left hydropneumothorax. Complex consolidation in the left lung with volume loss. Collections in the left lung with air-fluid levels measuring 2.4 cm in
the lingula and 3.2 cm in the posteromedial right lower lobe. Thick-walled cavity in the left lower lobe measuring 2.6 cm. Left peribronchial thickening and opacification of the basilar left lower lobe bronchi. Multiple tiny peribronchial nodules
again noted in the right lung suggesting bronchiolitis. Trace right pleural fluid.
UPPER ABDOMEN: Chronic calcification noted along the dome of the diaphragm. Cholelithiasis. Atrophic lobular spleen containing multiple coarse calcifications. Stable 2.4 cm rim calcified lesion in the left upper quadrant possibly reflecting fat
necrosis.
SKELETON: Mild superior endplate compression deformities again noted at T3 and L1. Spinal stimulator leads within the dorsal aspect of the lower thoracic spinal canal.
CT CAP 09/06/24- 1. No acute traumatic thoracic or intra-abdominal injury identified.
2. Left-sided hydropneumothorax. Moderate pleural fluid. As detailed above, there are multiple left pulmonary rounded and ovoid lesions with air-fluid levels which are most likely cavitary lesions with an infectious etiology. There is
atelectasis/consolidation of the majority of the left upper and lower lobes. There is a small probable pulmonary abscess in the left lower lobe.
3. Findings consistent with bronchiolitis throughout the right lung, most likely infectious bronchiolitis.
4. Mild mediastinal adenopathy likely related to the pulmonary processes.
5. Advanced coronary and aortic atherosclerosis.
6. Multiple intra-abdominal findings most likely related to previous trauma as above, unchanged from prior.
7. No acute fracture identified. Mild chronic compression deformities of T3 and L1.
8. Cholelithiasis.
9. Approximately 1 cm cystic lesion at the pancreatic head, larger as compared with prior study. As warranted, could be further evaluated with follow-up MRI.
10. Left inguinal hernia containing colon, no associated obstruction.
CT CAP 04/06/24- No acute disease of the chest, abdomen and pelvis. No evidence of metastatic disease
-----
Total time spent today was 51 minutes for this encounter. Time includes reviewing laboratory test/imaging results, reviewing pertinent medical records, obtaining and reviewing medical history, performing an appropriate exam, ordering medications,
tests and procedures. Time also includes documentation of this encounter, coordinating patient care and communicating with other healthcare professionals. Total time does not include separately billed tests performed on this date of service.
Subjective Data
-
Date of Service:
Date of Service: September 09, 2024
Chief Complaint: Pulmonary Follow Up
Subjective:
No new complaints, has some SOB but not worsening
Unable to get OOB, full assist/weakness
Objective Data
Data Reviewed
Vital Signs / I&O / Oxygen:
Vital Signs
Temp Pulse Resp BP Pulse Ox
97.5 F 76 20 155/84 97
09/09/24 07:00 09/09/24 07:53 09/09/24 07:00 09/09/24 07:53 09/09/24 07:00
Intake and Output
09/08/24 09/09/24 09/10/24
06:59 06:59 06:59
Intake Total 720 / 720
Output Total 335 / 335 700 / 700
Balance -335 / -335
SaO2 97
Physical Exam
General: Respiratory Distress (negative), Comfortable, Chills (negative) and Sweats (negative)
HEENT: Normocephalic and Anicteric
Cardiovascular: S1-S2, Rub (negative) and Peripheral Edema (negative)
Respiratory: Wheeze (negative), Crackles (negative), Non-Labored Respirations, Chest Tube (Left hemithorax with no airleak seen) and Other (Greatly diminished breath sounds in the left hemithorax with inspiratory squeaks)
GI: Soft, Non Distended, Non Tender and Normal Bowel Sounds
Neurology: Awake, Alert, Oriented and Tremors (negative)
Skin: Warm, Dry, Cyanosis (negative) and Jaundice (negative)
Labs/Micro/Reports
Lab Data
09/09/24 08:08
09/09/24 08:08
Microbiology
09/06/24 16:50 Pleural Fluid Body Fluid Culture - Final
No Growth After 72 Hours
09/06/24 16:50 Pleural Fluid Gram Stain - Final
09/06/24 08:15 Blood/Venous Blood Culture - Preliminary
No Growth in 72 hours- Final report to follow
09/06/24 16:50 Pleural Fluid Acid Fast Bacilli Smear - Preliminary
09/06/24 16:50 Pleural Fluid Acid Fast Bacilli Culture - Preliminary
09/06/24 12:45 Blood/Venous Blood Culture - Preliminary
No Growth in 48 hours- Final report to follow
09/06/24 16:50 Pleural Fluid Fungal Culture - Preliminary
Culture in progress.
Positive cultures are reported as soon as detected.
Final report to follow in four to five weeks.
09/06/24 08:09 Nasal Swab Influenza Types A & B (NATE) - Final
Negative for Influenza A & B, NAAT
Negative results must be combined with clinical observations
and patient history.
Nucleic Acid Amplification test (NAAT)performed on the
[employer] platform.
[2024-09-09 10:31] LABS: Glucose - Point of Care 369 mg/dl (70-99)
[2024-09-09] MEDS: NOVOLOG FLEXPEN-MODERATE RESISTANCE SC (10:36)
[2024-09-09 11:22] LABS: Glucose - Point of Care 326 mg/dl (70-99)
--- NOTE | 2024-09-09 11:37 | PHA.VAN.FU ---
Vancomycin Assessment / Plan
- Assessment
Renal Function: Stable (1.1)
WBC's are: WNL (9.2)
In the past 24 hrs, patient has been: Afebrile
Concomitant Antimicrobials: Piperacillin/Tazobactam
- Assessment - Therapeutic Drug Monitoring
Random Level: 17.5 ~23H after 1250mg dose
- Dosing Plan
Dosing by Level: Hold off on dosing today
- Monitoring Plan
Random Level: 09/10/24 0600
- Follow Up
Pharmacy will continue to follow.
Vancomycin Follow UP
- -
Patient Age: 79
Patient Sex: Male
Vancomycin Day #: 4
Indication: Pulmonary/Respiratory
Requesting Provider: YAN
Pertinent Antimicrobial Allergies:
Penicillin - Hives, itching, sob, swelling
Cephalosporins - Unknown
Height / Weight:
Height 5 ft 8 in
Actual Weight 72.178 kg
- Vital Signs / Lab Results
Temp Pulse Resp BP Pulse Ox
97.5 F 76 20 155/84 97
09/09/24 07:00 09/09/24 07:53 09/09/24 07:00 09/09/24 07:53 09/09/24 07:00
Lab Results - Hematology
09/07/24 09/08/24 09/09/24
07: 05:36 08:08
WBC 7.8 8.9 9.2
Band Neutrophils 2 0
Lab Results - Chemistry
09/07/24 09/08/24 09/09/24
07:25 05:36 08:08
BUN 24 H 28 H 36 H
Creatinine 1.0 1.0 1.1
Estimated Creat Clear 59 59 54
Albumin 2.1 L
09/06/24
08:00
Lactic Acid Cancelled
Microbiology Results
09/06/24 16:50 Body Fluid Culture - Final
Pleural Fluid No Growth After 72 Hours
Gram Stain - Final
09/06/24 08:15 Blood Culture - Preliminary
Blood/Venous No Growth in 72 hours- Final report to follow
09/06/24 16:50 Acid Fast Bacilli Smear - Preliminary
Pleural Fluid Acid Fast Bacilli Culture - Preliminary
09/06/24 12:45 Blood Culture - Preliminary
Blood/Venous No Growth in 48 hours- Final report to follow
Therapeutic Drug Monitoring
Random Vancomycin 17.5 ug/ml 09/09/24 08:08
[2024-09-09] MEDS: NOVOLOG FLEXPEN-MODERATE RESISTANCE 7 UNITS SC (11:46)
[2024-09-09] MEDS: NOVOLOG FLEXPEN 5 UNITS SC (11:46)
[2024-09-09 12:40] LABS: Glycohemoglobin (HgbA1c) 12.3 % (4.0-5.6)
--- NOTE | 2024-09-09 13:33 | CM ---
CM spoke w/ spouse while patient resting. Initial assessment completed. Admitted for weakness. Chest tube placed on 09/06.
Patient resides w/ spouse and 44 year old daughter who is mentally disabled. Patient and family live in [facility]- 1 step to enter, ramp access. Patient uses cane and RW to ambulate, per spouse, they are renting a hospital bed, patient has chair lift
newly purchased, transfer chair, commode, grab bar.
Patient was prev at [facility] in March and [facility] in April. Current w/ [facility].
Address, point of contact and insurance verified
PCP: Jose Monae
Pharmacy: [facility]
Therapy assessed patient and is recommending skilled rehab at d/c. Spouse shared patient would benefit from rehab as she has been having issues w/ getting patient in and out of her car, picking patient up from falling. Spouse shared that she liked
[facility] but patient didn't so she is encouraging CM to discuss rehab facilities w/ patient. Spouse cont to discuss no one knowing what is wrong w/ patient as he was prev at [facility], then [place], then [facility] and now back at [facility]. Requested for
hospitalist to give her a call, TT Dr. Erich Ortiz making him aware.
CM will discuss w/ patient SNFs and send referrals in [facility]
Plan: SNF
--- NOTE | 2024-09-09 14:32 | PTOTSP ---
Speech Therapy Evaluation:
Pt with fairly functional oropharyngeal swallow at bedside. Mastication and bolus formation prolonged, however functional for breakdown and cohesion. No overt s/sx of aspiration at bedside, however cannot rule out pharyngeal dysphagia given complex
consolidation in L lung with multiple cavitary lesions containing air fluid levels and thick walled cavitary opacity in LLL, representing PNA with pulmonary abscess. Pt also at increased risk of aspiration given reduced insight with RN report of pt
trying to eat while laying down. Pt with no hx of dysphagia, WBC WNL, and pt on room air.
Recommend:
1. Continue IDDSI Level 7 (regular) solids and thin liquids
2. Medications as tolerated
3. Strict aspiration and reflux precautions
4. Supervision with intake
5. OUTSOLE ROUNDER to follow to monitor tolerance of diet and determine if pt would benefit from instrumental assessment.
--- NOTE | 2024-09-09 15:13 | W.PN.ID1 ---
Date of Service
Date of Service: September 09, 2024
Today's Communication
Continue abx.
Assessment / Plan
Pulmonary abscess (LLL)
Pneumonia
- suspect aspiration
Leukocytosis; improved
Pleural effusion
- CT in place
CAD; Hx GA
GERD
A-fib
CHF
Prothrombin gene mutation/hypercoagulable
DVT
DM
Anxiety
HTN
Recommendations:
Sputum culture ordered, but patient has been unable to produce any specimen.
Continue with current empiric antibiotics.
Follow Vanco levels closely to prevent nephrotoxicity.
MRSA screen pending; if negative can likely discontinue further vancomycin.
Monitor white count and temperature curve.
Chief Complaint
-: Pneumonia
Subjective / Review of Systems
Review of Systems: No Fever and No Chills
Vital Signs / Physical Exam
Vital Signs
Vital Signs
Temp Pulse Resp BP Pulse Ox
97.5 F 82 18 145/90 97
09/09/24 11:00 09/09/24 11:00 09/09/24 11:00 09/09/24 11:00 09/09/24 11:00
Physical Exam
Constitutional: No Acute Distress, Comfortable, Chronically Ill and Non-toxic
Eyes: No Conjunctival Hemorrhage and Sclera Anicteric
Cardiovascular: S1/S2; Negative S3/S4
Pulmonary: Coarse, Non Labored and Other (Left CT in place)
Gastrointestinal: Soft and Non Tender
Neurological: Awake and Alert
Psychological: Calm
Objective Data
Lab Data
Lab Results
09/09/24 08:08
09/09/24 08:08
Estimated Creat Clear 54 ml/min 09/09/24 08:08
Lactic Acid 2.5 mmol/L (0.7-2.0) H 09/06/24 08:15
Total Bilirubin 0.4 mg/dl (0.2-1.3) 09/08/24 05:36
AST 30 U/L (17-59) 09/08/24 05:36
ALT 36 U/L (0-50) 09/08/24 05:36
Alkaline Phosphatase 272 U/L (38-126) H 09/08/24 05:36
Most recent labs reviewed.
Micro Results:
09/06/24 11:24 Respiratory Culture - Pending
Sputum Gram Stain - Pending
09/06/24 16:50 Fungal Culture - Preliminary
Pleural Fluid Culture in progress.
Positive cultures are reported as soon as detected.
Final report to follow in four to five weeks.
09/06/24 12:45 Blood Culture - Preliminary
Blood/Venous No Growth in 72 hours- Final report to follow
09/06/24 16:50 Body Fluid Culture - Final
Pleural Fluid No Growth After 72 Hours
Gram Stain - Final
09/06/24 08:15 Blood Culture - Preliminary
Blood/Venous No Growth in 72 hours- Final report to follow
09/06/24 16:50 Acid Fast Bacilli Smear - Preliminary
Pleural Fluid Acid Fast Bacilli Culture - Preliminary
09/08/24 15:37 MRSA Screen - Pending
Nose
09/06/24 08:09 Influenza Types A & B (NATE) - Final
Nasal Swab Negative for Influenza A & B, NAAT
Negative results must be combined with clinical observations
and patient history.
Nucleic Acid Amplification test (NAAT)performed on the
[employer] platform.
Imaging:
09/08/24 CXR (portable): Stable position of the left apical chest tube. No appreciable pneumothorax.
09/06/2024 CT chest/abdomen/pelvis: No acute traumatic thoracic or intra-abdominal injury noted. Left-sided hydropneumothorax noted. Moderate pleural fluid. Multiple left pulmonary rounded and COVID lesions with air-fluid levels which are likely
cavitary lesions. There is atelectasis/consolidation of the majority of the left upper and lower lobes. Small probable pulmonary abscess in the left lower lobe noted.
[2024-09-09 16:34] LABS: Glucose - Point of Care 283 mg/dl (70-99)
--- NOTE | 2024-09-09 16:58 | PN.IRAD.UPD ---
Update Note - IRAD
- -
Injected 50ml of Dornase and 50ml of TPA into right sided chest tube and clamped tube at 16:50. Nurse was informed to unclamp tube in 2 hours at 18:50.
Lucius Bunch RT(R)()
[2024-09-09] MEDS: CYMBALTA DELAYED RELEASE 20 MG PO (17:24)
[2024-09-09] MEDS: NOVOLOG FLEXPEN 9 UNITS SC (17:24)
[2024-09-09] MEDS: LIPITOR 40 MG PO (17:24)
[2024-09-09] MEDS: NOVOLOG FLEXPEN-MODERATE RESISTANCE 5 UNITS SC (17:25)
[2024-09-09] MEDS: TYLENOL 1000 MG PO (18:14)
--- NOTE | 2024-09-09 18:19 | PTCARENOTE ---
Patient c/o sharp pain to Left upper back, PRN tylenol given and MD Lion notified of patient's change of status. will reassess and continue to monitor.
--- NOTE | 2024-09-09 18:57 | PTCARENOTE ---
Pateint states pain has decreased post Tylenol administration. Chest tube unclamped.
[2024-09-09] MEDS: NSS IV (20:55)
[2024-09-09] MEDS: DELTASONE 20 MG PO (21:12)
[2024-09-09] MEDS: LANTUS 0.25 UNITS SC (21:21)
[2024-09-09 21:22] LABS: Glucose - Point of Care 142 mg/dl (70-99)
[2024-09-09] MEDS: MORPHINE SULFATE 2 MG IV (22:53)
[2024-09-10] VITALS (7 sets, daily range): BP systolic 87–122; BP diastolic 59–68; BMI 24.1
[2024-09-10] MEDS: ZOSYN 50 IV ×4 (01:35→20:36)
[2024-09-10 04:59] LABS: Hematocrit 30.6 % (39.0-52.0); Hemoglobin 10.2 g/dL (13.0-18.0); Mean Corp Hgb Conc. 33.3 g/dL (33.0-37.0); Mean Corpuscular Hgb 32.2 pg (27.0-31.0); Mean Corpuscular Volume 96.5 fL (80.0-94.0); Mean Platelet Volume 11.2 fL (7.4-10.4); Platelet Count 261 10^3/uL (130-400); Red Blood Cell Count 3.17 10^6/uL (4.70-6.10); White Blood Cell Count 12.4 10^3/uL (4.8-10.8)
[2024-09-10 05:04] LABS: Blood Urea Nitrogen 34 mg/dl (9-20); Calcium 8.9 mg/dl (8.4-10.2); Carbon Dioxide 21 mmol/L (22-30); Chloride 107 mmol/L (98-107); Estimated Creatinine Clearance 54 ml/min; Glucose 114 mg/dl (70-99); Potassium 4.4 mmol/L (3.5-5.1); Sodium 134 mmol/L (135-145); eGFR > 60.00
[2024-09-10 05:09] LABS: Vancomycin Random 12.8 ug/ml
--- NOTE | 2024-09-10 05:22 | PTCARENOTE ---
Covering [employer] EQUIPMENT REPAIRER made aware of increased ouput from chest tube. As of this note 1300cc dark red drainage noted in pleuravac. VS w/o complaint. No s/s of distress assessed.
[2024-09-10 06:08] LABS: Absolute Neutrophils -Man Diff 11.5 10^3/uL (1.4-6.5); Anisocytosis Slight; Band Neutrophils 1 % (0-3); Lymphocytes 2 % (20-51); Monocytes 4 % (2-9); Myelocytes 1 % (-); Normal RBC Morphology No; Platelets Checked Yes; Segmented Neutrophils 92 % (42-75)
[2024-09-10 06:09] LABS: Polychromasia Slight; Target Cells Slight; Total Cells Counted 100
--- NOTE | 2024-09-10 07:41 | W.PN.HOSP.TC ---
Addendum entered and electronically signed by James Ortiz MD 09/10/24 15:29:
I spoke with IR about new hematoma that is acute large crescent shaped on the left side. Per IR it appears that it can be repositioned. Avoid tPA dornase as this was provided/administered yesterday.
At this time we will also hold Eliquis and aspirin.
Will discuss with pulmonary when we can resume
Original Note:
Today's Communication/Plan
-
Pulmonary and cardiothoracic surgery input appreciated for chest tube management
Continue IVF and abx
Hold Eliquis and ASA
Transfer to IMU, monitor closely
Assessment / Plan
Assessment / Plan
# Sepsis secondary to CAP with cavitary lung lesions
# Left hydropneumothorax
# Exudative left pleural effusion
# Acute left hemothorax
- Presented with fever, leukocytosis, tachycardia; x-ray with signs of left hydropneumothorax; lactate 2.5
- Likely infectious process with chronic steroid use causing immunosuppression; fungal/bacterial > malignant, though cannot rule out
- CT C/A/P with IV contrast showed left hydropneumothorax with likely infectious cavitary lesions, bronchiolitis
- Has not had any hypoxemia; SpO2 stable in the high 90s on room air current with nonlabored breathing
- Status post chest tube placed 09/06/24, fluid studies consistent with exudative; home Eliquis held
- Pulmonary input appreciated regarding management of the chest tube --> s/p trial of lytics
- Repeat CT this a.m. completed --> new large 11.2 cm crescent shaped complex fluid collection, possibly hemothorax, in the medial left pleural space
- Case discussed with Dr. Arellano, cardiothoracic surgery consulted
- Blood cultures no growth
- No cytopathology sent
- Fluid culture no growth, fungal culture pending and AFB smear negative
- ID following, continue IV vancomycin and Zosyn for broad-spectrum coverage, can consider adding fungal coverage
- Patient is hemodynamically stable, started gentle fluids
- Will transfer to IMU for closer monitoring
- No focal deficits on exam, patient oriented and arousable to verbal stimuli, follows commands. Will add neurological checks.
# Leukocytosis
- New, infectious vs inflammatory
- ID following, continue IV vancomycin and Zosyn for broad-spectrum coverage, may consider adding fungal coverage
# Weakness w/ mechanical fall at home
- Likely secondary to infection
# Diabetes mellitus type 2
- Home regimen includes Lantus 17 units nightly, aspart 6 units with meals
- HbA1c 12.3
- Continue Lantus 25 units nightly and aspart 9 units with meals, continue ISS with Accu-Cheks
- Blood glucose goal 140-180
# Hyponatremia
- Likely secondary to low effective intravascular volume
- Not symptomatic
- Trending up, 134 today
- Continue to monitor
# Pancreatic cystic lesion
- Incidental finding on CT, 1 cm cystic lesion at the pancreatic head
- Should have outpatient MRI for reassessment
# Macrocytic anemia
- Hemoglobin 11.5 today with MCV slightly elevated
- Iron studies consistent with chronic disease; with macrocytosis may have early MDS
- Trend CBC, consider holding home Eliquis if hemoglobin continues to downtrend
# Permanent AF with RVR
- Continue Eliquis 5 mg twice daily, amiodarone 200 mg daily, metoprolol succinate 25 mg twice daily
- Currently rate controlled
- Continue to monitor on telemetry
- Eliquis now on hold
# HFpEF
- Last echocardiogram with preserved LVEF; RHC in 2023 with elevated filling pressures
- Currently on GDMT with spironolactone, metoprolol XL
- Appears dry, status post IV fluid 500 cc NSS this a.m.
# Hx of Vasculitis with left ocular involvement
- Temporal arteritis vs granulomatosis with polyangiitis vs microscopic polyangiitis
- Chronic steroid use
- Continue home regimen prednisone for now
- On chart review, plan for taper of steroids from prednisone 50 mg a day by 10 mg every week down to 20 mg until seen by Rheumatology as outpatient
- Will discuss with his lighting director about steroids while in the hospital
# CAD s/p PCI
# Dyslipidemia
- Continue Toprol-XL, aspirin, statin -> Aspirin now on hold
- Last echocardiogram with preserved LVEF, no WMA mentioned
# Prothrombin gene mutation
# H/O DVT/PE
- Status post IVC filter
- Continue Eliquis 5 mg twice daily -> Eliquis now on hold
# GERD
- Not currently on any antacid regimen
- Will monitor for symptoms
# H/O bladder cancer
- No known recurrence
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
# Spinal stimulator
- Unclear if MRI compatible
DVT prophylaxis: Home Eliquis
Diet: Regular with thin liquids, cleared by speech
CODE STATUS: Full code
Anticipated Discharge: > 48 hours
Subjective/Interval History
-
Date of Service: September 10, 2024
Objective Data
-
Labs:
Laboratory Results
09/10/24
04:36
WBC 12.4 H
Hgb 10.2 L
Hct 30.6 L
Plt Count 261
Sodium 134 L
Potassium 4.4
Chloride 107
Carbon Dioxide 21 L
BUN 34 H
Creatinine 1.1
Glucose 114 H
Calcium 8.9
Vital Signs:
Vital Signs
Temp Pulse Resp BP Pulse Ox
97.7 F 72 14 100/60 95
09/10/24 03:12 09/10/24 03:12 09/10/24 03:12 09/10/24 03:12 09/10/24 03:12
I&O
09/09/24 09/10/24 09/11/24
06:59 06:59 06:59
Intake Total 720 / 720 840 / 840
Output Total 700 / 700 270 / 270
Balance 570 / 570
Review of Systems
-
History Source: Patient
Constitutional: Reports Fatigue and Sleep Disturbance
EENT: Reports No Symptoms Reported
Respiratory: Reports Trouble Breathing
Cardiac: Reports No Symptoms
Abdomen/GI: Reports No Symptoms
Breast: Reports No Symptoms
Genitourinary: Reports No Symptoms
Musculoskeletal: Reports No Symptoms
Skin: Reports No Symptoms
Neuro: Reports Other
Endocrine: Reports No Symptoms
Hematologic / Lymphatic: Reports No Symptoms
Physical Exam
-
General: Well Developed, Well Nourished and No Apparent Distress; Negative Fever or Chills
HEENT: Normocephalic
Respiratory: Non Labored Respirations, Decreased Breath Sounds (left lung) and Chest Tubes (Minimal output s/p trial of lytics); Negative Accessory Resp Muscle Use
Cardiac: Regular Rhythm and S1/S2
GI: Soft, Nontender, Nondistended and Normal Bowel Sounds
Musculoskeletal: No Clubbing, No Cyanosis and No Edema
Skin: Warm
Neuro: Awake (Fall asleep during conversation but arousable to verbal stimuli), Alert, Oriented, No Motor Deficits, Nonfocal/Grossly Intact and No Sensory Deficits; Negative Slurred Speech or Facial Droop
Psych: Calm
--- NOTE | 2024-09-10 07:47 | PHA.VAN.FU ---
Vancomycin Assessment / Plan
- Assessment
Renal Function: Stable (1.1)
WBC's are: Trending Up (9.2->12.4)
In the past 24 hrs, patient has been: Afebrile
Concomitant Antimicrobials: Piperacillin/Tazobactam
- Assessment - Therapeutic Drug Monitoring
Random Level: 12.8 ~20.5H after previous level of 17.5
Calculated ke: 0.0153
Calculated half life (H): 45.3
- Dosing Plan
Dosing by Level: Re-dose today
Dosing Comments: Vanco 1250mg x1
- Monitoring Plan
Random Level: 09/11/24 0600
- Follow Up
Pharmacy will continue to follow.
Vancomycin Follow UP
- -
Patient Age: 79
Patient Sex: Male
Vancomycin Day #: 5
Indication: Pulmonary/Respiratory
Requesting Provider: YAN
Pertinent Antimicrobial Allergies:
Penicillin - Hives, itching, sob, swelling
Cephalosporins - Unknown
Height / Weight:
Height 5 ft 8 in
Actual Weight 71.809 kg
- Vital Signs / Lab Results
Temp Pulse Resp BP Pulse Ox
97.7 F 72 14 100/60 95
09/10/24 03:12 09/10/24 03:12 09/10/24 03:12 09/10/24 03:12 09/10/24 03:12
Lab Results - Hematology
09/07/24 09/08/24 09/09/24
07:25 05:36 08:08
WBC 7.8 8.9 9.2
Band Neutrophils 2 0
09/10/24
04:36
WBC 12.4 H
Band Neutrophils 1
Lab Results - Chemistry
09/07/24 09/08/24 09/09/24
07: 05:36 08:08
BUN 24 H 28 H 36 H
Creatinine 1.0 1.0 1.1
Estimated Creat Clear 59 59 54
Albumin 2.1 L
09/10/24
04:36
BUN 34 H
Creatinine 1.1
Estimated Creat Clear 54
Albumin
Microbiology Results
09/06/24 11:24 Gram Stain - Preliminary
Sputum
09/06/24 16:50 Fungal Culture - Preliminary
Pleural Fluid Culture in progress.
Positive cultures are reported as soon as detected.
Final report to follow in four to five weeks.
09/06/24 12:45 Blood Culture - Preliminary
Blood/Venous No Growth in 72 hours- Final report to follow
09/06/24 16:50 Body Fluid Culture - Final
Pleural Fluid No Growth After 72 Hours
Gram Stain - Final
09/06/24 08:15 Blood Culture - Preliminary
Blood/Venous No Growth in 72 hours- Final report to follow
09/06/24 16:50 Acid Fast Bacilli Smear - Preliminary
Pleural Fluid Acid Fast Bacilli Culture - Preliminary
Therapeutic Drug Monitoring
Random Vancomycin 12.8 ug/ml 09/10/24 04:36
[2024-09-10 07:49] LABS: Glucose - Point of Care 134 mg/dl (70-99)
[2024-09-10] MEDS: NOVOLOG FLEXPEN-MODERATE RESISTANCE SC ×2 (08:20→17:47)
--- NOTE | 2024-09-10 09:21 | W.PN.PUL3 ---
Addendum entered and electronically signed by Aleida Arellano DO 09/10/24 14:30:
Discussed with IR, will try repositioning to resolve hematoma from lytics
Otherwise, if no further output CTS to recommend removing chest tube
Would be a poor surgical candidate given comorbidities, recommend conservative treatment with IV abx and reimage as OP
Original Note:
Today's Communication / Plan
-
Trial of lytics 09/09, no improvement in output
Remains on IV abx
Repeat CT this AM reviewed, loculated area likely retained medication but overall abscesses seem the same
This is likely entrapped lung pathophys beginning, not sure there is much more that can be offered from a medical POV
CTS consult placed, I have reviewed case with team
Assessment
-
79-year-old male with complex medical history including atrial fibrillation, coronary disease with history of stents, history of multiple TIAs, multiple DVTs with IVC filter, hypercoagulable disorder on chronic Eliquis therapy, with recent
deterioration since March 2024 when he had multiple TIAs. He had been in rehabilitation until May when he was discharged home. Since then he has been slowly deteriorating over the last couple months, worsening weakness, fall x 2 in the last
10 days, now with shaking chills over the last 5 days. Imaging suggest left hydropneumothorax with suspicion for infectious process. We are asked to help from a pulmonary standpoint.
Left hydropneumothorax likely due to empyema with left-sided pneumonia and suspected lung abscess s/p chest tube by IR 09/06/24
Consolidation, loculated pockets of fluid, air-fluid levels
New compared to CT chest 04/06/2024
Bilateral pleural effusions per CT head and neck 05/01/24
Shaking chills, leukocytosis
Lip ulcerations
Recent steroid course for 2 months March 2024
For possible temporal arteritis
Conditions present prior to admission
History of heart failure
Elevated wedge pressure per catheterization March 2024
Hypertension/hyperlipidemia
Atrial fibrillation on Eliquis therapy
Amiodarone therapy
History of coronary disease, stent 2019
History of ischemic cardiomyopathy, resolved
Recurrent DVT/PE
IVC filter, chronic anticoagulation
Prothrombin gene mutation
History of multiple TIAs
Temporal artery biopsy - March 2024
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
History of alcohol use, discontinued 2023
Pancreatic mass, 1.8 cm, followed as outpatient/stable
History of bladder cancer although patient denied
Weight loss, deconditioned
Plan/recommendations
Patient with extremely complex medical history--extensive pleural-parenchymal disease in the left side with hydropneumothorax, what appears to be pleural thickening, air-fluid levels and loculated pleural fluid, shaking chills, leukocytosis, recent
course of 1 to 2 months of steroids for possible temporal arteritis per biopsy.
This is new since 03/2024, prior imaging negative
Constellation of symptoms are concerning for infectious process in the setting of background vasculitis
Patient also has multiple falls although findings on CT imaging on the left side suggest chronic process, at least since April 2025
Given prolonged hospital stay, prolonged rehabilitation stay, patient at risk for nosocomial process
He underwent left-sided small bore 14 [place] [employer] chest tube by IR on 09/06/2024
Pleural fluid studies showed glucose 52, LDH 1085, pH 7.44, fluid WBC 3643. Although pH is 7.44, glucose being 52 and LDH >1000 is concerning for an empyema
Continue with empiric antibiotics - currently on Zosyn/vancomycin
ID following
Repeat CT chest showing persistent findings, possible air fluid levels
No airleak on chest tube, hence doubt that this is a BP fistula, instead the air-fluid pockets are likely due to necrotizing pneumonia
Follow-up pleural fluid cultures; no cytopathology sent
Output past 24 hours: 25mL, 35mL, 75mL (minimal)
We discussed trials of lytics to see if this would maximize his clearance, he was agreeable
Discussed with IR, consult placed for lytic trial 09/09--no improvement or change
Minimal OP ongoing
CTS surgery consult placed, discussed case with care team
Continue with maintenance treatment for atrial fibrillation
On PO amiodarone
Eliquis therapy continues, follow hemoglobin
Eliquis was held for chest tube placement; now the chest tube has been placed, okay to resume Eliquis
Given history of vasculitis, will need to consider inflammatory process
Continue home dose of steroids; if he develops hypotension or symptoms worrisome for adrenal insufficiency, may require stress dose steroids
PT/OT, weakness noted
OOB/ambulation as tolerated
Pulmonary service will continue to follow along
Diagnostic Data
CXR 09/08/24- Stable position of the left apical chest tube. No appreciable pneumothorax. Similar small left pleural fluid with adjacent atelectasis and/or pneumonia.
CT Chest 09/09/24- The thyroid gland is unremarkable. No axillary, mediastinal, or hilar lymphadenopathy. The heart is enlarged. No pericardial effusion. Severe coronary artery calcifications. Mild calcifications of the aortic valve and thoracic
aorta. Dense mitral annular calcifications. Mild bilateral gynecomastia.
Increased attenuation in the lumen of the distal esophagus, probably a small amount of residual enteric contrast material.
LUNGS: Left chest tube in place with the tip extending superiorly into the right lung apex. Small left hydropneumothorax. Complex consolidation in the left lung with volume loss. Collections in the left lung with air-fluid levels measuring 2.4 cm in
the lingula and 3.2 cm in the posteromedial right lower lobe. Thick-walled cavity in the left lower lobe measuring 2.6 cm. Left peribronchial thickening and opacification of the basilar left lower lobe bronchi. Multiple tiny peribronchial nodules
again noted in the right lung suggesting bronchiolitis. Trace right pleural fluid.
UPPER ABDOMEN: Chronic calcification noted along the dome of the diaphragm. Cholelithiasis. Atrophic lobular spleen containing multiple coarse calcifications. Stable 2.4 cm rim calcified lesion in the left upper quadrant possibly reflecting fat
necrosis.
SKELETON: Mild superior endplate compression deformities again noted at T3 and L1. Spinal stimulator leads within the dorsal aspect of the lower thoracic spinal canal.
CT CAP 09/06/24- 1. No acute traumatic thoracic or intra-abdominal injury identified.
2. Left-sided hydropneumothorax. Moderate pleural fluid. As detailed above, there are multiple left pulmonary rounded and ovoid lesions with air-fluid levels which are most likely cavitary lesions with an infectious etiology. There is
atelectasis/consolidation of the majority of the left upper and lower lobes. There is a small probable pulmonary abscess in the left lower lobe.
3. Findings consistent with bronchiolitis throughout the right lung, most likely infectious bronchiolitis.
4. Mild mediastinal adenopathy likely related to the pulmonary processes.
5. Advanced coronary and aortic atherosclerosis.
6. Multiple intra-abdominal findings most likely related to previous trauma as above, unchanged from prior.
7. No acute fracture identified. Mild chronic compression deformities of T3 and L1.
8. Cholelithiasis.
9. Approximately 1 cm cystic lesion at the pancreatic head, larger as compared with prior study. As warranted, could be further evaluated with follow-up MRI.
10. Left inguinal hernia containing colon, no associated obstruction.
CT CAP 04/06/24- No acute disease of the chest, abdomen and pelvis. No evidence of metastatic disease
-----
Total time spent today was 51 minutes for this encounter. Time includes reviewing laboratory test/imaging results, reviewing pertinent medical records, obtaining and reviewing medical history, performing an appropriate exam, ordering medications,
tests and procedures. Time also includes documentation of this encounter, coordinating patient care and communicating with other healthcare professionals. Total time does not include separately billed tests performed on this date of service.
Subjective Data
-
Date of Service:
Date of Service: September 10, 2024
Chief Complaint: Pulmonary Follow Up
Subjective:
Lytic attempted yesterday, no improvement
Minimal output ongoing
He has no new complaints
Objective Data
Data Reviewed
Vital Signs / I&O / Oxygen:
Vital Signs
Temp Pulse Resp BP Pulse Ox
97.3 F 86 20 97/65 95
09/10/24 07:00 09/10/24 07:00 09/10/24 07:00 09/10/24 07:00 09/10/24 07:00
Intake and Output
09/09/24 09/10/24 09/11/24
06:59 06:59 06:59
Intake Total 720 / 720 840 / 840
Output Total 700 / 700 270 / 270
Balance 570 / 570
SaO2 95
Physical Exam
General: Respiratory Distress (negative), Comfortable, Chills (negative) and Sweats (negative)
HEENT: Normocephalic and Anicteric
Cardiovascular: S1-S2, Rub (negative) and Peripheral Edema (negative)
Respiratory: Wheeze (negative), Crackles (negative), Non-Labored Respirations, Chest Tube (Left hemithorax with no airleak seen) and Other (Greatly diminished breath sounds in the left hemithorax with inspiratory squeaks)
GI: Soft, Non Distended, Non Tender and Normal Bowel Sounds
Neurology: Awake, Alert, Oriented and Tremors (negative)
Skin: Warm, Dry, Cyanosis (negative) and Jaundice (negative)
Labs/Micro/Reports
Lab Data
09/10/24 04:36
09/10/24 04:36
Microbiology
09/08/24 15:37 Nose MRSA Screen - Final
No Methicillin Resistant Staphylococcus aureus isolated.
09/06/24 08:15 Blood/Venous Blood Culture - Preliminary
No Growth in 4 days- Final report to follow
09/06/24 11:24 Sputum Gram Stain - Preliminary
09/06/24 16:50 Pleural Fluid Fungal Culture - Preliminary
Culture in progress.
Positive cultures are reported as soon as detected.
Final report to follow in four to five weeks.
09/06/24 12:45 Blood/Venous Blood Culture - Preliminary
No Growth in 72 hours- Final report to follow
09/06/24 16:50 Pleural Fluid Body Fluid Culture - Final
No Growth After 72 Hours
09/06/24 16:50 Pleural Fluid Gram Stain - Final
09/06/24 16:50 Pleural Fluid Acid Fast Bacilli Smear - Preliminary
09/06/24 16:50 Pleural Fluid Acid Fast Bacilli Culture - Preliminary
[2024-09-10] MEDS: DELTASONE 20 MG PO ×2 (09:23→20:36)
[2024-09-10] MEDS: ELIQUIS 5 MG PO (09:23)
[2024-09-10] MEDS: NEURONTIN 100 MG PO ×3 (09:23→20:36)
[2024-09-10] MEDS: PACERONE 200 MG PO (09:24)
[2024-09-10] MEDS: ASPIR LOW (ENTERIC COATED) 81 MG PO (09:24)
[2024-09-10] MEDS: ATIVAN 0.5 MG PO ×2 (09:24→20:36)
[2024-09-10] MEDS: NOVOLOG FLEXPEN 9 UNITS SC ×3 (10:01→17:58)
[2024-09-10] MEDS: VANCOCIN 275 MG IV (10:07)
[2024-09-10] MEDS: TOPROL XL PO (10:14)
[2024-09-10] MEDS: ALDACTONE PO (10:14)
--- NOTE | 2024-09-10 10:21 | CM ---
Met w/ patient bedside to discuss SNF. Patient shared he does not want to go back to [facility]. Patient stated he is focused on getting strength in his legs and that he is unable to sit low because he has difficulties getting up. Patient stated he is
agreeable for CM to send referrals in [place] and about 10 miles out. CM sent multiple referrals in [facility] for review.
Plan: SNF; pending accepting facility and when patient is stable for d/c
[2024-09-10 10:35] LABS: Hemoglobin 11.5 g/dL (13.0-18.0)
[2024-09-10] MEDS: NSS 1000 IV (10:45)
[2024-09-10 11:36] LABS: Glucose - Point of Care 152 mg/dl (70-99)
--- NOTE | 2024-09-10 11:44 | CONSULT.CT ---
Documented by User: [email or web address] Aguirre 09/10/24 13:10
Consultation
-
Date/Time Consultation Requested: 09/10 1100
Date/Time Consultation Performed: 09/10 1200
Requesting Provider: Marcela MUNIZ
Performing Provider: Cha QUIÑONEZ for Layla MUNIZ
Reason for Consultation: Concern for hemothorax
Patient History
Physicians
Family Physician: Jose Monae MD
History of Present Illness
79 y/o male with HFpEF, CAD s/p PCI to LAD and proximal ramus, permanent AF on Eliquis, prothrombin gene mutation, T2DM, HLD, GERD, EtOH abuse, H/O DVT/PE s/p IVC filter, H/O bladder cancer, H/O gastritis, H/O TIA that presented to the hospital
today with the complaint of a fall and generalized weakness. ECG showed atrial fibrillation with rapid ventricular rates, HR 115/min.� Chest x-ray demonstrated left-sided hydropneumothorax with moderate volume of pleural fluid and adjacent
atelectasis/consolidation.� CT demonstrated left hydropneumothorax with moderate amount of pleural fluid and underlying cavitary lesions of infectious etiology, likely bronchiolitis as well. CT head without contrast and CT C-spine were unremarkable
for traumatic findings. �
Allergies
Allergy/AdvReac Type Severity Reaction Status Date / Time
Cephalosporins Allergy Unknown Verified 05/01/24 06:08
enoxaparin sodium Allergy GI bleed Verified 05/01/24 06:08
[From Lovenox]
Heparin Analogues Allergy GI Rectal Verified 05/01/24 06:08
[Heparin Agents] bleeding
Penicillins Allergy Hives/swell Verified 05/01/24 06:08
ing/sob/itc
h
venom-honey bee Allergy Anaphylaxis Verified 05/01/24 06:08
[bee venom (honey bee)]
Home Medications
�Medication �Instructions �Recorded �Confirmed �Type
atorvastatin 40 mg tablet 40 mg PO QPM High cholesterol 12/05/19 09/06/24 History
metoprolol succinate 25 mg 25 mg PO BID Heart Disease/BP 12/06/19 09/06/24 History
tablet,extended release 24 hr
duloxetine 20 mg capsule,delayed 20 mg PO QPM depression/anxiety 06/20/23 09/06/24 History
release (Cymbalta)
aspirin 81 mg tablet,delayed 81 mg PO DAILY Blood Clot 05/01/24 09/06/24 History
release Prevention/Tx
cyanocobalamin (vitamin B-12) 500 500 mcg PO DAILY Supplement 05/01/24 09/06/24 History
mcg tablet
insulin glargine 100 unit/mL (3 17 unit SC HS Diabetes 05/01/24 09/06/24 History
mL) subcutaneous pen (Lantus
Solostar U-100 Insulin)
lorazepam 0.5 mg tablet 0.5 mg PO BID Mental Health/Anxiety 05/01/24 09/06/24 History
prednisone 20 mg tablet 20 mg PO BID inflammation 05/01/24 09/06/24 History
spironolactone 25 mg tablet 25 mg PO DAILY Blood Pressure 05/01/24 09/06/24 History
acetaminophen 325 mg tablet 650 mg PO Q6HPRN PRN headaches 09/06/24 09/06/24 History
(Tylenol)
amiodarone 200 mg tablet 200 mg PO DAILY Arrhythmia 09/06/24 09/06/24 History
apixaban 5 mg tablet (Eliquis) 5 mg PO BID Blood Clot 09/06/24 09/06/24 History
Prevention/Tx
dextromethorphan-guaifenesin 10 10 ml PO TIDPRN PRN cough 09/06/24 09/06/24 History
mg-100 mg/5 mL oral liquid (Tussin
DM)
gabapentin 100 mg capsule 100 mg PO TID Pain 09/06/24 09/06/24 History
insulin aspart U-100 100 unit/mL 6 unit SC AC Diabetes 09/06/24 09/06/24 History
(3 mL) subcutaneous pen
Physical Exam
Vital Signs
Temp 98.2 F 09/10/24 11:00
Temp route: Oral 09/10/24 11:00
Pulse 90 09/10/24 11:00
Rhythm: Atrial fibrillation 09/10/24 11:15
Resp Rate 20 09/10/24 11:00
Blood pressure 110/64 09/10/24 11:00
Blood pressure extremity used: Left upper arm 09/10/24 11:00
Position: Sitting 09/10/24 11:00
MAP (cuff-Jared Monitor) 74 09/06/24 18:00
SaO2 95 09/10/24 11:00
Oxygen Mode of Delivery Room air 09/10/24 11:41
Pulse Ox at Rest 96 09/09/24 15:49
Can the patient verbally communicate their pain? Yes 09/10/24 11:15
Pain scale rating: Asleep 09/09/24 23:43
Actual Weight 71.809 kg 09/10/24 06:00
Body Mass Index (BMI) 24.1 09/10/24 06:00
Supine- Blood Pressure 111/62 09/09/24 15:49
Supine- Pulse 74 09/09/24 15:49
Sitting- Pulse 78 09/07/24 10:19
Oxygen Saturation with Activity 97 09/07/24 10:21
Labs
09/10/24 10:14
09/10/24 04:36
Hemoglobin A1c 12.3 % (4.0-5.6) H 09/09/24 08:08
Urinalysis
Urine Color Yellow 09/06/24 08:21
Urine Clarity Clear (Clear) 09/06/24 08:21
Urine pH 5.0 (5.0-9.0) 09/06/24 08:21
Ur Specific [place] 1.015 (<1.030) 09/06/24 08:21
Urine Ketones Negative (Negative) 09/06/24 08:21
Ur Occult Blood Reflex Negative (Negative) 09/06/24 08:21
Urine Bilirubin Negative (Negative) 09/06/24 08:21
Leukocyte Esterase Rfl Negative (Negative) 09/06/24 08:21
Urine RBC 0-2 /HPF (0-2) 09/06/24 08:21
Urine WBC (Reflex) 0-2 /HPF (0-5) 09/06/24 08:21
Ur Squamous Epith Cells 11-15 /LPF (Few) 09/06/24 08:21
Amorphous Crystals Seen 09/06/24 08:21
Urine Glucose Negative (Negative) 09/06/24 08:21
Urine Albumin (Reflex) 2+ (Neg - Trace) A 09/06/24 08:21

Documented by User: America Lundberg PA-C 09/10/24 15:04
Consultation
-
Requesting Provider: Aleida Arellano MD
Performing Provider: America Lundberg PA-C for Gerard Rich MD
Reason for Consultation: left hydropneumothorax with abscesses
Patient History
History of Present Illness
79 y/o male with HFpEF, CAD s/p PCI to LAD and proximal ramus, permanent AF on Eliquis, prothrombin gene mutation, T2DM, HLD, GERD, EtOH abuse, H/O DVT/PE s/p IVC filter, H/O bladder cancer, H/O gastritis, H/O TIA that presented to the ED 09/07/23
c/o fall and generalized weakness. He has had multiple falls in the past few months, following TIA in March, requiring hospitalization and rehabilitation until May 2024.
He reports fever and chills prior to admission. In ED, temp 100.7, with WBC 12.3. ECG showed atrial fibrillation with rapid ventricular rates, HR 115/min.� Chest x-ray demonstrated left-sided hydropneumothorax with moderate volume of pleural fluid
and adjacent atelectasis/consolidation.� CT demonstrated left hydropneumothorax with moderate amount of pleural fluid and underlying cavitary lesions of infectious etiology, likely bronchiolitis as well. CT head without contrast and CT C-spine were
unremarkable for traumatic findings.
Left chest tube placed by IR on 09/06. Pleural fluid studies concerning for empyema. Pt on IV Zosyn, blood cultures negative so far. ID following.
Chest tube output 20-25/shift, no air leak.
Past Medical History
T2DM, on insulin
HTN
HLD
GERD, gastritis
HFpEF
Chronic atrial fibrillation on Eliquis
CAD s/p PCI to LAD and proximal ramus
History of ischemic cardiomyopathy, improved
On prednisone since March 2024, for possible temporal arteritis
DVT/PE with hypercoagulable disorder s/p IVC filter
Prior TIA x 2, last March 2024
Distant history of CVA 10 years ago
History of ETOH abuse, denies use since last spring
History of bladder cancer
Family History
Mother: at Age and Cause of (leukemia)
Social History
Alcohol: Former (last used spring 2023)
Drug: None
Tobacco: Non-Smoker
Employment: Retired
Review of Systems
-
General: Reports Fever, Fatigue and Chills
Neurological: Reports CVA, TIA, Weakness and Other (frequent falls)
Physical Exam
Exam
HEENT: Normocephalic
Respiratory: Clear; Negative Wheezes or Rhonchi
Cardiac: Irregular Rhythm
GI: Soft and Non Tender
Neuro: Awake, Alert and Oriented
Assessment / Plan
-
79 y/o M with complex medical history including Atrial Fibrillation, TIA, CVA with generalized weakness and multiple recent falls presents to ED s/p fall. Admits to fever, chills, fatigue and weakness. Found to have left hydropneumothorax with
suspicion for infectious process. Left chest tube placed, with pleural fluid concerning for empyema, minimal drainage now. Repeat CT scan today concerning for left upper and lower lobe pneumonia.
- Recommend removal of left chest tube
- Continue IV antibiotics oer ID
- Follow up blood cultures
- No indication for acute thoracic surgical intervention
Discussed with Dr. Rich.
[2024-09-10] MEDS: NOVOLOG FLEXPEN-MODERATE RESISTANCE 1 UNITS SC (14:19)
--- NOTE | 2024-09-10 14:34 | W.PN.ID1 ---
Date of Service
Date of Service: September 10, 2024
Today's Communication
Continue Zosyn. Discontinue further vancomycin.
Assessment / Plan
Pulmonary abscess (LLL)
Pneumonia
- suspect aspiration related
Leukocytosis; improved
Pleural effusion
- CT in place
CAD; Hx GA
GERD
A-fib
CHF
Prothrombin gene mutation/hypercoagulable
DVT
DM
Anxiety
HTN
Recommendations:
Sputum culture pending.
MRSA screen negative; discontinue further vancomycin.
Continue with empiric Zosyn (day #5)
Monitor white count and temperature curve.
����������������������������������������������������������
Chief Complaint
-: Pneumonia
Subjective / Review of Systems
Review of Systems: No Fever, No Chills and No Chest Pain
Vital Signs / Physical Exam
Vital Signs
Vital Signs
Temp Pulse Resp BP Pulse Ox
98.2 F 90 20 110/64 95
09/10/24 11:00 09/10/24 11:00 09/10/24 11:00 09/10/24 11:00 09/10/24 11:00
Physical Exam
Constitutional: No Acute Distress, Comfortable, Chronically Ill and Non-toxic
Eyes: No Conjunctival Hemorrhage and Sclera Anicteric
Cardiovascular: S1/S2; Negative S3/S4
Pulmonary: Coarse, Non Labored and Other (Left CT in place; minimal drainage at present.)
Gastrointestinal: Soft and Non Tender
Neurological: Awake and Alert
Psychological: Calm
Objective Data
Lab Data
Lab Results
09/10/24 10:14
09/10/24 04:36
Estimated Creat Clear 54 ml/min 09/10/24 04:36
Lactic Acid 2.5 mmol/L (0.7-2.0) H 09/06/24 08:15
Total Bilirubin 0.4 mg/dl (0.2-1.3) 09/08/24 05:36
AST 30 U/L (17-59) 09/08/24 05:36
ALT 36 U/L (0-50) 09/08/24 05:36
Alkaline Phosphatase 272 U/L (38-126) H 09/08/24 05:36
Most recent labs reviewed.
Micro Results:
09/06/24 12:45 Blood Culture - Preliminary
Blood/Venous No Growth in 4 days- Final report to follow
09/06/24 11:24 Respiratory Culture - Preliminary
Sputum Gram Stain - Preliminary
09/08/24 15:37 MRSA Screen - Final
Nose No Methicillin Resistant Staphylococcus aureus isolated.
09/06/24 08:15 Blood Culture - Preliminary
Blood/Venous No Growth in 4 days- Final report to follow
09/06/24 16:50 Fungal Culture - Preliminary
Pleural Fluid Culture in progress.
Positive cultures are reported as soon as detected.
Final report to follow in four to five weeks.
09/06/24 16:50 Body Fluid Culture - Final
Pleural Fluid No Growth After 72 Hours
Gram Stain - Final
09/06/24 16:50 Acid Fast Bacilli Smear - Preliminary
Pleural Fluid Acid Fast Bacilli Culture - Preliminary
09/06/24 08:09 Influenza Types A & B (NATE) - Final
Nasal Swab Negative for Influenza A & B, NAAT
Negative results must be combined with clinical observations
and patient history.
Nucleic Acid Amplification test (NAAT)performed on the
[employer] platform.
Imaging:
09/08/24 CXR (portable): Stable position of the left apical chest tube. No appreciable pneumothorax.
09/06/2024 CT chest/abdomen/pelvis: No acute traumatic thoracic or intra-abdominal injury noted. Left-sided hydropneumothorax noted. Moderate pleural fluid. Multiple left pulmonary rounded and COVID lesions with air-fluid levels which are likely
cavitary lesions. There is atelectasis/consolidation of the majority of the left upper and lower lobes. Small probable pulmonary abscess in the left lower lobe noted.
[2024-09-10 17:45] LABS: Glucose - Point of Care 139 mg/dl (70-99)
[2024-09-10] MEDS: CYMBALTA DELAYED RELEASE 20 MG PO (17:58)
[2024-09-10] MEDS: LIPITOR 40 MG PO (17:58)
[2024-09-10] MEDS: TOPROL XL 25 MG PO (20:36)
[2024-09-10 22:28] LABS: Glucose - Point of Care 201 mg/dl (70-99)
[2024-09-10] MEDS: LANTUS 0.25 UNITS SC (22:51)
[2024-09-11] VITALS (7 sets, daily range): BP systolic 128–151; BP diastolic 66–106; BMI 24.9
[2024-09-11] MEDS: ZOSYN 50 IV ×4 (02:42→20:29)
[2024-09-11 08:33] LABS: Glucose - Point of Care 135 mg/dl (70-99)
[2024-09-11 08:33] LABS: Absolute Neutrophils -Man Diff 8.5 10^3/uL (1.4-6.5); Anisocytosis 1+; Band Neutrophils 0 % (0-3); Hemoglobin 8.8 g/dL (13.0-18.0); Hypochromasia Slight; Lymphocytes 4 % (20-51); Mean Corp Hgb Conc. 32.6 g/dL (33.0-37.0); Mean Corpuscular Hgb 31.2 pg (27.0-31.0); Mean Corpuscular Volume 95.7 fL (80.0-94.0); Mean Platelet Volume 11.1 fL (7.4-10.4); Monocytes 4 % (2-9); Normal RBC Morphology No; Platelet Count 259 10^3/uL (130-400); Platelets Checked Yes; Red Blood Cell Count 2.82 10^6/uL (4.70-6.10); Red Cell Dist. Width 14.3 % (11.5-14.5); Segmented Neutrophils 92 % (42-75); Target Cells Slight; Total Cells Counted 100; White Blood Cell Count 9.3 10^3/uL (4.8-10.8)
[2024-09-11 08:47] LABS: ALT (SGPT) 40 U/L (0-50); AST (SGOT) 42 U/L (17-59); Albumin 1.8 g/dl (3.5-5.0); Alkaline Phosphatase 210 U/L (38-126); Blood Urea Nitrogen 39 mg/dl (9-20); Calcium 8.5 mg/dl (8.4-10.2); Carbon Dioxide 19 mmol/L (22-30); Chloride 107 mmol/L (98-107); Estimated Creatinine Clearance 49 ml/min; Glucose 144 mg/dl (70-99); Potassium 4.2 mmol/L (3.5-5.1); Sodium 135 mmol/L (135-145); Total Bilirubin 0.4 mg/dl (0.2-1.3); Total Protein 4.7 g/dl (6.3-8.2); eGFR > 60.00
--- NOTE | 2024-09-11 09:04 | W.PN.PUL3 ---
Addendum entered and electronically signed by Aleida Arellano DO 09/11/24 13:42:
Discussed with IR, chest tube to be discontinued today 09/11
Original Note:
Today's Communication / Plan
-
Discussion with IR in-terms of lytic re-trial vs discontinuation of chest tube
Minimal output again noted
Aggressive rehab once chest tube is removed to evaluate level of symptoms
CTS following along
Assessment
-
79-year-old male with complex medical history including atrial fibrillation, coronary disease with history of stents, history of multiple TIAs, multiple DVTs with IVC filter, hypercoagulable disorder on chronic Eliquis therapy, with recent
deterioration since March 2024 when he had multiple TIAs. He had been in rehabilitation until May when he was discharged home. Since then he has been slowly deteriorating over the last couple months, worsening weakness, fall x 2 in the last
10 days, now with shaking chills over the last 5 days. Imaging suggest left hydropneumothorax with suspicion for infectious process. We are asked to help from a pulmonary standpoint.
Left hydropneumothorax likely due to empyema with left-sided pneumonia and suspected lung abscess s/p chest tube by IR 09/06/24
Consolidation, loculated pockets of fluid, air-fluid levels
New compared to CT chest 04/06/2024
Bilateral pleural effusions per CT head and neck 05/01/24
Shaking chills, leukocytosis
Lip ulcerations
Recent steroid course for 2 months March 2024
For possible temporal arteritis
Conditions present prior to admission
History of heart failure
Elevated wedge pressure per catheterization March 2024
Hypertension/hyperlipidemia
Atrial fibrillation on Eliquis therapy
Amiodarone therapy
History of coronary disease, stent 2019
History of ischemic cardiomyopathy, resolved
Recurrent DVT/PE
IVC filter, chronic anticoagulation
Prothrombin gene mutation
History of multiple TIAs
Temporal artery biopsy - March 2024
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
History of alcohol use, discontinued 2023
Pancreatic mass, 1.8 cm, followed as outpatient/stable
History of bladder cancer although patient denied
Weight loss, deconditioned
Plan/recommendations
Patient with extremely complex medical history--extensive pleural-parenchymal disease in the left side with hydropneumothorax, what appears to be pleural thickening, air-fluid levels and loculated pleural fluid, shaking chills, leukocytosis, recent
course of 1 to 2 months of steroids for possible temporal arteritis per biopsy.
This is new since 03/2024, prior imaging negative
Constellation of symptoms are concerning for infectious process in the setting of background vasculitis
Patient also has multiple falls although findings on CT imaging on the left side suggest chronic process, at least since April 2025
Given prolonged hospital stay, prolonged rehabilitation stay, patient at risk for nosocomial process
He underwent left-sided small bore 14 [place] Thal-Quick chest tube by IR on 09/06/2024
Pleural fluid studies showed glucose 52, LDH 1085, pH 7.44, fluid WBC 3643. Although pH is 7.44, glucose being 52 and LDH >1000 is concerning for an empyema
Continue with empiric antibiotics - currently on Zosyn/vancomycin
ID following
Repeat CT chest showing persistent findings, possible air fluid levels
No airleak on chest tube, hence doubt that this is a BP fistula, instead the air-fluid pockets are likely due to necrotizing pneumonia
Follow-up pleural fluid cultures; no cytopathology sent
Output past 24 hours: 25mL, 35mL, 75mL (minimal)
Completed lytic trial 09/09--no improvement or change
Tube repositioned 09/10--60mL output
Discussed with IR, consideration for another trial given reposition vs discontinuation of chest tube
Minimal OP ongoing
CTS surgery consult placed, discussed case with care team
Reluctant for OR case given risk and comorbidities which I reviewed wtih patient
Would need to re-eval post chest tube removal -- he was reluctant to go home without surgical intervention despite risks
Continue with maintenance treatment for atrial fibrillation
On PO amiodarone
Eliquis therapy continues, follow hemoglobin
Given history of vasculitis, will need to consider inflammatory process
Continue home dose of steroids; if he develops hypotension or symptoms worrisome for adrenal insufficiency, may require stress dose steroids
PT/OT, weakness noted
OOB/ambulation as tolerated
Pulmonary service will continue to follow along
Diagnostic Data
CXR 09/08/24- Stable position of the left apical chest tube. No appreciable pneumothorax. Similar small left pleural fluid with adjacent atelectasis and/or pneumonia.
CT Chest 09/09/24- The thyroid gland is unremarkable. No axillary, mediastinal, or hilar lymphadenopathy. The heart is enlarged. No pericardial effusion. Severe coronary artery calcifications. Mild calcifications of the aortic valve and thoracic
aorta. Dense mitral annular calcifications. Mild bilateral gynecomastia.
Increased attenuation in the lumen of the distal esophagus, probably a small amount of residual enteric contrast material.
LUNGS: Left chest tube in place with the tip extending superiorly into the right lung apex. Small left hydropneumothorax. Complex consolidation in the left lung with volume loss. Collections in the left lung with air-fluid levels measuring 2.4 cm in
the lingula and 3.2 cm in the posteromedial right lower lobe. Thick-walled cavity in the left lower lobe measuring 2.6 cm. Left peribronchial thickening and opacification of the basilar left lower lobe bronchi. Multiple tiny peribronchial nodules
again noted in the right lung suggesting bronchiolitis. Trace right pleural fluid.
UPPER ABDOMEN: Chronic calcification noted along the dome of the diaphragm. Cholelithiasis. Atrophic lobular spleen containing multiple coarse calcifications. Stable 2.4 cm rim calcified lesion in the left upper quadrant possibly reflecting fat
necrosis.
SKELETON: Mild superior endplate compression deformities again noted at T3 and L1. Spinal stimulator leads within the dorsal aspect of the lower thoracic spinal canal.
CT CAP 09/06/24- 1. No acute traumatic thoracic or intra-abdominal injury identified.
2. Left-sided hydropneumothorax. Moderate pleural fluid. As detailed above, there are multiple left pulmonary rounded and ovoid lesions with air-fluid levels which are most likely cavitary lesions with an infectious etiology. There is
atelectasis/consolidation of the majority of the left upper and lower lobes. There is a small probable pulmonary abscess in the left lower lobe.
3. Findings consistent with bronchiolitis throughout the right lung, most likely infectious bronchiolitis.
4. Mild mediastinal adenopathy likely related to the pulmonary processes.
5. Advanced coronary and aortic atherosclerosis.
6. Multiple intra-abdominal findings most likely related to previous trauma as above, unchanged from prior.
7. No acute fracture identified. Mild chronic compression deformities of T3 and L1.
8. Cholelithiasis.
9. Approximately 1 cm cystic lesion at the pancreatic head, larger as compared with prior study. As warranted, could be further evaluated with follow-up MRI.
10. Left inguinal hernia containing colon, no associated obstruction.
CT CAP 04/06/24- No acute disease of the chest, abdomen and pelvis. No evidence of metastatic disease
-----
Total time spent today was 51 minutes for this encounter. Time includes reviewing laboratory test/imaging results, reviewing pertinent medical records, obtaining and reviewing medical history, performing an appropriate exam, ordering medications,
tests and procedures. Time also includes documentation of this encounter, coordinating patient care and communicating with other healthcare professionals. Total time does not include separately billed tests performed on this date of service.
Subjective Data
-
Date of Service:
Date of Service: September 11, 2024
Chief Complaint: Pulmonary Follow Up
Subjective:
No new complaints, he feels he has ongoing SOLANO but has not gotten OOB yet
Only 60mL output obtained from chest tube repositioning
Objective Data
Data Reviewed
Vital Signs / I&O / Oxygen:
Vital Signs
Temp Pulse Resp BP Pulse Ox
97.3 F 76 18 151/106 98
09/11/24 02:57 09/11/24 02:57 09/11/24 02:57 09/11/24 02:57 09/11/24 02:57
Intake and Output
09/10/24 09/11/24 09/12/24
06:59 06:59 06:59
Intake Total 840 / 840 480 / 480
Output Total 270 / 270 560 / 560
Balance 570 / 570 -80 / -80
SaO2 98
Physical Exam
General: Respiratory Distress (negative), Comfortable, Chills (negative) and Sweats (negative)
HEENT: Normocephalic and Anicteric
Cardiovascular: S1-S2, Rub (negative) and Peripheral Edema (negative)
Respiratory: Clear (R), Wheeze (negative), Crackles (L side), Non-Labored Respirations and Chest Tube (Left hemithorax with no airleak seen)
GI: Soft, Non Distended, Non Tender and Normal Bowel Sounds
Neurology: Awake, Alert, Oriented and Tremors (negative)
Skin: Warm, Dry, Cyanosis (negative) and Jaundice (negative)
Labs/Micro/Reports
Lab Data
09/11/24 07:47
09/11/24 07:47
Microbiology
09/06/24 11:24 Sputum Respiratory Culture - Final
Usual Respiratory Tari
09/06/24 11:24 Sputum Gram Stain - Final
09/06/24 08:15 Blood/Venous Blood Culture - Final
No Growth - Final Report
09/06/24 12:45 Blood/Venous Blood Culture - Preliminary
No Growth in 4 days- Final report to follow
09/08/24 15:37 Nose MRSA Screen - Final
No Methicillin Resistant Staphylococcus aureus isolated.
09/06/24 16:50 Pleural Fluid Fungal Culture - Preliminary
Culture in progress.
Positive cultures are reported as soon as detected.
Final report to follow in four to five weeks.
09/06/24 16:50 Pleural Fluid Body Fluid Culture - Final
No Growth After 72 Hours
09/06/24 16:50 Pleural Fluid Gram Stain - Final
09/06/24 16:50 Pleural Fluid Acid Fast Bacilli Smear - Preliminary
09/06/24 16:50 Pleural Fluid Acid Fast Bacilli Culture - Preliminary
[2024-09-11] MEDS: PACERONE 200 MG PO (09:37)
[2024-09-11] MEDS: DELTASONE 20 MG PO ×2 (09:37→20:29)
[2024-09-11] MEDS: ATIVAN 0.5 MG PO ×2 (09:47→20:29)
[2024-09-11] MEDS: NEURONTIN 100 MG PO ×3 (09:47→21:52)
[2024-09-11] MEDS: TOPROL XL 25 MG PO ×2 (09:48→20:29)
[2024-09-11] MEDS: ALDACTONE 25 MG PO (09:48)
[2024-09-11] MEDS: NOVOLOG FLEXPEN 9 UNITS SC ×3 (09:50→17:29)
[2024-09-11] MEDS: NOVOLOG FLEXPEN-MODERATE RESISTANCE SC (09:50)
[2024-09-11 11:53] LABS: Glucose - Point of Care 328 mg/dl (70-99)
[2024-09-11] MEDS: NOVOLOG FLEXPEN-MODERATE RESISTANCE 7 UNITS SC (12:30)
[2024-09-11] MEDS: NSS 1000 IV (12:32)
--- NOTE | 2024-09-11 14:55 | PN.IRAD.UPD ---
Update Note - IRAD
- -
Left chest tube removed. New clean, dry dressing placed over site. Patient tolerated procedure well.
--- NOTE | 2024-09-11 14:57 | W.PN.HOSP.TC ---
Documented by User: Cecily Cote MD, Resident 09/11/24 18:55
Assessment / Plan
Assessment / Plan
# Sepsis secondary to CAP with cavitary lung lesions
# Left hydropneumothorax
# Exudative left pleural effusion
# Acute left hemothorax
- Presented with fever, leukocytosis, tachycardia; x-ray with signs of left hydropneumothorax; lactate 2.5
- Likely infectious process with chronic steroid use causing immunosuppression; fungal/bacterial > malignant, though cannot rule out
- CT C/A/P with IV contrast showed left hydropneumothorax with likely infectious cavitary lesions, bronchiolitis
- Has not had any hypoxemia; SpO2 stable in the high 90s on room air current with nonlabored breathing
- Status post chest tube placed 09/06/24, fluid studies consistent with exudative; home Eliquis held
- Pulmonary input appreciated regarding management of the chest tube --> s/p trial of lytics
- Repeat CT 09/10/24 --> new large 11.2 cm crescent shaped complex fluid collection, possibly hemothorax, in the medial left pleural space
- Case discussed with Dr. Arellano, cardiothoracic surgery following -- plan for chest tube removal today
- Blood cultures no growth
- No cytopathology sent
- Fluid culture no growth, fungal culture pending and AFB smear negative
- ID following, discontinued vancomycin, continue Zosyn for broad-spectrum coverage
# Leukocytosis
- Unclear etiology, infectious vs inflammatory
- ID following, discontinued vancomycin, continue Zosyn for broad-spectrum coverage
- Downtrending
# Weakness w/ mechanical fall at home
- Likely secondary to infection
# Diabetes mellitus type 2
- Home regimen includes Lantus 17 units nightly, aspart 6 units with meals
- HbA1c 12.3
- Continue Lantus 25 units nightly and aspart 9 units with meals, continue ISS with Accu-Cheks
- Blood glucose goal 140-180
# Hyponatremia
- Likely secondary to low effective intravascular volume
- Not symptomatic
- Trending up, 134 today
- Continue to monitor
# Pancreatic cystic lesion
- Incidental finding on CT, 1 cm cystic lesion at the pancreatic head
- Should have outpatient MRI for reassessment
# Macrocytic anemia
- Hemoglobin 11.5 today with MCV slightly elevated
- Iron studies consistent with chronic disease; with macrocytosis may have early MDS
- Trend CBC, consider holding home Eliquis if hemoglobin continues to downtrend
# Permanent AF with RVR
- Continue Eliquis 5 mg twice daily, amiodarone 200 mg daily, metoprolol succinate 25 mg twice daily
- Currently rate controlled
- Continue to monitor on telemetry
- Eliquis now on hold
# HFpEF
- Last echocardiogram with preserved LVEF; RHC in 2023 with elevated filling pressures
- Currently on GDMT with spironolactone, metoprolol XL
- Appears dry, status post IV fluid 500 cc NSS this a.m.
# Hx of Vasculitis with left ocular involvement
- Temporal arteritis vs granulomatosis with polyangiitis vs microscopic polyangiitis
- Chronic steroid use
- Continue home regimen prednisone for now
- On chart review, plan for taper of steroids from prednisone 50 mg a day by 10 mg every week down to 20 mg until seen by Rheumatology as outpatient
- Will discuss with his adobe cq developer about steroids while in the hospital
# CAD s/p PCI
# Dyslipidemia
- Continue Toprol-XL, aspirin, statin -> Aspirin now on hold
- Last echocardiogram with preserved LVEF, no WMA mentioned
# Prothrombin gene mutation
# H/O DVT/PE
- Status post IVC filter
- Continue Eliquis 5 mg twice daily -> Eliquis now on hold
# GERD
- Not currently on any antacid regimen
- Will monitor for symptoms
# H/O bladder cancer
- No known recurrence
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
# Spinal stimulator
- Unclear if MRI compatible
DVT prophylaxis: Home Eliquis on hold, SCDs
Diet: Regular with thin liquids, cleared by speech
CODE STATUS: Full code
Called to update her today and yesterday, did not answer call.
Anticipated Discharge: 24 - 48 hours
Subjective/Interval History
-
Date of Service: September 11, 2024
Objective Data
-
Labs:
Laboratory Results
09/11/24
07:47
WBC 9.3
Hgb 8.8 L D
Hct 27.0 L
Plt Count 259
Sodium 135
Potassium 4.2
Chloride 107
Carbon Dioxide 19 L
BUN 39 H
Creatinine 1.2
Glucose 144 H
Calcium 8.5
Total Bilirubin 0.4
AST 42
ALT 40
Alkaline Phosphatase 210 H
Vital Signs:
Vital Signs
Temp Pulse Resp BP Pulse Ox
97.4 F 75 19 147/68 99
09/11/24 11:00 09/11/24 11:00 09/11/24 11:00 09/11/24 11:00 09/11/24 11:00
I&O
09/10/24 09/11/24 09/12/24
06:59 06:59 06:59
Intake Total 840 / 840 480 / 480
Output Total 270 / 270 560 / 560
Balance 570 / 570 -80 / -80
Review of Systems
-
History Source: Patient
Constitutional: Reports No Symptoms
EENT: Reports No Symptoms Reported
Respiratory: Reports Trouble Breathing
Cardiac: Reports No Symptoms
Abdomen/GI: Reports No Symptoms
Breast: Reports No Symptoms
Genitourinary: Reports No Symptoms
Musculoskeletal: Reports No Symptoms
Skin: Reports No Symptoms
Neuro: Reports No Symptoms
Endocrine: Reports No Symptoms
Hematologic / Lymphatic: Reports No Symptoms
Allergy / Immunology: Reports No Symptoms
Physical Exam
-
General: Well Developed, Well Nourished, No Apparent Distress and Comfortable
HEENT: Normocephalic
Respiratory: Decreased Breath Sounds (Left lung) and Chest Tubes
Cardiac: Regular Rhythm and S1/S2
GI: Soft, Nontender, Nondistended and Normal Bowel Sounds
Genito-urinary: No Costovertebral Tender
Musculoskeletal: No Clubbing, No Cyanosis and No Edema
Skin: Warm
Neuro: Awake, Alert, Oriented and AO x 3
Psych: Calm

Documented by User: James Ortiz MD 09/12/24 15:06
Today's Communication/Plan
-
Attending attestation
Read, reviewed, and agree. See same day progress note for additional details. Time spent reviewing records in EMR, med rec, consults, notes, d/w consultants, nursing, family, and CM
Continue antibiotics plan to remove chest tube today per pulmonary/IR recommendation
--- NOTE | 2024-09-11 15:12 | PTOTSP ---
Videofluoroscopic swallow study
Functional oral stage of swallowing, WFL-mild pharyngeal stage of swallowing. No aspiration.
Recommend:
1. Regular, Thin Liquids
2. Medications - 1 at a time with single sips and/or whole in puree
3. Strategies: upright to 90 degrees, small single sips/bites, slow rate, alternate solids/liquids to assist with esophageal clearance, remain upright for 30 minutes after PO intake
4. If with GI s/s consider consult to assess esophageal stage
No further dysphagia therapy warranted at this time. Please reconsult as appropriate.
--- NOTE | 2024-09-11 15:41 | PN.CDI ---
CDI
- -
CDI:
Physician Documentation Request
Admit Date: 09/06/24 14:21
Dear Doctor,
Please review the following and provide your response in the progress notes.
Clinical Indicators:
Pt admitted with Sepsis secondary to CAP with cavitary lung lesions, Left hydropneumothorax and Exudative left pleural effusion
09/06 RN documented on wound assessment, in clinical panels, stage 2 bilateral buttocks pressure injury POA
Physician documentation of the type and location of wounds is required for compliant documentation. Based on the above clinical findings and your assessment, please provide the following in your progress note:
1. Location of the ulcer/wound, including laterality.
2. Type (etiology) of ulcer/wound:
Bilateral buttocks pressure injury POA
Bilateral buttocks non-pressure injury POA
Other
Use of terms such as suspected, likely, concern for, or probable (associated with a specific diagnosis that is being evaluated, monitored, or treated as if it exists) are acceptable and can be coded in the inpatient setting, when documented at the
time of discharge.
Thank you,
Natalie Herzog RN, BSN
CDI Specialist
[employer]
Please use your independent medical judgment in providing your response.
*Source: National Pressure Ulcer Advisory Panel (NPUAP)
[2024-09-11 16:31] LABS: Glucose - Point of Care 190 mg/dl (70-99)
[2024-09-11] MEDS: NOVOLOG FLEXPEN-MODERATE RESISTANCE 1 UNITS SC (17:29)
[2024-09-11] MEDS: CYMBALTA DELAYED RELEASE 20 MG PO (17:32)
[2024-09-11] MEDS: LIPITOR 40 MG PO (17:32)
[2024-09-11 21:45] LABS: Glucose - Point of Care 205 mg/dl (70-99)
[2024-09-11] MEDS: LANTUS 0.25 UNITS SC (21:52)
--- NOTE | 2024-09-11 23:30 | PTCARENOTE ---
Warm blankets applied.
[2024-09-12] VITALS (8 sets, daily range): BP systolic 150–169; BP diastolic 65–86; PULSE 60–64; O2SAT 96–97; BMI 25.1
[2024-09-12] MEDS: ZOSYN 50 IV ×4 (01:07→20:11)
--- NOTE | 2024-09-12 04:30 | DOWNTIME ---
There was a isocket Client Planning Supervisor Downtime on 09/12/2024 from 0200 to 09/13/2023 at 0318 . Downtime documentation of patient's care, including medication administrations, has been reconciled in the electronic record per guidelines. Refer to the
patient's paper chart under the miscellaneous tab to see printed paper medication records and downtime forms.
[2024-09-12 04:47] LABS: Urine Albumin 2+ (Neg - Trace); Urine Bilirubin Negative (Negative); Urine Character Slightly Cloudy (Clear); Urine Color Yellow; Urine Glucose Negative (Negative); Urine Ketone Negative (Negative); Urine Leukocyte Negative (Negative); Urine Nitrite Negative (Negative); Urine Occult Blood 4+ (Negative); Urine Urobilinogen Negative (Neg - 1+)
[2024-09-12 06:25] LABS: Urine Squamous Cell 0-2 /LPF (Few); Urine Uric Acid Crystals Seen
[2024-09-12 06:28] LABS: Urine Bacteria Moderate (Negative); Urine Red Blood Cell 30-40 /HPF (0-2)
[2024-09-12 07:32] LABS: Glucose - Point of Care 175 mg/dl (70-99)
--- NOTE | 2024-09-12 07:58 | W.PN.HOSP.TC ---
Addendum entered and electronically signed by Cecily Cote MD, Resident 09/12/24 18:08:
# Stage 2 bilateral buttocks pressure injury POA
Addendum entered and electronically signed by James Ortiz MD 09/12/24 16:11:
NAD
Scleral Anicteric
MMM
No JVD
Diminished breath
RRR, S1/S2
Soft, NT, ND, BS+
Warm, Dry
Sepsis secondary to Cavitary lung lesion complicated by left hydropneumothorax/empyema requiring tPA unfortunately further complicated by a left hemothorax
- Chest tube removed on 09/11/2024
- Pulmonary following
- Currently on IV antibiotics
-- Plan for total of 6 weeks, consult vascular team for PICC line placement
Diabetes
A1c 12.3 Accu-Chek sliding scale goal blood glucose 140-180 carb controlled diet
Hyponatremic, euvolemic/hypervolemic on exam
Fluid restrict
If not improving will obtain urine analysis with urine electrolytes/creatinine/protein
Weakness with mechanical fall at home
PT recommending SNF
Begin discharge planning
Original Note:
Today's Communication/Plan
-
Dispo planning
Appreciate ID input for transition to oral antibiotics at discharge
Assessment / Plan
Assessment / Plan
# Sepsis secondary to CAP with cavitary lung lesions
# Left hydropneumothorax
# Exudative left pleural effusion
# Acute left hemothorax
- Presented with fever, leukocytosis, tachycardia; x-ray with signs of left hydropneumothorax; lactate 2.5
- Likely infectious process with chronic steroid use causing immunosuppression; fungal/bacterial > malignant, though cannot rule out
- CT C/A/P with IV contrast showed left hydropneumothorax with likely infectious cavitary lesions, bronchiolitis
- Has not had any hypoxemia; SpO2 stable in the high 90s on room air current with nonlabored breathing
- Status post chest tube placed 09/06/24, fluid studies consistent with exudative; home Eliquis held
- Pulmonary input appreciated regarding management of the chest tube --> s/p trial of lytics
- Repeat CT 09/10/24 --> new large 11.2 cm crescent shaped complex fluid collection, possibly hemothorax, in the medial left pleural space
- Pulmonology and cardiothoracic surgery following -- s/p chest tube removal
- Blood cultures no growth
- No cytopathology sent
- Fluid culture no growth, fungal culture pending and AFB smear negative
- ID following, discontinued vancomycin, continue Zosyn for broad-spectrum coverage --> will appreciate ID input for transition to oral antibiotics at discharge
# Leukocytosis
- Unclear etiology, infectious vs inflammatory
- ID following, discontinued vancomycin, continue Zosyn for broad-spectrum coverage --> will appreciate ID input for transition to oral antibiotics at discharge
- Now resolved
# Weakness w/ mechanical fall at home
- Likely secondary to infection
# Diabetes mellitus type 2
- Home regimen includes Lantus 17 units nightly, aspart 6 units with meals
- HbA1c 12.3
- Continue Lantus 25 units nightly and aspart 9 units with meals, continue ISS with Accu-Cheks
- Blood glucose goal 140-180
# Hyponatremia
- Likely secondary to low effective intravascular volume
- Not symptomatic
- Trending up, 134 today
- Continue to monitor
# Pancreatic cystic lesion
- Incidental finding on CT, 1 cm cystic lesion at the pancreatic head
- Should have outpatient MRI for reassessment
# Macrocytic anemia
- Hemoglobin 8.8 today with MCV slightly elevated, stable from yesterday
- Iron studies consistent with chronic disease; with macrocytosis may have early MDS
- Trend CBC, consider holding home Eliquis if hemoglobin continues to downtrend --> Eliquis on hold
# Permanent AF with RVR
- Continue Eliquis 5 mg twice daily, amiodarone 200 mg daily, metoprolol succinate 25 mg twice daily
- Currently rate controlled
- Continue to monitor on telemetry
- Eliquis now on hold
# HFpEF
- Last echocardiogram with preserved LVEF; RHC in 2023 with elevated filling pressures
- Currently on GDMT with spironolactone, metoprolol XL
- Appears dry, status post IV fluid 500 cc NSS this a.m.
# Hx of Vasculitis with left ocular involvement
- Temporal arteritis vs granulomatosis with polyangiitis vs microscopic polyangiitis
- Chronic steroid use
- Continue home regimen prednisone for now
- On chart review, plan for taper of steroids from prednisone 50 mg a day by 10 mg every week down to 20 mg until seen by Rheumatology as outpatient
- Will discuss with his keno attendant about steroids while in the hospital
# CAD s/p PCI
# Dyslipidemia
- Continue Toprol-XL, aspirin, statin -> Aspirin now on hold
- Last echocardiogram with preserved LVEF, no WMA mentioned
# Prothrombin gene mutation
# H/O DVT/PE
- Status post IVC filter
- Continue Eliquis 5 mg twice daily -> Eliquis now on hold
# GERD
- Not currently on any antacid regimen
- Will monitor for symptoms
# H/O bladder cancer
- No known recurrence
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
# Spinal stimulator
- Unclear if MRI compatible
DVT prophylaxis: Home Eliquis on hold, SCDs
Diet: Regular with thin liquids, cleared by speech
CODE STATUS: Full code
Dispo planning.
Anticipated Discharge: Within 24 hours
Subjective/Interval History
-
Date of Service: September 12, 2024
Objective Data
-
Labs:
Laboratory Results
09/12/24
06:42
WBC Pending
Hgb Pending
Hct Pending
Plt Count Pending
Sodium Pending
Potassium Pending
Chloride Pending
Carbon Dioxide Pending
BUN Pending
Creatinine Pending
Glucose Pending
Calcium Pending
Vital Signs:
Vital Signs
Temp Pulse Resp BP Pulse Ox
97.1 F 70 18 154/86 98
09/12/24 03:33 09/12/24 03:33 09/12/24 03:33 09/12/24 03:33 09/12/24 03:33
I&O
09/11/24 09/12/24 09/13/24
06:59 06:59 06:59
Intake Total 480 / 480 640 / 640
Output Total 560 / 560 200 / 200
Balance -80 / -80 440 / 440
[2024-09-12] MEDS: PACERONE 200 MG PO (08:08)
[2024-09-12] MEDS: NEURONTIN 100 MG PO ×3 (08:08→21:52)
[2024-09-12] MEDS: DELTASONE 20 MG PO ×2 (08:09→20:11)
[2024-09-12] MEDS: NOVOLOG FLEXPEN 9 UNITS SC ×3 (08:09→17:31)
[2024-09-12] MEDS: ALDACTONE 25 MG PO (08:09)
[2024-09-12] MEDS: TOPROL XL 25 MG PO ×2 (08:09→20:11)
[2024-09-12] MEDS: NOVOLOG FLEXPEN-MODERATE RESISTANCE 1 UNITS SC (08:10)
[2024-09-12] MEDS: ATIVAN 0.5 MG PO ×2 (08:11→20:12)
[2024-09-12 09:06] LABS: Hematocrit 27.2 % (39.0-52.0); Hemoglobin 8.8 g/dL (13.0-18.0); Mean Corp Hgb Conc. 32.4 g/dL (33.0-37.0); Mean Corpuscular Hgb 31.9 pg (27.0-31.0); Mean Corpuscular Volume 98.6 fL (80.0-94.0); Platelet Count 305 10^3/uL (130-400); Red Blood Cell Count 2.76 10^6/uL (4.70-6.10); Red Cell Dist. Width 14.6 % (11.5-14.5); White Blood Cell Count 10.3 10^3/uL (4.8-10.8)
--- NOTE | 2024-09-12 09:08 | W.PN.PUL3 ---
Today's Communication / Plan
-
Chest tube removed 09/11, no new complaints, ongoing SOLANO
PT/OT following, we discussed more aggressive PT/rehab to evaluate symptomatology
Not a good surgical candidate and high risk--would need good performance status preoperatively
IV abx likely for 6 weeks, ID following
Reassess imaging pending rehab
Can evaluate for d/c pending assessments and arrange FUs with pulm and CTS
Assessment
-
79-year-old male with complex medical history including atrial fibrillation, coronary disease with history of stents, history of multiple TIAs, multiple DVTs with IVC filter, hypercoagulable disorder on chronic Eliquis therapy, with recent
deterioration since March 2024 when he had multiple TIAs. He had been in rehabilitation until May when he was discharged home. Since then he has been slowly deteriorating over the last couple months, worsening weakness, fall x 2 in the last
10 days, now with shaking chills over the last 5 days. Imaging suggest left hydropneumothorax with suspicion for infectious process. We are asked to help from a pulmonary standpoint.
Left hydropneumothorax likely due to empyema with left-sided pneumonia and suspected lung abscess s/p chest tube by IR 09/06/24
Consolidation, loculated pockets of fluid, air-fluid levels
New compared to CT chest 04/06/2024
Bilateral pleural effusions per CT head and neck 05/01/24
Shaking chills, leukocytosis
Lip ulcerations
Recent steroid course for 2 months March 2024
For possible temporal arteritis
Conditions present prior to admission
History of heart failure
Elevated wedge pressure per catheterization March 2024
Hypertension/hyperlipidemia
Atrial fibrillation on Eliquis therapy
Amiodarone therapy
History of coronary disease, stent 2019
History of ischemic cardiomyopathy, resolved
Recurrent DVT/PE
IVC filter, chronic anticoagulation
Prothrombin gene mutation
History of multiple TIAs
Temporal artery biopsy - March 2024
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
History of alcohol use, discontinued 2023
Pancreatic mass, 1.8 cm, followed as outpatient/stable
History of bladder cancer although patient denied
Weight loss, deconditioned
Plan/recommendations
Patient with extremely complex medical history--extensive pleural-parenchymal disease in the left side with hydropneumothorax, what appears to be pleural thickening, air-fluid levels and loculated pleural fluid, shaking chills, leukocytosis, recent
course of 1 to 2 months of steroids for possible temporal arteritis per biopsy.
This is new since 03/2024, prior imaging negative
Constellation of symptoms are concerning for infectious process in the setting of background vasculitis
Patient also has multiple falls although findings on CT imaging on the left side suggest chronic process, at least since April 2025
Given prolonged hospital stay, prolonged rehabilitation stay, patient at risk for nosocomial process
He underwent left-sided small bore 14 [employer] Thal-Quick chest tube by IR on 09/06/2024
Pleural fluid studies showed glucose 52, LDH 1085, pH 7.44, fluid WBC 3643. Although pH is 7.44, glucose being 52 and LDH >1000 is concerning for an empyema
Continue with empiric antibiotics - currently on Zosyn/vancomycin
ID following
Repeat CT chest showing persistent findings, possible air fluid levels
No airleak on chest tube, hence doubt that this is a BP fistula, instead the air-fluid pockets are likely due to necrotizing pneumonia
Follow-up pleural fluid cultures; no cytopathology sent
Output past 24 hours: 25mL, 35mL, 75mL (minimal)
Completed lytic trial 09/09--no improvement or change
Tube repositioned 09/10--60mL output
Chest tube discontinued 09/11/24
CTS surgery consult placed, discussed case with care team
Reluctant for OR case given risk and comorbidities which I reviewed [facility] patient
Would need to re-eval post chest tube removal -- he was reluctant to go home without surgical intervention despite risks
Continue with maintenance treatment for atrial fibrillation
On PO amiodarone
Eliquis therapy continues, follow hemoglobin
Given history of vasculitis, will need to consider inflammatory process
Continue home dose of steroids; if he develops hypotension or symptoms worrisome for adrenal insufficiency, may require stress dose steroids
PT/OT, weakness noted
We discussed further PT progress
OOB/ambulation as tolerated
Diagnostic Data
CXR 09/08/24- Stable position of the left apical chest tube. No appreciable pneumothorax. Similar small left pleural fluid with adjacent atelectasis and/or pneumonia.
CT Chest 09/09/24- The thyroid gland is unremarkable. No axillary, mediastinal, or hilar lymphadenopathy. The heart is enlarged. No pericardial effusion. Severe coronary artery calcifications. Mild calcifications of the aortic valve and thoracic
aorta. Dense mitral annular calcifications. Mild bilateral gynecomastia.
Increased attenuation in the lumen of the distal esophagus, probably a small amount of residual enteric contrast material.
LUNGS: Left chest tube in place with the tip extending superiorly into the right lung apex. Small left hydropneumothorax. Complex consolidation in the left lung with volume loss. Collections in the left lung with air-fluid levels measuring 2.4 cm in
the lingula and 3.2 cm in the posteromedial right lower lobe. Thick-walled cavity in the left lower lobe measuring 2.6 cm. Left peribronchial thickening and opacification of the basilar left lower lobe bronchi. Multiple tiny peribronchial nodules
again noted in the right lung suggesting bronchiolitis. Trace right pleural fluid.
UPPER ABDOMEN: Chronic calcification noted along the dome of the diaphragm. Cholelithiasis. Atrophic lobular spleen containing multiple coarse calcifications. Stable 2.4 cm rim calcified lesion in the left upper quadrant possibly reflecting fat
necrosis.
SKELETON: Mild superior endplate compression deformities again noted at T3 and L1. Spinal stimulator leads within the dorsal aspect of the lower thoracic spinal canal.
CT CAP 09/06/24- 1. No acute traumatic thoracic or intra-abdominal injury identified.
2. Left-sided hydropneumothorax. Moderate pleural fluid. As detailed above, there are multiple left pulmonary rounded and ovoid lesions with air-fluid levels which are most likely cavitary lesions with an infectious etiology. There is
atelectasis/consolidation of the majority of the left upper and lower lobes. There is a small probable pulmonary abscess in the left lower lobe.
3. Findings consistent with bronchiolitis throughout the right lung, most likely infectious bronchiolitis.
4. Mild mediastinal adenopathy likely related to the pulmonary processes.
5. Advanced coronary and aortic atherosclerosis.
6. Multiple intra-abdominal findings most likely related to previous trauma as above, unchanged from prior.
7. No acute fracture identified. Mild chronic compression deformities of T3 and L1.
8. Cholelithiasis.
9. Approximately 1 cm cystic lesion at the pancreatic head, larger as compared with prior study. As warranted, could be further evaluated with follow-up MRI.
10. Left inguinal hernia containing colon, no associated obstruction.
CT CAP 04/06/24- No acute disease of the chest, abdomen and pelvis. No evidence of metastatic disease
-----
Total time spent today was 41 minutes for this encounter. Time includes reviewing laboratory test/imaging results, reviewing pertinent medical records, obtaining and reviewing medical history, performing an appropriate exam, ordering medications,
tests and procedures. Time also includes documentation of this encounter, coordinating patient care and communicating with other healthcare professionals. Total time does not include separately billed tests performed on this date of service.
Subjective Data
-
Date of Service:
Date of Service: September 12, 2024
Chief Complaint: Pulmonary Follow Up
Subjective:
No new complaints, still has SOLANO
Stable otherwise on RA
Objective Data
Data Reviewed
Vital Signs / I&O / Oxygen:
Vital Signs
Temp Pulse Resp BP Pulse Ox
97.5 F 65 16 162/78 99
09/12/24 07:00 09/12/24 08:09 09/12/24 07:00 09/12/24 08:09 09/12/24 07:00
Intake and Output
09/11/24 09/12/24 09/13/24
06:59 06:59 06:59
Intake Total 480 / 480 640 / 640
Output Total 560 / 560 200 / 200
Balance -80 / -80 440 / 440
SaO2 99
Physical Exam
General: Respiratory Distress (negative), Comfortable, Chills (negative) and Sweats (negative)
HEENT: Normocephalic and Anicteric
Cardiovascular: S1-S2, Regular Rhythm, Rub (negative) and Peripheral Edema (negative)
Respiratory: Clear (R), Wheeze (negative), Crackles (L side) and Non-Labored Respirations
GI: Soft, Non Distended, Non Tender and Normal Bowel Sounds
Neurology: Awake, Alert, Oriented and Tremors (negative)
Skin: Warm, Dry, Cyanosis (negative) and Jaundice (negative)
Labs/Micro/Reports
Lab Data
09/12/24 06:42
Microbiology
09/06/24 12:45 Blood/Venous Blood Culture - Final
No Growth - Final Report
09/06/24 11:24 Sputum Respiratory Culture - Final
Usual Respiratory Tari
09/06/24 11:24 Sputum Gram Stain - Final
09/06/24 08:15 Blood/Venous Blood Culture - Final
No Growth - Final Report
09/08/24 15:37 Nose MRSA Screen - Final
No Methicillin Resistant Staphylococcus aureus isolated.
09/06/24 16:50 Pleural Fluid Fungal Culture - Preliminary
Culture in progress.
Positive cultures are reported as soon as detected.
Final report to follow in four to five weeks.
09/06/24 16:50 Pleural Fluid Body Fluid Culture - Final
No Growth After 72 Hours
09/06/24 16:50 Pleural Fluid Gram Stain - Final
[2024-09-12 09:59] LABS: Absolute Neutrophils -Man Diff 9.2 10^3/uL (1.4-6.5); Anisocytosis 1+; Band Neutrophils 0 % (0-3); Hypochromasia Slight; Lymphocytes 7 % (20-51); Monocytes 3 % (2-9); Normal RBC Morphology No; Ovalocytes Slight; Platelets Checked Yes; Segmented Neutrophils 90 % (42-75); Target Cells Slight; Total Cells Counted 100
[2024-09-12 10:07] LABS: Blood Urea Nitrogen 45 mg/dl (9-20); Calcium 8.5 mg/dl (8.4-10.2); Carbon Dioxide 22 mmol/L (22-30); Chloride 103 mmol/L (98-107); Estimated Creatinine Clearance 45 ml/min; Glucose 161 mg/dl (70-99); Potassium 4.8 mmol/L (3.5-5.1); Sodium 134 mmol/L (135-145); eGFR 56.23
--- NOTE | 2024-09-12 10:41 | WOUNDNOTE ---
[facility] RN note: Patient admitted with sepsis
See H&P for complete history.
PMH: DM 2 (A1c 12.3), CAD,anemia, afib, pancreatic cyst, Afib, Cardiopathy DVT, ETOH, anxiety, depression
Wound Location and type/assessment: Patient admitted with stage 2 deep dermal PI to bilateral buttocks. Patient also admitted with stage 2 to bilateral heels and full thickness wounds to right medial ankle and left lateral ankle that are scabbed
and dry. Patient is a poor historian and it is unclear how these ankle wound occurred. See worklist for description and measurements of wounds. Patient states he is unable to stand and move due to leg weakness. He needed assistance to turn.
Appetite: Good
Pressure redistribution devices in place: Static Air Overlay applied to bed during assessment, fiber filled boots ordered, turning schedule added to care plan.
Plan: Will recommend Honey Gel to buttock wounds. Betadine applied to scabbed areas on ankles. Local wound care applied to bilateral heels. Recommended Podiatry consult to Dr. Lion. RN Saray given update.Will confirm orders with hospitalist
and update nurse.
Updated care plan and will follow as needed.
Note to case management of equipment requested for discharge:
Recommend follow up at wound care center upon discharge.
[2024-09-12 12:12] LABS: Glucose - Point of Care 205 mg/dl (70-99)
--- NOTE | 2024-09-12 12:27 | W.CS.POD ---
Consult Summary - Podiatry
-
Pt seen bedside for heel decubitus ulcers b/l. He relates they started a few weeks ago. He has diabetic neuropathy and no pain in the feet or legs.
pedal pulses nonpalpable, consider dopplers
no debridement of ulcers on heels needed, superficial ulcers with no signs of infection
cont current wound care, no treatment for eschar, allow to slough off
no further need to follow in hospital
recommend he follow up with wound care center and in our office since he does not see a credit support specialist
--- NOTE | 2024-09-12 12:46 | WOUNDNOTE ---
LEFT LATERAL FOOT
--- NOTE | 2024-09-12 12:47 | WOUNDNOTE ---
RIGHT MEDIAL FOOT
--- NOTE | 2024-09-12 12:47 | WOUNDNOTE ---
RIGHT HEEL 1945 [id number]
--- NOTE | 2024-09-12 12:48 | WOUNDNOTE ---
LEFT HEEL 1945, [id number]
--- NOTE | 2024-09-12 13:04 | WOUNDNOTE ---
BILATERAL BUTTOCK WOUNDS POA
--- NOTE | 2024-09-12 13:25 | CM ---
PT OT recommend SNF.
Chest Tube removed.
Spoke with Jeanine reviewed SNF that accepted pt. will let CM know which SNF she wants.
requests MD update . number TT to MD for update.
PLAN To SNF after located and medically ready
[2024-09-12] MEDS: NOVOLOG FLEXPEN-MODERATE RESISTANCE 3 UNITS SC (14:11)
--- NOTE | 2024-09-12 14:32 | W.PN.ID1 ---
Date of Service
Date of Service: September 12, 2024
Today's Communication
Continue antibiotics.
Assessment / Plan
Pulmonary abscess (LLL)
Pneumonia
- suspect aspiration related
Leukocytosis; improved
Pleural effusion
- CT in place
CAD; Hx MA
GERD
A-fib
CHF
Prothrombin gene mutation/hypercoagulable
DVT
DM
Anxiety
HTN
Recommendations:
Sputum culture unrevealing.
Continue with empiric Zosyn (day #7).
Patient discussed with Pulmonary. Given some pulmonary abscess and likely parapneumonic effusion, patient will require 6-week course of antibiotics.
Monitor white count and temperature curve.
����������������������������������������������������������
Chief Complaint
-: Pneumonia
Subjective / Review of Systems
Patient seen and examined. Denies complaints. Chest tube has been removed. Some cough noted.
Vital Signs / Physical Exam
Vital Signs
Vital Signs
Temp Pulse Resp BP Pulse Ox
97.4 F 58 18 162/71 99
09/12/24 11:00 09/12/24 11:00 09/12/24 11:00 09/12/24 11:00 09/12/24 11:00
Physical Exam
Constitutional: No Acute Distress, Comfortable, Chronically Ill and Non-toxic
Eyes: No Conjunctival Hemorrhage and Sclera Anicteric
Cardiovascular: S1/S2; Negative S3/S4
Pulmonary: Coarse and Non Labored
Gastrointestinal: Soft and Non Tender
Neurological: Awake and Alert
Psychological: Calm
Objective Data
Lab Data
Lab Results
09/12/24 06:42
09/12/24 06:42
Estimated Creat Clear 45 ml/min 09/12/24 06:42
Lactic Acid 2.5 mmol/L (0.7-2.0) H 09/06/24 08:15
Total Bilirubin 0.4 mg/dl (0.2-1.3) 09/11/24 07:47
AST 42 U/L (17-59) 09/11/24 07:47
ALT 40 U/L (0-50) 09/11/24 07:47
Alkaline Phosphatase 210 U/L (38-126) H 09/11/24 07:47
Most recent labs reviewed.
Micro Results:
09/06/24 12:45 Blood Culture - Final
Blood/Venous No Growth - Final Report
09/06/24 11:24 Respiratory Culture - Final
Sputum Usual Respiratory Tari
Gram Stain - Final
09/06/24 08:15 Blood Culture - Final
Blood/Venous No Growth - Final Report
09/08/24 15:37 MRSA Screen - Final
Nose No Methicillin Resistant Staphylococcus aureus isolated.
09/06/24 16:50 Fungal Culture - Preliminary
Pleural Fluid Culture in progress.
Positive cultures are reported as soon as detected.
Final report to follow in four to five weeks.
09/06/24 16:50 Body Fluid Culture - Final
Pleural Fluid No Growth After 72 Hours
Gram Stain - Final
09/06/24 16:50 Acid Fast Bacilli Smear - Preliminary
Pleural Fluid Acid Fast Bacilli Culture - Preliminary
09/06/24 08:09 Influenza Types A & B (NATE) - Final
Nasal Swab Negative for Influenza A & B, NAAT
Negative results must be combined with clinical observations
and patient history.
Nucleic Acid Amplification test (NAAT)performed on the
[employer] platform.
Imaging:
09/08/24 CXR (portable): Stable position of the left apical chest tube. No appreciable pneumothorax.
09/06/2024 CT chest/abdomen/pelvis: No acute traumatic thoracic or intra-abdominal injury noted. Left-sided hydropneumothorax noted. Moderate pleural fluid. Multiple left pulmonary rounded and COVID lesions with air-fluid levels which are likely
cavitary lesions. There is atelectasis/consolidation of the majority of the left upper and lower lobes. Small probable pulmonary abscess in the left lower lobe noted.
Care Review
Plan reviewed with: Physician (Pulmonary)
[2024-09-12 17:13] LABS: Glucose - Point of Care 307 mg/dl (70-99)
[2024-09-12] MEDS: LIPITOR 40 MG PO (17:30)
[2024-09-12] MEDS: CYMBALTA DELAYED RELEASE 20 MG PO (17:30)
[2024-09-12] MEDS: NOVOLOG FLEXPEN-MODERATE RESISTANCE 7 UNITS SC (17:31)
[2024-09-12 21:50] LABS: Glucose - Point of Care 302 mg/dl (70-99)
[2024-09-12] MEDS: LANTUS 0.25 UNITS SC (21:52)
[2024-09-13] MEDS: ZOSYN 50 IV ×3 (02:06→15:00)
[2024-09-13 03:31] VITALS: BP 156/72
[2024-09-13 06:00] VITALS: BMI 25.9
[2024-09-13 06:28] LABS: Blood Urea Nitrogen 48 mg/dl (9-20); Calcium 8.6 mg/dl (8.4-10.2); Carbon Dioxide 22 mmol/L (22-30); Chloride 105 mmol/L (98-107); Estimated Creatinine Clearance 54 ml/min; Glucose 232 mg/dl (70-99); Potassium 4.9 mmol/L (3.5-5.1); Sodium 135 mmol/L (135-145); eGFR > 60.00
[2024-09-13 06:50] LABS: Hematocrit 26.2 % (39.0-52.0); Hemoglobin 8.3 g/dL (13.0-18.0); Mean Corp Hgb Conc. 31.7 g/dL (33.0-37.0); Mean Corpuscular Hgb 31.6 pg (27.0-31.0); Mean Corpuscular Volume 99.6 fL (80.0-94.0); Mean Platelet Volume 10.8 fL (7.4-10.4); Platelet Count 327 10^3/uL (130-400); Red Blood Cell Count 2.63 10^6/uL (4.70-6.10); Red Cell Dist. Width 14.5 % (11.5-14.5); White Blood Cell Count 8.2 10^3/uL (4.8-10.8)
[2024-09-13 07:00] VITALS: BP 159/73
[2024-09-13 07:45] LABS: Glucose - Point of Care 202 mg/dl (70-99)
[2024-09-13 08:12] LABS: Absolute Neutrophils -Man Diff 6.9 10^3/uL (1.4-6.5); Anisocytosis Slight; Band Neutrophils 0 % (0-3); Hypochromasia Slight; Lymphocytes 9 % (20-51); Monocytes 4 % (2-9); Myelocytes 2 % (-); Normal RBC Morphology No; Ovalocytes Slight; Platelets Checked Yes; Segmented Neutrophils 85 % (42-75); Total Cells Counted 100
--- NOTE | 2024-09-13 09:08 | W.PN.PUL3 ---
Today's Communication / Plan
-
Stable on RA, no new complaints
Doing well post chest tube removal
Complete abx course per ID
PT/OT with plan for d/c planning to SNF
Will arrange OP FU
We will sign off at this time, please call with questions
Assessment
-
79-year-old male with complex medical history including atrial fibrillation, coronary disease with history of stents, history of multiple TIAs, multiple DVTs with IVC filter, hypercoagulable disorder on chronic Eliquis therapy, with recent
deterioration since March 2024 when he had multiple TIAs. He had been in rehabilitation until May when he was discharged home. Since then he has been slowly deteriorating over the last couple months, worsening weakness, fall x 2 in the last
10 days, now with shaking chills over the last 5 days. Imaging suggest left hydropneumothorax with suspicion for infectious process. We are asked to help from a pulmonary standpoint.
Left hydropneumothorax likely due to empyema with left-sided pneumonia and suspected lung abscess s/p chest tube by IR 09/06/24
Consolidation, loculated pockets of fluid, air-fluid levels
New compared to CT chest 04/06/2024
Bilateral pleural effusions per CT head and neck 05/01/24
Shaking chills, leukocytosis
Lip ulcerations
Recent steroid course for 2 months March 2024
For possible temporal arteritis
Conditions present prior to admission
History of heart failure
Elevated wedge pressure per catheterization March 2024
Hypertension/hyperlipidemia
Atrial fibrillation on Eliquis therapy
Amiodarone therapy
History of coronary disease, stent 2019
History of ischemic cardiomyopathy, resolved
Recurrent DVT/PE
IVC filter, chronic anticoagulation
Prothrombin gene mutation
History of multiple TIAs
Temporal artery biopsy - March 2024
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
History of alcohol use, discontinued 2023
Pancreatic mass, 1.8 cm, followed as outpatient/stable
History of bladder cancer although patient denied
Weight loss, deconditioned
Plan/recommendations
Patient with extremely complex medical history--extensive pleural-parenchymal disease in the left side with hydropneumothorax, what appears to be pleural thickening, air-fluid levels and loculated pleural fluid, shaking chills, leukocytosis, recent
course of 1 to 2 months of steroids for possible temporal arteritis per biopsy.
This is new since 03/2024, prior imaging negative
Constellation of symptoms are concerning for infectious process in the setting of background vasculitis
Patient also has multiple falls although findings on CT imaging on the left side suggest chronic process, at least since April 2025
Given prolonged hospital stay, prolonged rehabilitation stay, patient at risk for nosocomial process
He underwent left-sided small bore 14 [employer] Thal-Quick chest tube by IR on 09/06/2024
Pleural fluid studies showed glucose 52, LDH 1085, pH 7.44, fluid WBC 3643. Although pH is 7.44, glucose being 52 and LDH >1000 is concerning for an empyema
Continue with empiric antibiotics - currently on Zosyn/vancomycin
ID following
Repeat CT chest showing persistent findings, possible air fluid levels
No airleak on chest tube, hence doubt that this is a BP fistula, instead the air-fluid pockets are likely due to necrotizing pneumonia
Follow-up pleural fluid cultures; no cytopathology sent
Output past 24 hours: 25mL, 35mL, 75mL (minimal)
Completed lytic trial 09/09--no improvement or change
Tube repositioned 09/10--60mL output
Chest tube discontinued 09/11/24
CTS surgery consult placed, discussed case with care team
Reluctant for OR case given risk and comorbidities which I reviewed [facility] patient
Would need to re-eval post chest tube removal -- can be done as OP
Continue with maintenance treatment for atrial fibrillation
On PO amiodarone
Eliquis therapy continues, follow hemoglobin
Given history of vasculitis, will need to consider inflammatory process
Continue home dose of steroids; if he develops hypotension or symptoms worrisome for adrenal insufficiency, may require stress dose steroids
PT/OT, weakness noted
We discussed further PT progress
OOB/ambulation as tolerated
Likely d/c to SNF
Diagnostic Data
CXR 09/08/24- Stable position of the left apical chest tube. No appreciable pneumothorax. Similar small left pleural fluid with adjacent atelectasis and/or pneumonia.
CT Chest 09/09/24- The thyroid gland is unremarkable. No axillary, mediastinal, or hilar lymphadenopathy. The heart is enlarged. No pericardial effusion. Severe coronary artery calcifications. Mild calcifications of the aortic valve and thoracic
aorta. Dense mitral annular calcifications. Mild bilateral gynecomastia.
Increased attenuation in the lumen of the distal esophagus, probably a small amount of residual enteric contrast material.
LUNGS: Left chest tube in place with the tip extending superiorly into the right lung apex. Small left hydropneumothorax. Complex consolidation in the left lung with volume loss. Collections in the left lung with air-fluid levels measuring 2.4 cm in
the lingula and 3.2 cm in the posteromedial right lower lobe. Thick-walled cavity in the left lower lobe measuring 2.6 cm. Left peribronchial thickening and opacification of the basilar left lower lobe bronchi. Multiple tiny peribronchial nodules
again noted in the right lung suggesting bronchiolitis. Trace right pleural fluid.
UPPER ABDOMEN: Chronic calcification noted along the dome of the diaphragm. Cholelithiasis. Atrophic lobular spleen containing multiple coarse calcifications. Stable 2.4 cm rim calcified lesion in the left upper quadrant possibly reflecting fat
necrosis.
SKELETON: Mild superior endplate compression deformities again noted at T3 and L1. Spinal stimulator leads within the dorsal aspect of the lower thoracic spinal canal.
CT CAP 09/06/24- 1. No acute traumatic thoracic or intra-abdominal injury identified.
2. Left-sided hydropneumothorax. Moderate pleural fluid. As detailed above, there are multiple left pulmonary rounded and ovoid lesions with air-fluid levels which are most likely cavitary lesions with an infectious etiology. There is
atelectasis/consolidation of the majority of the left upper and lower lobes. There is a small probable pulmonary abscess in the left lower lobe.
3. Findings consistent with bronchiolitis throughout the right lung, most likely infectious bronchiolitis.
4. Mild mediastinal adenopathy likely related to the pulmonary processes.
5. Advanced coronary and aortic atherosclerosis.
6. Multiple intra-abdominal findings most likely related to previous trauma as above, unchanged from prior.
7. No acute fracture identified. Mild chronic compression deformities of T3 and L1.
8. Cholelithiasis.
9. Approximately 1 cm cystic lesion at the pancreatic head, larger as compared with prior study. As warranted, could be further evaluated with follow-up MRI.
10. Left inguinal hernia containing colon, no associated obstruction.
CT CAP 04/06/24- No acute disease of the chest, abdomen and pelvis. No evidence of metastatic disease
-----
Total time spent today was 41 minutes for this encounter. Time includes reviewing laboratory test/imaging results, reviewing pertinent medical records, obtaining and reviewing medical history, performing an appropriate exam, ordering medications,
tests and procedures. Time also includes documentation of this encounter, coordinating patient care and communicating with other healthcare professionals. Total time does not include separately billed tests performed on this date of service.
Subjective Data
-
Date of Service:
Date of Service: September 13, 2024
Chief Complaint: Pulmonary Follow Up
Subjective:
No new complaints, remains stable on RA
No events
Objective Data
Data Reviewed
Vital Signs / I&O / Oxygen:
Vital Signs
Temp Pulse Resp BP Pulse Ox
97.6 F 65 20 156/72 100
09/13/24 03:31 09/13/24 03:31 09/13/24 03:31 09/13/24 03:31 09/13/24 03:31
Intake and Output
09/12/24 09/13/24 09/14/24
06:59 06:59 06:59
Intake Total 640 / 640 1000 / 1000
Output Total 200 / 200 450 / 450
Balance 440 / 440 550 / 550
SaO2 100
Physical Exam
General: Respiratory Distress (negative), Comfortable, Chills (negative) and Sweats (negative)
HEENT: Normocephalic and Anicteric
Cardiovascular: S1-S2, Regular Rhythm, Rub (negative) and Peripheral Edema (negative)
Respiratory: Clear (R), Wheeze (negative), Crackles (L side) and Non-Labored Respirations
GI: Soft, Non Distended, Non Tender and Normal Bowel Sounds
Neurology: Awake, Alert, Oriented and Tremors (negative)
Skin: Warm, Dry, Cyanosis (negative) and Jaundice (negative)
Labs/Micro/Reports
Lab Data
09/13/24 05:56
09/13/24 05:56
Microbiology
09/06/24 12:45 Blood/Venous Blood Culture - Final
No Growth - Final Report
09/06/24 11:24 Sputum Respiratory Culture - Final
Usual Respiratory Tari
09/06/24 11:24 Sputum Gram Stain - Final
09/06/24 08:15 Blood/Venous Blood Culture - Final
No Growth - Final Report
09/08/24 15:37 Nose MRSA Screen - Final
No Methicillin Resistant Staphylococcus aureus isolated.
[2024-09-13] MEDS: ATIVAN 0.5 MG PO (09:38)
[2024-09-13] MEDS: ALDACTONE 25 MG PO (09:39)
[2024-09-13] MEDS: NEURONTIN 100 MG PO ×2 (09:40→15:52)
[2024-09-13] MEDS: PACERONE 200 MG PO (09:40)
[2024-09-13] MEDS: NOVOLOG FLEXPEN-MODERATE RESISTANCE 3 UNITS SC (09:41)
[2024-09-13] MEDS: NOVOLOG FLEXPEN 9 UNITS SC ×3 (09:41→17:49)
[2024-09-13] MEDS: DELTASONE 20 MG PO (09:41)
[2024-09-13] MEDS: TOPROL XL 25 MG PO (09:44)
[2024-09-13 11:33] LABS: Glucose - Point of Care 308 mg/dl (70-99)
[2024-09-13] MEDS: NOVOLOG FLEXPEN-MODERATE RESISTANCE 7 UNITS SC ×2 (11:52→17:51)
[2024-09-13 12:03] VITALS: BP 132/61
--- NOTE | 2024-09-13 14:11 | W.PN.HOSP.TC ---
Addendum entered and electronically signed by James Ortiz MD 09/14/24 14:58:
NAD
Scleral Anicteric
MMM
No JVD
Diminished breath
RRR, S1/S2
Soft, NT, ND, BS+
Warm, Dry
Sepsis secondary to Cavitary lung lesion complicated by left hydropneumothorax/empyema requiring tPA unfortunately further complicated by a left hemothorax
- Chest tube removed on 09/11/2024
- Pulmonary following
- Currently on IV antibiotics
-- Plan for total of 6 weeks, consult vascular team for PICC line placement
Diabetes
A1c 12.3 Accu-Chek sliding scale goal blood glucose 140-180 carb controlled diet
Hyponatremic, euvolemic/hypervolemic on exam
Fluid restrict
If not improving will obtain urine analysis with urine electrolytes/creatinine/protein
Weakness with mechanical fall at home
PT recommending SNF
Begin discharge planning
Original Note:
Today's Communication/Plan
-
Stable for discharge to SNF
Continue antibiotics for 6 weeks
Assessment / Plan
Assessment / Plan
# Sepsis secondary to CAP with cavitary lung lesions
# Left hydropneumothorax
# Exudative left pleural effusion
# Acute left hemothorax
- Presented with fever, leukocytosis, tachycardia; x-ray with signs of left hydropneumothorax; lactate 2.5
- Likely infectious process with chronic steroid use causing immunosuppression; fungal/bacterial > malignant, though cannot rule out
- CT C/A/P with IV contrast showed left hydropneumothorax with likely infectious cavitary lesions, bronchiolitis
- Has not had any hypoxemia; SpO2 stable in the high 90s on room air current with nonlabored breathing
- Status post chest tube placed 09/06/24, fluid studies consistent with exudative; home Eliquis held
- Pulmonary input appreciated regarding management of the chest tube --> s/p trial of lytics
- Repeat CT 09/10/24 --> new large 11.2 cm crescent shaped complex fluid collection, possibly hemothorax, in the medial left pleural space
- Pulmonology and cardiothoracic surgery following, recommending outpatient follow-up.
- Blood cultures no growth
- No cytopathology sent
- Fluid culture no growth, AFB smear negative
- Fungal culture pending
- ID following, continue Zosyn for 6 weeks. PICC line placed without complications. [facility] ID.
# Leukocytosis
- Unclear etiology, infectious vs inflammatory
- ID following, continue Zosyn for 6 weeks
- Now resolved
# Weakness w/ mechanical fall at home
- Likely secondary to infection
# Diabetes mellitus type 2
- Home regimen includes Lantus 17 units nightly, aspart 6 units with meals
- HbA1c 12.3
- Continue Lantus 25 units nightly and aspart 9 units with meals, continue ISS with Accu-Cheks
- Blood glucose goal 140-180
# Hyponatremia
- Likely secondary to low effective intravascular volume
- Not symptomatic
- Trending up, 134 today
- Continue to monitor
# Pancreatic cystic lesion
- Incidental finding on CT, 1 cm cystic lesion at the pancreatic head
- Should have outpatient MRI for reassessment
# Macrocytic anemia
- Hemoglobin stable, MCV slightly elevated
- Iron studies consistent with chronic disease; with macrocytosis may have early MDS
- Trend CBC, consider holding home Eliquis if hemoglobin continues to downtrend --> Eliquis on hold
# Permanent AF with RVR
- Continue Eliquis 5 mg twice daily, amiodarone 200 mg daily, metoprolol succinate 25 mg twice daily
- Currently rate controlled
- Continue to monitor on telemetry
# HFpEF
- Last echocardiogram with preserved LVEF; RHC in 2023 with elevated filling pressures
- Currently on GDMT with spironolactone, metoprolol XL
- Appears dry, status post IV fluid 500 cc NSS this a.m.
# Hx of Vasculitis with left ocular involvement
- Temporal arteritis vs granulomatosis with polyangiitis vs microscopic polyangiitis
- Chronic steroid use
- Continue home regimen prednisone for now
- On chart review, plan for taper of steroids from prednisone 50 mg a day by 10 mg every week down to 20 mg until seen by Rheumatology as outpatient
- Will discuss with his assessor about steroids while in the hospital
# CAD s/p PCI
# Dyslipidemia
- Continue Toprol-XL, aspirin, statin
- Last echocardiogram with preserved LVEF, no WMA mentioned
# Prothrombin gene mutation
# H/O DVT/PE
- Status post IVC filter
- Continue Eliquis 5 mg twice daily
# GERD
- Not currently on any antacid regimen
- Will monitor for symptoms
# H/O bladder cancer
- No known recurrence
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
# Spinal stimulator
- Unclear if MRI compatible
DVT prophylaxis: Home Eliquis
CODE STATUS: Full code
Patient is medically stable for discharge to SNF. Called and answer all her questions. Awaiting to decide on placement. CM working on disposition.
Anticipated Discharge: Today
Subjective/Interval History
-
Date of Service: September 13, 2024
Objective Data
-
Labs:
Laboratory Results
09/13/24
05:56
WBC 8.2
Hgb 8.3 L
Hct 26.2 L
Plt Count 327
Sodium 135
Potassium 4.9
Chloride 105
Carbon Dioxide 22
BUN 48 H
Creatinine 1.1
Glucose 232 H
Calcium 8.6
Vital Signs:
Vital Signs
Temp Pulse Resp BP Pulse Ox
97.6 F 61 20 132/61 97
09/13/24 03:31 09/13/24 12:03 09/13/24 12:03 09/13/24 12:03 09/13/24 12:03
I&O
09/12/24 09/13/24 09/14/24
06:59 06:59 06:59
Intake Total 640 / 640 1000 / 1000
Output Total 200 / 200 450 / 450
Balance 440 / 440 550 / 550
Review of Systems
-
History Source: Patient
Constitutional: Reports No Symptoms
EENT: Reports No Symptoms Reported
Respiratory: Reports Trouble Breathing
Cardiac: Reports No Symptoms
Abdomen/GI: Reports No Symptoms
Breast: Reports No Symptoms
Genitourinary: Reports No Symptoms
Musculoskeletal: Reports No Symptoms
Skin: Reports No Symptoms
Neuro: Reports No Symptoms
Endocrine: Reports No Symptoms
Hematologic / Lymphatic: Reports No Symptoms
Allergy / Immunology: Reports No Symptoms
Physical Exam
-
General: Well Developed, Well Nourished, No Apparent Distress and Comfortable
HEENT: Normocephalic
Respiratory: Crackles (Left lung) and Decreased Breath Sounds (Base of left lung)
Cardiac: Regular Rhythm and S1/S2
GI: Soft, Nontender, Nondistended and Normal Bowel Sounds
Musculoskeletal: No Clubbing, No Cyanosis and No Edema
Skin: Ulcers
Neuro: Awake, Alert, Oriented and AO x 3
Psych: Calm
--- NOTE | 2024-09-13 15:06 | W.PN.ID1 ---
Date of Service
Date of Service: September 13, 2024
Today's Communication
Continue antibiotics. See below�
Assessment / Plan
Pulmonary abscess (LLL)
Pneumonia
- suspect aspiration related
Leukocytosis; improved
Pleural effusion
- CT in place
CAD; Hx MD
GERD
A-fib
CHF
Prothrombin gene mutation/hypercoagulable
DVT
DM
Anxiety
HTN
Recommendations:
Sputum culture unrevealing.
Continue with empiric Zosyn (day #8).
Patient previously discussed with Pulmonary. Given some pulmonary abscess and likely parapneumonic effusion, patient will require 6-week course of antibiotics.
Antibiotic prescription for custodial facility placed on paper chart.
Monitor white count and temperature curve.
����������������������������������������������������������
Chief Complaint
-: Pneumonia
Subjective / Review of Systems
Review of Systems: No Fever and No Chills
Vital Signs / Physical Exam
Vital Signs
Vital Signs
Temp Pulse Resp BP Pulse Ox
97.6 F 61 20 132/61 97
09/13/24 03:31 09/13/24 12:03 09/13/24 12:03 09/13/24 12:03 09/13/24 12:03
Physical Exam
Constitutional: No Acute Distress, Comfortable, Chronically Ill and Non-toxic
Eyes: No Conjunctival Hemorrhage and Sclera Anicteric
Cardiovascular: S1/S2; Negative S3/S4
Pulmonary: Coarse and Non Labored
Gastrointestinal: Soft and Non Tender
Neurological: Awake and Alert
Psychological: Calm
Objective Data
Lab Data
Lab Results
09/13/24 05:56
09/13/24 05:56
Estimated Creat Clear 54 ml/min 09/13/24 05:56
Lactic Acid 2.5 mmol/L (0.7-2.0) H 09/06/24 08:15
Total Bilirubin 0.4 mg/dl (0.2-1.3) 09/11/24 07:47
AST 42 U/L (17-59) 09/11/24 07:47
ALT 40 U/L (0-50) 09/11/24 07:47
Alkaline Phosphatase 210 U/L (38-126) H 09/11/24 07:47
Most recent labs reviewed.
Micro Results:
09/06/24 12:45 Blood Culture - Final
Blood/Venous No Growth - Final Report
09/06/24 11:24 Respiratory Culture - Final
Sputum Usual Respiratory Tari
Gram Stain - Final
09/06/24 08:15 Blood Culture - Final
Blood/Venous No Growth - Final Report
09/08/24 15:37 MRSA Screen - Final
Nose No Methicillin Resistant Staphylococcus aureus isolated.
09/06/24 16:50 Fungal Culture - Preliminary
Pleural Fluid Culture in progress.
Positive cultures are reported as soon as detected.
Final report to follow in four to five weeks.
09/06/24 16:50 Body Fluid Culture - Final
Pleural Fluid No Growth After 72 Hours
Gram Stain - Final
09/06/24 16:50 Acid Fast Bacilli Smear - Preliminary
Pleural Fluid Acid Fast Bacilli Culture - Preliminary
09/06/24 08:09 Influenza Types A & B (NATE) - Final
Nasal Swab Negative for Influenza A & B, NAAT
Negative results must be combined with clinical observations
and patient history.
Nucleic Acid Amplification test (NAAT)performed on the
[employer] platform.
Imaging:
09/08/24 CXR (portable): Stable position of the left apical chest tube. No appreciable pneumothorax.
09/06/2024 CT chest/abdomen/pelvis: No acute traumatic thoracic or intra-abdominal injury noted. Left-sided hydropneumothorax noted. Moderate pleural fluid. Multiple left pulmonary rounded and COVID lesions with air-fluid levels which are likely
cavitary lesions. There is atelectasis/consolidation of the majority of the left upper and lower lobes. Small probable pulmonary abscess in the left lower lobe noted.
[2024-09-13 15:26] VITALS: BP 126/81
--- NOTE | 2024-09-13 16:24 | CM ---
Patient stable for d/c. Reviewed referrals w/ spouse, agreeable to [facility]. Per [facility] admissions, can accept patient today.
Patient will need ambulance transport, forms on chart
IMM verbally reviewed, patient given copy, copy on chart
[facility]
Report: [phone]

Plan: D/c to [facility] today
[2024-09-13 16:58] LABS: Glucose - Point of Care 324 mg/dl (70-99)
--- NOTE | 2024-09-13 17:43 | W.DCSUMMARY ---
Discharge Summary
Discharge Data
Date of Admission: 09/06/24
Date of Discharge: 09/13/24
-
Pending Results: Yes (Fungal culture)
Hospital Course
Discharging Physician : Dr. Cecily Lion, Dr. James Ortiz
Disposition : SNF
Primary care physician : Dr. Jose Monae
Principal Discharge diagnosis :
Sepsis secondary to left-sided cavitary lung lesion
Left hydropneumothorax/empyema
Exudative left pleural effusion
Mechanical fall
Diabetes
Hyponatremia
Pancreatic cystic lesion
Macrocytic anemia
Heel wounds
Stage II bilateral buttocks pressure ulcers
Chronic Discharge diagnosis :
History of vasculitis with left ocular involvement
Heart failure with preserved ejection fraction
Hypertension
Hyperlipidemia
Atrial fibrillation
History of coronary artery disease status post stent
History of ischemic cardiomyopathy
History of DVT/PE
Prothrombin gene mutation
History of TIA
Gastroesophageal reflux disease
History of bladder cancer
Hospital Course :
79-year-old male with complex medical history including atrial fibrillation, coronary disease with history of stents, history of multiple TIAs, multiple DVTs with IVC filter, hypercoagulable disorder on chronic Eliquis therapy, and recent diagnosis
of vasculitis (unclear if GCA versus granulomatosis with polyangiitis versus microscopic polyangiitis) on steroids presenting to the ED with weakness, mechanical fall at home and cough.
# Sepsis secondary to pneumonia with cavitary lung lesions, left hydropneumothorax
- Patient was septic in the ED, was started on empiric Levaquin
- Chest x-ray demonstrated left-sided hydropneumothorax with moderate volume of pleural fluid and adjacent atelectasis/consolidation
- Chest CT was obtained which showed left hydropneumothorax with moderate amount of pleural fluid and underlying cavitary lesions of infectious etiology, likely bronchiolitis as well.
- CT head and spine unremarkable for traumatic findings
- Blood cultures were sent, resulted negative
- Interventional radiology was consulted for thoracentesis and chest tube was placed
- Antibiotics were escalated to IV vancomycin and Zosyn for broad-spectrum coverage
- Pulmonology was consulted. Repeat chest CT after chest tube placement showed ongoing paretic process/air-fluid levels. IR was consulted for lytic trials. Repeat imaging showed new acute left hemothorax. Pulmonology discussed case with IR,
decision was made to try to reposition chest tube to resolve hematoma from lytics.
- Cardiothoracic surgery was consulted, stated not a good surgical candidate. Advised continuing antibiotic treatment and outpatient CT to evaluate for any improvement.
- Given minimal output from chest tube, plan for chest tube removal 09/11. Patient was doing well post chest tube removal.
- Home Eliquis and aspirin were held with acute hemothorax, resume later with chest tube removal and stable hemoglobin.
- ID was on board for antibiotic management, discontinued vancomycin given negative MRSA. Recommended continuing IV antibiotics -Zosyn- for 6 weeks. PICC line was placed.
- Patient initially had leukocytosis, resolved with antibiotic therapy.
- Pleural fluid analysis was exudative.
- PT/OT consulted [facility].
# Hyperglycemia, history of diabetes mellitus type 2
- Glucose level was 543 on 09/09. Patient was asymptomatic. No evidence of DKA.
- HbA1c 12.3
- Patient has been on chronic steroids
- Insulin home regimen was changed to Lantus 25 HS and aspart 9 SC
- Blood glucose goal 140-180
# Hyponatremia
- Initially hyponatremic, likely secondary to low effective intravascular volume
- Resolved with IV fluids
# Pancreatic cystic lesion
-Incidental finding on CT, 1 cm cystic lesion at the pancreatic head
- Recommended outpatient follow-up for MRI and reassessment
# Stage II bilateral buttocks pressure ulcers and foot wounds
- Wound care on board
- Podiatry consulted, recommended outpatient follow-up
# Anemia, chronic
- Hemoglobin stable with elevated MCV
- Iron studies consistent of chronic disease, with microcytosis may have early MDS
# HFpEF
- Last echocardiogram with preserved LVEF; RHC in 2023 with elevated filling pressures
- Currently on GDMT with spironolactone, metoprolol XL
# History of vasculitis with left ocular will involvement
- Temporal arteritis vs granulomatosis with polyangiitis vs microscopic polyangiitis
- Chronic steroid use
- No changes were made to home regimen prednisone
- Tried reaching out to patient's registered art therapist, Dr. Kaiser. However, was unsuccessful.
# CAD status post PCI
# Hyperlipidemia
# Prothrombin gene mutation
# History of DVT/PE
# GERD
# History of bladder cancer
# History of TIA
Important imaging findings :
Procedure findings :
Discharge Plan
-
Patient Disposition: Jail/SNF
Discharge Diagnosis/Procedures: Sepsis secondary to left-sided cavitary lung lesion, left hydropneumothorax/empyema, exudative left pleural effusion, chest tube, diabetes, PICC line, hyponatremia, pancreatic cystic lesion, mechanical fall,
macrocytic anemia, history of vasculitis with left ocular involvement, heel wounds, stage II bilateral buttocks pressure ulcers, history of heart failure, hypertension, hyperlipidemia, atrial fibrillation, history of coronary artery disease status
post stent, history of ischemic cardiomyopathy, history of DVT/PE, prothrombin gene mutation, history of TIA, gastroesophageal reflux disease, history of bladder cancer
Condition: Fair
Diet: Diabetic, Carb Controlled
Activity: As tolerated
Driving Restrictions: No driving
Other Services: PT and OT
Activity Restrictions/Additional Instructions:
Wound Care Instructions Bilateral Buttock Wounds- Clean with normal saline and apply Honey Gel, adaptic and cover with silicone foam. Change daily and PRN if soiled.
Left medial ankle and right lateral ankle- Apply Betadine daily.
Bilateral heels- Clean with normal saline and apply adaptic and silicone foam. Change Q 48 hours and PRN
Right Elbow- Clean with saline and apply silicone foam- Change Q 48 hours
Air Surface
Fiber filled boots
Turning schedule
t.
Referrals:
Iggy Olson MD [Active] - in one to two weeks (PFT)
Danii Knott DPM [Specified Professional Personl] -
Jose Monae MD [Family Provider] -
Neftali Mack MD [Active] - in one to two weeks
Additional Discharge Medication Instructions: You will need to continue the antibiotic for a total of 6 weeks.
You should follow-up with your lung doctor, Dr. Olson, in 1 to 2 weeks.
You should follow-up with your registered art therapist, Dr. Kaiser, in 1 to 2 weeks.
You will need to follow-up with podiatry for your foot wounds.
Prescriptions:
New
Zosyn in dextrose (iso-osm) 3.375 gram/50 mL Piggyback
3.375 g IV Q6H 36 Days Qty: 8100 0RF
Continued
atorvastatin 40 MG tablet
40 mg PO QPM
metoprolol succinate 25 MG tablet extended release 24 hr
25 mg PO BID
duloxetine [Cymbalta] 20 mg Capsule,Delayed Release(Dr/Ec)
20 mg PO QPM
aspirin 81 mg Tablet,Delayed Release (Dr/Ec)
81 mg PO DAILY
spironolactone 25 mg Tablet
25 mg PO DAILY
cyanocobalamin (vitamin B-12) 500 mcg Tablet
500 mcg PO DAILY
prednisone 20 mg tablet
20 mg PO BID
insulin glargine [Lantus Solostar U-100 Insulin] 100 unit/mL (3 mL) insulin pen
17 unit SC HS
lorazepam 0.5 mg Tablet
0.5 mg PO BID
acetaminophen [Tylenol] 325 mg Tablet
650 mg PO Q6HPRN PRN (Reason: headaches)
amiodarone 200 mg Tablet
200 mg PO DAILY
gabapentin 100 mg Capsule
100 mg PO TID
Eliquis 5 mg Tablet
5 mg PO BID
insulin aspart U-100 100 unit/mL (3 mL) insulin pen
6 unit SC AC
dextromethorphan-guaifenesin [Tussin DM] 10-100 mg/5 mL Liquid
10 ml PO TIDPRN PRN (Reason: cough)
Discharge Orders:
Discharge Patient (As Directed); Ordered 09/13/24
Ordered By: Cecily Cote
Discharge Date and Time
Print Language: INDONESIAN
[2024-09-13] MEDS: CYMBALTA DELAYED RELEASE 20 MG PO (17:51)
[2024-09-13] MEDS: LIPITOR 40 MG PO (17:51)
== END 2024-09-13 19:45 | DRG 871 ==
LOC: 4 WEST ACU 14:21
PROVIDERS: Internal Medicine; Nurse Practitioner; Radiology Diagnostic Radiology; Radiology Vascular & Interventional Radiology; ADMITTING PHYSICIAN Internal Medicine; ATTENDING PHYSICIAN Hospitalist; CONSULT PHYSICIAN Internal Medicine Critical Care Medicine; CONSULT PHYSICIAN Internal Medicine Infectious Disease; CONSULT PHYSICIAN Podiatrist; CONSULT PHYSICIAN Thoracic Surgery (Cardiothoracic Vascular Surgery); EMERGENCY PHYSICIAN Emergency Medicine; FAMILY PHYSICIAN Family Medicine
PROC: 0W9B30Z Drainage of Left Pleural Cavity with Drainage Device, Percutaneous Approach (ICD-10-PCS; 2024-09-06)
PROC: 3E0L317 Introduction of Other Thrombolytic into Pleural Cavity, Percutaneous Approach (ICD-10-PCS; 2024-09-09)
PROC: 3E0L3GC Introduction of Other Therapeutic Substance into Pleural Cavity, Percutaneous Approach (ICD-10-PCS; 2024-09-09)
PROC: 0W2BX0Z Change Drainage Device in Left Pleural Cavity, External Approach (ICD-10-PCS; 2024-09-10)
PROC: 02HV33Z Insertion of Infusion Device into Superior Vena Cava, Percutaneous Approach (ICD-10-PCS; 2024-09-12)
DX: A41.89 Other specified sepsis (principal); J18.8 Other pneumonia, unspecified organism; J86.9 Pyothorax without fistula; J69.0 Pneumonitis due to inhalation of food and vomit; I48.21 Permanent atrial fibrillation; I50.30 Unspecified diastolic (congestive) heart failure; D68.59 Other primary thrombophilia; J94.8 Other specified pleural conditions; D68.52 Prothrombin gene mutation; J98.11 Atelectasis; E87.20 Acidosis, unspecified; D84.821 Immunodeficiency due to drugs; K86.2 Cyst of pancreas; J21.9 Acute bronchiolitis, unspecified; E87.1 Hypo-osmolality and hyponatremia; D62 Acute posthemorrhagic anemia; J94.2 Hemothorax; E11.42 Type 2 diabetes mellitus with diabetic polyneuropathy; F41.9 Anxiety disorder, unspecified; K21.9 Gastro-esophageal reflux disease without esophagitis; E78.5 Hyperlipidemia, unspecified; F10.11 Alcohol abuse, in remission; I25.10 Atherosclerotic heart disease of native coronary artery without angina pectoris; D53.9 Nutritional anemia, unspecified; I25.5 Ischemic cardiomyopathy; I11.0 Hypertensive heart disease with heart failure; R29.6 Repeated falls; I70.0 Atherosclerosis of aorta; L89.619 Pressure ulcer of right heel, unspecified stage; L89.629 Pressure ulcer of left heel, unspecified stage; L89.322 Pressure ulcer of left buttock, stage 2; L89.312 Pressure ulcer of right buttock, stage 2; S20.221A Contusion of right back wall of thorax, initial encounter; W19.XXXA Unspecified fall, initial encounter; Y93.9 Activity, unspecified; Y92.009 Unspecified place in unspecified non-institutional (private) residence as the place of occurrence of the external cause; I25.2 Old myocardial infarction; Z95.5 Presence of coronary angioplasty implant and graft; Z86.718 Personal history of other venous thrombosis and embolism; Z95.828 Presence of other vascular implants and grafts; Z96.82 Presence of neurostimulator; Z86.711 Personal history of pulmonary embolism; Z79.01 Long term (current) use of anticoagulants; Z79.82 Long term (current) use of aspirin; Z79.4 Long term (current) use of insulin; Z87.891 Personal history of nicotine dependence; Z85.51 Personal history of malignant neoplasm of bladder; Z86.73 Personal history of transient ischemic attack (TIA), and cerebral infarction without residual deficits; Z86.79 Personal history of other diseases of the circulatory system; Z88.0 Allergy status to penicillin; Z88.8 Allergy status to other drugs, medicaments and biological substances; Z88.1 Allergy status to other antibiotic agents; Z91.030 Bee allergy status; Z79.52 Long term (current) use of systemic steroids; Z80.6 Family history of leukemia; Z11.52 Encounter for screening for COVID-19; Z91.81 History of falling
CPT/HCPCS: 32557; 32561; 70450; 71045; 71046; 71250; 71260; 72125; 74177; 74230; 80048; 80053; 80202; 81003; 81015; 82607; 82728; 82805; 82945; 82947; 82962; 83036; 83540; 83550; 83605; 83615; 83735; 83986; 84157; 85018; 85025; 87015; 87040; 87070; 87102; 87116; 87205; 87502; 87811; 89051; 92610; 92611; 93005; 96361; 96374; 96375; 97110; 97163; 97167; 97530; 97535; 99285; C1729; C1769; J2997; Q9967